=== PATIENT | female | born 1945 | race Caucasian/White ===

== ENCOUNTER → 2016-04-26 | Outpatient (CLI) | payer MEDICARE ==
[~2016-04-26] MED LIST: ABIL5TAB; ADDE10TA; AMPHETAMINE SALTS; CLON1TAB; CYTOMEL; LEVA500T; PROZ20CA; SYNT150T
[2016-04-26 18:12] LABS: ALBUMIN/GLOBULIN RATIO 1.38 (1.00-1.93); ALKALINE PHOSPHATASE 72 U/L (45-117); ALT/SGPT 17 U/L (12-78); ANION GAP 6 MEQ/L (8-16); AST/SGOT 10 U/L (15-37); BILIRUBIN,TOTAL 0.2 MG/DL (0.2-1.0); BLOOD UREA NITROGEN 14 MG/DL (7-18); CALCIUM LEVEL 9.6 MG/DL (8.8-10.2); CARBON DIOXIDE LEVEL 28 MEQ/L (21-32); CHLORIDE LEVEL 107 MEQ/L (98-107); FREE T4 1.46 NG/DL (0.76-1.46); GLOMERULAR FILTRATION RATE > 60.0 (>45); GLUCOSE, FASTING 80 MG/DL (80-110); POTASSIUM SERUM 4.1 MEQ/L (3.5-5.1); SODIUM LEVEL 141 MEQ/L (136-145); TOTAL PROTEIN 6.9 GM/DL (6.4-8.2)
[2016-04-26 19:24] LABS: MEAN CORPUSCULAR HEMOGLOBIN 32.6 pg (27.0-33.0); MEAN CORPUSCULAR HGB CONC 32.9 g/dl (32.0-36.5); WHITE BLOOD COUNT 5.9 K/mm3 (4.0-10.0)
[2016-04-26 20:58] LABS: EOSINOPHILS 2 % (0-5)
== END ==
LOC: M WUC 14:32
PROVIDERS: ATTEND Physician Assistant
DX: R19.7 Diarrhea, unspecified (principal)

== ENCOUNTER → 2016-04-27 | Outpatient (REF) | payer MEDICARE | LOC: M LAB REF 14:58 | PROVIDERS: ATTEND Physician Assistant | DX: R19.7 Diarrhea, unspecified (principal) ==

== ENCOUNTER 2016-05-09 14:57 | Inpatient (IN) | payer MEDICARE ==
[~2016-05-09] VITALS: Ht 175.3 cm; Wt 83.0 kg
[2016-05-09] MEDS ORDERED: D-AMPHETAMINE PO (15:15)
[2016-05-09] MEDS ORDERED: METF500T PO (15:15)
[2016-05-09] MEDS ORDERED: FLUO40CA PO (15:15)
[2016-05-09] MEDS ORDERED: OMEP40CA2 PO (15:15)
[2016-05-09] MEDS ORDERED: AMLO5TAB2 PO (15:15)
[2016-05-09] MEDS ORDERED: BUPR300T34 PO (15:15)
[2016-05-09] MEDS ORDERED: LEVO175T2 PO (15:15)
[2016-05-09] MEDS ORDERED: LATU80TA PO (15:15)
[2016-05-09] MEDS ORDERED: CLON0.2T PO (15:15)
[2016-05-09] MEDS ORDERED: DIAZ10TA2 PO (15:15)
[2016-05-09] MEDS ORDERED: LYRI150C PO (15:15)
[2016-05-09 15:55] LABS: ANION GAP 7 MEQ/L (8-16); BLOOD UREA NITROGEN 11 MG/DL (7-18); CARBON DIOXIDE LEVEL 28 MEQ/L (21-32); CHLORIDE LEVEL 107 MEQ/L (98-107); CREATININE FOR GFR 0.95 MG/DL (0.55-1.02); GLOMERULAR FILTRATION RATE > 60.0 (>45); GLUCOSE, FASTING 78 MG/DL (80-110); SODIUM LEVEL 142 MEQ/L (136-145)
[2016-05-09 18:03] LABS: BASO % 0.4 % (0.0-1.0); EOS # 0.3 K/mm3 (0.0-0.50); EOS % 2.9 % (0.0-3.0); LARGE UNSTAINED CELL # 0.1 K/mm3 (0.0-0.4); LYMPH # 2.2 K/mm3 (1.5-4.5); LYMPH % 24.4 % (24.0-44.0); MEAN CORPUSCULAR HGB CONC 33.5 g/dl (32.0-36.5); MEAN CORPUSCULAR VOLUME 98.5 fl (80.0-96.0); MONO # 0.4 K/mm3 (0.0-0.8); MONO % 4.2 % (0.0-5.0); NEUTROPHILS # 5.9 K/mm3 (1.8-7.7); NEUTROPHILS % 67.1 % (36.0-66.0); PLATELET COUNT, AUTOMATED 222 k/mm3 (150-450); RED CELL DISTRIBUTION WIDTH 12.9 % (11.5-14.5); WHITE BLOOD COUNT 8.8 K/mm3 (4.0-10.0)
--- NOTE | 2016-05-09 18:04 | REP ---
CT of the brain without IV contrast: Comparison is 09/27/2011. The there is focal hypodensity in the right temporal parietal zone as an interval change. This could represent ischemic infarct or mass. MRI follow-up is recommended. There is no hemorrhage. No shift. Ventricles and sulci are mildly dilated as previously compatible with diffuse volume loss. Previously there was evidence for sinusitis. This has resolved. Hyperostosis frontalis is again noted, unchanged. Impression: Focal hypodensity in the right temporoparietal zone, not present previously. Ischemic infarct versus mass. Recommend MRI follow-up. Signed by Sawyer Gonzalez MD 05/09/2016 05:56 P
--- NOTE | 2016-05-09 18:23 | REP ---
Chest, single AP view, patient sitting: Comparison is 02/23/2010. There are no masses. There are no infiltrates. There are no effusions. There is discoid atelectasis in the left costophrenic angle. The lung reyna are otherwise clear. Cardiac size is upper normal. The therese, mediastinum, bony thorax are unremarkable except for healed left rib fractures. Impression: Discoid atelectasis in the left costophrenic angle. Otherwise, essentially negative single AP chest. No masses are identified. Signed by Sawyer Gonzalez MD 05/09/2016 06:14 P
--- NOTE | 2016-05-09 20:20 | REPUSA ---
CLINICAL HISTORY: Possible lesion on CT. TECHNIQUE: MRI of the brain was performed utilizing multiple sequences in axial, coronal and sagittal planes without and with IV contrast material. COMMENTS: There is a 4 x 3 cm wedge-shaped area in the right parietal lobe demonstrating restricted diffusion c ompatible with acute ischemic stroke. The sella and parasellar region are unremarkable in appearance. The corpus callosum and cerebellar to nsils are of normal configuration and position. There are no intra or extra-axial collections. There is no mass effect or midline shift. There is no evidence of hematoma formation. There is no hydroceph alus. The visualized arterial structures demonstrate normal appearing flow voids. The seventh and eighth ne rve bundles are visualized and are unremarkable in appearance. Several foci of T2/FLAIR hyperintensity are noted in the bilateral periventricular and subcortical wh ite matter compatible with mild chronic white matter ischemic changes. Generalized proportionate dilatation of ventricles and sulci is present compatible with age-appropria te parenchymal atrophy. Post contrast T1 axial and coronal images showed no abnormal enhancement in the brain, meninges or si nuses. IMPRESSION: 1. Acute right parietal stroke. 2. Generalized age-appropriate parenchymal atrophy. 3. Mild chronic white matter microvascular ischemic changes. Discussed with Dr. Bran.
[2016-05-09] MEDS ORDERED: ASPIRIN 325 MG TAB PO ONE (20:30)
[2016-05-09] MEDS ORDERED: NORCO, ANEXSIA 5/325MG TABLET (HYDROcodone/ACETAMINOPHEN) PO ONE (20:45)
[2016-05-09] MEDS ORDERED: ADDE30CA PO (20:58)
[2016-05-09] MEDS ORDERED: ADDE5TAB5 PO (20:58)
[2016-05-09] MEDS ORDERED: ONDA1TAB15 PO (21:00)
[2016-05-09] MEDS ORDERED: PREGABALIN 75 MG CAP(LYRICA) PO SCH (21:00)
[2016-05-09] MEDS ORDERED: PROM125TA PO (21:00)
[2016-05-09] MEDS ORDERED: cloNIDine 0.2 MG TAB PO PRN (23:00)
[2016-05-10] MEDS: ONDANSETRON 4MG/2ML VIAL (J2405) IV SCH ×4 (00:13→18:09)
[2016-05-10] MEDS: OMEPRAZOLE 20 MG CAP PO SCH ×3 (00:14→22:00)
[2016-05-10] MEDS: amLODIPine 5 MG TAB PO SCH ×2 (00:14→21:00)
[2016-05-10] MEDS: ATORVASTATIN 20 MG TAB PO SCH ×2 (00:14→22:02)
[2016-05-10] MEDS: LURASIDONE HCL 40 MG TAB (LATUDA) PO SCH ×2 (00:14→21:59)
[2016-05-10] MEDS ORDERED: GLUCAGON FOR INJ 1 MG VIAL (J1610) SC PRN (00:15)
[2016-05-10] MEDS ORDERED: DEXTROSE 50% 50 ML SYRINGE IV PRN (00:15)
[2016-05-10] MEDS ORDERED: GLUCOSE 4 GM CHEW TABLET PO PRN (00:15)
--- NOTE | 2016-05-10 00:27 | HPEPDOC ---
General Date of Admission May 09, 2016 at 21:01 Primary Care Physician: Nayeli Atkins Attending Physician: CATY HERNANDEZ MD Chief Complaint The patient is a 70-year-old female admitted with a reason for visit of Cerebrovascular Accident. Source: Patient, Family, RN notes reviewed, Old records Exam Limitations: No limitations Timing/Duration: Day(s) (symptoms started on 05/03/2016) Associated Symptoms: Nausea, Vomiting, Weakness, Dizziness, Other (4) History of Present Illness Ms. Day is a 70-year-old female who presents to [facility]'s emergency Department with a fall. She is accompanied in the emergency department by her two sons. Past medical history is significant for depression, bipolar disorder (per patient), hypertension, diabetes mellitus, hypothyroidism, insomnia, history of nephrolithiasis (per patient), Brunson's neuroma, history of trigger finger, history of hiatal hernia, gastroesophageal reflux disease, history of fecal and urinary incontinence, colonic polyps on colonoscopy, diverticulosis colonoscopy , nonbleeding internal hemorrhoids on colonoscopy. Patient has quite a complex history. Mentions that she has bipolar and feels as if she is overmedicated. She states that she takes Adderall for depression and has been without Adderall for the past 4-5 days. Patient states that she was recently started on Lyrica 150 mg and started the medicine on 05/03/2016. She is previously been on Lyrica without the symptoms to be described. Per patient, she feels like minutes after taking the Lyrica is when her symptoms started. She describes swaying, getting wobbly, and slurring her words as if she were drunk. She also began falling and notes that she has fallen a total of 6 times. The most recent fall was last night when she states that she hit her head on the wooden floor. She denies loss of consciousness or any post-fall confusion. A week before this she fell in the garage and bumped her right knee on the cement. She does not complain of an unsteadiness on her feet, however she does describe her balance being off for approximately 4 months. She states that she needs to steady herself against the wall and it feels as if the room is spinning. She states that she is "not with it". She mentions a history of low- grade fevers, but states she is afebrile now. She describes a frontal pressure- like headache which has remained constant for which Excedrin has helped previously. She states that she used to take Imitrex secondary to migraines. She admits to attempted episodes of vomiting that have just resulted in bile- like emesis with no blood. She states that she vomits at least once a day. Denies tongue maceration or incontinence of bowel or bladder. Admits to feelings of lightheadedness with change in position from laying to sitting or sitting to standing, but does not recall a history of falls with these episodes. States that she can feel her heart palpitating especially when her blood pressure gets high. She also notices it in her neck when her blood pressure is elevated. Denies irregularly irregular heart rate or rhythm. Admits to a history of vertigo, denies any acute vision changes, including abrupt onset vision loss, blurriness, double vision. Admits to decreased hearing in her left ear. Per patient, states she does not have a history of diabetes or any episodes of high or low blood sugar. However, she does not check her sugar at home. Does describe bilateral hand numbness only at night when she is sleeping. States that she has to shake her hands to alleviate the numbness. Admits to chronic nonbloody diarrhea. Her main reason for presenting to the emergency department was a fall she sustained last evening with subsequent weakness this morning she states she was unable to get out of bed. Besides review of systems mentioned above all other review of systems are negative. Patient denies chest pain, orthopnea, paroxysmal nocturnal dyspnea, abdominal pain, hematuria, melena, hematochezia, urinary frequency, urinary urgency, edema, back pain. Hospitalist service was consult should and patient was subsequently admitted for continued medical management. Home Medications Scheduled Amlodipine Besylate (Amlodipine Besylate) 5 Mg Tab 5 MG PO QHS (Reported) Amphetamine/Dextroamphetamine (Adderall 5 mg) 1 Tab Tab 20 MG PO QPM (Reported ) TAKES AT 1500 Amphetamine/Dextroamphetamine (Adderall Xr 30 mg) 1 Cap Cap 1 CAP PO DAILY ( Reported) Bupropion HCl (Bupropion HCl Xl) 300 Mg Tab 300 MG PO DAILY (Reported) Fluoxetine Hcl (Fluoxetine HCl) 40 Mg Cap 80 MG PO DAILY (Reported) Levothyroxine Sodium (Synthroid) 175 Mcg Tab 175 MCG PO DAILY (Reported) Lurasidone Hydrochloride (Latuda) 80 Mg Tab 80 MG PO QHS (Reported) Metformin Hydrochloride (Metformin HCl) 500 Mg Tab 1,000 MG PO BID (Reported) Omeprazole (Omeprazole) 40 Mg Cap 40 MG PO BID (Reported) Pregabalin (Lyrica) 150 Mg Cap 150 MG PO TID (Reported) FAMILY CONCERNED ABOUT DOSING Scheduled PRN Clonidine Hydrochloride (Clonidine HCl) 0.2 Mg Tab 0.6 MG PO QHS PRN PRN SLEEP ( Reported) Diazepam (Diazepam) 10 Mg Tab 10 MG PO TID PRN PRN ANXIETY (Reported) Ondansetron HCl (Ondansetron HCl) 4 Mg Tab 4 MG PO Q6H PRN PRN NAUSEA (Reported ) Promethazine HCl (Promethazine HCl) 12.5 Mg Tab 12.5 MG PO Q6H PRN PRN NAUSEA ( Reported) Allergies Coded Allergies: No Known Drug Allergy (Verified Allergy, Unknown, 06/03/12) Past Medical History Medical History Obtained mostly from prior medical records: 1. Depression 2. Hypertension 3. Diabetes mellitus 4. Hypothyroidism 5. Insomnia 6. Brunson's neuroma 7. Gastroesophageal reflux disease 8. History of nephrolithiasis 9. Trigger finger 10. History of hiatal hernia 11. History of fecal and urinary incontinence 12. History of colonic polyps 13. Diverticulosis 14. History of nonbleeding internal hemorrhoids Surgical History 1. Colonoscopies 2. InterStim with InterStim removal secondary to failure 3. Trigger finger release, right 4. Brunson's neuroma, left foot 5. Hysterectomy 6. Carpal tunnel 7. Appendectomy 8. 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, 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 Denies environmental exposures Review of Symptoms Constitutional: Reports: Chills, Night Sweats, Weakness, Denies: Fever Eyes: Reports: Other (denies double vision, blurry vision, transient loss of vision), Denies: Vision change ENT: Reports: Head Aches (frontal, pressure-like), Other Symptoms (admits to decreased hearing in the left ear), Denies: Sore Throat Skin: Reports: Lesions (secondary to falls, one healing scabbed over ovoid lesion noted above right eyebrow approximately quarter of an inch in its longest diameter, 1 healing scar noted over right tibial tuberosity approximately an 8-10 inch its longest diameter), Denies: Rash Pulmonary: Denies: Cough, Dyspnea, Pleuritic Chest Pain Cardiovascular: Reports: Lt Headedness, Palpitations (only noted with elevated blood pressure), Denies: Chest Pain, Edema, Orthopnea, Paroxysmal Noc. Dyspnea Gastrointestinal: Reports: Diarrhea (nonbloody), Nausea, Vomiting (minimal amount of bile-like substance), Denies: Abdominal Pain, Constipation, Hematochezia, Melena Genitourinary: Denies: Dysuria, Frequency, Hematuria, Incontinence Hematologic: Denies: Bruising Musculoskeletal: Denies: Back Pain Neurological: Reports: Change in speech (slurring of speech), Numbness, Weakness Psych: Reports: Depression Physical Examination General Exam: Positive: Alert, Cooperative, No Acute Distress Eye Exam: Positive: Conjunctiva & lids normal, EOMI, PERRLA, Negative: Sclera icteric ENT Exam: Positive: Atraumatic, Nares Patent, Pharynx Normal, Tongue Midline ( without a maceration or fissuring) Neck Exam: Positive: Supple, Negative: JVD, thyromegaly Chest Exam: Positive: Clear to auscultation, Normal air movement Heart Exam: Positive: Normal S1, Normal S2, Other (inspiratory splitting noted) , Rate Normal, Regular Rhythm, Negative: Gallops, Murmurs, Rubs Telemetry: Positive: No significant arrhythmia, Other Telemetry: (right bundle- branch block and left axis deviation noted on EKG), Sinus Abdomen Exam: Positive: Normal bowel sounds, Other (flower tattoo noted between the right upper and lower quadrants of the abdomen), Soft, Negative: Hepatospenomegaly, Tenderness Extremity Exam: Positive: Normal pulses, Other (healed scar on left forearm from a history of cutting, per patient), Negative: Clubbing, Cyanosis, Edema, Swelling, Tenderness Skin Exam: Positive: Lesion (ovoid scab noted above right eyebrow approximately a quarter for an intention is longest diameter, healing scab noted on tibial tuberosity on the right lower extremity approximately an 8 of an inch in diameter), Nl turgor and temperature, Negative: Rash Neuro Exam: Positive: Cranial Nerves 3-12 NL, Normal Speech, Normal Tone, Other (NIH stroke scale positive for mild left lower extremity drift as well as decreased sensation in the left lower extremity), Reflexes 2+ (brachial, patellar, Achilles tendon reflexes bilaterally are intact), Strength at 5/5 X4 ext (strength assessed in upper and lower extremities bilaterally), Negative: Sensation Intact (sensation decreased to pinprick in lower extremity on the left with medial and lateral aspects of the lower leg as well as plantar surface of the foot) Psych Exam: Positive: Oriented x 3 Vital Signs T 99.7 HR 60 RR 20 BP 115/66 O2 95% on room air Height (in): 69 Weight (kg): 86.183 BMI (kg): 28.1 Laboratory Data Labs 24H Laboratory Tests 2 05/09/16 15:12: Anion Gap 7L, Blood Urea Nitrogen 11, Creatinine 0.95, Sodium Level 142, Potassium Level 4.0, Chloride Level 107, Carbon Dioxide Level 28, Calcium Level 9.0, Free Thyroxine 0.80, Glomerular Filtration Rate > 60.0, Thyroid Stimulating Hormone (TSH) 7.740H 05/09/16 17:50: White Blood Count 8.8, Red Blood Count 4.08, Hemoglobin 13.5, Hematocrit 40.2, Mean Corpuscular Volume 98.5H, Mean Corpuscular Hemoglobin 33.0, Mean Corpuscular Hemoglobin Concent 33.5, Red Cell Distribution Width 12.9, Platelet Count 222, Neutrophils (%) (Auto) 67.1H, Lymphocytes (%) (Auto) 24.4, Monocytes (%) (Auto) 4.2, Eosinophils (%) (Auto) 2.9, Basophils (%) (Auto) 0.4, Neutrophils # (Auto) 5.9, Lymphocytes # (Auto) 2.2, Monocytes # (Auto) 0.4, Eosinophils # (Auto) 0.3, Basophils # (Auto) 0.0, Large Unclassified Cells # 0.1 , Large Unclassified Cells % 1.0 CBC/BMP Laboratory Tests 05/09/16 15:12 Calcium Level 9.0 05/09/16 17:50 Red Blood Count 4.08, Mean Corpuscular Volume 98.5 H, Mean Corpuscular Hemoglobin 33.0, Mean Corpuscular Hemoglobin Concent 33.5, Red Cell Distribution Width 12.9, Neutrophils (%) (Auto) 67.1 H, Lymphocytes (%) (Auto) 24.4, Monocytes (%) (Auto) 4.2, Eosinophils (%) (Auto) 2.9, Basophils (%) (Auto ) 0.4, Neutrophils # (Auto) 5.9, Lymphocytes # (Auto) 2.2, Monocytes # (Auto) 0.4, Eosinophils # (Auto) 0.3, Basophils # (Auto) 0.0 RAD Interpretation STUDY: CXR Rad Actions: Report Reviewed (discoid atelectasis in the left costophrenic angle. Otherwise, essentially negative single AP chest. No masses are identified.), Other Rad Comments: (CT head without contrast: Focal hyperdensity in the right temporoparietal zone, not present previously. Ischemic infarct versus mass. Recommend MRI follow-up. MRI brain without followed by with: Acute right parietal stroke. Generalized age-appropriate parenchymal atrophy. Mild chronic white matter microvascular ischemic changes.) Assessment/Plan This is a 70-year-old female who initially presented with a fall and was determined on imaging to have an ischemic stroke. Problems (1) Cerebrovascular accident (CVA) Status: Acute Problem Text: Imaging: CT of the head without contrast: Focal hyperdensity in the right temporal parietal zone, not previously present. Ischemic infarct versus mass. Recommend MRI follow-up. MRI of the brain without followed by with: Acute right parietal stroke. Generalized age-appropriate parenchymal atrophy. Mild chronic white matter microvascular ischemic changes. Admit patient to the PCU Obtain vital signs and neurological checks every 4 hours Obtain echocardiogram Obtain ultrasound of the carotids Obtain MRA without contrast Order physical therapy Prescribe atorvastatin 80 mg daily Prescribed aspirin 325 mg daily (2) Nausea and vomiting Status: Acute Problem Text: Switch patient's Zofran by mouth to IV Monitor clinically Monitor I's and O's (3) Hypothyroidism Status: Chronic Problem Text: Patient's TSH was 7.740 Free T4 0.8 Maintain patient on home dose of levothyroxine of 0.175 mg daily (4) Depression Status: Chronic Problem Text: Maintain patient on her medications - Adderall - Lyrica - Fluoxetine (5) Hypertension Status: Chronic Problem Text: Patient's blood pressure is 115/66 The patient on home medications of Catapres and Norvasc (6) Alcohol abuse Status: Chronic Problem Text: Patient takes diazepam as an outpatient We'll continue patient's outpatient benzodiazepine to control possible withdrawal from alcohol Administer folic acid, multivitamin, and thiamine (7) Diabetes mellitus Status: Chronic Problem Text: Patient's blood sugar at time of presentation was 78 Appears that patient takes metformin outpatient Will manage patient with sliding scale insulin and fingersticks before meals and at bedtime Plan / VTE VTE Prophylaxis Ordered?: Yes (Lovenox 40 mg subcutaneous daily) Plan Plan Cerebrovascular accident MRI shows acute right parietal stroke. Will monitor vital signs and neurological checks every 4 hours. We'll admit patient to the progressive care unit. We'll obtain a physical therapy consult. We'll obtain an echocardiogram as well as ultrasound of carotids bilaterally. Also obtain an MRA without contrast. Will place patient on atorvastatin 80 mg daily as well as aspirin 325 mg daily. Obtain daily labs. Nausea and vomiting It appears that this patient has been taking Zofran 4 mg by mouth. Will switch patient Zofran IV while in the hospital. Monitor clinically. Hypothyroidism Patient's TSH at time of presentation was 7.740. Free T4 was 0.8. We'll prescribe patient's home dose of levothyroxine at 0.175 mg daily. Will monitor patient clinically. Alcohol abuse Unable to ascertain the exact amount of alcohol consumption, but appears to sound like patient consumes approximately 2-3 drinks (including beer and wine) daily. Patient is on diazepam outpatient. We'll continue this for prophylaxis against Wernicke encephalopathy. Will monitor patient clinically for signs of withdrawal. We'll prescribe patient folic acid, multivitamin, and thiamine while in the hospital. Depression Patient appears to be on several medicines for her depression, including Adderall, Lyrica, Wellbutrin, and fluoxetine. We'll continue these medicines inpatient. Hypertension Patient's blood pressure time of presentation was 115/66. We'll continue patient on her medications of Catapres and Norvasc. Diabetes mellitus Patient's blood sugar at time of presentation was 78. Appears as the patient takes metformin outpatient. We'll cover the patient with sliding scale insulin and fingersticks before meals and at bedtime. DVT prophylaxis: Lovenox 40 mg subcutaneous daily Diet: Consistent carbohydrate-2 g sodium Disposition Admit to PCU Anticipated hospitalization: 2 nights Attending: Dr. Melendez Diet: Continue Current (consistent carbohydrate-2 g sodium) Activity: Continue Current (bed red with commode privileges) Therapy: PT Medications: Change to IV Diagnostics: Check Labs, Repeat Labs in AM, MRI (MRI of the brain without contrast), TTE Anticipated Discharge: Home CHET VALENCIA May 10, 2016 00:22
[2016-05-10] MEDS: LEVOTHYROXINE 0.075 MG TAB (75 MCG) PO SCH (05:56)
[2016-05-10] MEDS: LEVOTHYROXINE 0.1 MG TAB (100 MCG) PO SCH (05:56)
[2016-05-10] MEDS: HumaLOG INSULIN (NovoLOG) PER UNIT SC SCH ×4 (07:30→21:00)
[2016-05-10 08:00] VITALS: BP 109/61
--- NOTE | 2016-05-10 08:22 | ECGEPIP ---
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
[2016-05-10 08:46] LABS: ANION GAP 9 MEQ/L (8-16); BLOOD UREA NITROGEN 8 MG/DL (7-18); CALCIUM LEVEL 8.4 MG/DL (8.8-10.2); CARBON DIOXIDE LEVEL 28 MEQ/L (21-32); CHLORIDE LEVEL 106 MEQ/L (98-107); CREATININE FOR GFR 0.78 MG/DL (0.55-1.02); GLOMERULAR FILTRATION RATE > 60.0 (>45); GLUCOSE, FASTING 131 MG/DL (80-110); POTASSIUM SERUM 3.5 MEQ/L (3.5-5.1); SODIUM LEVEL 143 MEQ/L (136-145)
[2016-05-10] MEDS ORDERED: ASPIRIN 325 MG TAB PO SCH (09:00)
[2016-05-10] MEDS ORDERED: ADDERALL 5 MG TAB PO SCH ×2 (09:00→21:00)
[2016-05-10] MEDS ORDERED: ENOXAPARIN 40 MG/0.4 ML SYRINGE (J1650) SC SCH (09:00)
[2016-05-10] MEDS ORDERED: NS 1,000 ML IV SCH (09:00)
[2016-05-10] MEDS ORDERED: ACETAMINOPHEN TAB 650MG DOSE (2X325MG) PO PRN (09:15)
--- NOTE | 2016-05-10 09:43 | REP ---
DUPLEX CAROTID SONOGRAPHY: HISTORY: CVA. FINDINGS: Antegrade flow was observed in both vertebral arteries. RIGHT CAROTID: The right common carotid artery shows mild diffuse intimal thickening. There is minimal soft plaquing in the proximal ICA on two-dimensional scanning. Color-flow and spectral Doppler interrogation are unremarkable on the right. VELOCITY CHART, RIGHT CAROTID: Right CCA PSV 89 cm/s Right ICA PSV 84 EDV 32 Right ECA PSV 98 Right ICA/CCA ratio normal 0.94 IMPRESSION: 0-15% category narrowing in the right ICA by Doppler velocity criteria. LEFT CAROTID: The left common carotid artery shows mild diffuse intimal thickening. There is mild mixed plaquing in the bulb and proximal ICA on the left side on two-dimensional scanning. Color-flow and spectral Doppler interrogation are normal on the left. VELOCITY CHART, LEFT CAROTID: Left CCA PSV 85 cm/s Left ICA PSV 109 EDV 29 Left ECA PSV 113 Left ICA/CCA ratio normal 1.3 IMPRESSION: 16-49% category narrowing in the left ICA by Doppler velocity criteria. Signed by Dre Frey MD 05/10/2016 06:17 P
[2016-05-10 09:50] LABS: INR 1.06
[2016-05-10] MEDS: MULTIVITAMINS/MINERALS THERAP 1 TAB PO SCH (10:59)
[2016-05-10] MEDS: FLUoxetine 20 MG CAP PO SCH (10:59)
[2016-05-10] MEDS: FOLIC ACID 1 MG TAB PO SCH (10:59)
[2016-05-10] MEDS: ASPIRIN 325 MG TAB PO SCH (11:00)
[2016-05-10] MEDS: THIAMINE 100 MG TAB PO SCH (11:00)
[2016-05-10] MEDS: buPROPion **XL** TABLET 150MG (WELLBUTRIN XL) PO SCH (11:01)
[2016-05-10] MEDS ORDERED: MECLIZINE 12.5 MG TAB PO PRN (11:45)
[2016-05-10 12:00] VITALS: BP 150/86
[2016-05-10 14:15] VITALS: BP 157/88
--- NOTE | 2016-05-10 15:07 | REP ---
MR ANGIOGRAM BRAIN WITHOUT CONTRAST: 05/10/2016. Comparison MRI brain 05/09/2016, MRA brain 03/30/2008. Clinical history: Right parietal CVA. Technique: 3-D [id number] gradient echo images with MIP reformatting and rotational display of the volume reconstructions about the longitudinal and horizontal axis of the brain. All source images are reviewed. Findings. There is a dominant left vertebral artery contribution to the basilar artery with some mild stenosis of the distal vertebral arteries near the basilar artery. The basilar artery is ectatic without aneurysm. No significant stenosis. The basilar tip was without aneurysm. Both posterior cerebral arteries form off the basilar artery. There is a posterior communicating artery contributing to the left posterior cerebral. This is unchanged in appearance. Supply to the posterior fossa is symmetric. The right internal carotid from the skull base to the carotid siphon shows no significant stenosis or aneurysm. There is some atherosclerotic plaque in the siphon. The supraclinoid, carotid, A1 and M1 segments are intact. The right AT segment and M2 segment is intact, but there is limited peripheral flow in the middle cerebral artery branches posteriorly on the right corresponding to the region of infarct. No aneurysm. The left internal carotid shows some tortuosity at the skull base to the carotid siphon without significant stenosis or aneurysm. There is atherosclerotic plaque within the carotid siphon and below the supraclinoid carotid. A1 and M1 segments were intact and the trifurcation vessels and A2 segments on the left side were intact as well. Impression: 1. A dominant left vertebral artery contribution to the basilar artery without significant stenosis or aneurysm. The left posterior cerebral artery has a dual origin from the basilar tip and a posterior communicating artery component with symmetric supply to the posterior fossa, right and left HAND FINISHER's. 2. The right middle cerebral artery shows loss of branches of the M2 and M3 segments in the right parietal lobe region, asymmetric compared to the left, which shows normal trifurcation vessels. This would correspond to the region of the acute infarct seen in the right parietal lobe on MRI yesterday. The bilateral internal carotids show some atherosclerotic plaque, but were otherwise normal in their appearance and circulation of their major branches. Signed by Poli Escobar MD 05/10/2016 06:43 P
[2016-05-10 16:09] LABS: MEAN CORPUSCULAR HEMOGLOBIN 33.3 pg (27.0-33.0); MEAN CORPUSCULAR VOLUME 97.9 fl (80.0-96.0); RED CELL DISTRIBUTION WIDTH 12.8 % (11.5-14.5); WHITE BLOOD COUNT 7.3 K/mm3 (4.0-10.0)
[2016-05-10 20:00] VITALS: BP 132/78
[2016-05-10] MEDS: diazePAM 10 MG TAB PO PRN (21:59)
--- NOTE | 2016-05-10 22:38 | ECGEPIP ---
Stationary ECG Study 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
--- NOTE | 2016-05-10 22:42 | ECHO ---
DATE OF PROCEDURE: 05/10/2016 AGE: 70 GENDER: Female HEIGHT: 69 inches WEIGHT: 189 pounds BODY SURFACE AREA: 2.0 m2 PATIENT LOCATION: Inpatient, PCU, room 3217 REFERRING PHYSICIAN: Luisa Gill MD INDICATION: CVA. Question of cardiac source of embolic material. 2-D MEASUREMENTS: RV: 4.0 cm LV: 4.4 cm Septum: 1.22 cm Posterior wall: 1.1 cm Aortic root: 3.4 cm LA: 4.3 cm LVEF: 75% DOPPLER MEASUREMENTS: AV: 1.1 m/s LVOT: 0.83 m/s LVOT diameter: 2.1 cm MV-E: 48, A: 69, EA ratio: 0.7 Early mitral deceleration time: 211 ms E prime 6.6, A prime 10, E/E prime ratio: 7.2 RVSP: 38 mmHg IVC: 2.0 cm COMMENTS: Normal sinus rhythm with right bundle branch block. Mildly dilated left atrium, but normal left ventricular size. Right heart chambers were upper limits of normal in size. LV wall thickness was upper limits of normal to borderline hypertrophied. On real-time imaging from the parasternal and apical projections wall motion was symmetrical and hyperkinetic. Mildly thickened mitral annulus, but normal leaflet thickness and excursion with no posterior systolic buckling. Three equal size aortic cusps with marginally thickened cusp edges, but adequate cusp separation. Normal aortic root size. No apparent intracardiac mass or pericardial effusion. Color flow Doppler study taken from the parasternal and apical projection showed trace mitral and very mild tricuspid insufficiency. There was no aortic insufficiency. Guided continuous wave Doppler of her aortic valve showed a normal peak systolic velocity against LV outflow tract obstruction. Pulsed and continuous wave Doppler of her LV inflow tract taken from the apical four-chamber projection showed normal diastolic filling velocities against mitral stenosis. There was more prominent late diastolic/atrial dependent filling pattern. Diastolic dysfunction was confirmed by prolonged early mitral deceleration time and tissue Doppler of her mitral annulus. However, her current estimated mean left atrial pressure using pulsed and tissue Doppler of her mitral annulus was within normal limits. Her pulmonary valve was not well visualized. Guided continuous wave Doppler of her tricuspid valve allowed our estimation of her right ventricular systolic pressure (mildly increased). Her inferior vena cava was upper limits of normal with slightly reduced respiratory collapse suggestive of central venous pressure of 7-10 mmHg. CONCLUSIONS: Unable to detect a clear intracardiac source of embolic material. Subtle degenerative changes of the mitral and aortic valvular apparatus without functionally significant valvular abnormality. No pedunculated mass. Borderline concentric left ventricle hypertrophy with hyperkinetic wall motion. Mildly dilated left atrium with Doppler evidence of impairment of LV diastolic function but currently normal estimated mean left atrial pressure. Right heart chamber sizes upper limits of normal with Doppler evidence of mild pulmonary hypertension. Normal IVC size with slightly reduction in respiratory collapse suggestive of only slightly elevated central venous pressure. If a cardiac source of embolic material is seriously suspect, we would recommend a complete blood count, sedimentation rate and two sets of blood cultures by 12 hours. We will also suggest consideration of a transesophageal echocardiogram. MTDD
[2016-05-11] VITALS (7 sets, daily range): BP systolic 129–162; BP diastolic 67–93
[2016-05-11] MEDS: ONDANSETRON 4MG/2ML VIAL (J2405) IV SCH ×5 (00:08→23:46)
[2016-05-11 05:58] LABS: MEAN CORPUSCULAR HEMOGLOBIN 32.9 pg (27.0-33.0); MEAN CORPUSCULAR HGB CONC 33.7 g/dl (32.0-36.5); MEAN CORPUSCULAR VOLUME 97.4 fl (80.0-96.0); RED CELL DISTRIBUTION WIDTH 12.6 % (11.5-14.5); WHITE BLOOD COUNT 6.6 K/mm3 (4.0-10.0)
[2016-05-11 06:08] LABS: ANION GAP 9 MEQ/L (8-16); BLOOD UREA NITROGEN 8 MG/DL (7-18); CALCIUM LEVEL 8.2 MG/DL (8.8-10.2); CARBON DIOXIDE LEVEL 27 MEQ/L (21-32); CHLORIDE LEVEL 106 MEQ/L (98-107); CREATININE FOR GFR 0.81 MG/DL (0.55-1.02); GLOMERULAR FILTRATION RATE > 60.0 (>45); GLUCOSE, FASTING 97 MG/DL (80-110); POTASSIUM SERUM 3.7 MEQ/L (3.5-5.1); SODIUM LEVEL 142 MEQ/L (136-145)
[2016-05-11] MEDS: LEVOTHYROXINE 0.1 MG TAB (100 MCG) PO SCH (06:23)
[2016-05-11] MEDS: LEVOTHYROXINE 0.075 MG TAB (75 MCG) PO SCH (06:23)
[2016-05-11] MEDS: HumaLOG INSULIN (NovoLOG) PER UNIT SC SCH ×4 (07:28→21:00)
--- NOTE | 2016-05-11 07:36 | IPN ---
DATE: 05/10/2016 Time the patient was this morning at 8:15. The patient has been seen and examined at bedside. The patient's nurse told me that the patient might have fallen off the bed last night. However, it was not witnessed. Otherwise, today is the first time I am seeing this patient. She explained to me that fell two days ago and might have hit the right side of her head. She explained to me that she has been feeling dizzy, has slurred speech, has a left leg weakness, numbness and tingling in the lower extremity, and also pain at the left foot as well. Per the patient, it started after she was started with Lyrica on 04/28/2016. According to her chart, she also had a low-grade fever and she also vomited. Otherwise, she stated that her symptoms have not changed compared to the day prior. Denies any fever or chills, any chest pain, trouble breathing, abdominal pains, nausea, vomiting, diarrhea, or constipation. Denies any blood in the urine or stool. Denies any other current new complaints. PHYSICAL EXAMINATION: VITAL SIGNS: Temperature is 97.4, pulse 62, respirations 20, blood pressure 109/61, oxygen saturation 93% on room air. GENERAL: The patient is an elderly female who is awake, alert, and oriented times three, appears to be anxious, laying comfortably in bed with head elevated at 30 degrees. HEENT: Normocephalic, atraumatic. Extraocular motor intact. Mucous moist. NEUROLOGIC: The patient's eyebrow raise is equal bilaterally. Smile is symmetrical. Gssxjf-[id number] shows poor coordination, worse on the left side. Cranial nerves II-XII intact. No focal neurological deficit. However, the patient does have a significant muscle weakness at the left lower extremity. The patient's vnyl-bm-[id number] test shows poor coordination from the left side as well. NECK: Supple. No neck lymphadenopathy. CARDIOVASCULAR: Regular rate and rhythm, normal S1, S2. A 2/6 systolic heart murmur. LUNGS: Clear to auscultation bilaterally. No wheezes, rales, or rhonchi. ABDOMEN: Positive bowel sounds, soft, nontender, nondistended. No peritoneal signs. No ecchymosis. EXTREMITIES: No clubbing, cyanosis, or edema. The patient, however, has reduced muscle strength at lower extremities as well as reduced sensation at the left lower extremity. However, left lower extremity was not tender to palpation. SKIN: Warm and dry. LABORATORY DATA: WBC 7.3, hemoglobin 14, hematocrit is 41.2 with a platelet count of 223 and MCV of 97.9. Sodium 143, potassium 3.5, chloride 106, bicarbonate 28, BUN 8, creatinine 0.78, GFR greater than 60, fasting glucose 131, calcium 8.4, CK 98, CK-MB 1, troponin less than 0.02, TSH was elevated at 7.7, free T4 is within normal range at 0.8. The patient's coagulation shows PT 13.9, INR 1.06, PTT 28.1. Accu-Chek glucose was 111. The patient had a brain MRI done last night at 2313 which is an MRA of the brain and shows a dominant left vertebral artery contribution to the basilar artery without significant stenosis or aneurysm. A left posterior cerebral artery has a dual origin from the basilar tip and a posterior communicating artery component with symmetric supply to the posterior fossa, right and left PROTOTYPER's. A right middle cerebral artery shows loss of branches of M2 and M3 segments of the right parietal lobe region, asymmetric compared to the left side, which shows normal trifurcation vessels. This should correspond with the region of acute infarct seen at the right parietal lobe on MRI yesterday. The bilateral internal carotids show some atherosclerotic plaque, but otherwise normal in appearance and circulation of major branches. The patient also had a carotid Doppler duplex. The right side has a 0% to 5% category narrowing in the right ICA and the left carotid shows a 16% to 49% category narrowing in the left ICA by Doppler velocity criteria. ASSESSMENT AND PLAN: This is a 70-year-old female with past medical history of depression, hypertension, diabetes, hypothyroidism, insomnia, Brunson's neuroma, gastroesophageal reflux disease (GERD), history of nephrolithiasis, trigger finger, hiatal hernia, frequent urinary incontinence, colonic polyps, diverticulosis, history of non-bleeding internal hemorrhoids, who presented with : 1. Neurological changes with left lower extremity weakness and numbness as well as slurred speech and dizziness, likely secondary to cerebrovascular accident (CVA). The patient's MRI of the head shows acute right parietal stroke which was confirmed with an MRA of the brain. Neurology, Dr. Vee, has been consulted. We will follow his recommendations. At this point, the patient was continued with aspirin. Continue the patient on aspiration and seizure precautions. Continue to monitor the patient. Continue to follow Dr. Vee's recommendations. 2. Nausea and vomiting. Continue IV Zofran. 3. Hypothyroidism. Continue home medication. 4. Depression. Continue Adderall and fluoxetine. Lyrica has been discontinued due to the patient believes it is causing her symptoms. 5. Hypertension. The patient's clonidine has been discontinued. Norvasc has been changed with hold parameter of hold if blood pressure is less than 150 for therapeutic hypertension. 6. Alcohol abuse. Continue folic acid, multivitamin, and thiamine. 7. Diabetes. Continue insulin siding scale. 8. Deep vein thrombosis (DVT) prophylaxis, on sequential compression device (SCD). DISPOSITION: The patient does have an acute right parietal stroke. Dr. Vee from neurology has been consulted. We will follow his recommendations. In addition, Adderall dose has been adjusted according to pharmacy recommendation. The patient has been discussed with attending doctor, Dr. Brigido Melendez. My preceptor for this patient encounter was Dr. Brigido Melendez. The preceptor was physically present in the building during the encounter and was fully available as needed. All aspects of the patient interview, examination, medical decision making process, and medical care plan development were reviewed and approved by the preceptor. The preceptor is aware and concurs with the plan as stated in the body of this note and will attest to such by his/her co-signature. Attending note: patient seen and examined independently. All aspects of medical treatment discussed with resident and agree with above course of action MTDD
--- NOTE | 2016-05-11 08:09 | CR ---
DATE OF CONSULTATION: 05/10/2016 REFERRING PHYSICIAN: Dr. Brigido Melendez REASON FOR CONSULTATION: Left leg weakness and imbalance. HISTORY OF PRESENT ILLNESS: Laura Day is a 70-year-old woman who was admitted at [facility] due to left leg weakness, incoordination, imbalance and falls. The patient states that she has been falling for the last couple of months, which have increased since she started taking Lyrica a week ago. She fell the day after she started Lyrica. She again fell Sunday night, but was unable to get up off the ground. She felt weakness in her left leg. She was not able to bear weight on her left leg. She had to crawl to bed. Her brother came to help her. She stayed in bed all day Sunday. She could not get out of bed due to left leg weakness. They finally brought her to [facility]. She complains of mild neck and shoulder blade pain. She denies any trouble with her speech or left arm weakness. She has weakness and numbness of her left leg. She denies any headaches, seizures or loss of consciousness. The patient has been following with her psychiatrist for long-term history of depression and mood disorder. She states that she had multiple hospitalizations for her depression and had electroconvulsive therapy multiple times. PAST MEDICAL HISTORY: Hypertension. Bipolar disorder. Anxiety/depression. Insomnia. Gastroesophageal reflux disease (GERD). Kidney stones. Hiatal hernia. History of urinary incontinence. Diverticulosis. Hemorrhoids. Hysterectomy. Carpal tunnel surgery. Appendectomy. Cholecystectomy. Left foot Brunson's neuroma. ALLERGIES: None. HOME MEDICATIONS: - amlodipine 5 mg by mouth daily - Adderall XR 30 mg in the morning and Adderall 20 mg at 3:00 p.m. - Wellbutrin 300 mg by mouth daily - Prozac 80 mg by mouth daily - levothyroxine 175 mcg by mouth daily - Latuda 80 mg by mouth daily - metformin 500 mg, two tablets by mouth twice a day - Prilosec 40 mg by mouth twice a day - Lyrica 150 mg by mouth three times a day, which she started recently. - clonidine 0.6 mg by mouth at bedtime as needed for insomnia - diazepam 10 mg by mouth three times a day as needed SOCIAL HISTORY: She drinks 2-3 drinks every night. She smokes marijuana occasionally. She denies illicit drugs. FAMILY HISTORY: Brother and mother had colon cancer. of brain tumor. REVIEW OF SYSTEMS: All systems were reviewed and found to be noncontributory except as mentioned history present illness. PHYSICAL EXAMINATION: Temperature 98.1, pulse 82, respiratory rate 20, blood pressure 157/80, 96% saturation on room air. HEART: Regular rate and rhythm. LUNGS: Clear to auscultation. ABDOMEN: Soft, nontender, nondistended. NEUROLOGIC EXAMINATION: Patient is awake, alert, oriented to place, person and time. Normal speech comprehension and repetition. Extraocular muscles are intact. No facial weakness. 5/5 strength in left upper extremity and right arm and leg. Strength in her left leg is 3+/5. She has significantly decreased cold, pinprick, touch, vibration sensation on left side of body. She has cortical sensory loss on left side of body with left-sided neglect. Her plantar is downgoing bilaterally. She has difficulty walking due to left leg weakness and incoordination. DIAGNOSTIC STUDIES: Her CT scan of head and MRI scan of brain showed right frontal and parietal medium sized acute ischemic stroke which affects her right parietal lobe more than right frontal lobe. MRA of brain showed decreased flow in the posterior division of right middle cerebral artery. Carotid ultrasound showed left carotid artery 16-49% and right carotid artery less than 15% stenosis. ASSESSMENT: 1. Right parietal more than right frontal acute ischemic stroke. 2. Mild bilateral carotid artery stenosis. PLAN: 1. Physical and occupational therapy. We may consider inpatient rehabilitation if needed. 2. Aspirin 325 mg by mouth daily. 3. Check fasting lipid profile. 4. Echocardiogram and continue telemetry monitoring. 5. Followup with our office in 1-2 weeks after hospital discharge. She will closely follow with psychiatry for her mood disorder. While she is in the hospital will hold her evening dose of Adderall as it may be contributing to her insomnia.
[2016-05-11] MEDS: OMEPRAZOLE 20 MG CAP PO SCH ×2 (08:39→21:47)
[2016-05-11] MEDS: MULTIVITAMINS/MINERALS THERAP 1 TAB PO SCH (08:39)
[2016-05-11] MEDS: FOLIC ACID 1 MG TAB PO SCH (08:39)
[2016-05-11] MEDS: THIAMINE 100 MG TAB PO SCH (08:39)
[2016-05-11] MEDS: FLUoxetine 20 MG CAP PO SCH (08:39)
[2016-05-11] MEDS: ASPIRIN 325 MG TAB PO SCH (08:39)
[2016-05-11] MEDS: ADDERALL 5 MG TAB PO SCH ×2 (08:39→14:29)
[2016-05-11] MEDS: buPROPion **XL** TABLET 150MG (WELLBUTRIN XL) PO SCH (08:40)
[2016-05-11] MEDS: diazePAM 10 MG TAB PO PRN (08:42)
[2016-05-11] MEDS ORDERED: PREVNAR 13 VACCINE SYRINGE (CPT CODE:90670) IM SCH (09:00)
[2016-05-11 10:02] LABS: CHOLESTEROL LEVEL 194 MG/DL (<200); TRIGLYCERIDES LEVEL 105 MG/DL (<150)
[2016-05-11] MEDS: HEPARIN SOD (PORCINE) 5000 UNITS/ML VIAL SQ SCH ×2 (14:28→21:00)
--- NOTE | 2016-05-11 18:12 | IPN ---
DATE: 05/11/2016 The patient is seen and examined at bedside. No acute events overnight. The patient stated that she is feeling better today. However, she did develop at a headache at the frontal region. The patient stated that she had a similar headache in the past for her migraine. Otherwise, the patient denies any changes with her vision, smell, hearing or taste. Admits to able to move her leg better and admits to the pain has resolved in her leg. Also, denies any new weakness, any urinary retention, any problem with defecation. Denies any other current complaints. PHYSICAL EXAMINATION: VITAL SIGNS: Temperature was 96.8, pulse 64, respirations 20, blood pressure 136/78 with oxygen saturation 93% on room air. GENERAL: The patient is a pleasant, elderly female, who was alert, awake, oriented times three, does not appear to be in distress, resting comfortably in her recliner with head elevated at 60 degrees. HEENT: Normocephalic, atraumatic. Extraocular motor intact. Mucosa moist. NECK: Supple. No neck lymphadenopathy. The patient's [id number] test shows significant improvement compared to the day prior. CARDIOVASCULAR: Regular rate and rhythm. 2/6 systolic heart murmur. LUNGS: Clear to auscultate bilaterally. No wheeze, rales, or rhonchi. ABDOMEN: Positive bowel sounds, soft, nontender, nondistended. No peritoneal signs. No <<1:57>> EXTREMITIES: No edema, clubbing or cyanosis. Muscle strength was actually 5/5 in bilateral upper and lower extremities with slight weaker strength on the left side. SKIN: Warm and dry. NEURO: Cranial nerves II/XII intact. No focal neurological deficit. LABORATORY: White blood count (WBC) 6.6, hemoglobin 13.3 with a hematocrit of 39.4 with a platelet count of 210. Sodium 142, potassium 3.7, chloride 106, bicarbonate 27, BUN 8, creatine 0.85. Glomerular filtration rate (GFR) greater than 60, fasting glucose 97. Calcium 8.2, Triglyceride 105, cholesterol 194, LDL 116, HDL, cholesterol to HDL ratio 3.4. Accu-Chek glucose last night was 111, 210, 81, 142. No new cultures. No new imaging. However, the patient did have a Magnetic Resonance Angiography (MRA) of the brain of the last without contrast shows a dominant left vertebral artery contribution to the basilar artery without significant stenosis or aneurysm. Left posterior cerebral artery has a dual origin from the basilar tip and a posterior communicating artery component with symmetrical supply to the posterior fossa, right and the left CLINICAL CYTOGENETICIST. A right middle cerebral artery shows loss of branches of the N2 and N3 segments in the right parietal region. Asymmetric compared to the left, which shows normal trifurcation vessels. This would correspond to the region of acute infarct seen in the right parietal lobe on Magnetic Resonance Imaging (MRI) yesterday. The bilateral internal carotid showed some atherosclerotic plaque, but were otherwise normal in their appearance and circulation of their major branches. ASSESSMENT AND PLAN: 70-year-old female with a past medical history of depression, hypertension, diabetes, hypothyroidism, insomnia, Brunson neuroma, gastroesophageal reflux disease (GERD), history of nephrolithiasis, trigger finger, hiatal hernia, frequent urinary incontinence, colonic polyps, diverticulosis, history of non-bleeding internal hemorrhoids presented with: 1. Neurological changes with left lower extremity weakness and numbness, as well as slurred speech and dizziness secondary to acute right parietal stroke. Dr. Vee from neurology was consulted, who recommended to continue the patient on 325 mg aspirin and continue statin and continue to monitor the patient. At this point, the patient's Magnetic Resonance Angiography (MRA) of the brain showed similar findings of Magnetic Resonance Imaging (MRI) as stated above and we will continue aspiration and seizure precaution and continue to follow with Dr. Vee's recommendation. 2. Nausea and vomiting. Continue IV Zofran, resolved. 3. Hypothyroidism. Continue home medication. 4. Depression. Adderall evening dose has been discontinued. Will continue to follow. Lyrica has been discontinued as well. 5. Hypertension. Continue clonidine and Norvasc. 6. Alcohol abuse. Continue valium, folic acid, multivitamin and thiamine. 7. Type 2 diabetes. Continue sliding scale. 8. Deep vein thrombosis (DVT) prophylaxis, SCD. DISPOSITION: The patient does have acute right parietal stroke. Dr. Vee from neurology has been consulted. The patient has improved significantly compared to when I saw her yesterday. Expect the patient to go into rehabilitation; and at this point, the patient should not be taking more Lyrica. The patient has been discussed with attending doctor, Dr. Melendez. My preceptor for this patient encounter was . The preceptor was physically present in the building during the encounter and was fully available. As needed, all aspects of the patient interview, examination, medical decision making process, and medical care plan development were reviewed and approved by the preceptor. The preceptor is aware and concurs with the plan as stated in the body of this note and will attest to such by his/her cosignature. Attending note: patient seen and examined independently. All aspects of medical treatment discussed with resident and agree with above course of action SOCRATES
[2016-05-11] MEDS: ATORVASTATIN 20 MG TAB PO SCH (21:45)
[2016-05-11] MEDS: LURASIDONE HCL 40 MG TAB (LATUDA) PO SCH (21:50)
[2016-05-11] MEDS: amLODIPine 5 MG TAB PO SCH (21:51)
[2016-05-11] MEDS: FIORICET TAB PO PRN (21:52)
[2016-05-11] MEDS ORDERED: NS 500 ML IV ONE (23:30)
[2016-05-11] MEDS ORDERED: SODIUM CHLORIDE 0.9% 1000 ML IV ONE (23:45)
[2016-05-12] VITALS: BP 100/60
[2016-05-12 00:30] VITALS: BP 92/58
[2016-05-12] MEDS ORDERED: SODIUM CHLORIDE 0.9% 1000 ML IV ONE (01:15)
[2016-05-12 01:55] VITALS: BP 103/56
[2016-05-12 04:00] VITALS: BP 112/70
[2016-05-12] MEDS: LEVOTHYROXINE 0.1 MG TAB (100 MCG) PO SCH (05:26)
[2016-05-12] MEDS: ONDANSETRON 4MG/2ML VIAL (J2405) IV SCH ×2 (05:26→12:24)
[2016-05-12] MEDS: LEVOTHYROXINE 0.075 MG TAB (75 MCG) PO SCH (05:26)
[2016-05-12 06:01] LABS: MEAN CORPUSCULAR HEMOGLOBIN 33.6 pg (27.0-33.0); MEAN CORPUSCULAR HGB CONC 33.9 g/dl (32.0-36.5); MEAN CORPUSCULAR VOLUME 99.2 fl (80.0-96.0); RED CELL DISTRIBUTION WIDTH 12.7 % (11.5-14.5); WHITE BLOOD COUNT 5.8 K/mm3 (4.0-10.0)
[2016-05-12 06:17] LABS: ANION GAP 10 MEQ/L (8-16); BLOOD UREA NITROGEN 7 MG/DL (7-18); CALCIUM LEVEL 7.9 MG/DL (8.8-10.2); CARBON DIOXIDE LEVEL 27 MEQ/L (21-32); CHLORIDE LEVEL 108 MEQ/L (98-107); CREATININE FOR GFR 0.79 MG/DL (0.55-1.02); GLOMERULAR FILTRATION RATE > 60.0 (>45); GLUCOSE, FASTING 102 MG/DL (80-110); POTASSIUM SERUM 3.7 MEQ/L (3.5-5.1); SODIUM LEVEL 145 MEQ/L (136-145)
[2016-05-12 07:10] VITALS: BP 132/71
[2016-05-12] MEDS: HumaLOG INSULIN (NovoLOG) PER UNIT SC SCH ×2 (07:30→12:00)
[2016-05-12] MEDS: HEPARIN SOD (PORCINE) 5000 UNITS/ML VIAL SQ SCH (09:00)
[2016-05-12] MEDS: ADDERALL 5 MG TAB PO SCH ×2 (09:42→16:08)
[2016-05-12] MEDS: MULTIVITAMINS/MINERALS THERAP 1 TAB PO SCH (09:42)
[2016-05-12] MEDS: ASPIRIN 325 MG TAB PO SCH (09:42)
[2016-05-12] MEDS: OMEPRAZOLE 20 MG CAP PO SCH (09:43)
[2016-05-12] MEDS: FLUoxetine 20 MG CAP PO SCH (09:43)
[2016-05-12] MEDS: FOLIC ACID 1 MG TAB PO SCH (09:43)
[2016-05-12] MEDS: THIAMINE 100 MG TAB PO SCH (09:43)
[2016-05-12] MEDS: buPROPion **XL** TABLET 150MG (WELLBUTRIN XL) PO SCH (09:44)
[2016-05-12] MEDS: FIORICET TAB PO PRN (09:48)
--- NOTE | 2016-05-12 11:09 | IPN ---
DATE: 05/12/2016 Time patient was seen was this morning at 8:15. The patient has been seen and examined at the bedside. The patient is feeling much better; however, last night she did have an episode of hypotension. Systolic blood pressure dropped from 160s to 90s. However, she responded to fluid. At this point, it is possibly secondary to clonidine. The patient herself also feels slightly tired. However, she denies any increased weakness, any change of sensations, any slurred speech, blurry vision, or trouble swallowing. Denies any chest pain, trouble breathing, abdominal pains, nausea, vomiting, diarrhea or constipation. Denies any other current new complaints. PHYSICAL EXAMINATION: VITAL SIGNS: Temperature was 96.8, pulse 60, respirations 20, blood pressure 132/70 with oxygen saturation 96% on room air. GENERAL: The patient is a pleasant, elderly female, who was alert, awake, oriented times three. Does not appear to be in distress. Laying comfortably in bed with head elevated at 30 degrees. HEENT: Normocephalic, atraumatic. Extraocular motor intact. Mucosa moist. NECK: Supple. No neck lymphadenopathy. Smell was symmetrical. Tongue protruding was midline. Sensations were intact bilaterally on the face. Urtkoa-fn-iocq has improved significantly compared to the day before. CARDIOVASCULAR: Regular rate and rhythm, S1, S2. 2/6 systolic heart murmur. LUNGS: Clear to auscultate bilaterally. No wheeze, rales or rhonchi. ABDOMEN: Positive bowel sounds, soft, nontender, nondistended. No peritoneal signs. No ecchymosis. EXTREMITIES: No edema, clubbing or cyanosis. Muscle strength was slightly weaker on the left lower extremity. Cable Armorer and strength were good bilateral upper extremities. LABORATORY: White blood count (WBC) 5.8, hemoglobin 12, hematocrit 35.4, with a platelet count of 217. MCV of 99.2. Sodium 145, potassium 3.7, chloride 108, bicarbonate 27, BUN 7, creatine 0.79, glomerular filtration rate (GFR) greater than 60, fasting glucose 102, calcium 7.9. No new imaging. ASSESSMENT AND PLAN: 70-year-old female with a past medical history of depression, hypertension, diabetes, hypothyroidism, insomnia, Brunson neuroma, gastroesophageal reflux disease (GERD), history of nephrolithiasis, trigger finger, hiatal hernia, frequent urinary incontinence, colonic polyps, diverticulosis, history of non-bleeding internal hemorrhoids who presented with: 1. Neurological changes with left lower extremity weakness and numbness, as well as slurred speech and dizziness secondary to acute right parietal stroke. Dr. Vee from neurology was consulted. He recommended to continue the patient on 325 mg aspirin and continue statin and continue to monitor the patient. At this point, the patient's Magnetic Resonance Angiography (MRA) of the brain also showed similar findings to the Magnetic Resonance Imaging (MRI) of the brain. Continue aspiration and seizure precautions. Continue to follow Dr. Vee's recommendation. 2. Migraine headache. Patient was started on Fioricet per neurology recommendation and the patient's headache has improved. 3. Nausea and vomiting. Continue IV Zofran. Improved. 4. Hypothyroidism. Continue home medication. 5. Depression. Continue Adderall. Lyrica has been discontinued. 6. Hypertension. Continue Norvasc. Due to episode of hypotension, patient's clonidine was discontinued. 7. Alcohol abuse. Continue valium, folic acid, multivitamin and thiamine. 8. Type 2 diabetes. Continue sliding scale. 9. Deep vein thrombosis (DVT) prophylaxis with sequential compression device (SCD). Patient refused subcutaneous heparin. DISPOSITION: The patient does have acute right parietal stroke. Dr. Vee from neurology was consulted. The patient did improve significantly compared to a few days ago. Expect possibly the patient may need to go to rehabilitation inpatient. Will continue to follow patient. The patient currently should not be on Lyrica and clonidine at discharge. The patient has been discussed with attending doctor, Dr. Melendez. My preceptor for this patient encounter was Dr. Melendez. The preceptor was physically present in the building during the encounter and was fully available. As needed, all aspects of the patient interview, examination, medical decision making process, and medical care plan development were reviewed and approved by the preceptor. The preceptor is aware and concurs with the plan as stated in the body of this note and will attest to such by his/her cosignature. Attending note: patient seen and examined independently. All aspects of medical treatment discussed with resident and agree with above course of action MTDD
[2016-05-12 12:00] VITALS: BP 123/74
[2016-05-12] MEDS ORDERED: BUTA-198 PO (14:44)
[2016-05-12] MEDS ORDERED: MAPA325T2 PO (14:44)
[2016-05-12] MEDS ORDERED: OMEP20CA3 PO (14:44)
[2016-05-12] MEDS ORDERED: LEVO75TA4 PO (14:44)
[2016-05-12] MEDS ORDERED: GLUC1VL SC (14:44)
[2016-05-12] MEDS ORDERED: FLUO20CA9 PO (14:44)
[2016-05-12] MEDS ORDERED: ASPI325T PO (14:44)
[2016-05-12] MEDS ORDERED: INSUHUMDS SC ×2 (14:44)
[2016-05-12] MEDS ORDERED: AMLO5TAB2 PO (14:44)
[2016-05-12] MEDS ORDERED: MECL12.575 PO (14:44)
[2016-05-12] MEDS ORDERED: HEPA50VL SQ (14:44)
[2016-05-12] MEDS ORDERED: DIAZ10TA2 PO (14:44)
[2016-05-12] MEDS ORDERED: FOLI1TAB2 PO (14:44)
[2016-05-12] MEDS ORDERED: THIA100TA PO (14:44)
[2016-05-12] MEDS ORDERED: VITMTA PO (14:44)
[2016-05-12] MEDS ORDERED: LATU40TA PO (14:44)
[2016-05-12] MEDS ORDERED: ATOR1TAB21 PO (14:44)
[2016-05-12] MEDS ORDERED: DEXT50IN6 IV (14:44)
[2016-05-12] MEDS ORDERED: ONDA4VLL IV (14:44)
[2016-05-12] MEDS ORDERED: LEVO100T5 PO (14:44)
[2016-05-12] MEDS ORDERED: BUPR150T3 PO (14:44)
[2016-05-12] MEDS ORDERED: GLUC4CHW PO (14:44)
[2016-05-12] MEDS ORDERED: Amphetamine/Dextroamphetamine PO (14:44)
--- NOTE | 2016-05-12 19:15 | DSES ---
DATE OF ADMISSION: 05/09/2016 DATE OF DISCHARGE: 05/12/2016 Time patient was seen was this morning at 9:00 a.m. ADMISSION DIAGNOSES: Acute right temporoparietal stroke. Nausea, vomiting. Hypothyroidism. Depression. Hypertension. Alcohol abuse. Type 2 diabetes. DISCHARGE DIAGNOSES: Neurological changes, likely secondary to acute right parietal stroke. Migraine headache. Nausea, vomiting. Hypothyroidism. Depression. Hypertension. Alcohol Abuse. Type 2 diabetes. MILK HAULER: Dr. Vee from Neurology. PROCEDURES AND IMAGING: The patient had a CT head without contrast, shows focal hypodensity of the right temporoparietal zone, not present previously, ischemic infarct versus mass. Recommend MRI followup. The patient had an MRI of the brain on 05/09/2016, shows an acute right parietal stroke, generalized age-appropriate parenchymal atrophy, mild chronic white matter, microvascular ischemic changes. The patient had a carotid Doppler duplex on 05/09/2016, which showed antegrade flow in both vertebral arteries, 0 to 15% category narrowing in the right ICA by Doppler velocity criteria. Left carotid showed mild diffuse intimal thickening and mild fixed plaquing in the bulb and the proximal ICA on the left side with two-dimensional scanning. In addition, the patient has 1 to 49% category narrowing in the left ICA by Doppler velocity criteria. The patient had a brain MRA on 05/09/2016, which showed a dominant left vertebral artery contribution to basilar artery without significant stenosis or aneurysm. Left posterior cerebral artery has dual origin from basilar tip and the posterior communicating artery, component with symmetric supply to the posterior fossa, right and the left safety coordinator. Also, right middle cerebral artery shows loss of branch of M2 and M3 segment in the right parietal lobe region, asymmetry compared to the left, shows normal trifurcation vessels. This would correspond to the region of acute infarct seen in the right parietal lobe on MRI yesterday. The bilateral internal carotid shows some atherosclerotic plaque but were otherwise normal in their appearance and circulation of their major branches. The patient also had a portable chest x-ray on the day of admission, shows discoid atelectasis in the left costophrenic angle; otherwise essentially negative single AP chest. No masses are identified. The patient also had an echocardiogram on 05/09/2016, which shows not able to detect a clear intracardiac source of embolic material. Subtle degenerative changes in the mitral and aortic valvular apparatus without functionally significant valvular abnormality. No pedunculated mass. Borderline concentric left ventricle hypertrophy with hyperkinetic wall motion. Mildly dilated left atrium with Doppler evidence of impairment of left ventricle diastolic function but currently normal estimated mean left atrial pressure. Right heart chamber size upper limits of normal with Doppler evidence of mild pulmonary hypertension. Normal IVC size with slight reduction in respiratory collapse, suggestive of only slightly elevated central venous pressure. If cardiac source of embolic material is seriously suspected, we would recommend a CBC, sedimentation rate, two sets of blood cultures by 12 hours. Also suggest considering transesophageal echocardiogram. HISTORY OF THE PRESENT ILLNESS: A 70-year-old female who presents to [facility] Department with a fall, accompanied in the emergency department by two sons. PAST MEDICAL HISTORY: Significant for: Depression. Bipolar. Hypertension. Diabetes. Hypothyroidism. Insomnia. History of nephrolithiasis. Brunson's neuroma. History of trigger finger. History of hiatal hernia. Gastroesophageal reflux disease (GERD). History of fecal and urinary incontinence. Colonic polyps on colonoscopy. Diverticulosis. Nonbleeding internal hemorrhoids on colonoscopy. The patient mentions that she has bipolar, she feels she is over medicated. She stated that she takes Adderall for depression and has been without Adderall for the past 4-5 days. In addition, she states that she was recently started on Lyrica 150 mg and the starting date was on 05/03/2016. She was previously on Lyrica without symptoms, to be described. Per patient, she feels like minutes after taking Lyrica, her symptoms started. She described as swaying, getting wobbly and slurred words as if she was drunk. She also began falling and notes that she has fallen a total of six times. Her most recent fall was last night, and she stated that she hit her head on the wooden floor. She denies loss of consciousness or any post fall confusion. A week before, she fell in the garage and bumped the right knee on the cement. She does not complain of unsteadiness on her feet. However, she does describe her balance being off for approximately 4 months. She states that she needs to steady herself again the wall and feels as if the room was spinning. She states that she is not with it currently. She mentions a history of low-grade fever, but stated that she is afebrile now. She described a frontal pressure-like headache, and has remained constant for which Excedrin has helped previously. She states also she used to take Imitrex secondary to migraines. She also admits to vomiting that resulted in bile-like emesis, however, without blood. She states that she vomited at least once a day. Denies any tongue maceration or incontinence of bowel or bladder. Admits to a feeling of lightheadedness with changes in position from laying to sitting or sitting to standing, but does not recall a history of fall with these episodes. She also stated that she can feel her heart palpitations, especially when her blood pressure gets high. She also noticed it in the neck when her blood pressure is elevated. Denies irregular heart rate or rhythm. Admits to a history of vertigo. Denies any acute vision changes, including abrupt onset of vision loss, blurriness, double vision. Admits to decreased hearing in left ear. She does describe bilateral hand numbness only at night when she is sleeping. She states that she has to shake her hands to alleviate the numbness. Admits to chronic nonbloody diarrhea. Her main reason for presenting to the emergency department was fall she sustained last evening with subsequent weakness this morning. She states that she was unable to get out of bed. Besides review of systems mentioned above, other review of systems were negative. The patient denies any chest pain, orthopnea, paroxysmal nocturnal dyspnea, abdominal pain, hematuria, melena, hematochezia, urinary frequency, urinary urgency, edema, back pain. HOSPITAL COURSE: On the day of admission, Dr. Vee from neurology was consulted. The patient was admitted to the progressive care unit (PCU). MRI without contrast and an MRA without contrast were ordered and showed that the patient had acute right parietal stroke. The patient's nausea and vomiting were controlled with Zofran. Her depression medication was continued. She was placed on diazepam as an outpatient which was continued. The next day, the patient's Lyrica was discontinued, Adderall was adjusted and the patient's physical symptoms improved. Over the next few days, the patient continued to improve. Muscle strength was stronger and on 05/12/2016, the patient is being admitted to physical medicine and rehabilitation (PM and R) for further rehabilitation. Discharge to physical medicine and rehabilitation. CONDITION: Improved. ACTIVITY: As tolerated. DIET: Carbohydrate-consistent diet. DISCHARGE MEDICATIONS: Patient's medications on discharge include: - acetaminophen 325 mg one tablet by mouth every 8 hours as needed - amlodipine 5 mg one tablet by mouth nightly - aspirin 325 mg one tablet by mouth daily - atorvastatin 80 mg one tablet by mouth nightly - bupropion 300 mg one tablet by mouth daily - butalbital acetaminophen 50-325 40 mg one tablet by mouth every 4 hours as needed - D50 injection - diazepam - fluoxetine 80 mg one tablet by mouth daily - folic acid 1 mg by mouth daily - glucagon 1 gram subcutaneously - glucose 4 grams - heparin subcutaneously - insulin sliding scale - Synthroid 0.1 mg - levothyroxine - Latuda - meclizine - multivitamin - omeprazole - Zofran 4 mg IV every 6 hours - thiamine 100 mg one tablet by mouth daily - Adderall 15 mg by mouth twice a day STOPPED MEDICATIONS: Including Lyrica, clonidine. FOLLOWUP: The patient should receive rehabilitation with physical medicine and rehabilitation and afterwards followup with primary care provider (PCP) within 1 week. The patient should also followup with Dr. Vee in his office within 2 weeks after discharge. The patient has been discussed with attending doctor, Dr. Melendez. My preceptor for this patient encounter was Dr. Brigido Melendez. The preceptor was physically present in the building during the encounter and was fully available. As needed, all aspects of the patient interview, examination, medical decision making process, and medical care plan development were reviewed and approved by the preceptor. The preceptor is aware and concurs with the plan as stated in the body of this note and will attest to such by his/her cosignature. Attending note: patient seen and evaluated independently. Discussed all aspects of findings and treatment plan with resident. Agree with plan as outlined above. SOCR[facility]
== END 2016-05-12 16:35 | DRG 65 ==
LOC: EDBD 14:57 → M ED 16:09 → M ED INP 21:01 → M PCU 05-10 14:16
PROVIDERS: ADMIT Internal Medicine; ATTEND Hospitalist
DX: I63.9 Cerebral infarction, unspecified (principal); I69.354 Hemiplegia and hemiparesis following cerebral infarction affecting left non-dominant side; E03.9 Hypothyroidism, unspecified; F31.9 Bipolar disorder, unspecified; I69.328 Other speech and language deficits following cerebral infarction; I65.23 Occlusion and stenosis of bilateral carotid arteries; I69.398 Other sequelae of cerebral infarction; I10 Essential (primary) hypertension; E11.9 Type 2 diabetes mellitus without complications; G43.909 Migraine, unspecified, not intractable, without status migrainosus; F10.10 Alcohol abuse, uncomplicated; K21.9 Gastro-esophageal reflux disease without esophagitis; R29.6 Repeated falls; Z79.4 Long term (current) use of insulin; Z79.899 Other long term (current) drug therapy; Z90.710 Acquired absence of both cervix and uterus; Z90.49 Acquired absence of other specified parts of digestive tract; Z80.0 Family history of malignant neoplasm of digestive organs; Z87.891 Personal history of nicotine dependence; Z79.01 Long term (current) use of anticoagulants

== ENCOUNTER 2016-05-12 15:38 | Inpatient (IN) | payer MEDICARE ==
[~2016-05-12] VITALS: Ht 175.3 cm; Wt 82.8 kg
[~2016-05-12 15:38] MED LIST changes: +ADDE30CA PO; +ADDE5TAB5 PO; +AMLO5TAB2 PO; +ASPI325T PO; +ATOR1TAB21 PO; +Amphetamine/Dextroamphetamine PO; +BUPR150T3 PO; +BUPR300T34 PO; +BUTA-198 PO; +CLON0.2T PO; +D-AMPHETAMINE PO; +DEXT50IN6 IV; +DIAZ10TA2 PO; +FLUO20CA9 PO; +FLUO40CA PO; +FOLI1TAB2 PO; +GLUC1VL SC; +GLUC4CHW PO; +HEPA50VL SQ; +INSUHUMDS SC; +LATU40TA PO; +LATU80TA PO; +LEVO100T5 PO; +LEVO175T2 PO; +LEVO75TA4 PO; +LYRI150C PO; +MAPA325T2 PO; +MECL12.575 PO; +METF500T PO; +OMEP20CA3 PO; +OMEP40CA2 PO; +ONDA1TAB15 PO; +ONDA4VLL IV; +PROM125TA PO; +THIA100TA PO; +VITMTA PO
[2016-05-12] MEDS ORDERED: GLUCAGON FOR INJ 1 MG VIAL (J1610) SC PRN (16:15)
[2016-05-12] MEDS ORDERED: DEXTROSE 50% 50 ML SYRINGE IV PRN (16:15)
[2016-05-12] MEDS ORDERED: GLUCOSE 4 GM CHEW TABLET PO PRN (16:15)
[2016-05-12 16:40] VITALS: BP 160/86
--- NOTE | 2016-05-12 16:43 | HPEPDOC ---
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 HISTORY OF PRESENT ILLNESS: Patient is right hand dominant 70-year-old woman with multiple medical comorbidities including hypertension, hypercholesteremia, diabetes and bipolar disorder who was admitted to [facility] on with recurrent falls, slurred speech, left sidede weakness. She reports 10 falls in the last 3 months. No LOC. States she loses balance. Symptoms somewhat temporally related to Lyrica. Workup revealed right frontal and parietal lobe infarcts. Patient was started on aspirin and Lipitor. Hospital course has been notable for hypotension for which clonidine was held and she was provided with IV fluids. She also was started on Fioricet for migraine headaches per neurology. Patient denies h/o migraine; rather she states she just has chronic headaches. Lyrica has been discontinued. She also reports chronic dizziness, but none presently. PAST MEDICAL HISTORY: Hypertension Bipolar disorder Anxiety Depression s/p ECT Insomnia Gastroesophageal reflux disease (GERD) Nephrolithiasis Hiatal hernia Urinary incontinence Diverticulosis Hemorrhoids Chronic back pain s/p GAYLA which she states caused manic episode Left foot Brunson's neuroma PAST SURGICAL HISTORY: Hysterectomy Appendectomy Cholecystectomy Carpal tunnel surgery Left foot surgery ALLERGIES: NKDA MEDICATIONS: Fioricet one tab every 4 hours when necessary for headache Adderall 15 mg by mouth twice a day at 9 AM at 1400 Heparin 5000 units subcutaneous every 12 hours Insulin sliding scale before meals and at bedtime Meclizine 12.5 mg every 8 hours he RN for dizziness Acetaminophen 650 mg every 8 hours when necessary for pain Wellbutrin 300 mg by mouth daily Prozac 80 mg by mouth daily Multivitamin 1 tab by mouth daily Thiamine 100 mg by mouth every morning Folic acid 1 mg by mouth daily Aspirin 325 mg by mouth daily Synthroid 0.175 mg by mouth daily Zofran 4 mg IV every 6 hours when necessary for nausea Valium 10 mg by mouth 3 times a day when necessary Norvasc 5 mg by mouth daily at bedtime Lipitor 80 mg by mouth daily at bedtime Prilosec 40 mg by mouth twice a day Lipitor 80 mg by mouth daily at bedtime FAMILY HISTORY: of glioblastoma. Colon cancer brother and mother. SOCIAL HISTORY: Drinks alcohol daily, 1 bottle wine per week. Used to smoke ppd x 30 yrs, quit 1 yr ago. Tried smoking marijuana for her depression, but didnt help so stopped. Denies other illicit drug use. She lives in a one-story home, there are 4 steps to enter. No steps to enter manage once within the house. Prior to admission she was independent with ADLs and ambulation. She reports working out occasionally. On she has a rolling walker from when she had a left foot fracture, but on did not require it prior to admission. Review of Systems: General: no chills, +fatigue, no weight changes. Eyes: no change of vision. Ears, Nose & Throat: no sore throat, decreased hearing or nasal discharge. Cardiovascular: no chest pain, edema. Pul: no cough, SOB, orthopnea. GI: +constipation-no BM since prior to admission, chronic nausea for which she takes sublingual Zofran at home. No abdominal pain, no BRBPR/tarry stools. Genitourinary: no dysuria. Gynecological: no vaginal bleeding. Musculoskeletal: chronic back pain. no neck or joint pain. Neurological: denies numbness, paresthesias, no tremors, seizures. Hematological: No bleeding disorders. Skin: no rashes. Psychiatric: +depression/ anxiety/ bipolar for which she sees a psychiatrist. VITAL SIGNS: 96.8, 60; 18; 132/71; 96%ra PHYSICAL EXAMINATION: GENERAL: Well nourished, well developed, sitting up in chair, no acute distress. HEENT: Normocephalic, atraumatic. No facial droop. PERRL, EOMI CARDIOVASCULAR: S1, S2, regular rate. No LL edema or calf tenderness. LUNGS: CTA b/l, no rhonchi, wheezing ABDOMEN: Soft, nontender, nondistended. Positive normoactive bowel sounds throughout. NEUROLOGICAL: Alert and oriented x 3. Answers questions appropriately. Mildly dysarthric . Able to follow commands without difficulty. MMT: 5/5 strength left upper and lower limb all major muscle groups. 4/5 left hip flexors, left dorsi flexion/EHL, remainder of the left lower limb and left upper limb 5/5. Sensation: Intact to soft touch b/l upper and lower limbs. Mild left-sided neglect. F-to-N : + dysmetria left. SKIN: + Abrasions bilateral knees and lower limb. LABORATORY DATA: White blood count (WBC) 5.8, hemoglobin 12, hematocrit 35.4, with a platelet count of 217. MCV of 99.2. Sodium 145, potassium 3.7, chloride 108, bicarbonate 27, BUN 7, creatine 0.79, glomerular filtration rate (GFR) greater than 60, fasting glucose 102, calcium 7.9. IMAGING: CT scan of head and MRI scan of brain showed right frontal and parietal medium sized acute ischemic stroke which affects her right parietal lobe more than right frontal lobe. MRA of brain showed decreased flow in the posterior division of right middle cerebral artery. Carotid ultrasound showed left carotid artery 16-49% and right carotid artery less than 15% stenosis. ASSESSMENT AND PLAN: 1. Acute right parietal stroke with gait abnormality and dysfunctional ADLs, questionable dysarthria: Continue patient on aspirin and statin. Maintain systolic blood pressure less than 140. Patient will undergo thorough physical, occupational and speech therapy evaluations followed by daily therapy. Rehabilitation nursing for bladder, bowel and medication management. 2. Hypertension: Blood pressure currently within normal limits or Norvasc. Monitor with adjustments as indicated. 3. DM, Type II: Will maintain patient on insulin sliding scale before meals and at bedtime. 4. Psychiatric (Bipolar, depression, anxiety): Will continue patient on all current psychotropic medications including Wellbutrin, Adderall, Latuda and Prozac. Patient will need follow-up with her psychiatrist upon discharge. 5. Headaches, chronic: Continue Fioricet as ordered by neurology. 6. Nausea: Continue Zofran, but changed to oral. 7. Alcohol use, ?dependence: Patient currently not complaining of any cravings. Will continue Valium on an as-needed basis 8. DVT ppx: Heparin subcutaneous every 12 hours, SCDs and TEDs 9. Constipation: Will provide patient with a bowel regimen to include Colace and senna scheduled along well with milk of magnesia and MiraLAX on an as- needed basis. Adjustments as indicated. 10. Diet/nutrition: Prealbumin in am. Carbohydrate consistent, low cholesterol diet. POST ADMISSION PHYSICIAN EVALUATION: On evaluation of the patient today there' ve been no significant medical issues as compared to those noted in the preadmission screening document. Regarding her functional status, it appears that significant portion of her left hemiparesis and sensory deficit has resolved; however, patient continues with balance issues which interfere with her ability to ambulate and safely do ADLs. This patient's inpatient rehabilitation remains necessary in light of the above conditions. The patient' s medical condition requires specialized care with physicians specially trained in physical medicine rehabilitation. The patient is capable motivated to participate in a minimum of 3 hours of therapy daily, 5 days minimum per week, and requires intensive inpatient rehabilitation to improve their functional status so that they can be safely to discharge back to their home. PROGNOSIS: good ESTIMATED LENGTH OF STAY: 7-10 days. / Vital Signs see above Home Medications Scheduled ([Amphetamine/Dextroamphetamine]) 5 MG TAB 15 MG PO BID@,14 Amlodipine Besylate (Amlodipine Besylate) 5 Mg Tab 5 MG PO QHS Aspirin (Aspirin) 325 Mg Tab 325 MG PO DAILY Atorvastatin Calcium (Atorvastatin Calcium) 20 Mg Tab 80 MG PO QHS Bupropion Hcl (Bupropion HCl Xl) 150 Mg Tab 300 MG PO DAILY Fluoxetine Hcl (Fluoxetine HCl) 20 Mg Cap 80 MG PO DAILY Folic Acid (Folic Acid) 1 Mg Tab 1 MG PO DAILY Heparin Sod (Porcine) (Heparin Sodium) 5,000 Unit/Ml Inj 5,000 UNITS SQ Q12H Insulin Human Lispro (Humalog) 1 Units/0.01 Ml Inj 0 UNITS SC AC Insulin Human Lispro (Humalog) 1 Units/0.01 Ml Inj 0 UNITS SC QHS Levothyroxine Sodium (Synthroid) 100 Mcg Tab 0.1 MG PO DAILY@06 Levothyroxine Sodium (Synthroid) 75 Mcg Tab 0.075 MG PO DAILY@06 Lurasidone Hydrochloride (Latuda) 40 Mg Tab 80 MG PO QHS Multivitamins *[facility] STOCKED* (Thera M Plus *[facility] STOCK[facility]*) 1 Tab Tab 1 TAB PO DAILY Omeprazole (Omeprazole) 20 Mg Cap 40 MG PO BID Ondansetron (Ondansetron HCl) 4 Mg/2 Ml Inj 4 MG IV Q6H Thiamine Hcl (Thiamine Hcl) 100 Mg Tab 100 MG PO QAM Scheduled PRN (Butalbital/Acetaminophen/ 50-325-40 mg) 1 Tab Tab 1 EA PO Q4HP PRN PRN HEADACHE Acetaminophen (Mapap) 325 Mg Tab 650 MG PO Q8HP PRN PRN PAIN / FEVER Dextrose (Dextrose 50%) 50 % Inj 25 ML IV ASDIRECTED PRN PRN SEE LABEL COMMENTS Diazepam (Diazepam) 10 Mg Tab 10 MG PO TID PRN PRN ANXIETY Glucagon (Glucagen Diagnostic) 1 Mg Inj 1 MG SC ASDIRECTED PRN PRN SEE LABEL COMMENTS Glucose (Glucose) 4 Gm Chw 0 GM PO ASDIRECTED PRN PRN SEE LABEL COMMENTS Meclizine HCl (Meclizine HCl) 12.5 Mg Tab 12.5 MG PO Q8HP PRN PRN DIZZINESS Allergies Coded Allergies: No Known Drug Allergy (Verified Allergy, Unknown, 06/03/12) KIMBERLY JOVEL MD May 12, 2016 16:43
[2016-05-12] MEDS: HumaLOG INSULIN (NovoLOG) PER UNIT SC SCH (17:30)
[2016-05-12 20:00] VITALS: BP 175/94
[2016-05-12] MEDS: HEPARIN SOD (PORCINE) 5000 UNITS/ML VIAL SC SCH (21:00)
[2016-05-12] MEDS ORDERED: HumaLOG INSULIN (NovoLOG) PER UNIT SC SCH (21:00)
[2016-05-12] MEDS: LURASIDONE HCL 40 MG TAB (LATUDA) PO SCH (22:20)
[2016-05-12] MEDS: amLODIPine 5 MG TAB PO SCH (22:20)
[2016-05-12] MEDS: OMEPRAZOLE 20 MG CAP PO SCH (22:20)
[2016-05-12] MEDS: ATORVASTATIN 20 MG TAB PO SCH (22:21)
[2016-05-12] MEDS: DOCUSATE SODIUM 100 MG CAP PO SCH (22:21)
[2016-05-12] MEDS: SENNA 8.6 MG TAB (SENOKOT) PO SCH (22:21)
[2016-05-13] VITALS: BP 182/88
[2016-05-13] MEDS: LEVOTHYROXINE 0.1 MG TAB (100 MCG) PO SCH (05:47)
[2016-05-13] MEDS: LEVOTHYROXINE 0.075 MG TAB (75 MCG) PO SCH (05:47)
[2016-05-13] MEDS: ACETAMINOPHEN TAB 650MG DOSE (2X325MG) PO PRN (05:48)
[2016-05-13 06:00] VITALS: BP 165/85
[2016-05-13 07:03] LABS: MEAN CORPUSCULAR HEMOGLOBIN 33.5 pg (27.0-33.0); MEAN CORPUSCULAR HGB CONC 33.9 g/dl (32.0-36.5); MEAN CORPUSCULAR VOLUME 98.8 fl (80.0-96.0); RED CELL DISTRIBUTION WIDTH 12.6 % (11.5-14.5); WHITE BLOOD COUNT 7.3 K/mm3 (4.0-10.0)
[2016-05-13 07:22] LABS: ANION GAP 10 MEQ/L (8-16); BLOOD UREA NITROGEN 7 MG/DL (7-18); CALCIUM LEVEL 8.6 MG/DL (8.8-10.2); CARBON DIOXIDE LEVEL 26 MEQ/L (21-32); CHLORIDE LEVEL 109 MEQ/L (98-107); CREATININE FOR GFR 0.79 MG/DL (0.55-1.02); GLOMERULAR FILTRATION RATE > 60.0 (>45); GLUCOSE, FASTING 95 MG/DL (80-110); SODIUM LEVEL 145 MEQ/L (136-145)
[2016-05-13] MEDS: HumaLOG INSULIN (NovoLOG) PER UNIT SC SCH (07:30)
[2016-05-13 08:43] VITALS: BP 140/76
[2016-05-13] MEDS: FOLIC ACID 1 MG TAB PO SCH (08:44)
[2016-05-13] MEDS: HEPARIN SOD (PORCINE) 5000 UNITS/ML VIAL SC SCH ×2 (08:44→21:44)
[2016-05-13] MEDS: ASPIRIN 325 MG TAB PO SCH (08:44)
[2016-05-13] MEDS: ADDERALL 5 MG TAB PO SCH ×2 (08:44→14:01)
[2016-05-13] MEDS: MULTIVITAMINS/MINERALS THERAP 1 TAB PO SCH (08:44)
[2016-05-13] MEDS: THIAMINE 100 MG TAB PO SCH (08:44)
[2016-05-13] MEDS: DOCUSATE SODIUM 100 MG CAP PO SCH ×2 (08:44→21:44)
[2016-05-13] MEDS: OMEPRAZOLE 20 MG CAP PO SCH ×2 (08:44→21:44)
[2016-05-13] MEDS: buPROPion **XL** TABLET 150MG (WELLBUTRIN XL) PO SCH (08:44)
[2016-05-13] MEDS: FLUoxetine 20 MG CAP PO SCH (08:44)
[2016-05-13 14:00] VITALS: BP 142/77
[2016-05-13 21:00] VITALS: BP 133/73
[2016-05-13] MEDS: SENNA 8.6 MG TAB (SENOKOT) PO SCH (21:43)
[2016-05-13] MEDS: ATORVASTATIN 20 MG TAB PO SCH (21:43)
[2016-05-13] MEDS: LURASIDONE HCL 40 MG TAB (LATUDA) PO SCH (21:44)
[2016-05-13] MEDS: amLODIPine 5 MG TAB PO SCH (21:44)
[2016-05-13] MEDS: MOM 30ML SUSPENSION UDC PO PRN (21:50)
[2016-05-14 06:00] VITALS: BP 140/69
[2016-05-14] MEDS: LEVOTHYROXINE 0.075 MG TAB (75 MCG) PO SCH (06:07)
[2016-05-14] MEDS: LEVOTHYROXINE 0.1 MG TAB (100 MCG) PO SCH (06:07)
[2016-05-14] MEDS: HEPARIN SOD (PORCINE) 5000 UNITS/ML VIAL SC SCH ×2 (09:04→20:45)
[2016-05-14] MEDS: ADDERALL 5 MG TAB PO SCH ×2 (09:04→13:26)
[2016-05-14] MEDS: FLUoxetine 20 MG CAP PO SCH (09:07)
[2016-05-14] MEDS: buPROPion **XL** TABLET 150MG (WELLBUTRIN XL) PO SCH (09:07)
[2016-05-14] MEDS: FOLIC ACID 1 MG TAB PO SCH (09:07)
[2016-05-14] MEDS: MULTIVITAMINS/MINERALS THERAP 1 TAB PO SCH (09:07)
[2016-05-14] MEDS: ASPIRIN 325 MG TAB PO SCH (09:07)
[2016-05-14] MEDS: OMEPRAZOLE 20 MG CAP PO SCH ×2 (09:07→20:44)
[2016-05-14] MEDS: DOCUSATE SODIUM 100 MG CAP PO SCH ×2 (09:07→20:43)
[2016-05-14] MEDS: THIAMINE 100 MG TAB PO SCH (09:07)
[2016-05-14 14:00] VITALS: BP 148/90
[2016-05-14 20:00] VITALS: BP 150/90
[2016-05-14] MEDS: LURASIDONE HCL 40 MG TAB (LATUDA) PO SCH (20:44)
[2016-05-14] MEDS: ATORVASTATIN 20 MG TAB PO SCH (20:44)
[2016-05-14] MEDS: amLODIPine 5 MG TAB PO SCH (20:44)
[2016-05-14] MEDS: SENNA 8.6 MG TAB (SENOKOT) PO SCH (20:45)
[2016-05-15] MEDS: ONDANSETRON 4 MG TAB (S0181) PO PRN ×2 (01:20→07:54)
[2016-05-15] MEDS: diazePAM 5 MG TAB PO PRN ×3 (01:24→22:15)
[2016-05-15] MEDS: FIORICET TAB PO PRN (01:34)
[2016-05-15 06:00] VITALS: BP 129/86
[2016-05-15] MEDS: LEVOTHYROXINE 0.075 MG TAB (75 MCG) PO SCH (06:23)
[2016-05-15] MEDS: LEVOTHYROXINE 0.1 MG TAB (100 MCG) PO SCH (06:23)
[2016-05-15] MEDS: HEPARIN SOD (PORCINE) 5000 UNITS/ML VIAL SC SCH ×2 (08:52→22:11)
[2016-05-15] MEDS: ASPIRIN 325 MG TAB PO SCH (08:52)
[2016-05-15] MEDS: ADDERALL 5 MG TAB PO SCH ×2 (08:53→14:05)
[2016-05-15] MEDS: MULTIVITAMINS/MINERALS THERAP 1 TAB PO SCH (08:53)
[2016-05-15] MEDS: THIAMINE 100 MG TAB PO SCH (08:53)
[2016-05-15] MEDS: OMEPRAZOLE 20 MG CAP PO SCH ×2 (08:54→22:10)
[2016-05-15] MEDS: buPROPion **XL** TABLET 150MG (WELLBUTRIN XL) PO SCH (08:54)
[2016-05-15] MEDS: FLUoxetine 20 MG CAP PO SCH (08:54)
[2016-05-15] MEDS: DOCUSATE SODIUM 100 MG CAP PO SCH ×2 (08:55→22:08)
[2016-05-15] MEDS: FOLIC ACID 1 MG TAB PO SCH (08:55)
[2016-05-15] MEDS: ACETAMINOPHEN TAB 650MG DOSE (2X325MG) PO PRN (10:01)
--- NOTE | 2016-05-15 11:27 | IPNPDOC ---
[employer] Progress Note PROGRESS NOTE DATE OF ADMISSION: 05/12/16 DATE OF SERVICE: 05/15/16 IDENTIFICATION STATEMENT: 70-year-old woman with acute parietal CVA, left hemiparesis admitted for comprehensive integrated inpatient rehabilitation. PAST MEDICAL HISTORY: Hypertension Bipolar disorder Anxiety Depression s/p ECT Insomnia Gastroesophageal reflux disease (GERD) Nephrolithiasis Hiatal hernia Urinary incontinence Diverticulosis Hemorrhoids Chronic back pain s/p GAYLA which she states caused manic episode Left foot Brunson's neuroma PAST SURGICAL HISTORY: Hysterectomy Appendectomy Cholecystectomy Carpal tunnel surgery Left foot surgery ALLERGIES: NKDA MEDICATIONS: Norvasc 5 mg by mouth daily at bedtime Lipitor 80 mg by mouth daily at bedtime Aspirin 325 mg by mouth daily Prilosec 40 mg by mouth twice a day Synthroid 0.175 mg by mouth daily Fioricet one tab every 4 hours when necessary for headache Adderall 15 mg by mouth twice a day at 9 AM at 1400 Heparin 5000 units subcutaneous every 12 hours Meclizine 12.5 mg every 8 hours he RN for dizziness Acetaminophen 650 mg every 8 hours when necessary for pain Wellbutrin 300 mg by mouth daily Prozac 80 mg by mouth daily Multivitamin 1 tab by mouth daily Thiamine 100 mg by mouth every morning Folic acid 1 mg by mouth daily Zofran 4 mg PO every 6 hours when necessary for nausea Valium 10 mg by mouth 3 times a day when necessary SUBJECTIVE: Patient w/o complaints, no issues over weekend. Had a near fall today 2nd left ankle twisting. Denies any new weakness. Denies any CP, SOB, diaphoresis, lightheadedness. VITAL SIGNS: 97.7, 84; 18; 129/86; 94%ra PHYSICAL EXAMINATION: GENERAL: Well nourished, well developed, sitting up in chair, no acute distress , brushing her teeth. HEENT: Normocephalic, atraumatic. No facial droop. PERRL, EOMI CARDIOVASCULAR: S1, S2, regular rate. No LL edema or calf tenderness. LUNGS: CTA b/l, no rhonchi, wheezing ABDOMEN: Soft, nontender, nondistended. Positive normoactive bowel sounds throughout. NEUROLOGICAL: Alert and oriented x 3. Answers questions appropriately. Mildly dysarthric . Able to follow commands without difficulty. MMT: 5/5 strength left upper and lower limb all major muscle groups. 4/5 left hip flexors, left dorsi flexion/EHL, remainder of the left lower limb and left upper limb 5/5. SKIN: + Abrasions bilateral knees and lower limb. LABORATORY DATA: 05/13/16: WBC count 7.3; Hgb 13.0; Na 145, K 4.0; GFR > 60.6 05/12/16: White blood count (WBC) 5.8, hemoglobin 12, hematocrit 35.4, with a platelet count of 217. MCV of 99.2. Sodium 145, potassium 3.7, chloride 108, bicarbonate 27, BUN 7, creatine 0.79, glomerular filtration rate (GFR) greater than 60, fasting glucose 102, calcium 7.9. IMAGING: CT scan of head and MRI scan of brain showed right frontal and parietal medium sized acute ischemic stroke which affects her right parietal lobe more than right frontal lobe. MRA of brain showed decreased flow in the posterior division of right middle cerebral artery. Carotid ultrasound showed left carotid artery 16-49% and right carotid artery less than 15% stenosis. ASSESSMENT AND PLAN: 1. Acute right parietal stroke with gait abnormality and dysfunctional ADLs, mild dysarthria: Continue patient on aspirin and statin. Maintain systolic blood pressure less than 140. Continue daily therapies. Rehabilitation nursing for bladder, bowel and medication management. 2. Hypertension: Blood pressure within normal limits on Norvasc. Adjustments as indicated. 3. DM, Type II: BG wnl so ISS d/cd over weekend 4. Psychiatric (Bipolar, depression, anxiety): Continue patient on all current psychotropic medications including Wellbutrin, Adderall, Latuda and Prozac. Patient will need follow-up with her psychiatrist upon discharge. 5. Headaches, chronic: Adequately controlled. Continue Fioricet as ordered by neurology. 6. Nausea, chronic: Continue Zofran prn. 7. Alcohol use, ?dependence: Has received 2 doses Valium today. Question if this was related to fall. Will decrease valium dose. 8. DVT ppx: Heparin subcutaneous every 12 hours, SCDs and TEDs 9. Constipation: Bowel regimen to include Colace and senna scheduled along well with milk of magnesia and MiraLAX on an as-needed basis. Adjustments as indicated. 10. Diet/nutrition: Prealbumin wnl. Carbohydrate consistent, low cholesterol diet. / Vital Signs Vital Sign - Last 24 Hours 3/19/05/14/16 05/14/16 05/15/16 14:00 20:00 20:44 01:34 Temp 96.9 98.3 Pulse 77 73 73 Resp 17 18 20 B/P 148/90 150/90 150/90 Pulse Ox 96 95 99 O2 Delivery Room Air Room Air 05/15/16 05/15/16 02:05 06:00 Temp 97.7 Pulse 84 Resp 18 18 B/P 129/86 Pulse Ox 99 94 O2 Delivery Room Air Allergies Allergies: Coded Allergies: No Known Drug Allergy (Verified Allergy, Unknown, 06/03/12) Current Medications Current Medications Current Medications Acetaminophen (Tylenol Tab) 650 mg Q4HP PRN PO MILD PAIN (PS 1-4) Last administered on 05/15/16 10:01; Start 05/12/16 at 16:15; Stop 06/11/16 at 16:14 Acetaminophen/ Butalbital/ Caffeine (Fioricet) 1 ea Q4HP PRN PO HEADACHE Last administered on 05/15/16 01:34; Start 05/12/16 at 16:15; Stop 06/11/16 at 16:14 Amlodipine Besylate (Norvasc) 5 mg QHS PO Last administered on 05/14/16 20:44 ; Start 05/12/16 at 21:00; Stop 06/11/16 at 20:59 Amphetamine/ Dextroamphetamine (Adderall) 15 mg BID@09,14 PO Last administered on 05/15/16 08:53; Start 05/13/16 at 09:00; Stop 05/20/16 at 08:59 Aspirin (Aspirin) 325 mg DAILY PO Last administered on 05/15/16 08:52; Start 05/13/16 at 09:00; Stop 06/12/16 at 08:59 Atorvastatin Calcium (Lipitor) 80 mg QHS PO Last administered on 05/14/16 20: 44; Start 05/12/16 at 21:00; Stop 06/11/16 at 20:59 Bupropion HCl (Wellbutrin Xl) 300 mg DAILY PO Last administered on 05/15/16 08 :54; Start 05/13/16 at 09:00; Stop 06/12/16 at 08:59 Dextrose (Dextrose 50%) 25 ml ASDIRECTED PRN IV SEE LABEL COMMENTS; Start 05/12 at 16:15; Stop 05/13/16 at 10:33; Status DC Diazepam (Valium) 10 mg TID PRN PO ANXIETY Last administered on 05/15/16 10:01 ; Start 05/12/16 at 16:15; Stop 05/19/16 at 16:14 Docusate Sodium (Colace) 100 mg BID PO Last administered on 05/14/16 20:43; Start 05/12/16 at 21:00; Stop 06/11/16 at 20:59 Fluoxetine HCl (PROzac) 80 mg DAILY PO Last administered on 05/15/16 08:54; Start 05/13/16 at 09:00; Stop 06/12/16 at 08:59 Folic Acid (Folic Acid) 1 mg DAILY PO Last administered on 05/15/16 08:55; Start 05/13/16 at 09:00; Stop 06/12/16 at 08:59 Glucagon (Glucagon) 1 mg ASDIRECTED PRN SC SEE LABEL COMMENTS; Start 05/12/16 at 16:15; Stop 05/13/16 at 10:33; Status DC Glucose (Glucose) 16 GM ASDIRECTED PRN PO SEE LABEL COMMENTS; Start 05/12/16 at 16:15; Stop 05/13/16 at 10:33; Status DC Heparin Sodium (Porcine) (Heparin) 5,000 units Q12H SC Last administered on 08:52; Start 05/12/16 at 21:00; Stop 05/17/16 at 20:59 Insulin Human Lispro (HumaLOG INSULIN) See Protocol Table AC SC ; Start at 17:30; Stop 05/13/16 at 10:33; Status DC Insulin Human Lispro (HumaLOG INSULIN) See Protocol Table QHS SC ; Start at 21:00; Stop 05/13/16 at 10:33; Status DC Levothyroxine Sodium (Synthroid) 0.075 mg DAILY@06 PO Last administered on 05/15 06:23; Start 05/13/16 at 06:00; Stop 06/12/16 at 05:59 Levothyroxine Sodium (Synthroid) 0.1 mg DAILY@06 PO Last administered on 06:23; Start 05/13/16 at 06:00; Stop 06/12/16 at 05:59 Lurasidone HCl (Latuda) 80 mg QHS PO Last administered on 05/14/16 20:44; Start 05/12/16 at 21:00; Stop 06/11/16 at 20:59 Magnesium Hydroxide (Milk Of Magnesia) 30 ml DAILYPRN PRN PO CONSTIPATION Last administered on 05/13/16 21:50; Start 05/12/16 at 16:15; Stop 06/11/16 at 16:14 Meclizine HCl (Antivert) 12.5 mg Q8HP PRN PO DIZZINESS; Start 05/12/16 at 16:15 ; Stop 06/11/16 at 16:14 Multivitamins (Theragram-M) 1 tab DAILY PO Last administered on 05/15/16 08:53 ; Start 05/13/16 at 09:00; Stop 06/12/16 at 08:59 Omeprazole (PriLOSEC) 40 mg BID PO Last administered on 05/15/16 08:54; Start 05/12/16 at 21:00; Stop 06/11/16 at 20:59 Ondansetron HCl (Zofran) 4 mg Q6HP PRN PO NAUSEA Last administered on 07:54; Start 05/12/16 at 16:15; Stop 06/11/16 at 16:14 Polyethylene Glycol (Miralax) 1 pkt DAILY PRN PO CONSTIPATION; Start 05/12/16 at 16:15; Stop 06/11/16 at 16:14 Senna (Senokot) 1 tab QHS PO Last administered on 05/13/16 21:43; Start at 21:00; Stop 06/11/16 at 20:59 Thiamine HCl (Thiamine HCl) 100 mg QAM PO Last administered on 05/15/16 08:53 ; Start 05/13/16 at 09:00; Stop 06/12/16 at 08:59 KIMBERLY JOVEL MD May 15, 2016 11:27
[2016-05-15 14:00] VITALS: BP 150/79
[2016-05-15 20:00] VITALS: BP 158/86
[2016-05-15] MEDS: ATORVASTATIN 20 MG TAB PO SCH (22:09)
[2016-05-15] MEDS: SENNA 8.6 MG TAB (SENOKOT) PO SCH (22:11)
[2016-05-15] MEDS: amLODIPine 5 MG TAB PO SCH (22:11)
[2016-05-15] MEDS: LURASIDONE HCL 40 MG TAB (LATUDA) PO SCH (22:15)
[2016-05-16 06:00] VITALS: BP 146/80
[2016-05-16] MEDS: LEVOTHYROXINE 0.1 MG TAB (100 MCG) PO SCH (06:22)
[2016-05-16] MEDS: LEVOTHYROXINE 0.075 MG TAB (75 MCG) PO SCH (06:22)
[2016-05-16] MEDS: FIORICET TAB PO PRN (06:22)
[2016-05-16] MEDS: buPROPion **XL** TABLET 150MG (WELLBUTRIN XL) PO SCH (09:42)
[2016-05-16] MEDS: ADDERALL 5 MG TAB PO SCH ×2 (09:42→14:42)
[2016-05-16] MEDS: ASPIRIN 325 MG TAB PO SCH (09:42)
[2016-05-16] MEDS: FLUoxetine 20 MG CAP PO SCH (09:43)
[2016-05-16] MEDS: MULTIVITAMINS/MINERALS THERAP 1 TAB PO SCH (09:45)
[2016-05-16] MEDS: THIAMINE 100 MG TAB PO SCH (09:45)
[2016-05-16] MEDS: DOCUSATE SODIUM 100 MG CAP PO SCH ×2 (09:46→20:38)
[2016-05-16] MEDS: FOLIC ACID 1 MG TAB PO SCH (09:46)
[2016-05-16] MEDS: OMEPRAZOLE 20 MG CAP PO SCH ×2 (09:46→20:38)
[2016-05-16] MEDS: HEPARIN SOD (PORCINE) 5000 UNITS/ML VIAL SC SCH ×2 (09:48→20:38)
--- NOTE | 2016-05-16 12:17 | IPNPDOC ---
[employer] Progress Note PROGRESS NOTE DATE OF ADMISSION: 05/12/16 DATE OF SERVICE: 05/16/16 IDENTIFICATION STATEMENT: 70-year-old woman with acute parietal CVA, left hemiparesis admitted for comprehensive integrated inpatient rehabilitation. PAST MEDICAL HISTORY: Hypertension Bipolar disorder Anxiety Depression s/p ECT Insomnia Gastroesophageal reflux disease (GERD) Nephrolithiasis Hiatal hernia Urinary incontinence Diverticulosis Hemorrhoids Chronic back pain s/p GAYLA which she states caused manic episode Left foot Brunson's neuroma PAST SURGICAL HISTORY: Hysterectomy Appendectomy Cholecystectomy Carpal tunnel surgery Left foot surgery ALLERGIES: NKDA MEDICATIONS: Norvasc 5 mg by mouth daily at bedtime Lipitor 80 mg by mouth daily at bedtime Aspirin 325 mg by mouth daily Prilosec 40 mg by mouth twice a day Synthroid 0.175 mg by mouth daily Fioricet one tab every 4 hours when necessary for headache Adderall 15 mg by mouth twice a day at 9 AM at 1400 Heparin 5000 units subcutaneous every 12 hours Meclizine 12.5 mg every 8 hours he RN for dizziness Acetaminophen 650 mg every 8 hours when necessary for pain Wellbutrin 300 mg by mouth daily Prozac 80 mg by mouth daily Multivitamin 1 tab by mouth daily Thiamine 100 mg by mouth every morning Folic acid 1 mg by mouth daily Zofran 4 mg PO every 6 hours when necessary for nausea Valium 5 mg by mouth 3 times a day when necessary SUBJECTIVE: Patient complaints of feeling tired, also got dizzy this morning. DOesnt think she is eating enough, states she has no appetite. Didnt sleep well either, no particular reason. Otherwise no other complaints. No falls since yesterday. Denies any new weakness. Denies any CP, SOB, diaphoresis. VITAL SIGNS: 98.1, 70; 18; 146/80; 95% ra PHYSICAL EXAMINATION: GENERAL: Well nourished, well developed, sitting up in chair, no acute distress. HEENT: Normocephalic, atraumatic. No facial droop. PERRL, EOMI CARDIOVASCULAR: S1, S2, regular rate. No LL edema or calf tenderness. LUNGS: CTA b/l, no rhonchi, wheezing ABDOMEN: Soft, nontender, nondistended. Positive normoactive bowel sounds throughout. NEUROLOGICAL: Alert and oriented x 3. Answers questions appropriately. Mildly dysarthric (stable). Able to follow commands without difficulty. MMT: 5/5 strength left upper and lower limb all major muscle groups. 4+/5 left hip flexors, left dorsi flexion/EHL, remainder of the left lower limb and left upper limb 5/5. SKIN: + Abrasions bilateral knees and lower limb (healing). LABORATORY DATA: 05/13/16: WBC count 7.3; Hgb 13.0; Na 145, K 4.0; GFR > 60.6 05/12/16: White blood count (WBC) 5.8, hemoglobin 12, hematocrit 35.4, with a platelet count of 217. MCV of 99.2. Sodium 145, potassium 3.7, chloride 108, bicarbonate 27, BUN 7, creatine 0.79, glomerular filtration rate (GFR) greater than 60, fasting glucose 102, calcium 7.9. IMAGING: CT scan of head and MRI scan of brain showed right frontal and parietal medium sized acute ischemic stroke which affects her right parietal lobe more than right frontal lobe. MRA of brain showed decreased flow in the posterior division of right middle cerebral artery. Carotid ultrasound showed left carotid artery 16-49% and right carotid artery less than 15% stenosis. ASSESSMENT AND PLAN: 1. Acute right parietal stroke with gait abnormality and dysfunctional ADLs, mild dysarthria: Continue aspirin and statin. Maintain systolic blood pressure less than 140. Continue daily therapies. Rehabilitation nursing for bladder, bowel and medication management. 2. Hypertension: Blood pressure mostly within acceptable limits. Continue Norvasc. Adjustments as indicated. 3. DM, Type II: BG wnl so ISS d/cd 05/13/16 4. Psychiatric (Bipolar, depression, anxiety): Continue patient on all current psychotropic medications including Wellbutrin, Adderall, Latuda and Prozac. Patient will need follow-up with her psychiatrist upon discharge. 5. Headaches, chronic: Adequately controlled. Continue Fioricet as ordered by neurology. 6. Nausea, chronic: Continue Zofran prn. 7. Alcohol use, ?dependence: Has received 25mg Valium 05/16/16. Her available dose was decreased yesterday afternoon as concern related to fall. Question if it is related to her lightheadedness. Monitor closely and decrease again if needed. 8. DVT ppx: Heparin subcutaneous every 12 hours, SCDs and TEDs 9. Constipation: Bowel regimen to include Colace and senna scheduled along well with milk of magnesia and MiraLAX on an as-needed basis. Adjustments as indicated. 10. Diet/nutrition: Prealbumin wnl. Carbohydrate consistent, low cholesterol diet. / Vital Signs Vital Sign - Last 24 Hours 05/15/16 05/15/16 05/15/16 05/16/16 14:00 20:00 22:11 06:00 Temp 96.2 98.3 98.1 Pulse 78 69 69 70 Resp 18 B/P 150/79 158/86 158/86 146/80 Pulse Ox 94 94 95 O2 Delivery Room Air Room Air 05/16/16 05/16/16 06:22 07:00 Resp Allergies Allergies: Coded Allergies: No Known Drug Allergy (Verified Allergy, Unknown, 06/03/12) Current Medications Current Medications Current Medications Acetaminophen (Tylenol Tab) 650 mg Q4HP PRN PO MILD PAIN (PS 1-4) Last administered on 05/15/16 10:01; Start 05/12/16 at 16:15; Stop 06/11/16 at 16:14 Acetaminophen/ Butalbital/ Caffeine (Fioricet) 1 ea Q4HP PRN PO HEADACHE Last administered on 05/16/16 06:22; Start 05/12/16 at 16:15; Stop 06/11/16 at 16:14 Amlodipine Besylate (Norvasc) 5 mg QHS PO Last administered on 05/15/16 22:11 ; Start 05/12/16 at 21:00; Stop 06/11/16 at 20:59 Amphetamine/ Dextroamphetamine (Adderall) 15 mg BID@09,14 PO Last administered on 05/16/16 09:42; Start 05/13/16 at 09:00; Stop 05/20/16 at 08:59 Aspirin (Aspirin) 325 mg DAILY PO Last administered on 05/16/16 09:42; Start 05/13/16 at 09:00; Stop 06/12/16 at 08:59 Atorvastatin Calcium (Lipitor) 80 mg QHS PO Last administered on 05/15/16 22: 09; Start 05/12/16 at 21:00; Stop 06/11/16 at 20:59 Bupropion HCl (Wellbutrin Xl) 300 mg DAILY PO Last administered on 05/16/16 09 :42; Start 05/13/16 at 09:00; Stop 06/12/16 at 08:59 Dextrose (Dextrose 50%) 25 ml ASDIRECTED PRN IV SEE LABEL COMMENTS; Start 05/12 at 16:15; Stop 05/13/16 at 10:33; Status DC Diazepam (Valium) 5 mg Q8HP PRN PO ANXIETY Last administered on 05/15/16 22:15 ; Start 05/15/16 at 11:30; Stop 05/22/16 at 11:29 Diazepam (Valium) 10 mg TID PRN PO ANXIETY Last administered on 05/15/16 10:01 ; Start 05/12/16 at 16:15; Stop 05/15/16 at 11:27; Status DC Docusate Sodium (Colace) 100 mg BID PO Last administered on 05/16/16 09:46; Start 05/12/16 at 21:00; Stop 06/11/16 at 20:59 Fluoxetine HCl (PROzac) 80 mg DAILY PO Last administered on 05/16/16 09:43; Start 05/13/16 at 09:00; Stop 06/12/16 at 08:59 Folic Acid (Folic Acid) 1 mg DAILY PO Last administered on 05/16/16 09:46; Start 05/13/16 at 09:00; Stop 06/12/16 at 08:59 Glucagon (Glucagon) 1 mg ASDIRECTED PRN SC SEE LABEL COMMENTS; Start 05/12/16 at 16:15; Stop 05/13/16 at 10:33; Status DC Glucose (Glucose) 16 GM ASDIRECTED PRN PO SEE LABEL COMMENTS; Start 05/12/16 at 16:15; Stop 05/13/16 at 10:33; Status DC Heparin Sodium (Porcine) (Heparin) 5,000 units Q12H SC Last administered on 09:48; Start 05/12/16 at 21:00; Stop 05/17/16 at 20:59 Insulin Human Lispro (HumaLOG INSULIN) See Protocol Table AC SC ; Start at 17:30; Stop 05/13/16 at 10:33; Status DC Insulin Human Lispro (HumaLOG INSULIN) See Protocol Table QHS SC ; Start at 21:00; Stop 05/13/16 at 10:33; Status DC Levothyroxine Sodium (Synthroid) 0.075 mg DAILY@06 PO Last administered on 05/16 06:22; Start 05/13/16 at 06:00; Stop 06/12/16 at 05:59 Levothyroxine Sodium (Synthroid) 0.1 mg DAILY@06 PO Last administered on 06:22; Start 05/13/16 at 06:00; Stop 06/12/16 at 05:59 Lurasidone HCl (Latuda) 80 mg QHS PO Last administered on 05/15/16 22:15; Start 05/12/16 at 21:00; Stop 06/11/16 at 20:59 Magnesium Hydroxide (Milk Of Magnesia) 30 ml DAILYPRN PRN PO CONSTIPATION Last administered on 05/13/16 21:50; Start 05/12/16 at 16:15; Stop 06/11/16 at 16:14 Meclizine HCl (Antivert) 12.5 mg Q8HP PRN PO DIZZINESS; Start 05/12/16 at 16:15 ; Stop 06/11/16 at 16:14 Multivitamins (Theragram-M) 1 tab DAILY PO Last administered on 05/16/16 09:45 ; Start 05/13/16 at 09:00; Stop 06/12/16 at 08:59 Omeprazole (PriLOSEC) 40 mg BID PO Last administered on 05/16/16 09:46; Start 05/12/16 at 21:00; Stop 06/11/16 at 20:59 Ondansetron HCl (Zofran) 4 mg Q6HP PRN PO NAUSEA Last administered on 07:54; Start 05/12/16 at 16:15; Stop 06/11/16 at 16:14 Polyethylene Glycol (Miralax) 1 pkt DAILY PRN PO CONSTIPATION; Start 05/12/16 at 16:15; Stop 06/11/16 at 16:14 Senna (Senokot) 1 tab QHS PO Last administered on 05/13/16 21:43; Start at 21:00; Stop 06/11/16 at 20:59 Thiamine HCl (Thiamine HCl) 100 mg QAM PO Last administered on 05/16/16 09:45 ; Start 05/13/16 at 09:00; Stop 06/12/16 at 08:59 KIMBERLY JOVEL MD May 16, 2016 12:17
[2016-05-16 14:00] VITALS: BP 130/72
[2016-05-16] MEDS: diazePAM 5 MG TAB PO PRN (14:50)
[2016-05-16 20:00] VITALS: BP 136/87
[2016-05-16] MEDS: SENNA 8.6 MG TAB (SENOKOT) PO SCH (20:38)
[2016-05-16] MEDS: ATORVASTATIN 20 MG TAB PO SCH (20:38)
[2016-05-16] MEDS: LURASIDONE HCL 40 MG TAB (LATUDA) PO SCH (20:38)
[2016-05-16] MEDS: amLODIPine 5 MG TAB PO SCH (20:39)
[2016-05-17] MEDS: LEVOTHYROXINE 0.075 MG TAB (75 MCG) PO SCH (05:37)
[2016-05-17] MEDS: LEVOTHYROXINE 0.1 MG TAB (100 MCG) PO SCH (05:37)
[2016-05-17 06:00] VITALS: BP 133/75
[2016-05-17 08:37] LABS: MEAN CORPUSCULAR HEMOGLOBIN 32.7 pg (27.0-33.0); MEAN CORPUSCULAR HGB CONC 33.4 g/dl (32.0-36.5); MEAN CORPUSCULAR VOLUME 97.7 fl (80.0-96.0); RED CELL DISTRIBUTION WIDTH 12.8 % (11.5-14.5); WHITE BLOOD COUNT 6.4 K/mm3 (4.0-10.0)
[2016-05-17 08:52] LABS: ANION GAP 9 MEQ/L (8-16); BLOOD UREA NITROGEN 10 MG/DL (7-18); CALCIUM LEVEL 8.9 MG/DL (8.8-10.2); CARBON DIOXIDE LEVEL 26 MEQ/L (21-32); CHLORIDE LEVEL 108 MEQ/L (98-107); CREATININE FOR GFR 0.83 MG/DL (0.55-1.02); GLOMERULAR FILTRATION RATE > 60.0 (>45); GLUCOSE, FASTING 106 MG/DL (80-110); POTASSIUM SERUM 3.9 MEQ/L (3.5-5.1); SODIUM LEVEL 143 MEQ/L (136-145)
[2016-05-17] MEDS: ADDERALL 5 MG TAB PO SCH ×2 (08:59→14:50)
[2016-05-17] MEDS: OMEPRAZOLE 20 MG CAP PO SCH ×2 (09:00→20:28)
[2016-05-17] MEDS: FLUoxetine 20 MG CAP PO SCH (09:00)
[2016-05-17] MEDS: HEPARIN SOD (PORCINE) 5000 UNITS/ML VIAL SC SCH ×2 (09:01→20:29)
[2016-05-17] MEDS: MIRALAX *UNIT DOSE* 17GM PACKET PO PRN (09:01)
[2016-05-17] MEDS: ASPIRIN 325 MG TAB PO SCH (09:01)
[2016-05-17] MEDS: FOLIC ACID 1 MG TAB PO SCH (09:02)
[2016-05-17] MEDS: THIAMINE 100 MG TAB PO SCH (09:02)
[2016-05-17] MEDS: diazePAM 5 MG TAB PO PRN ×2 (09:02→20:28)
[2016-05-17] MEDS: MULTIVITAMINS/MINERALS THERAP 1 TAB PO SCH (09:02)
[2016-05-17] MEDS: DOCUSATE SODIUM 100 MG CAP PO SCH ×2 (09:02→20:29)
[2016-05-17] MEDS: buPROPion **XL** TABLET 150MG (WELLBUTRIN XL) PO SCH (09:03)
--- NOTE | 2016-05-17 13:55 | IPNPDOC ---
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 PAST MEDICAL HISTORY: Hypertension Bipolar disorder Anxiety Depression s/p ECT Insomnia Gastroesophageal reflux disease (GERD) Nephrolithiasis Hiatal hernia Urinary incontinence Diverticulosis Hemorrhoids Chronic back pain s/p GAYLA which she states caused manic episode Left foot Brunson's neuroma PAST SURGICAL HISTORY: Hysterectomy Appendectomy Cholecystectomy Carpal tunnel surgery Left foot surgery ALLERGIES: NKDA MEDICATIONS: Norvasc 5 mg by mouth daily at bedtime Lipitor 80 mg by mouth daily at bedtime Aspirin 325 mg by mouth daily Prilosec 40 mg by mouth twice a day Synthroid 0.175 mg by mouth daily Fioricet one tab every 4 hours when necessary for headache Adderall 15 mg by mouth twice a day at 9am at 1400 Heparin 5000 units subcutaneous every 12 hours Meclizine 12.5 mg every 8 hours he RN for dizziness Acetaminophen 650 mg every 8 hours when necessary for pain Wellbutrin 300 mg by mouth daily Prozac 80 mg by mouth daily Multivitamin 1 tab by mouth daily Thiamine 100 mg by mouth every morning Folic acid 1 mg by mouth daily Zofran 4 mg PO every 6 hours when necessary for nausea Valium 5 mg by mouth 3 times a day when necessary SUBJECTIVE: Patient states had episode of left LL pain 2nd to being unable to get in good position in bed this morning. Eventually work it out. No pain now in leg. States her decreased sensation left LL about the same. No recent falls. Had small BM. Denies any new weakness. Denies any CP, SOB, diaphoresis. VITAL SIGNS: 97.5, 80; 18; 133/75; 95% ra PHYSICAL EXAMINATION: GENERAL: Well nourished, well developed, sitting up in chair, no acute distress. HEENT: Normocephalic, atraumatic. No facial droop. PERRL, EOMI CARDIOVASCULAR: S1, S2, regular rate. No LL edema or calf tenderness. LUNGS: CTA b/l, no rhonchi, wheezing ABDOMEN: Soft, nontender, nondistended. Positive normoactive bowel sounds throughout. NEUROLOGICAL: Alert and oriented x 3. Answers questions appropriately. Mildly dysarthric (decreased). Able to follow commands without difficulty. MMT: 5/5 strength left upper and lower limb all major muscle groups. 4+/5 left hip flexors, left dorsi flexion/EHL, remainder of the left lower limb and left upper limb 5/5. SKIN: + Abrasions bilateral knees and lower limb (healing). LABORATORY DATA: 05/17/16: reviewed, see below 05/12/16: White blood count (WBC) 5.8, hemoglobin 12, hematocrit 35.4, with a platelet count of 217. MCV of 99.2. Sodium 145, potassium 3.7, chloride 108, bicarbonate 27, BUN 7, creatine 0.79, glomerular filtration rate (GFR) greater than 60, fasting glucose 102, calcium 7.9. IMAGING: CT scan of head and MRI scan of brain showed right frontal and parietal medium sized acute ischemic stroke which affects her right parietal lobe more than right frontal lobe. MRA of brain showed decreased flow in the posterior division of right middle cerebral artery. Carotid ultrasound showed left carotid artery 16-49% and right carotid artery less than 15% stenosis. ASSESSMENT AND PLAN: 1. Acute right parietal stroke with gait abnormality and dysfunctional ADLs: Continue aspirin and statin. Maintain systolic blood pressure less than 140. Continue daily therapies. Rehabilitation nursing for bladder, bowel and medication management. 2. Hypertension: Blood pressure within acceptable limits. Continue Norvasc. Adjustments if needed. 3. DM, Type II: BG wnl so ISS d/cd 05/13/16 4. Psychiatric (Bipolar, depression, anxiety): Continue patient on current psychotropic medications including Wellbutrin, Adderall, Latuda and Prozac. Patient will need follow-up with her psychiatrist upon discharge. 5. Headaches, chronic: Adequately controlled. Continue Fioricet as ordered by neurology. 6. Nausea, chronic: Continue Zofran prn. 7. Alcohol use, ?dependence: Has received 25mg Valium 05/16/16. Her available dose was decreased 05/15/16 due to concerns related to fall/lightheadedness. Monitor closely and decrease again if needed. 8. DVT ppx: Heparin subcutaneous every 12 hours, SCDs and TEDs 9. Constipation: Bowel regimen to include Colace and senna scheduled along well with milk of magnesia and MiraLAX on an as-needed basis. Adjustments as indicated. 10. Diet/nutrition: Prealbumin wnl. Carbohydrate consistent, low cholesterol diet. / Vital Signs Vital Sign - Last 24 Hours 05/16/16 05/16/16 05/16/16 05/17/16 14:00 20:00 20:39 06:00 Temp 99.3 97.5 97.5 Pulse 73 81 81 80 Resp 18 19 18 B/P 130/72 136/87 136/87 133/75 Pulse Ox 93 94 95 O2 Delivery Room Air Room Air Room Air Laboratory Data CBC/BMP Laboratory Tests 05/17/16 08:16 Calcium Level 8.9, Red Blood Count 4.13, Mean Corpuscular Volume 97.7 H, Mean Corpuscular Hemoglobin 32.7, Mean Corpuscular Hemoglobin Concent 33.4, Red Cell Distribution Width 12.8 Labs 24H Laboratory Tests 2 05/17/16 08:16: Anion Gap 9, Blood Urea Nitrogen 10, Creatinine 0.83, Sodium Level 143, Potassium Level 3.9, Chloride Level 108H, Carbon Dioxide Level 26, Calcium Level 8.9, Glomerular Filtration Rate > 60.0 Allergies Allergies: Coded Allergies: No Known Drug Allergy (Verified Allergy, Unknown, 06/03/12) Current Medications Current Medications Current Medications Acetaminophen (Tylenol Tab) 650 mg Q4HP PRN PO MILD PAIN (PS 1-4) Last administered on 05/15/16 10:01; Start 05/12/16 at 16:15; Stop 06/11/16 at 16:14 Acetaminophen/ Butalbital/ Caffeine (Fioricet) 1 ea Q4HP PRN PO HEADACHE Last administered on 05/16/16 06:22; Start 05/12/16 at 16:15; Stop 06/11/16 at 16:14 Amlodipine Besylate (Norvasc) 5 mg QHS PO Last administered on 05/16/16 20:39 ; Start 05/12/16 at 21:00; Stop 06/11/16 at 20:59 Amphetamine/ Dextroamphetamine (Adderall) 15 mg BID@09,14 PO Last administered on 05/17/16 08:59; Start 05/13/16 at 09:00; Stop 05/20/16 at 08:59 Aspirin (Aspirin) 325 mg DAILY PO Last administered on 05/17/16 09:01; Start 05/13/16 at 09:00; Stop 06/12/16 at 08:59 Atorvastatin Calcium (Lipitor) 80 mg QHS PO Last administered on 05/16/16 20: 38; Start 05/12/16 at 21:00; Stop 06/11/16 at 20:59 Bupropion HCl (Wellbutrin Xl) 300 mg DAILY PO Last administered on 05/17/16 09 :03; Start 05/13/16 at 09:00; Stop 06/12/16 at 08:59 Dextrose (Dextrose 50%) 25 ml ASDIRECTED PRN IV SEE LABEL COMMENTS; Start 05/12 at 16:15; Stop 05/13/16 at 10:33; Status DC Diazepam (Valium) 5 mg Q8HP PRN PO ANXIETY Last administered on 05/17/16 09:02 ; Start 05/15/16 at 11:30; Stop 05/22/16 at 11:29 Diazepam (Valium) 10 mg TID PRN PO ANXIETY Last administered on 05/15/16 10:01 ; Start 05/12/16 at 16:15; Stop 05/15/16 at 11:27; Status DC Docusate Sodium (Colace) 100 mg BID PO Last administered on 05/17/16 09:02; Start 05/12/16 at 21:00; Stop 06/11/16 at 20:59 Fluoxetine HCl (PROzac) 80 mg DAILY PO Last administered on 05/17/16 09:00; Start 05/13/16 at 09:00; Stop 06/12/16 at 08:59 Folic Acid (Folic Acid) 1 mg DAILY PO Last administered on 05/17/16 09:02; Start 05/13/16 at 09:00; Stop 06/12/16 at 08:59 Glucagon (Glucagon) 1 mg ASDIRECTED PRN SC SEE LABEL COMMENTS; Start 05/12/16 at 16:15; Stop 05/13/16 at 10:33; Status DC Glucose (Glucose) 16 GM ASDIRECTED PRN PO SEE LABEL COMMENTS; Start 05/12/16 at 16:15; Stop 05/13/16 at 10:33; Status DC Heparin Sodium (Porcine) (Heparin) 5,000 units Q12H SC Last administered on 09:01; Start 05/12/16 at 21:00; Stop 05/21/16 at 20:59 Insulin Human Lispro (HumaLOG INSULIN) See Protocol Table AC SC ; Start at 17:30; Stop 05/13/16 at 10:33; Status DC Insulin Human Lispro (HumaLOG INSULIN) See Protocol Table QHS SC ; Start at 21:00; Stop 05/13/16 at 10:33; Status DC Levothyroxine Sodium (Synthroid) 0.075 mg DAILY@06 PO Last administered on 05/17 05:37; Start 05/13/16 at 06:00; Stop 06/12/16 at 05:59 Levothyroxine Sodium (Synthroid) 0.1 mg DAILY@06 PO Last administered on 05:37; Start 05/13/16 at 06:00; Stop 06/12/16 at 05:59 Lurasidone HCl (Latuda) 80 mg QHS PO Last administered on 05/16/16 20:38; Start 05/12/16 at 21:00; Stop 06/11/16 at 20:59 Magnesium Hydroxide (Milk Of Magnesia) 30 ml DAILYPRN PRN PO CONSTIPATION Last administered on 05/13/16 21:50; Start 05/12/16 at 16:15; Stop 06/11/16 at 16:14 Meclizine HCl (Antivert) 12.5 mg Q8HP PRN PO DIZZINESS; Start 05/12/16 at 16:15 ; Stop 06/11/16 at 16:14 Multivitamins (Theragram-M) 1 tab DAILY PO Last administered on 05/17/16 09:02 ; Start 05/13/16 at 09:00; Stop 06/12/16 at 08:59 Omeprazole (PriLOSEC) 40 mg BID PO Last administered on 05/17/16 09:00; Start 05/12/16 at 21:00; Stop 06/11/16 at 20:59 Ondansetron HCl (Zofran) 4 mg Q6HP PRN PO NAUSEA Last administered on 07:54; Start 05/12/16 at 16:15; Stop 06/11/16 at 16:14 Polyethylene Glycol (Miralax) 1 pkt DAILY PRN PO CONSTIPATION Last administered on 05/17/16 09:01; Start 05/12/16 at 16:15; Stop 06/11/16 at 16:14 Senna (Senokot) 1 tab QHS PO Last administered on 05/16/16 20:38; Start at 21:00; Stop 06/11/16 at 20:59 Thiamine HCl (Thiamine HCl) 100 mg QAM PO Last administered on 05/17/16 09:02 ; Start 05/13/16 at 09:00; Stop 06/12/16 at 08:59 KIMBERLY JOVEL MD May 17, 2016 13:55
[2016-05-17 14:00] VITALS: BP 138/83
[2016-05-17 20:00] VITALS: BP 141/80
[2016-05-17] MEDS: ATORVASTATIN 20 MG TAB PO SCH (20:28)
[2016-05-17] MEDS: LURASIDONE HCL 40 MG TAB (LATUDA) PO SCH (20:28)
[2016-05-17] MEDS: amLODIPine 5 MG TAB PO SCH (20:29)
[2016-05-17] MEDS: SENNA 8.6 MG TAB (SENOKOT) PO SCH (20:29)
[2016-05-17] MEDS: MOM 30ML SUSPENSION UDC PO PRN (20:37)
[2016-05-18] MEDS: LEVOTHYROXINE 0.075 MG TAB (75 MCG) PO SCH (05:40)
[2016-05-18] MEDS: LEVOTHYROXINE 0.1 MG TAB (100 MCG) PO SCH (05:40)
[2016-05-18] MEDS: MECLIZINE 12.5 MG TAB PO PRN ×2 (05:58→17:37)
[2016-05-18 06:00] VITALS: BP 171/90
[2016-05-18 07:00] VITALS: BP 148/92
[2016-05-18] MEDS: MIRALAX *UNIT DOSE* 17GM PACKET PO PRN (08:44)
[2016-05-18] MEDS: THIAMINE 100 MG TAB PO SCH (08:45)
[2016-05-18] MEDS: DOCUSATE SODIUM 100 MG CAP PO SCH ×2 (08:45→20:49)
[2016-05-18] MEDS: OMEPRAZOLE 20 MG CAP PO SCH ×2 (08:45→20:38)
[2016-05-18] MEDS: ADDERALL 5 MG TAB PO SCH (08:45)
[2016-05-18] MEDS: FLUoxetine 20 MG CAP PO SCH (08:45)
[2016-05-18] MEDS: HEPARIN SOD (PORCINE) 5000 UNITS/ML VIAL SC SCH ×2 (08:45→20:38)
[2016-05-18] MEDS: FOLIC ACID 1 MG TAB PO SCH (08:45)
[2016-05-18] MEDS: ASPIRIN 325 MG TAB PO SCH (08:46)
[2016-05-18] MEDS: MULTIVITAMINS/MINERALS THERAP 1 TAB PO SCH (08:46)
[2016-05-18] MEDS: buPROPion **XL** TABLET 150MG (WELLBUTRIN XL) PO SCH (08:46)
[2016-05-18] MEDS: diazePAM 5 MG TAB PO PRN (09:39)
[2016-05-18] MEDS ORDERED: MAGNESIUM CITRATE 300 ML BTL PO ONE ×2 (10:30→18:00)
--- NOTE | 2016-05-18 12:31 | IPNPDOC ---
Stock Counter Progress Note PROGRESS NOTE DATE OF ADMISSION: 05/12/16 DATE OF SERVICE: 05/18/16 IDENTIFICATION STATEMENT: 70-year-old woman with acute parietal CVA, left hemiparesis admitted for comprehensive integrated inpatient rehabilitation. PAST MEDICAL HISTORY: Hypertension Bipolar disorder Anxiety Depression s/p ECT Insomnia Gastroesophageal reflux disease (GERD) Nephrolithiasis Hiatal hernia Urinary incontinence Diverticulosis Hemorrhoids Chronic back pain s/p GAYLA which she states caused manic episode Left foot Brunson's neuroma PAST SURGICAL HISTORY: Hysterectomy Appendectomy Cholecystectomy Carpal tunnel surgery Left foot surgery ALLERGIES: NKDA MEDICATIONS: Norvasc 5 mg by mouth daily at bedtime Lipitor 80 mg by mouth daily at bedtime Aspirin 325 mg by mouth daily Prilosec 40 mg by mouth twice a day Synthroid 0.175 mg by mouth daily Fioricet one tab every 4 hours when necessary for headache Adderall 15 mg by mouth twice a day at 9am at 1400 Heparin 5000 units subcutaneous every 12 hours Meclizine 12.5 mg every 8 hours he RN for dizziness Acetaminophen 650 mg every 8 hours when necessary for pain Wellbutrin 300 mg by mouth daily Prozac 80 mg by mouth daily Multivitamin 1 tab by mouth daily Thiamine 100 mg by mouth every morning Folic acid 1 mg by mouth daily Zofran 4 mg PO every 6 hours when necessary for nausea Valium 5 mg by mouth 3 times a day when necessary SUBJECTIVE: Patient w/o complaints, feels good except constipated. No recent falls. No nausea. Had dizziness but resolved with meclizine. Denies any new weakness. Denies any CP, SOB, diaphoresis. VITAL SIGNS: 98.1, 70; 19; 148/92; 93% ra PHYSICAL EXAMINATION: GENERAL: Well nourished, well developed, sitting up in chair, no acute distress. HEENT: Normocephalic, atraumatic. No facial droop. PERRL, EOMI CARDIOVASCULAR: S1, S2, regular rate. No LL edema or calf tenderness. LUNGS: CTA b/l, no rhonchi, wheezing ABDOMEN: Soft, nontender, nondistended. Positive normoactive bowel sounds throughout. NEUROLOGICAL: Alert and oriented x 3. Answers questions appropriately. Slightly dysarthric (improved over admission). Able to follow commands without difficulty. MMT: 5/5 strength left upper and lower limb all major muscle groups. 4+/5 left hip flexors, left dorsi flexion/EHL, remainder of the left lower limb and left upper limb 5/5. SKIN: + Abrasions bilateral knees and lower limb (healing). LABORATORY DATA: 05/17/16: reviewed, see below 05/12/16: White blood count (WBC) 5.8, hemoglobin 12, hematocrit 35.4, with a platelet count of 217. MCV of 99.2. Sodium 145, potassium 3.7, chloride 108, bicarbonate 27, BUN 7, creatine 0.79, glomerular filtration rate (GFR) greater than 60, fasting glucose 102, calcium 7.9. IMAGING: CT scan of head and MRI scan of brain showed right frontal and parietal medium sized acute ischemic stroke which affects her right parietal lobe more than right frontal lobe. MRA of brain showed decreased flow in the posterior division of right middle cerebral artery. Carotid ultrasound showed left carotid artery 16-49% and right carotid artery less than 15% stenosis. ASSESSMENT AND PLAN: 1. Acute right parietal stroke with gait abnormality and dysfunctional ADLs: Continue aspirin and statin. Maintain systolic blood pressure less than 140. Continue daily therapies. Rehabilitation nursing for bladder, bowel and medication management. 2. Hypertension: Blood pressure within acceptable limits. Continue Norvasc. Adjustments if needed. 3. DM, Type II: BG wnl so ISS d/cd 05/13/16 4. Psychiatric (Bipolar, depression, anxiety): Continue patient on current psychotropic medications including Wellbutrin, Adderall, Latuda and Prozac. Decreased Adderall dose 2nd poor sleep. Patient will need follow-up with her psychiatrist upon discharge. 5. Headaches, chronic: Adequately controlled. Continue Fioricet as ordered by neurology. 6. Nausea, chronic: Continue Zofran prn. 7. Dizziness: Continue meclizne 8. Alcohol use, ?dependence: Has not had any s/s/ withdrawal. Received 25mg Valium 05/16/16. Available dose was decreased 05/15/16 due to concerns related to fall/lightheadedness. Using 5-10mg/24h period since decrease. Monitor closely and decrease again if needed. 8. DVT ppx: Heparin subcutaneous every 12 hours, SCDs and TEDs 9. Constipation: Ordered mag citrate today. Continue Colace and senna scheduled along well with milk of magnesia and MiraLAX on an as-needed basis. Adjustments as indicated. 10. Diet/nutrition: Prealbumin wnl. Carbohydrate consistent, low cholesterol diet. / Vital Signs Vital Sign - Last 24 Hours 05/17/16 05/17/16 05/17/16 05/18/16 14:00 20:00 20:29 06:00 Temp 97.4 98.3 98.1 Pulse 78 82 82 70 Resp 20 18 19 B/P 138/83 141/80 141/80 171/90 Pulse Ox 96 93 93 O2 Delivery Room Air Room Air 05/18/16 05/18/16 05/18/16 07:00 10:19 11:20 B/P 148/92 O2 Delivery Room Air Room Air Allergies Allergies: Coded Allergies: No Known Drug Allergy (Verified Allergy, Unknown, 06/03/12) Current Medications Current Medications Current Medications Acetaminophen (Tylenol Tab) 650 mg Q4HP PRN PO MILD PAIN (PS 1-4) Last administered on 05/15/16 10:01; Start 05/12/16 at 16:15; Stop 06/11/16 at 16:14 Acetaminophen/ Butalbital/ Caffeine (Fioricet) 1 ea Q4HP PRN PO HEADACHE Last administered on 05/16/16 06:22; Start 05/12/16 at 16:15; Stop 06/11/16 at 16:14 Amlodipine Besylate (Norvasc) 5 mg QHS PO Last administered on 05/17/16 20:29 ; Start 05/12/16 at 21:00; Stop 06/11/16 at 20:59 Amphetamine/ Dextroamphetamine (Adderall) 15 mg BID@,14 PO Last administered on 05/18/16 08:45; Start 05/13/16 at 09:00; Stop 05/18/16 at 10:02; Status DC Amphetamine/ Dextroamphetamine (Adderall) 15 mg DAILY PO ; Start 05/19/16 at 09: 00; Stop 05/26/16 at 08:59 Aspirin (Aspirin) 325 mg DAILY PO Last administered on 05/18/16 08:46; Start 05/13/16 at 09:00; Stop 06/12/16 at 08:59 Atorvastatin Calcium (Lipitor) 80 mg QHS PO Last administered on 05/17/16 20: 28; Start 05/12/16 at 21:00; Stop 06/11/16 at 20:59 Bupropion HCl (Wellbutrin Xl) 300 mg DAILY PO Last administered on 05/18/16 08 :46; Start 05/13/16 at 09:00; Stop 06/12/16 at 08:59 Dextrose (Dextrose 50%) 25 ml ASDIRECTED PRN IV SEE LABEL COMMENTS; Start 05/12 at 16:15; Stop 05/13/16 at 10:33; Status DC Diazepam (Valium) 5 mg Q8HP PRN PO ANXIETY Last administered on 05/18/16 09:39 ; Start 05/15/16 at 11:30; Stop 05/22/16 at 11:29 Diazepam (Valium) 10 mg TID PRN PO ANXIETY Last administered on 05/15/16 10:01 ; Start 05/12/16 at 16:15; Stop 05/15/16 at 11:27; Status DC Docusate Sodium (Colace) 100 mg BID PO Last administered on 05/18/16 08:45; Start 05/12/16 at 21:00; Stop 06/11/16 at 20:59 Fluoxetine HCl (PROzac) 80 mg DAILY PO Last administered on 05/18/16 08:45; Start 05/13/16 at 09:00; Stop 06/12/16 at 08:59 Folic Acid (Folic Acid) 1 mg DAILY PO Last administered on 05/18/16 08:45; Start 05/13/16 at 09:00; Stop 06/12/16 at 08:59 Glucagon (Glucagon) 1 mg ASDIRECTED PRN SC SEE LABEL COMMENTS; Start 05/12/16 at 16:15; Stop 05/13/16 at 10:33; Status DC Glucose (Glucose) 16 GM ASDIRECTED PRN PO SEE LABEL COMMENTS; Start 05/12/16 at 16:15; Stop 05/13/16 at 10:33; Status DC Heparin Sodium (Porcine) (Heparin) 5,000 units Q12H SC Last administered on 08:45; Start 05/12/16 at 21:00; Stop 05/21/16 at 20:59 Insulin Human Lispro (HumaLOG INSULIN) See Protocol Table AC SC ; Start at 17:30; Stop 05/13/16 at 10:33; Status DC Insulin Human Lispro (HumaLOG INSULIN) See Protocol Table QHS SC ; Start at 21:00; Stop 05/13/16 at 10:33; Status DC Levothyroxine Sodium (Synthroid) 0.075 mg DAILY@06 PO Last administered on 05/18 05:40; Start 05/13/16 at 06:00; Stop 06/12/16 at 05:59 Levothyroxine Sodium (Synthroid) 0.1 mg DAILY@06 PO Last administered on 05:40; Start 05/13/16 at 06:00; Stop 06/12/16 at 05:59 Lurasidone HCl (Latuda) 80 mg QHS PO Last administered on 05/17/16 20:28; Start 05/12/16 at 21:00; Stop 06/11/16 at 20:59 Magnesium Hydroxide (Milk Of Magnesia) 30 ml DAILYPRN PRN PO CONSTIPATION Last administered on 05/17/16 20:37; Start 05/12/16 at 16:15; Stop 06/11/16 at 16:14 Meclizine HCl (Antivert) 12.5 mg Q8HP PRN PO DIZZINESS Last administered on 05:58; Start 05/12/16 at 16:15; Stop 06/11/16 at 16:14 Multivitamins (Theragram-M) 1 tab DAILY PO Last administered on 05/18/16 08:46 ; Start 05/13/16 at 09:00; Stop 06/12/16 at 08:59 Omeprazole (PriLOSEC) 40 mg BID PO Last administered on 05/18/16 08:45; Start 05/12/16 at 21:00; Stop 06/11/16 at 20:59 Ondansetron HCl (Zofran) 4 mg Q6HP PRN PO NAUSEA Last administered on 07:54; Start 05/12/16 at 16:15; Stop 06/11/16 at 16:14 Polyethylene Glycol (Miralax) 1 pkt DAILY PRN PO CONSTIPATION Last administered on 05/18/16 08:44; Start 05/12/16 at 16:15; Stop 06/11/16 at 16:14 Senna (Senokot) 1 tab QHS PO Last administered on 05/17/16 20:29; Start at 21:00; Stop 06/11/16 at 20:59 Thiamine HCl (Thiamine HCl) 100 mg QAM PO Last administered on 05/18/16 08:45 ; Start 05/13/16 at 09:00; Stop 06/12/16 at 08:59 KIMBERLY JOVEL MD May 18, 2016 12:31
[2016-05-18 14:28] VITALS: BP 151/81
[2016-05-18 20:00] VITALS: BP 132/88
[2016-05-18] MEDS: ATORVASTATIN 20 MG TAB PO SCH (20:38)
[2016-05-18] MEDS: FIORICET TAB PO PRN (20:38)
[2016-05-18] MEDS: amLODIPine 5 MG TAB PO SCH (20:39)
[2016-05-18] MEDS: LURASIDONE HCL 40 MG TAB (LATUDA) PO SCH (20:39)
[2016-05-18] MEDS: SENNA 8.6 MG TAB (SENOKOT) PO SCH (20:49)
[2016-05-19] MEDS: LEVOTHYROXINE 0.1 MG TAB (100 MCG) PO SCH (05:54)
[2016-05-19] MEDS: LEVOTHYROXINE 0.075 MG TAB (75 MCG) PO SCH (05:54)
[2016-05-19 06:00] VITALS: BP 130/71
[2016-05-19] MEDS: MECLIZINE 12.5 MG TAB PO PRN (06:51)
[2016-05-19] MEDS: THIAMINE 100 MG TAB PO SCH (09:05)
[2016-05-19] MEDS: ASPIRIN 325 MG TAB PO SCH (09:05)
[2016-05-19] MEDS: FLUoxetine 20 MG CAP PO SCH (09:05)
[2016-05-19] MEDS: DOCUSATE SODIUM 100 MG CAP PO SCH ×2 (09:05→21:34)
[2016-05-19] MEDS: MULTIVITAMINS/MINERALS THERAP 1 TAB PO SCH (09:05)
[2016-05-19] MEDS: OMEPRAZOLE 20 MG CAP PO SCH ×2 (09:06→21:34)
[2016-05-19] MEDS: buPROPion **XL** TABLET 150MG (WELLBUTRIN XL) PO SCH (09:06)
[2016-05-19] MEDS: ADDERALL 5 MG TAB PO SCH (09:06)
[2016-05-19] MEDS: HEPARIN SOD (PORCINE) 5000 UNITS/ML VIAL SC SCH ×2 (09:06→21:35)
[2016-05-19] MEDS: FOLIC ACID 1 MG TAB PO SCH (09:06)
--- NOTE | 2016-05-19 10:29 | IPNPDOC ---
Email Deployment Specialist Progress Note PROGRESS NOTE DATE OF ADMISSION: 05/12/16 DATE OF SERVICE: 05/19/16 IDENTIFICATION STATEMENT: 70-year-old woman with acute parietal CVA, left hemiparesis admitted for comprehensive integrated inpatient rehabilitation. PAST MEDICAL HISTORY: Hypertension Bipolar disorder Anxiety Depression s/p ECT Insomnia Gastroesophageal reflux disease (GERD) Nephrolithiasis Hiatal hernia Urinary incontinence Diverticulosis Hemorrhoids Chronic back pain s/p GAYLA which she states caused manic episode Left foot Brunson's neuroma PAST SURGICAL HISTORY: Hysterectomy Appendectomy Cholecystectomy Carpal tunnel surgery Left foot surgery ALLERGIES: NKDA MEDICATIONS: Norvasc 5 mg by mouth daily at bedtime Lipitor 80 mg by mouth daily at bedtime Aspirin 325 mg by mouth daily Prilosec 40 mg by mouth twice a day Synthroid 0.175 mg by mouth daily Fioricet one tab every 4 hours when necessary for headache Adderall 15 mg by mouth daily Heparin 5000 units subcutaneous every 12 hours Meclizine 12.5 mg every 8 hours he RN for dizziness Acetaminophen 650 mg every 8 hours when necessary for pain Wellbutrin 300 mg by mouth daily Prozac 80 mg by mouth daily Multivitamin 1 tab by mouth daily Thiamine 100 mg by mouth every morning Folic acid 1 mg by mouth daily Zofran 4 mg PO every 6 hours when necessary for nausea Valium 5 mg by mouth 3 times a day when necessary SUBJECTIVE: Patient w/o complaints. Had BM yesterday and feels better. No recent falls. No nausea. Dizziness controlled with meclizine. Denies any new weakness. Denies any CP, SOB, diaphoresis. VITAL SIGNS: 98.2, 74; 18; 130/71; 93% ra PHYSICAL EXAMINATION: GENERAL: Well nourished, well developed, sitting up in chair, no acute distress. HEENT: Normocephalic, atraumatic. No facial droop. PERRL, EOMI CARDIOVASCULAR: S1, S2, regular rate. No LL edema or calf tenderness. LUNGS: CTA b/l, no rhonchi, wheezing ABDOMEN: Soft, nontender, nondistended. Normoactive bowel sounds throughout. NEUROLOGICAL: Alert and oriented x 3. Answers questions appropriately. Slightly dysarthric (improved over admission). Able to follow commands without difficulty. F-to-N wnl. MMT: 5/5 strength left upper and lower limb all major muscle groups. 5/5 left hip flexors, left dorsi flexion/EHL and remainder of the left lower limb and left upper limbs. SKIN: + Abrasions bilateral knees and lower limb (healing). LABORATORY DATA: 05/17/16: reviewed, essentially wnl ASSESSMENT AND PLAN: 1. Acute right parietal stroke with gait abnormality and dysfunctional ADLs: Continue aspirin and statin. Maintain systolic blood pressure less than 140. Patient making gains. Continue daily therapies. Paln for apartment on Sunday. Rehabilitation nursing for bladder, bowel and medication management. 2. Hypertension: Blood pressure within acceptable limits. Continue Norvasc. Adjustments if needed. 3. DM, Type II: BG wnl so ISS d/cd 05/13/16 4. Psychiatric (Bipolar, depression, anxiety): Well controlled during rehabilitation stay. Continue patient on current psychotropic medications including Wellbutrin, Adderall, Latuda and Prozac. Decreased Adderall dose 2nd poor sleep. Patient will need follow-up with her psychiatrist upon discharge. 5. Headaches, chronic: Adequately controlled. Continue Fioricet as ordered by neurology. 6. Nausea, chronic: Hasnt required Zofran recently. 7. Dizziness: Continue meclizne 8. Alcohol use, ?dependence: Has not had any s/s withdrawal. Received 25mg Valium 05/16/16. Available dose was then decreased 05/15/16 due to concerns related to fall/lightheadedness. Monitor closely and decrease again if needed. 8. DVT ppx: Heparin subcutaneous every 12 hours, SCDs and TEDs 9. Constipation: Resolved s/p mag citrate. Continue Colace and senna scheduled along well with milk of magnesia and MiraLAX on an as-needed basis. 10. Diet/nutrition: Prealbumin wnl. Carbohydrate consistent, low cholesterol diet. / Vital Signs Vital Sign - Last 24 Hours 05/18/16 05/18/16 05/18/16 05/18/16 11:20 14:28 20:00 20:38 Temp 97.5 99.4 Pulse 69 65 Resp 18 18 18 B/P 151/81 132/88 Pulse Ox 98 95 O2 Delivery Room Air Room Air Room Air 05/18/16 05/18/16 05/19/16 20:39 21:08 06:00 Temp 98.2 Pulse 65 74 Resp 18 18 B/P 132/88 130/71 Pulse Ox 93 O2 Delivery Room Air Allergies Allergies: Coded Allergies: No Known Drug Allergy (Verified Allergy, Unknown, 06/03/12) Current Medications Current Medications Current Medications Acetaminophen (Tylenol Tab) 650 mg Q4HP PRN PO MILD PAIN (PS 1-4) Last administered on 05/15/16 10:01; Start 05/12/16 at 16:15; Stop 06/11/16 at 16:14 Acetaminophen/ Butalbital/ Caffeine (Fioricet) 1 ea Q4HP PRN PO HEADACHE Last administered on 05/18/16 20:38; Start 05/12/16 at 16:15; Stop 06/11/16 at 16:14 Amlodipine Besylate (Norvasc) 5 mg QHS PO Last administered on 05/18/16 20:39 ; Start 05/12/16 at 21:00; Stop 06/11/16 at 20:59 Amphetamine/ Dextroamphetamine (Adderall) 15 mg BID@,14 PO Last administered on 05/18/16 08:45; Start 05/13/16 at 09:00; Stop 05/18/16 at 10:02; Status DC Amphetamine/ Dextroamphetamine (Adderall) 15 mg DAILY PO Last administered on 09:06; Start 05/19/16 at 09:00; Stop 05/26/16 at 08:59 Aspirin (Aspirin) 325 mg DAILY PO Last administered on 05/19/16 09:05; Start 05/13/16 at 09:00; Stop 06/12/16 at 08:59 Atorvastatin Calcium (Lipitor) 80 mg QHS PO Last administered on 05/18/16 20: 38; Start 05/12/16 at 21:00; Stop 06/11/16 at 20:59 Bupropion HCl (Wellbutrin Xl) 300 mg DAILY PO Last administered on 05/19/16 09 :06; Start 05/13/16 at 09:00; Stop 06/12/16 at 08:59 Dextrose (Dextrose 50%) 25 ml ASDIRECTED PRN IV SEE LABEL COMMENTS; Start 05/12 at 16:15; Stop 05/13/16 at 10:33; Status DC Diazepam (Valium) 5 mg Q8HP PRN PO ANXIETY Last administered on 05/18/16 09:39 ; Start 05/15/16 at 11:30; Stop 05/22/16 at 11:29 Diazepam (Valium) 10 mg TID PRN PO ANXIETY Last administered on 05/15/16 10:01 ; Start 05/12/16 at 16:15; Stop 05/15/16 at 11:27; Status DC Docusate Sodium (Colace) 100 mg BID PO Last administered on 05/19/16 09:05; Start 05/12/16 at 21:00; Stop 06/11/16 at 20:59 Fluoxetine HCl (PROzac) 80 mg DAILY PO Last administered on 05/19/16 09:05; Start 05/13/16 at 09:00; Stop 06/12/16 at 08:59 Folic Acid (Folic Acid) 1 mg DAILY PO Last administered on 05/19/16 09:06; Start 05/13/16 at 09:00; Stop 06/12/16 at 08:59 Glucagon (Glucagon) 1 mg ASDIRECTED PRN SC SEE LABEL COMMENTS; Start 05/12/16 at 16:15; Stop 05/13/16 at 10:33; Status DC Glucose (Glucose) 16 GM ASDIRECTED PRN PO SEE LABEL COMMENTS; Start 05/12/16 at 16:15; Stop 05/13/16 at 10:33; Status DC Heparin Sodium (Porcine) (Heparin) 5,000 units Q12H SC Last administered on 09:06; Start 05/12/16 at 21:00; Stop 05/21/16 at 20:59 Insulin Human Lispro (HumaLOG INSULIN) See Protocol Table AC SC ; Start at 17:30; Stop 05/13/16 at 10:33; Status DC Insulin Human Lispro (HumaLOG INSULIN) See Protocol Table QHS SC ; Start at 21:00; Stop 05/13/16 at 10:33; Status DC Levothyroxine Sodium (Synthroid) 0.075 mg DAILY@06 PO Last administered on 05/19 05:54; Start 05/13/16 at 06:00; Stop 06/12/16 at 05:59 Levothyroxine Sodium (Synthroid) 0.1 mg DAILY@06 PO Last administered on 05:54; Start 05/13/16 at 06:00; Stop 06/12/16 at 05:59 Lurasidone HCl (Latuda) 80 mg QHS PO Last administered on 05/18/16 20:39; Start 05/12/16 at 21:00; Stop 06/11/16 at 20:59 Magnesium Hydroxide (Milk Of Magnesia) 30 ml DAILYPRN PRN PO CONSTIPATION Last administered on 05/17/16 20:37; Start 05/12/16 at 16:15; Stop 06/11/16 at 16:14 Meclizine HCl (Antivert) 12.5 mg Q8HP PRN PO DIZZINESS Last administered on 06:51; Start 05/12/16 at 16:15; Stop 06/11/16 at 16:14 Multivitamins (Theragram-M) 1 tab DAILY PO Last administered on 05/19/16 09:05 ; Start 05/13/16 at 09:00; Stop 06/12/16 at 08:59 Omeprazole (PriLOSEC) 40 mg BID PO Last administered on 05/19/16 09:06; Start 05/12/16 at 21:00; Stop 06/11/16 at 20:59 Ondansetron HCl (Zofran) 4 mg Q6HP PRN PO NAUSEA Last administered on 07:54; Start 05/12/16 at 16:15; Stop 06/11/16 at 16:14 Polyethylene Glycol (Miralax) 1 pkt DAILY PRN PO CONSTIPATION Last administered on 05/18/16 08:44; Start 05/12/16 at 16:15; Stop 06/11/16 at 16:14 Senna (Senokot) 1 tab QHS PO Last administered on 05/17/16 20:29; Start at 21:00; Stop 06/11/16 at 20:59 Thiamine HCl (Thiamine HCl) 100 mg QAM PO Last administered on 05/19/16 09:05 ; Start 05/13/16 at 09:00; Stop 06/12/16 at 08:59 KIMBERLY JOVEL MD May 19, 2016 10:29
[2016-05-19 14:00] VITALS: BP 140/97
[2016-05-19 20:00] VITALS: BP 170/82
[2016-05-19] MEDS: LURASIDONE HCL 40 MG TAB (LATUDA) PO SCH (21:33)
[2016-05-19] MEDS: amLODIPine 5 MG TAB PO SCH (21:34)
[2016-05-19] MEDS: SENNA 8.6 MG TAB (SENOKOT) PO SCH (21:34)
[2016-05-19] MEDS: ATORVASTATIN 20 MG TAB PO SCH (21:34)
[2016-05-20 06:00] VITALS: BP 170/84
[2016-05-20] MEDS: LEVOTHYROXINE 0.1 MG TAB (100 MCG) PO SCH (06:31)
[2016-05-20] MEDS: LEVOTHYROXINE 0.075 MG TAB (75 MCG) PO SCH (06:31)
[2016-05-20] MEDS: MECLIZINE 12.5 MG TAB PO PRN (06:31)
[2016-05-20] MEDS: ONDANSETRON 4 MG TAB (S0181) PO PRN (08:13)
[2016-05-20] MEDS: ASPIRIN 325 MG TAB PO SCH (09:03)
[2016-05-20] MEDS: OMEPRAZOLE 20 MG CAP PO SCH ×2 (09:04→21:05)
[2016-05-20] MEDS: FLUoxetine 20 MG CAP PO SCH (09:04)
[2016-05-20] MEDS: FOLIC ACID 1 MG TAB PO SCH (09:04)
[2016-05-20] MEDS: buPROPion **XL** TABLET 150MG (WELLBUTRIN XL) PO SCH (09:04)
[2016-05-20] MEDS: ADDERALL 5 MG TAB PO SCH (09:04)
[2016-05-20] MEDS: DOCUSATE SODIUM 100 MG CAP PO SCH ×2 (09:04→21:05)
[2016-05-20] MEDS: THIAMINE 100 MG TAB PO SCH (09:04)
[2016-05-20] MEDS: MULTIVITAMINS/MINERALS THERAP 1 TAB PO SCH (09:04)
[2016-05-20] MEDS: HEPARIN SOD (PORCINE) 5000 UNITS/ML VIAL SC SCH ×2 (09:05→21:06)
[2016-05-20 14:00] VITALS: BP 139/86
[2016-05-20] MEDS: diazePAM 5 MG TAB PO PRN (18:10)
[2016-05-20 20:00] VITALS: BP 140/79
[2016-05-20] MEDS: SENNA 8.6 MG TAB (SENOKOT) PO SCH (21:00)
[2016-05-20] MEDS: ATORVASTATIN 20 MG TAB PO SCH (21:04)
[2016-05-20] MEDS: amLODIPine 5 MG TAB PO SCH (21:05)
[2016-05-20] MEDS: LURASIDONE HCL 40 MG TAB (LATUDA) PO SCH (21:05)
[2016-05-21] MEDS: FIORICET TAB PO PRN (05:09)
[2016-05-21] MEDS: LEVOTHYROXINE 0.075 MG TAB (75 MCG) PO SCH (05:09)
[2016-05-21] MEDS: LEVOTHYROXINE 0.1 MG TAB (100 MCG) PO SCH (05:09)
[2016-05-21 06:00] VITALS: BP 180/90
[2016-05-21 06:23] LABS: MEAN CORPUSCULAR HEMOGLOBIN 32.7 pg (27.0-33.0); MEAN CORPUSCULAR HGB CONC 33.9 g/dl (32.0-36.5); MEAN CORPUSCULAR VOLUME 96.5 fl (80.0-96.0); RED CELL DISTRIBUTION WIDTH 12.5 % (11.5-14.5); WHITE BLOOD COUNT 5.7 K/mm3 (4.0-10.0)
[2016-05-21 06:51] LABS: ANION GAP 9 MEQ/L (8-16); BLOOD UREA NITROGEN 11 MG/DL (7-18); CALCIUM LEVEL 9.3 MG/DL (8.8-10.2); CARBON DIOXIDE LEVEL 29 MEQ/L (21-32); CHLORIDE LEVEL 106 MEQ/L (98-107); CREATININE FOR GFR 0.85 MG/DL (0.55-1.02); GLOMERULAR FILTRATION RATE > 60.0 (>45); GLUCOSE, FASTING 103 MG/DL (80-110); POTASSIUM SERUM 4.3 MEQ/L (3.5-5.1); SODIUM LEVEL 144 MEQ/L (136-145)
[2016-05-21] MEDS: ADDERALL 5 MG TAB PO SCH (09:30)
[2016-05-21] MEDS: HEPARIN SOD (PORCINE) 5000 UNITS/ML VIAL SC SCH ×2 (09:31→21:17)
[2016-05-21] MEDS: buPROPion **XL** TABLET 150MG (WELLBUTRIN XL) PO SCH (09:31)
[2016-05-21] MEDS: MOM 30ML SUSPENSION UDC PO PRN (09:31)
[2016-05-21] MEDS: OMEPRAZOLE 20 MG CAP PO SCH ×2 (09:32→21:15)
[2016-05-21] MEDS: ASPIRIN 325 MG TAB PO SCH (09:32)
[2016-05-21] MEDS: FLUoxetine 20 MG CAP PO SCH (09:33)
[2016-05-21] MEDS: FOLIC ACID 1 MG TAB PO SCH (09:33)
[2016-05-21] MEDS: THIAMINE 100 MG TAB PO SCH (09:33)
[2016-05-21] MEDS: DOCUSATE SODIUM 100 MG CAP PO SCH ×2 (09:33→19:39)
[2016-05-21] MEDS: MULTIVITAMINS/MINERALS THERAP 1 TAB PO SCH (09:34)
[2016-05-21] MEDS: diazePAM 5 MG TAB PO PRN (09:36)
[2016-05-21] MEDS: ONDANSETRON 4 MG TAB (S0181) PO PRN (10:52)
[2016-05-21] MEDS ORDERED: MAGNESIUM CITRATE 300 ML BTL PO ONE (11:00)
[2016-05-21 14:00] VITALS: BP 161/78
[2016-05-21] MEDS: SENNA 8.6 MG TAB (SENOKOT) PO SCH (19:39)
[2016-05-21 20:00] VITALS: BP 125/75
[2016-05-21] MEDS: LURASIDONE HCL 40 MG TAB (LATUDA) PO SCH (21:16)
[2016-05-21] MEDS: ATORVASTATIN 20 MG TAB PO SCH (21:16)
[2016-05-21] MEDS: amLODIPine 5 MG TAB PO SCH (21:16)
[2016-05-22] MEDS: FIORICET TAB PO PRN ×2 (03:43→20:35)
[2016-05-22 06:00] VITALS: BP 134/79
[2016-05-22] MEDS: LEVOTHYROXINE 0.075 MG TAB (75 MCG) PO SCH (06:02)
[2016-05-22] MEDS: diazePAM 5 MG TAB PO PRN (06:02)
[2016-05-22] MEDS: LEVOTHYROXINE 0.1 MG TAB (100 MCG) PO SCH (06:02)
[2016-05-22] MEDS: ASPIRIN 325 MG TAB PO SCH (09:18)
[2016-05-22] MEDS: buPROPion **XL** TABLET 150MG (WELLBUTRIN XL) PO SCH (09:18)
[2016-05-22] MEDS: ADDERALL 5 MG TAB PO SCH (09:18)
[2016-05-22] MEDS: THIAMINE 100 MG TAB PO SCH (09:18)
[2016-05-22] MEDS: OMEPRAZOLE 20 MG CAP PO SCH ×2 (09:18→20:52)
[2016-05-22] MEDS: MULTIVITAMINS/MINERALS THERAP 1 TAB PO SCH (09:19)
[2016-05-22] MEDS: FOLIC ACID 1 MG TAB PO SCH (09:19)
[2016-05-22] MEDS: FLUoxetine 20 MG CAP PO SCH (09:19)
[2016-05-22] MEDS: amLODIPine 5 MG TAB PO SCH ×2 (09:19→20:53)
[2016-05-22] MEDS: DOCUSATE SODIUM 100 MG CAP PO SCH ×2 (09:20→20:53)
[2016-05-22] MEDS: HEPARIN SOD (PORCINE) 5000 UNITS/ML VIAL SC SCH ×2 (09:20→20:52)
[2016-05-22 14:00] VITALS: BP 137/74
[2016-05-22 20:30] VITALS: BP 141/79
[2016-05-22] MEDS: SENNA 8.6 MG TAB (SENOKOT) PO SCH (20:52)
[2016-05-22] MEDS: ATORVASTATIN 20 MG TAB PO SCH (20:53)
[2016-05-22] MEDS: LURASIDONE HCL 40 MG TAB (LATUDA) PO SCH (20:53)
[2016-05-23] MEDS: LEVOTHYROXINE 0.1 MG TAB (100 MCG) PO SCH (05:58)
[2016-05-23] MEDS: LEVOTHYROXINE 0.075 MG TAB (75 MCG) PO SCH (05:58)
[2016-05-23 06:00] VITALS: BP 132/82
[2016-05-23] MEDS: MOM 30ML SUSPENSION UDC PO PRN (08:28)
[2016-05-23] MEDS: DOCUSATE SODIUM 100 MG CAP PO SCH ×2 (08:29→20:26)
[2016-05-23] MEDS: ASPIRIN 325 MG TAB PO SCH (08:29)
[2016-05-23] MEDS: MULTIVITAMINS/MINERALS THERAP 1 TAB PO SCH (08:29)
[2016-05-23] MEDS: FOLIC ACID 1 MG TAB PO SCH (08:29)
[2016-05-23] MEDS: buPROPion **XL** TABLET 150MG (WELLBUTRIN XL) PO SCH (08:29)
[2016-05-23] MEDS: OMEPRAZOLE 20 MG CAP PO SCH ×2 (08:29→20:25)
[2016-05-23] MEDS: THIAMINE 100 MG TAB PO SCH (08:29)
[2016-05-23] MEDS: amLODIPine 5 MG TAB PO SCH ×2 (08:29→20:26)
[2016-05-23] MEDS: ADDERALL 5 MG TAB PO SCH ×2 (08:29→12:19)
[2016-05-23] MEDS: FLUoxetine 20 MG CAP PO SCH (08:30)
[2016-05-23] MEDS: HEPARIN SOD (PORCINE) 5000 UNITS/ML VIAL SC SCH (08:30)
--- NOTE | 2016-05-23 11:53 | IPNPDOC ---
Gun [employer] Maker Progress Note DATE OF SERVICE: DATE OF ADMISSION: May 12, 2016 at 17:05 INPATIENT REHABILITATION ADMISSION DAY: #[11] PAST MEDICAL HISTORY: Hypertension, hypercholesterolemia, type 2 diabetes, bipolar affective disorder with anxiety and depression, status post ECT, GERD, status post kidney stone, chronic back pain, left foot Brunson neuroma, history of ethanol abuse, and hypothyroidism. PAST SURGICAL HISTORY: Status post hysterectomy, status post appendectomy, status post cholecystectomy , status post carpal tunnel release, and left foot surgery. ALLERGIES: See Below MEDICATIONS ON ADMISSION: Reviewed, see below. 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 Patient overall feels she is making progress and doing well and is increasing her ambulation stance and overall endurance. However, patient seems to be unaware at times regarding her left body which is left neglect syndrome which compounds her left ankle stability problems. Patient does live with her brother who may not be available to her all the time and does have 4 steps to enter the home. Patient without specific complaints today other than some anxiety and reports to nursing staff of having been on more Adderal at home proximal E 60 mg per day. PHYSICAL EXAMINATION: GENERAL: Well-nourished well-developed late middle-age white female who is alert and well oriented but shows some left neglect especially with any distraction to the right. HEENT: Normocephalic atraumatic. CARDIOVASCULAR: Regular rate and rhythm with normal S1-S2 without S3-S4 murmurs or rubs. 2+ for bilateral radial pulses. LUNGS: Clear in all reyna on auscultation. ABDOMEN: Benign. NEUROLOGICAL: Sitting and standing balance good until distracted. Some neglect of left upper and lower extremity especially with any distraction in the environment. Motor strength on right is 5 out of 5 and on the left 4+ to 5 out of 5. Aircast stirrup splint is in place providing good left ankle alignment and support. Patient tending to keep it on to void her difficulties with donning and doffing the device. ASSESSMENT AND PLAN: 1. Right middle cerebral artery CVA: Patient general making good overall physical progress however the main concern remains her self protection due to CVA caused left spatial neglect. This is exacerbating her anxiety and poor judgment problems from her psychological disease. There is also concerned that patient may return to using ethanol upon return home this will only worsen the problems she has from the CVA cause alteration in the left sensorium with diabetic neuropathy effects on the distal lower extremities. At this time and review with the team patient is not felt to be ready for room privileges or trial and the apartment due to safety concerns. Therefore feel patient needs some additional time and training in the acute intensive environment at least through the rest of the week. Failing that additional time in a residential facility to continue work on safety and consistent application of her skills towards modified independence and independence in ADLs and mobility. For better left upper extremity support and protection especially at night we will obtain a sling for patient to use with the left upper extremity which she has not protecting at times when she is tired or moving to the right. 2. Bipolar affective disorder/anxiety/depression: For now we will try to alter her Adderall to 10 mg every morning and midday to try and keep level of attention and focus prior during therapy times. Timing this way should avoid appetite suppression as well as a interference with sleep. Overall patient dosage is increasing from 15 to 20 mg per day. I am concerned that higher dosing may interfere with cerebral circulation and blood pressure which will not be helpful to her CVA recovery. 3. Left ankle sprain residual: Patient is doing well with the PT loaned Aircast Stirrup brace. I will submit a request to prosthetics to get one for patient's continued usage. FUNCTIONAL STATUS: Premorbid: Patient was independent in ADLs and mobility On Admission: Patient with left hemiparesis and left neglect requiring wheelchair mobility and minimal to supervision in self-care, transfers. Currently patient has progressed to supervision to independent in self-care, modified independent in sphincter control, supervision in transfers and ambulating up to 200 feet and modified independence in social cognitive and communication. INTERDISCIPLINARY CARE AND DISCHARGE PLANNIN. His review. Some pulmonary team rounds from yesterday. Currently I feel patient needs until the end of the week for additional therapy and training to overcome problems from her neglect for safe return to home versus subacute placement to provide more time to achieve the same ends. Vital Signs Vital Sign - Last 24 Hours 05/22/16 05/22/16 05/22/16 05/22/16 14:00 20:00 20:30 20:35 Temp 98.5 99.1 Pulse 80 66 Resp 18 18 18 B/P 137/74 141/79 Pulse Ox 97 96 O2 Delivery Room Air Room Air Room Air 05/22/16 05/22/16 05/23/16 05/23/16 20:53 21:05 06:00 08:29 Temp 99.4 Pulse 66 81 81 Resp 18 18 B/P 141/79 132/82 132/82 Pulse Ox 97 O2 Delivery Room Air Microbiology Vital Signs Date Time Temp Pulse Resp B/P Pulse Ox O2 Delivery O2 Flow Rate FiO2 05/23/16 08:29 81 132/82 05/23/16 06:00 99.4 81 18 132/82 97 Room Air 05/22/16 21:05 18 05/22/16 20:53 66 141/79 05/22/16 20:35 18 05/22/16 20:30 99.1 66 18 141/79 96 Room Air 05/22/16 20:00 Room Air 05/22/16 14:00 98.5 80 18 137/74 97 Room Air Intake & Output 05/23/16 06:00 Intake Total 1440 ml Balance 1440 ml Current Medications Medications (Trade) Dose Ordered Sig/Sterling Route PRN Reason Start Time Stop Time Status Last Admin Dose Admin Acetaminophen (Tylenol Tab) 650 mg Q4HP PRN PO MILD PAIN (PS 1-4) 05/12/16 16:15 06/11/16 16:14 05/15/16 10:01 Acetaminophen/ Butalbital/ Caffeine (Fioricet) 1 ea Q4HP PRN PO HEADACHE 05/12/16 16:15 06/11/16 16:14 05/22/16 20:35 Amlodipine Besylate (Norvasc) 5 mg BID PO 05/21/16 21:00 06/20/16 20:59 05/23/16 08:29 Amphetamine/ Dextroamphetamine (Adderall) 15 mg DAILY PO 05/19/16 09:00 05/26/16 08:59 05/23/16 08:29 Aspirin (Aspirin) 325 mg DAILY PO 05/13/16 09:00 06/12/16 08:59 05/23/16 08:29 Atorvastatin Calcium (Lipitor) 80 mg QHS PO 05/12/16 21:00 06/11/16 20:59 05/22/16 20:53 Bupropion HCl (Wellbutrin Xl) 300 mg DAILY PO 05/13/16 09:00 06/12/16 08:59 05/23/16 08:29 Diazepam (Valium) 5 mg Q8HP PRN PO ANXIETY 05/15/16 11:30 05/29/16 11:29 05/22/16 06:02 Docusate Sodium (Colace) 100 mg BID PO 05/12/16 21:00 06/11/16 20:59 05/23/16 08:29 Fluoxetine HCl (PROzac) 80 mg DAILY PO 05/13/16 09:00 06/12/16 08:59 05/23/16 08:30 Folic Acid (Folic Acid) 1 mg DAILY PO 05/13/16 09:00 06/12/16 08:59 05/23/16 08:29 Levothyroxine Sodium (Synthroid) 0.1 mg DAILY@06 PO 05/13/16 06:00 06/12/16 05:59 05/23/16 05:58 Lurasidone HCl (Latuda) 80 mg QHS PO 05/12/16 21:00 06/11/16 20:59 05/22/16 20:53 Magnesium Hydroxide (Milk Of Magnesia) 30 ml DAILYPRN PRN PO CONSTIPATION 05/12/16 16:15 06/11/16 16:14 05/23/16 08:28 Meclizine HCl (Antivert) 12.5 mg Q8HP PRN PO DIZZINESS 05/12/16 16:15 06/11/16 16:14 05/20/16 06:31 Multivitamins (Theragram-M) 1 tab DAILY PO 05/13/16 09:00 06/12/16 08:59 05/23/16 08:29 Omeprazole (PriLOSEC) 40 mg BID PO 05/12/16 21:00 06/11/16 20:59 05/23/16 08:29 Ondansetron HCl (Zofran) 4 mg Q6HP PRN PO NAUSEA 05/12/16 16:15 06/11/16 16:14 05/21/16 10:52 Polyethylene Glycol (Miralax) 1 pkt DAILY PRN PO CONSTIPATION 05/12/16 16:15 06/11/16 16:14 05/18/16 08:44 Senna (Senokot) 1 tab QHS PO 05/12/16 21:00 06/11/16 20:59 05/22/16 20:52 Thiamine HCl (Thiamine HCl) 100 mg QAM PO 05/13/16 09:00 06/12/16 08:59 05/23/16 08:29 Allergies Allergies: Coded Allergies: No Known Drug Allergy (Verified Allergy, Unknown, 06/03/12) Current Medications Current Medications Current Medications Acetaminophen (Tylenol Tab) 650 mg Q4HP PRN PO MILD PAIN (PS 1-4) Last administered on 05/15/16 10:01; Start 05/12/16 at 16:15; Stop 06/11/16 at 16:14 Acetaminophen/ Butalbital/ Caffeine (Fioricet) 1 ea Q4HP PRN PO HEADACHE Last administered on 05/22/16 20:35; Start 05/12/16 at 16:15; Stop 06/11/16 at 16:14 Amlodipine Besylate (Norvasc) 5 mg BID PO Last administered on 05/23/16 08:29 ; Start 05/21/16 at 21:00; Stop 06/20/16 at 20:59 Amlodipine Besylate (Norvasc) 5 mg QHS PO Last administered on 05/20/16 21:05 ; Start 05/12/16 at 21:00; Stop 05/21/16 at 17:39; Status DC Amphetamine/ Dextroamphetamine (Adderall) 15 mg BID@,14 PO Last administered on 05/18/16 08:45; Start 05/13/16 at 09:00; Stop 05/18/16 at 10:02; Status DC Amphetamine/ Dextroamphetamine (Adderall) 15 mg DAILY PO Last administered on 08:29; Start 05/19/16 at 09:00; Stop 05/26/16 at 08:59 Aspirin (Aspirin) 325 mg DAILY PO Last administered on 05/23/16 08:29; Start 05/13/16 at 09:00; Stop 06/12/16 at 08:59 Atorvastatin Calcium (Lipitor) 80 mg QHS PO Last administered on 05/22/16 20: 53; Start 05/12/16 at 21:00; Stop 06/11/16 at 20:59 Bupropion HCl (Wellbutrin Xl) 300 mg DAILY PO Last administered on 05/23/16 08 :29; Start 05/13/16 at 09:00; Stop 06/12/16 at 08:59 Dextrose (Dextrose 50%) 25 ml ASDIRECTED PRN IV SEE LABEL COMMENTS; Start 05/12 at 16:15; Stop 05/13/16 at 10:33; Status DC Diazepam (Valium) 5 mg Q8HP PRN PO ANXIETY Last administered on 05/22/16 06:02 ; Start 05/15/16 at 11:30; Stop 05/29/16 at 11:29 Diazepam (Valium) 10 mg TID PRN PO ANXIETY Last administered on 05/15/16 10:01 ; Start 05/12/16 at 16:15; Stop 05/15/16 at 11:27; Status DC Docusate Sodium (Colace) 100 mg BID PO Last administered on 05/23/16 08:29; Start 05/12/16 at 21:00; Stop 06/11/16 at 20:59 Fluoxetine HCl (PROzac) 80 mg DAILY PO Last administered on 05/23/16 08:30; Start 05/13/16 at 09:00; Stop 06/12/16 at 08:59 Folic Acid (Folic Acid) 1 mg DAILY PO Last administered on 05/23/16 08:29; Start 05/13/16 at 09:00; Stop 06/12/16 at 08:59 Glucagon (Glucagon) 1 mg ASDIRECTED PRN SC SEE LABEL COMMENTS; Start 05/12/16 at 16:15; Stop 05/13/16 at 10:33; Status DC Glucose (Glucose) 16 GM ASDIRECTED PRN PO SEE LABEL COMMENTS; Start 05/12/16 at 16:15; Stop 05/13/16 at 10:33; Status DC Heparin Sodium (Porcine) (Heparin) 5,000 units Q12H SC Last administered on 08:30; Start 05/12/16 at 21:00; Stop 05/23/16 at 09:40; Status DC Insulin Human Lispro (HumaLOG INSULIN) See Protocol Table AC SC ; Start at 17:30; Stop 05/13/16 at 10:33; Status DC Insulin Human Lispro (HumaLOG INSULIN) See Protocol Table QHS SC ; Start at 21:00; Stop 05/13/16 at 10:33; Status DC Levothyroxine Sodium (Synthroid) 0.075 mg DAILY@06 PO Last administered on 05/23 05:58; Start 05/13/16 at 06:00; Stop 06/12/16 at 05:59 Levothyroxine Sodium (Synthroid) 0.1 mg DAILY@06 PO Last administered on 05:58; Start 05/13/16 at 06:00; Stop 06/12/16 at 05:59 Lurasidone HCl (Latuda) 80 mg QHS PO Last administered on 05/22/16 20:53; Start 05/12/16 at 21:00; Stop 06/11/16 at 20:59 Magnesium Hydroxide (Milk Of Magnesia) 30 ml DAILYPRN PRN PO CONSTIPATION Last administered on 05/23/16 08:28; Start 05/12/16 at 16:15; Stop 06/11/16 at 16:14 Meclizine HCl (Antivert) 12.5 mg Q8HP PRN PO DIZZINESS Last administered on 06:31; Start 05/12/16 at 16:15; Stop 06/11/16 at 16:14 Multivitamins (Theragram-M) 1 tab DAILY PO Last administered on 05/23/16 08:29 ; Start 05/13/16 at 09:00; Stop 06/12/16 at 08:59 Omeprazole (PriLOSEC) 40 mg BID PO Last administered on 05/23/16 08:29; Start 05/12/16 at 21:00; Stop 06/11/16 at 20:59 Ondansetron HCl (Zofran) 4 mg Q6HP PRN PO NAUSEA Last administered on 10:52; Start 05/12/16 at 16:15; Stop 06/11/16 at 16:14 Polyethylene Glycol (Miralax) 1 pkt DAILY PRN PO CONSTIPATION Last administered on 05/18/16 08:44; Start 05/12/16 at 16:15; Stop 06/11/16 at 16:14 Senna (Senokot) 1 tab QHS PO Last administered on 05/22/16 20:52; Start at 21:00; Stop 06/11/16 at 20:59 Thiamine HCl (Thiamine HCl) 100 mg QAM PO Last administered on 05/23/16 08:29 ; Start 05/13/16 at 09:00; Stop 06/12/16 at 08:59 HUNG BULLOCK MD May 23, 2016 11:52
[2016-05-23] MEDS: diazePAM 5 MG TAB PO PRN ×2 (12:18→20:25)
[2016-05-23 14:00] VITALS: BP 151/76
[2016-05-23 20:00] VITALS: BP 147/76
[2016-05-23] MEDS: LURASIDONE HCL 40 MG TAB (LATUDA) PO SCH (20:25)
[2016-05-23] MEDS: SENNA 8.6 MG TAB (SENOKOT) PO SCH (20:25)
[2016-05-23] MEDS: ATORVASTATIN 20 MG TAB PO SCH (20:25)
[2016-05-24] MEDS: LEVOTHYROXINE 0.1 MG TAB (100 MCG) PO SCH (05:48)
[2016-05-24] MEDS: LEVOTHYROXINE 0.075 MG TAB (75 MCG) PO SCH (05:48)
[2016-05-24 06:00] VITALS: BP 141/77
[2016-05-24] MEDS: OMEPRAZOLE 20 MG CAP PO SCH ×2 (08:23→21:36)
[2016-05-24] MEDS: FIORICET TAB PO PRN (08:23)
[2016-05-24] MEDS: diazePAM 5 MG TAB PO PRN (08:23)
[2016-05-24] MEDS: ADDERALL 5 MG TAB PO SCH ×2 (08:23→12:36)
[2016-05-24] MEDS: FLUoxetine 20 MG CAP PO SCH (08:24)
[2016-05-24] MEDS: FOLIC ACID 1 MG TAB PO SCH (08:24)
[2016-05-24] MEDS: THIAMINE 100 MG TAB PO SCH (08:24)
[2016-05-24] MEDS: MULTIVITAMINS/MINERALS THERAP 1 TAB PO SCH (08:24)
[2016-05-24] MEDS: ASPIRIN 325 MG TAB PO SCH (08:24)
[2016-05-24] MEDS: buPROPion **XL** TABLET 150MG (WELLBUTRIN XL) PO SCH (08:24)
[2016-05-24] MEDS: amLODIPine 5 MG TAB PO SCH ×2 (08:24→21:35)
[2016-05-24] MEDS: DOCUSATE SODIUM 100 MG CAP PO SCH ×2 (08:24→21:38)
--- NOTE | 2016-05-24 11:11 | IPNPDOC ---
[facility] Progress Note DATE OF SERVICE: DATE OF ADMISSION: May 12, 2016 at 17:05 INPATIENT REHABILITATION ADMISSION DAY: #12 MEDICATIONS: Reviewed, see below. SUBJECTIVE: Late middle-age white female with right CVA and mild left hemiparesis, bipolar affective disorder/anxiety/depression, type 2 diabetes mellitus, and history of ethanol abuse. Patient reports feeling rather anxious but admits that this goes back to when she was in her 20s over 40 years ago. Otherwise she denies pain or other problems at this time. VITAL SIGNS: See below. PHYSICAL EXAMINATION: GENERAL: Tall well-nourished well-developed late middle-age white female in no acute distress with mild left hemiparesis and very mild left neglect with Aircast orthotic on the left lower extremity. HEENT: Normocephalic atraumatic no facial asymmetry or droop noted vision is conjugate. CARDIOVASCULAR: Regular rate and rhythm with normal S1 and S2. LUNGS: Clear in all reyna auscultation. ABDOMEN: Bowel sounds present in all quadrants abdomen is nontender. NEUROLOGICAL: Patient is alert and oriented to person place time and situation. Speech is clear, coherent and appropriate. She is mildly anxious with minimal flattening of affect in general is pleasant and cooperative. No appreciable change in motor from yesterday. ASSESSMENT AND PLAN: 1. Rehabilitation of right CVA with left hemiparesis and mild left neglect: Patient doing well with therapy however psychological overlay leaves her with some impulsivity which may represent a danger to return to living independently. Also of concern is history of ethanol abuse and how this would worsen her mobility and transfer skills. Therefore consideration for custodial facility is being evaluated at this time. 2. Bipolar affective disorder: Patient starting twice a day after Adderal 10mg to assist attention and concentration but also should be helpful with regards to her anxiousness. I will look to try BuSpar a regular basis to diminish need for Valium which is somewhat neurotoxic to healing from the CVA plus reinforces addiction with ongoing usage. Will decrease Valium to 5 mg qHS prn and start Buspar 7.5mg po bid. 3. Type 2 diabetes with neuropathy: This is stable however the decrease sensation in the feet and ankles worsen patient's safety and protection especially of the left ankle which is partially necessitating the use of the Aircast orthotic. Vital Signs Vital Sign - Last 24 Hours 05/23/16 05/23/16 05/23/16 05/23/16 14:00 20:00 20:00 20:26 Temp 98.3 98.4 Pulse 77 67 67 Resp 18 18 B/P 151/76 147/76 147/76 Pulse Ox 96 94 O2 Delivery Room Air Room Air Room Air 05/24/16 05/24/16 05/24/16 05/24/16 06:00 08:23 08:24 08:53 Temp 98.1 Pulse 90 90 Resp 22 16 16 B/P 141/77 141/77 Pulse Ox 91 O2 Delivery Room Air Allergies Allergies: Coded Allergies: No Known Drug Allergy (Verified Allergy, Unknown, 06/03/12) Current Medications Current Medications Current Medications Acetaminophen (Tylenol Tab) 650 mg Q4HP PRN PO MILD PAIN (PS 1-4) Last administered on 05/15/16 10:01; Start 05/12/16 at 16:15; Stop 06/11/16 at 16:14 Acetaminophen/ Butalbital/ Caffeine (Fioricet) 1 ea Q4HP PRN PO HEADACHE Last administered on 05/24/16 08:23; Start 05/12/16 at 16:15; Stop 06/11/16 at 16:14 Amlodipine Besylate (Norvasc) 5 mg BID PO Last administered on 05/24/16 08:24 ; Start 05/21/16 at 21:00; Stop 06/20/16 at 20:59 Amlodipine Besylate (Norvasc) 5 mg QHS PO Last administered on 05/20/16 21:05 ; Start 05/12/16 at 21:00; Stop 05/21/16 at 17:39; Status DC Amphetamine/ Dextroamphetamine (Adderall) 10 mg DAILY@12 PO Last administered on 05/23/16 12:19; Start 05/23/16 at 12:00; Stop 05/29/16 at 15:00 Amphetamine/ Dextroamphetamine (Adderall) 10 mg QAM PO Last administered on 08:23; Start 05/24/16 at 09:00; Stop 05/30/16 at 09:00 Amphetamine/ Dextroamphetamine (Adderall) 15 mg BID@09,14 PO Last administered on 05/18/16 08:45; Start 05/13/16 at 09:00; Stop 05/18/16 at 10:02; Status DC Amphetamine/ Dextroamphetamine (Adderall) 15 mg DAILY PO Last administered on 08:29; Start 05/19/16 at 09:00; Stop 05/23/16 at 11:12; Status DC Aspirin (Aspirin) 325 mg DAILY PO Last administered on 05/24/16 08:24; Start 05/13/16 at 09:00; Stop 06/12/16 at 08:59 Atorvastatin Calcium (Lipitor) 80 mg QHS PO Last administered on 05/23/16 20: 25; Start 05/12/16 at 21:00; Stop 06/11/16 at 20:59 Bupropion HCl (Wellbutrin Xl) 300 mg DAILY PO Last administered on 05/24/16 08 :24; Start 05/13/16 at 09:00; Stop 06/12/16 at 08:59 Dextrose (Dextrose 50%) 25 ml ASDIRECTED PRN IV SEE LABEL COMMENTS; Start 05/12 at 16:15; Stop 05/13/16 at 10:33; Status DC Diazepam (Valium) 5 mg Q8HP PRN PO ANXIETY Last administered on 05/24/16 08:23 ; Start 05/15/16 at 11:30; Stop 05/29/16 at 11:29 Diazepam (Valium) 10 mg TID PRN PO ANXIETY Last administered on 05/15/16 10:01 ; Start 05/12/16 at 16:15; Stop 05/15/16 at 11:27; Status DC Docusate Sodium (Colace) 100 mg BID PO Last administered on 05/24/16 08:24; Start 05/12/16 at 21:00; Stop 06/11/16 at 20:59 Fluoxetine HCl (PROzac) 80 mg DAILY PO Last administered on 05/24/16 08:24; Start 05/13/16 at 09:00; Stop 06/12/16 at 08:59 Folic Acid (Folic Acid) 1 mg DAILY PO Last administered on 05/24/16 08:24; Start 05/13/16 at 09:00; Stop 06/12/16 at 08:59 Glucagon (Glucagon) 1 mg ASDIRECTED PRN SC SEE LABEL COMMENTS; Start 05/12/16 at 16:15; Stop 05/13/16 at 10:33; Status DC Glucose (Glucose) 16 GM ASDIRECTED PRN PO SEE LABEL COMMENTS; Start 05/12/16 at 16:15; Stop 05/13/16 at 10:33; Status DC Heparin Sodium (Porcine) (Heparin) 5,000 units Q12H SC Last administered on 08:30; Start 05/12/16 at 21:00; Stop 05/23/16 at 09:40; Status DC Insulin Human Lispro (HumaLOG INSULIN) See Protocol Table AC SC ; Start at 17:30; Stop 05/13/16 at 10:33; Status DC Insulin Human Lispro (HumaLOG INSULIN) See Protocol Table QHS SC ; Start at 21:00; Stop 05/13/16 at 10:33; Status DC Levothyroxine Sodium (Synthroid) 0.075 mg DAILY@06 PO Last administered on 05/24 05:48; Start 05/13/16 at 06:00; Stop 06/12/16 at 05:59 Levothyroxine Sodium (Synthroid) 0.1 mg DAILY@06 PO Last administered on 05:48; Start 05/13/16 at 06:00; Stop 06/12/16 at 05:59 Lurasidone HCl (Latuda) 80 mg QHS PO Last administered on 05/23/16 20:25; Start 05/12/16 at 21:00; Stop 06/11/16 at 20:59 Magnesium Hydroxide (Milk Of Magnesia) 30 ml DAILYPRN PRN PO CONSTIPATION Last administered on 05/23/16 08:28; Start 05/12/16 at 16:15; Stop 06/11/16 at 16:14 Meclizine HCl (Antivert) 12.5 mg Q8HP PRN PO DIZZINESS Last administered on 06:31; Start 05/12/16 at 16:15; Stop 06/11/16 at 16:14 Multivitamins (Theragram-M) 1 tab DAILY PO Last administered on 05/24/16 08:24 ; Start 05/13/16 at 09:00; Stop 06/12/16 at 08:59 Omeprazole (PriLOSEC) 40 mg BID PO Last administered on 05/24/16 08:23; Start 05/12/16 at 21:00; Stop 06/11/16 at 20:59 Ondansetron HCl (Zofran) 4 mg Q6HP PRN PO NAUSEA Last administered on 10:52; Start 05/12/16 at 16:15; Stop 06/11/16 at 16:14 Polyethylene Glycol (Miralax) 1 pkt DAILY PRN PO CONSTIPATION Last administered on 05/18/16 08:44; Start 05/12/16 at 16:15; Stop 06/11/16 at 16:14 Senna (Senokot) 1 tab QHS PO Last administered on 05/23/16 20:25; Start at 21:00; Stop 06/11/16 at 20:59 Thiamine HCl (Thiamine HCl) 100 mg QAM PO Last administered on 05/24/16 08:24 ; Start 05/13/16 at 09:00; Stop 06/12/16 at 08:59 HUNG BULLOCK MD May 24, 2016 11:04
[2016-05-24] MEDS ORDERED: diazePAM 5 MG TAB PO PRN (11:30)
[2016-05-24] MEDS: busPIRone 5 MG TAB PO SCH ×2 (12:36→21:36)
[2016-05-24 14:00] VITALS: BP 145/81
[2016-05-24 20:30] VITALS: BP 173/84
[2016-05-24] MEDS: LURASIDONE HCL 40 MG TAB (LATUDA) PO SCH (21:37)
[2016-05-24] MEDS: SENNA 8.6 MG TAB (SENOKOT) PO SCH (21:37)
[2016-05-24] MEDS: ATORVASTATIN 20 MG TAB PO SCH (21:40)
[2016-05-25] MEDS: FIORICET TAB PO PRN ×2 (04:29→20:01)
[2016-05-25 05:13] VITALS: BP 165/96
[2016-05-25] MEDS: LEVOTHYROXINE 0.1 MG TAB (100 MCG) PO SCH (05:24)
[2016-05-25] MEDS: LEVOTHYROXINE 0.075 MG TAB (75 MCG) PO SCH (05:24)
[2016-05-25] MEDS: OMEPRAZOLE 20 MG CAP PO SCH ×2 (08:59→20:02)
[2016-05-25] MEDS: busPIRone 5 MG TAB PO SCH ×2 (09:00→20:00)
[2016-05-25] MEDS: THIAMINE 100 MG TAB PO SCH (09:01)
[2016-05-25] MEDS: ASPIRIN 325 MG TAB PO SCH (09:01)
[2016-05-25] MEDS: ADDERALL 5 MG TAB PO SCH ×2 (09:01→12:10)
[2016-05-25] MEDS: amLODIPine 5 MG TAB PO SCH ×2 (09:01→20:01)
[2016-05-25] MEDS: FOLIC ACID 1 MG TAB PO SCH (09:01)
[2016-05-25] MEDS: MULTIVITAMINS/MINERALS THERAP 1 TAB PO SCH (09:01)
[2016-05-25] MEDS: FLUoxetine 20 MG CAP PO SCH (09:01)
[2016-05-25] MEDS: buPROPion **XL** TABLET 150MG (WELLBUTRIN XL) PO SCH (09:02)
[2016-05-25] MEDS: DOCUSATE SODIUM 100 MG CAP PO SCH ×2 (09:03→20:00)
[2016-05-25 14:00] VITALS: BP 169/93
--- NOTE | 2016-05-25 18:01 | IPNPDOC ---
[facility] Progress Note DATE OF SERVICE: 05/25/2016 DATE OF ADMISSION: May 12, 2016 at 17:05 INPATIENT REHABILITATION ADMISSION DAY: #13 SUBJECTIVE: Patient is a 70-year-old white female with right CVA and left hemiparesis. Patient without complaints today including no complaints of pain. ALLERGIES: See Below MEDICATIONS ON ADMISSION: Reviewed, see below. OBJECTIVE: VITAL SIGNS: Please see below. PHYSICAL EXAMINATION: GENERAL: Tall well-nourished well-developed middle-aged white female in no acute distress with some left neglect as she ambulates down the hallway and problems with distractibility that somewhat limited her safety. However she gained much better about checking her environment and overall doing well with walker ambulation. HEENT: Normocephalic atraumatic no facial droop or dysarthria. Patient's vision is conjugate. CARDIOVASCULAR: Regular rate and rhythm with normal S1-S2 in 2/4 radial pulses LUNGS: All reyna clear to auscultation. ABDOMEN: Benign with bowel sounds throughout. NEUROLOGICAL: Patient continues to have some anxiousness and mild left hemiparesis that is improving but more concerning is some mild left neglect and distractibility SKIN: Intact LABORATORY DATA: Reviewed. Please see below. MICROBIOLOGY: Please see below. IMAGING: No new Echocardiogram: No new. DVT prophylaxis ordered?: Yet ASSESSMENT AND PLAN: 1. Right CVA with left hemiparesis and left neglect: Will go ahead and advance patient to room privileges and look to discharge home with family tomorrow or to skilled facility if she does not have adequate supervision to return home safely. 2. Anxiety/depression: Mood doing fairly well today and less anxiousness, but we are somewhat uncertain as to some of patient's reported with regards to home support system and will have to confirm that before discharging to home otherwise we'll look to transfer skilled facility. TIME SPENT: Time spent on chart review examination meeting with patient and team rounds greater than 30 minutes. Allergies Coded Allergies: No Known Drug Allergy (Verified Allergy, Unknown, 06/03/12) Vital Signs Vital Signs Date Time Temp Pulse Resp B/P Pulse Ox O2 Delivery O2 Flow Rate FiO2 05/25/16 14:00 99.6 84 18 169/93 95 Room Air Current Medications Current Medications Current Medications Acetaminophen (Tylenol Tab) 650 mg Q4HP PRN PO MILD PAIN (PS 1-4) Last administered on 05/15/16 10:01; Start 05/12/16 at 16:15; Stop 06/11/16 at 16:14 Acetaminophen/ Butalbital/ Caffeine (Fioricet) 1 ea Q4HP PRN PO HEADACHE Last administered on 05/25/16 04:29; Start 05/12/16 at 16:15; Stop 06/11/16 at 16:14 Amlodipine Besylate (Norvasc) 5 mg BID PO Last administered on 05/25/16 09:01 ; Start 05/21/16 at 21:00; Stop 06/20/16 at 20:59 Amlodipine Besylate (Norvasc) 5 mg QHS PO Last administered on 05/20/16 21:05 ; Start 05/12/16 at 21:00; Stop 05/21/16 at 17:39; Status DC Amphetamine/ Dextroamphetamine (Adderall) 10 mg DAILY@12 PO Last administered on 05/25/16 12:10; Start 05/23/16 at 12:00; Stop 05/29/16 at 15:00 Amphetamine/ Dextroamphetamine (Adderall) 10 mg QAM PO Last administered on 09:01; Start 05/24/16 at 09:00; Stop 05/30/16 at 09:00 Amphetamine/ Dextroamphetamine (Adderall) 15 mg BID@09,14 PO Last administered on 05/18/16 08:45; Start 05/13/16 at 09:00; Stop 05/18/16 at 10:02; Status DC Amphetamine/ Dextroamphetamine (Adderall) 15 mg DAILY PO Last administered on 08:29; Start 05/19/16 at 09:00; Stop 05/23/16 at 11:12; Status DC Aspirin (Aspirin) 325 mg DAILY PO Last administered on 05/25/16 09:01; Start 05/13/16 at 09:00; Stop 06/12/16 at 08:59 Atorvastatin Calcium (Lipitor) 80 mg QHS PO Last administered on 05/24/16 21: 40; Start 05/12/16 at 21:00; Stop 06/11/16 at 20:59 Bupropion HCl (Wellbutrin Xl) 300 mg DAILY PO Last administered on 05/25/16 09 :02; Start 05/13/16 at 09:00; Stop 06/12/16 at 08:59 Buspirone HCl (Buspar) 7.5 mg BID PO Last administered on 05/25/16 09:00; Start 05/24/16 at 09:00; Stop 06/23/16 at 08:59 Dextrose (Dextrose 50%) 25 ml ASDIRECTED PRN IV SEE LABEL COMMENTS; Start 05/12 at 16:15; Stop 05/13/16 at 10:33; Status DC Diazepam (Valium) 5 mg Q8HP PRN PO ANXIETY Last administered on 05/24/16 08:23 ; Start 05/15/16 at 11:30; Stop 05/24/16 at 11:09; Status DC Diazepam (Valium) 5 mg QHSP PRN PO ANXIETY; Start 05/24/16 at 11:30; Stop 06/05 at 11:29 Diazepam (Valium) 10 mg TID PRN PO ANXIETY Last administered on 05/15/16 10:01 ; Start 05/12/16 at 16:15; Stop 05/15/16 at 11:27; Status DC Docusate Sodium (Colace) 100 mg BID PO Last administered on 05/25/16 09:03; Start 05/12/16 at 21:00; Stop 06/11/16 at 20:59 Fluoxetine HCl (PROzac) 80 mg DAILY PO Last administered on 05/25/16 09:01; Start 05/13/16 at 09:00; Stop 06/12/16 at 08:59 Folic Acid (Folic Acid) 1 mg DAILY PO Last administered on 05/25/16 09:01; Start 05/13/16 at 09:00; Stop 06/12/16 at 08:59 Glucagon (Glucagon) 1 mg ASDIRECTED PRN SC SEE LABEL COMMENTS; Start 05/12/16 at 16:15; Stop 05/13/16 at 10:33; Status DC Glucose (Glucose) 16 GM ASDIRECTED PRN PO SEE LABEL COMMENTS; Start 05/12/16 at 16:15; Stop 05/13/16 at 10:33; Status DC Heparin Sodium (Porcine) (Heparin) 5,000 units Q12H SC Last administered on 08:30; Start 05/12/16 at 21:00; Stop 05/23/16 at 09:40; Status DC Insulin Human Lispro (HumaLOG INSULIN) See Protocol Table AC SC ; Start at 17:30; Stop 05/13/16 at 10:33; Status DC Insulin Human Lispro (HumaLOG INSULIN) See Protocol Table QHS SC ; Start at 21:00; Stop 05/13/16 at 10:33; Status DC Levothyroxine Sodium (Synthroid) 0.075 mg DAILY@06 PO Last administered on 05/25 05:24; Start 05/13/16 at 06:00; Stop 06/12/16 at 05:59 Levothyroxine Sodium (Synthroid) 0.1 mg DAILY@06 PO Last administered on 05:24; Start 05/13/16 at 06:00; Stop 06/12/16 at 05:59 Lurasidone HCl (Latuda) 80 mg QHS PO Last administered on 05/24/16 21:37; Start 05/12/16 at 21:00; Stop 06/11/16 at 20:59 Magnesium Hydroxide (Milk Of Magnesia) 30 ml DAILYPRN PRN PO CONSTIPATION Last administered on 05/23/16 08:28; Start 05/12/16 at 16:15; Stop 06/11/16 at 16:14 Meclizine HCl (Antivert) 12.5 mg Q8HP PRN PO DIZZINESS Last administered on 06:31; Start 05/12/16 at 16:15; Stop 06/11/16 at 16:14 Multivitamins (Theragram-M) 1 tab DAILY PO Last administered on 05/25/16 09:01 ; Start 05/13/16 at 09:00; Stop 06/12/16 at 08:59 Omeprazole (PriLOSEC) 40 mg BID PO Last administered on 05/25/16 08:59; Start 05/12/16 at 21:00; Stop 06/11/16 at 20:59 Ondansetron HCl (Zofran) 4 mg Q6HP PRN PO NAUSEA Last administered on 10:52; Start 05/12/16 at 16:15; Stop 06/11/16 at 16:14 Polyethylene Glycol (Miralax) 1 pkt DAILY PRN PO CONSTIPATION Last administered on 05/18/16 08:44; Start 05/12/16 at 16:15; Stop 06/11/16 at 16:14 Senna (Senokot) 1 tab QHS PO Last administered on 05/24/16 21:37; Start at 21:00; Stop 06/11/16 at 20:59 Thiamine HCl (Thiamine HCl) 100 mg QAM PO Last administered on 05/25/16 09:01 ; Start 05/13/16 at 09:00; Stop 06/12/16 at 08:59 HUNG BULLOCK MD May 25, 2016 18:01
[2016-05-25 20:00] VITALS: BP 130/70
[2016-05-25] MEDS: SENNA 8.6 MG TAB (SENOKOT) PO SCH (20:00)
[2016-05-25] MEDS: ATORVASTATIN 20 MG TAB PO SCH (20:02)
[2016-05-25] MEDS: LURASIDONE HCL 40 MG TAB (LATUDA) PO SCH (20:02)
[2016-05-26 06:00] VITALS: BP 138/76
[2016-05-26] MEDS: LEVOTHYROXINE 0.1 MG TAB (100 MCG) PO SCH (06:44)
[2016-05-26] MEDS: LEVOTHYROXINE 0.075 MG TAB (75 MCG) PO SCH (06:44)
[2016-05-26] MEDS: FIORICET TAB PO PRN (06:49)
[2016-05-26] MEDS: MULTIVITAMINS/MINERALS THERAP 1 TAB PO SCH (09:03)
[2016-05-26] MEDS: THIAMINE 100 MG TAB PO SCH (09:03)
[2016-05-26] MEDS: buPROPion **XL** TABLET 150MG (WELLBUTRIN XL) PO SCH (09:03)
[2016-05-26] MEDS: OMEPRAZOLE 20 MG CAP PO SCH (09:03)
[2016-05-26] MEDS: ADDERALL 5 MG TAB PO SCH ×2 (09:03→11:53)
[2016-05-26] MEDS: ASPIRIN 325 MG TAB PO SCH (09:03)
[2016-05-26 09:04] VITALS: BP 138/76
[2016-05-26] MEDS: busPIRone 5 MG TAB PO SCH (09:04)
[2016-05-26] MEDS: FOLIC ACID 1 MG TAB PO SCH (09:04)
[2016-05-26] MEDS: amLODIPine 5 MG TAB PO SCH (09:04)
[2016-05-26] MEDS: FLUoxetine 20 MG CAP PO SCH (09:04)
[2016-05-26] MEDS: DOCUSATE SODIUM 100 MG CAP PO SCH (09:04)
[2016-05-26] MEDS ORDERED: DIAZ5TAB PO (12:03)
[2016-05-26] MEDS ORDERED: BUSP5TA PO (12:03)
[2016-05-26] MEDS ORDERED: AMLO5TAB2 PO (12:06)
[2016-05-26 14:00] VITALS: BP 139/83
--- NOTE | 2016-05-26 16:59 | PMRDS ---
DATE OF ADMISSION: 05/12/2016 DATE OF DISCHARGE: 05/26/2016 DISCHARGE DIAGNOSES: 1. Rehabilitation of right middle cerebral artery frontoparietal CVA with left hemiparesis and some left neglect. 2. Atherosclerotic cardiovascular disease including hypertension. 3. Bipolar affective disorder with anxiety and depression and insomnia. 4. Gastroesophageal reflux. 5. History of nephrolithiasis. 6. Hiatal hernia. 7. Diverticulosis. 8. Hemorrhoids. 9. 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 10. Chronic back pain. HISTORY: The patient is a 70-year-old white female who has chronic multiple medical comorbidities including hypertension, elevated cholesterol, diabetes, and bipolar affective disorder. On 05/09/2016, the patient started having recurrent falls, slurred speech, and left-sided weakness and was admitted to [facility] and found to have a right frontoparietal CVA. She was started on treatment and assessed by therapy and was felt to be a good candidate for a trial of neurorehabilitation and on 05/12/2016, patient was admitted to the acute rehabilitation unit at [facility] for that trial. HOSPITAL COURSE: Patient started in a program of physical, occupational, and speech therapy and showed some problems with judgment and impulsiveness partially related to bipolar affective disorder and anxiety and some felt to be related to right CVA syndrome. The patient, however showed progression in her motor recovery and ambulating long distances with walker and able to do basic activities of daily living (ADLs) and modified independence at this point. Therefore it was felt patient, who had progressed, was ready for discharge to home with family, our major concern being her judgment and insight which is partially a premorbid problem, however she has a number of family members who will be pooling together to provide supervision and check on her frequently. No procedures were performed on patient. No significant laboratory data, diagnostic data, or investigations were performed during this portion of the admission. Please see discharge summary from acute admission where MRI was performed. DISCHARGE MEDICATIONS: - amlodipine 5 mg twice a day - BuSpar 5 mg tablets 1-1/2 tablets twice a day for anxiety - diazepam has been reduced from prior to now 5 mg nightly, #30 tablets issued, no refills - acetaminophen 650 mg every 8 hours as needed for pain or fever - aspirin 325 mg by mouth daily for anticoagulation - atorvastatin 80 mg nightly for cholesterol - bupropion HCl XL 300 mg daily - Fioricet 50/325/40 mg one by mouth every 4 hours as needed for headache - fluoxetine 80 mg by mouth daily - folic acid 1 mg by mouth daily - levothyroxine sodium 100 mcg tablet and 75 mg tablet to be taken together by mouth daily - Latuda 40 mg tablets two tablets or 80 mg nightly - meclizine 12.5 mg every 8 hours as needed for dizziness - multivitamin - Theragran-M Plus one tablet by mouth daily - omeprazole 20 mg two tablets by mouth twice a day - thiamine 100 mg by mouth daily - Adderall 15 mg instant release by mouth twice a day at 9 a.m. and 2 p.m. for attention and concentration, these should be weaned with time COMPLICATIONS: None. DISCHARGE PLAN: Patient to followup with primary care within 2 weeks. Home care therapy, as patient is not able to drive and does not have mobility outside the home, to include fpc, physical and occupational therapy. Patient has been issued a walker and commode chair as far as durable medical equipment (DME) goes.
== END 2016-05-26 14:30 | disposition home health service (06) | DRG 57 ==
LOC: M PM&R 17:05
PROVIDERS: ADMIT Physical Medicine & Rehabilitation; ATTEND Physical Medicine & Rehabilitation
DX: I69.322 Dysarthria following cerebral infarction (principal); R26.9 Unspecified abnormalities of gait and mobility; I69.398 Other sequelae of cerebral infarction; I10 Essential (primary) hypertension; F31.9 Bipolar disorder, unspecified; F41.9 Anxiety disorder, unspecified; G47.00 Insomnia, unspecified; K21.9 Gastro-esophageal reflux disease without esophagitis; K44.9 Diaphragmatic hernia without obstruction or gangrene; R32 Unspecified urinary incontinence; K57.90 Diverticulosis of intestine, part unspecified, without perforation or abscess without bleeding; K64.8 Other hemorrhoids; M54.9 Dorsalgia, unspecified; G57.62 Lesion of plantar nerve, left lower limb; R51 Headache; R11.0 Nausea; K59.00 Constipation, unspecified; F10.20 Alcohol dependence, uncomplicated; Z79.01 Long term (current) use of anticoagulants; Z79.4 Long term (current) use of insulin; Z79.82 Long term (current) use of aspirin; Z79.891 Long term (current) use of opiate analgesic; Z79.899 Other long term (current) drug therapy; Z87.891 Personal history of nicotine dependence

== ENCOUNTER → 2016-08-21 | Outpatient (REF) | payer MEDICARE ==
[~2016-08-21] MED LIST changes: +BUSP5TA PO; +DIAZ5TAB PO
== END ==
LOC: M LAB REF 12:32
PROVIDERS: ATTEND Internal Medicine
DX: R42 Dizziness and giddiness (principal)

== ENCOUNTER → 2016-11-02 | Outpatient (REF) | payer MEDICARE ==
[~2016-11-02] MED LIST changes: +ADDE1TAB14 PO; -ADDE30CA PO; +ADDE30CA3 PO; -ADDE5TAB5 PO; +FLUO20CA19 PO; -FLUO20CA9 PO; -FOLI1TAB2 PO; +FOLI1TAB4 PO; -METF500T PO; +METF500T13 PO; -ONDA1TAB15 PO; +ONDA4TAB5 PO; +PROM12.55 PO; -PROM125TA PO
[2016-11-02 16:22] LABS: BASO # 0.1 K/mm3 (0.0-0.2); BASO % 1.2 % (0.0-1.0); EOS # 0.1 K/mm3 (0.0-0.50); EOS % 2.6 % (0.0-3.0); LARGE UNSTAINED CELL # 0.1 K/mm3 (0.0-0.4); LYMPH # 1.6 K/mm3 (1.5-4.5); LYMPH % 29.6 % (24.0-44.0); MEAN CORPUSCULAR HEMOGLOBIN 30.7 pg (27.0-33.0); MEAN CORPUSCULAR HGB CONC 31.8 g/dl (32.0-36.5); MEAN CORPUSCULAR VOLUME 96.4 fl (80.0-96.0); MONO # 0.3 K/mm3 (0.0-0.8); MONO % 5.6 % (0.0-5.0); NEUTROPHILS # 3.1 K/mm3 (1.8-7.7); NEUTROPHILS % 59.9 % (36.0-66.0); PLATELET COUNT, AUTOMATED 234 k/mm3 (150-450); RED CELL DISTRIBUTION WIDTH 12.7 % (11.5-14.5); WHITE BLOOD COUNT 5.2 K/mm3 (4.0-10.0)
[2016-11-02 16:37] LABS: ALBUMIN 3.8 GM/DL (3.2-5.2); ALBUMIN/GLOBULIN RATIO 1.36 (1.00-1.93); ALKALINE PHOSPHATASE 69 U/L (45-117); ALT/SGPT 18 U/L (12-78); ANION GAP 9 MEQ/L (8-16); AST/SGOT 8 U/L (15-37); BILIRUBIN,TOTAL 0.2 MG/DL (0.2-1.0); BLOOD UREA NITROGEN 11 MG/DL (7-18); CALCIUM LEVEL 8.8 MG/DL (8.8-10.2); CARBON DIOXIDE LEVEL 28 MEQ/L (21-32); CHLORIDE LEVEL 106 MEQ/L (98-107); CHOLESTEROL LEVEL 218 MG/DL (<200); FREE T4 1.48 NG/DL (0.76-1.46); GLOMERULAR FILTRATION RATE > 60.0 (>45); GLUCOSE, FASTING 79 MG/DL (80-110); SODIUM LEVEL 143 MEQ/L (136-145); TOTAL PROTEIN 6.6 GM/DL (6.4-8.2); TRIGLYCERIDES LEVEL 122 MG/DL (<150)
[2016-11-02 16:41] LABS: VITAMIN B12 LEVEL 751 PG/ML (247-911)
[2016-11-02 16:42] LABS: FOLATE > 24.0 NG/ML (>5.4)
== END ==
LOC: M LABDRAW1 11:54
PROVIDERS: ATTEND Family Medicine
DX: R73.01 Impaired fasting glucose (principal); E89.0 Postprocedural hypothyroidism; F31.4 Bipolar disorder, current episode depressed, severe, without psychotic features; F10.10 Alcohol abuse, uncomplicated; Z86.73 Personal history of transient ischemic attack (TIA), and cerebral infarction without residual deficits

== ENCOUNTER 2016-11-24 13:39 | Emergency (ER) | payer MEDICARE, OTHER ==
[~2016-11-24] VITALS: Ht 175.3 cm; Wt 83.6 kg
--- NOTE | 2016-11-24 14:38 | REP ---
CT Head without contrast HISTORY: Drug overdose COMPARISON: 05/09/2016 An area of decreased attenuation is present in the right temporal and parietal lobes. This represents an old infarction. Areas of decreased attenuation are present in the periventricular white matter. This represents small-vessel ischemic disease. There is no intraparenchymal hemorrhage, acute infarct, mass or midline shift. The ventricular system and cortical sulci are dilated consistent with minimal volume loss. There is no extra cerebral collection. There is no fracture. The visualized sinuses are clear. IMPRESSION: 1. Old right temporoparietal lobe infarction. 2. Small vessel ischemic disease. 3. Minimal volume loss. Signed by Thaddeus Inman MD 11/24/2016 02:31 P
[2016-11-24 14:56] LABS: BASO # 0.1 10^3/uL (0.0-0.2); BASO % 0.6 % (0.0-1.0); EOS # 0.1 10^3/uL (0.0-0.50); EOS % 1.7 % (0.0-3.0); IMMATURE GRANULOCYTE % 0.5 % (0-0); LYMPH # 1.7 10^3/uL (1.5-4.5); LYMPH % 20.8 % (24.0-44.0); MEAN CORPUSCULAR HEMOGLOBIN 31.1 pg (27.0-33.0); MEAN CORPUSCULAR HGB CONC 32.8 g/dl (32.0-36.5); MEAN CORPUSCULAR VOLUME 94.9 fl (80.0-96.0); MONO # 0.4 10^3/uL (0.0-0.8); NEUTROPHILS # 5.9 10^3/uL (1.8-7.7); NEUTROPHILS % 71.4 % (36.0-66.0); PLATELET COUNT, AUTOMATED 278 10^3/uL (150-450); RED CELL DISTRIBUTION WIDTH 13.6 % (11.5-14.5); WHITE BLOOD COUNT 8.3 10^3/uL (4.0-10.0)
[2016-11-24 14:57] LABS: ADD MORPHOLOGY? NO
[2016-11-24] MEDS ORDERED: LIDOCAINE W/EPINEPHRINE 1% 20ML VIAL As Ordered ONE (15:04)
--- NOTE | 2016-11-24 15:05 | REP ---
CT CERVICAL SPINE WITHOUT CONTRAST: HISTORY: Drug overdose. COMPARISON: 09/27/2011 There is no acute fracture or subluxation. Disc bulges are present at the C3-4, C4-5, and C6-7 levels. A disc bulge with associated osteophyte formation is present at the C5-6 level. There is minimal narrowing of the spinal canal. Uncinate process and/or facet hypertrophy are present at the C2-3 through C7-T1 levels. These findings produce minimal narrowing of the neural foramina. The C4-5 through C6-7 intervertebral discs are decreased in height consistent with disc degeneration. There is loss of the normal lordotic curve. IMPRESSION: 1. There is no acute fracture or subluxation. 2. There is cervical spondylosis at the C2-3 through C7-T1 levels. Signed by Thaddeus Inman MD 11/24/2016 03:11 P
[2016-11-24 15:12] LABS: ALBUMIN/GLOBULIN RATIO 1.33 (1.00-1.93); ALKALINE PHOSPHATASE 83 U/L (45-117); ALT/SGPT 31 U/L (12-78); ANION GAP 9 MEQ/L (8-16); AST/SGOT 12 U/L (15-37); BILIRUBIN,DIRECT < 0.1 MG/DL (0.0-0.2); BILIRUBIN,TOTAL 0.3 MG/DL (0.2-1.0); BLOOD UREA NITROGEN 9 MG/DL (7-18); CALCIUM LEVEL 9.5 MG/DL (8.8-10.2); CARBON DIOXIDE LEVEL 23 MEQ/L (21-32); CHLORIDE LEVEL 109 MEQ/L (98-107); CREATININE FOR GFR 1.06 MG/DL (0.55-1.02); GLOMERULAR FILTRATION RATE 54.6 (>39); GLUCOSE, FASTING 65 MG/DL (83-110); SODIUM LEVEL 141 MEQ/L (136-145)
[2016-11-24] MEDS ORDERED: TETANUS/DIPHTHERIA TOX ADSORB ADULT 0.5ML SYR/VIAL (90714) IM ONE (18:15)
[2016-11-24 18:28] VITALS: BP 130/68
[2016-11-24] MEDS ORDERED: ADACEL/BOOSTRIX VACCINE (DIPHTH/PERTUSS/ACELL/TETANUS)0.5ML SYR (90715) IM ONE (18:30)
--- NOTE | 2016-11-24 18:31 | REP ---
REASON: Pain. COMPARISON: None. The bones are demineralized. Degenerative changes are seen throughout the left hand. Asymmetric intradigital joint space narrowing is noted throughout. There is no evidence of an acute fracture. IMPRESSION: Chronic changes. Signed by Wayne Lloyd DO 11/27/2016 04:41 P
--- NOTE | 2016-11-25 08:24 | ECGEPIP ---
Stationary ECG Study [facility] - ED Test Date: 2016-11-24 Pat Name: JOSÉ MANUEL LACEY Department: Room: - Gender: F Adobe Layer: suma : 1945 Requested By: Collette Hampton Order Number: [id number] Reading MD: Jv Felix Measurements Intervals [place] Rate: 93 P: 64 [place]: 166 QRS: -49 QRSD: 141 T: 3 QT: 398 QTc: 495 Interpretive Statements SINUS RHYTHM POSSIBLE LEFT ATRIAL ENLARGEMENT RIGHT BUNDLE BRANCH BLOCK LEFT ANTERIOR FASCICULAR BLOCK SIMILAR TO 05/10/16 Electronically Signed On 11-25-2016 8:24:14 EDT by Jv Felix
== END 2016-11-24 18:31 | disposition home or self-care (01) ==
LOC: M ED 13:39
DX: S01.90XA Unspecified open wound of unspecified part of head, initial encounter (principal); S60.222A Contusion of left hand, initial encounter; W01.10XA Fall on same level from slipping, tripping and stumbling with subsequent striking against unspecified object, initial encounter; Y92.099 Unspecified place in other non-institutional residence as the place of occurrence of the external cause; Y93.9 Activity, unspecified; Y99.9 Unspecified external cause status; I45.10 Unspecified right bundle-branch block; I44.4 Left anterior fascicular block; F10.129 Alcohol abuse with intoxication, unspecified; Z86.73 Personal history of transient ischemic attack (TIA), and cerebral infarction without residual deficits; I10 Essential (primary) hypertension; F41.9 Anxiety disorder, unspecified; F32.9 Major depressive disorder, single episode, unspecified; F17.200 Nicotine dependence, unspecified, uncomplicated; M47.892 Other spondylosis, cervical region; M47.893 Other spondylosis, cervicothoracic region; Z79.82 Long term (current) use of aspirin; Z79.899 Other long term (current) drug therapy
CPT/HCPCS: 12002; 70450; 72125; 73130; 80048; 80076; 82550; 84443; 85025; 90471; 90715; 93005; 93041; 94760; 99284; G0480

== ENCOUNTER → 2017-03-07 | Outpatient (REF) | payer MEDICARE, SELFPAY, OTHER ==
[2017-03-07 13:41] LABS: BASO # 0.1 10^3/uL (0.0-0.2); BASO % 0.8 % (0.0-1.0); EOS # 0.1 10^3/uL (0.0-0.50); EOS % 2.3 % (0.0-3.0); HEMATOCRIT 44.4 % (36.0-47.0); HEMOGLOBIN 14.8 g/dl (12.0-16.0); IMMATURE GRANULOCYTE % 0.5 % (0-0); LYMPH # 1.2 10^3/uL (1.5-4.5); LYMPH % 19.6 % (24.0-44.0); MEAN CORPUSCULAR HEMOGLOBIN 31.1 pg (27.0-33.0); MEAN CORPUSCULAR HGB CONC 33.3 g/dl (32.0-36.5); MEAN CORPUSCULAR VOLUME 93.3 fl (80.0-96.0); MONO # 0.4 10^3/uL (0.0-0.8); MONO % 5.8 % (0.0-5.0); NEUTROPHILS # 4.3 10^3/uL (1.8-7.7); PLATELET COUNT, AUTOMATED 275 10^3/uL (150-450); RED BLOOD COUNT 4.76 10^6/uL (4.00-5.40)
[2017-03-07 14:03] LABS: ERYTHROCYTE SEDIMENTATION RATE 5 mm/hr (0-30)
[2017-03-07 14:10] LABS: ESTIMATED AVERAGE GLUCOSE 105 MG/DL (60-110); HEMOGLOBIN A1c 5.3 %
[2017-03-07 14:17] LABS: ALBUMIN/GLOBULIN RATIO 1.29 (1.00-1.93); ALKALINE PHOSPHATASE 88 U/L (45-117); ALT/SGPT 18 U/L (12-78); ANION GAP 10 MEQ/L (8-16); AST/SGOT 7 U/L (7-37); BILIRUBIN,TOTAL 0.3 MG/DL (0.2-1.0); BLOOD UREA NITROGEN 16 MG/DL (7-18); CALCIUM LEVEL 9.2 MG/DL (8.8-10.2); CARBON DIOXIDE LEVEL 23 MEQ/L (21-32); CHLORIDE LEVEL 108 MEQ/L (98-107); CHOLESTEROL LEVEL 231 MG/DL (<200); CHOLESTEROL RISK RATIO 2.625 (<5); CREATININE FOR GFR 0.89 MG/DL (0.55-1.02); GLOMERULAR FILTRATION RATE > 60.0 (>39); GLUCOSE, FASTING 94 MG/DL (83-110); HDL CHOLESTEROL 88 MG/DL (>40); LDL CHOLESTEROL 127.4 MG/DL (<100); NON-HDL-C 143 MG/DL; POTASSIUM SERUM 4.3 MEQ/L (3.5-5.1); RHEUMATOID FACTOR QUANT < 10.0 IU/ML (0-15.0); SODIUM LEVEL 141 MEQ/L (136-145); TOTAL PROTEIN 7.1 GM/DL (6.4-8.2); TRIGLYCERIDES LEVEL 78 MG/DL (<150)
[2017-03-07 14:40] LABS: VITAMIN B12 LEVEL 994 PG/ML
[2017-03-07 14:41] LABS: FOLATE 11.2 NG/ML; PTH INTACT 36.6 PG/ML (14.0-72.0)
[2017-03-08 10:48] LABS: ALBUMIN % 61.8 % (55.8-66.1); ALPHA-1-GLOBULIN % 4.8 % (2.9-4.9); ALPHA-2-GLOBULINS % 11.2 % (7.1-11.8)
[2017-03-08 10:49] LABS: ALBUMIN 4.39 GM/DL (3.29-5.55); ALPHA-1-GLOBULINS 0.34 GM/DL (0.17-0.41); BETA-1-GLOBULINS 0.43 GM/DL (0.28-0.60); BETA-2-GLOBULINS 0.31 GM/DL (0.19-0.55); BETA-2-GLOBULINS % 4.4 % (3.2-6.5); GAMMA GLOBULIN % 11.8 % (11.1-18.8); GAMMA GLOBULINS 0.84 GM/DL (0.65-1.58)
[2017-03-13 10:46] LABS: DRVV SCREEN 39.5 SEC
[2017-03-13 14:11] LABS: ANCA-ATYPICAL <1:20 titer (Neg:<1:20); ANTI DOUBLE STRAND-DNA AB <1 IU/mL (0-9); ANTI THROMBIN 3 ANTIGEN IMMUNO 122 % (72-124); ANTI THROMBIN 3 FUNCT ACTIVITY 136 % (75-135); ANTI-HISTONE ANTIBODIES 0.6 Units (0.0-0.9); ANTINUCLEAR ANTIBODIES DIRECT Negative (Negative); CARDIOLIPIN IGA ANTIBODY <9 APL U/mL (0-11); CARDIOLIPIN IGG ANTIBODY <9 GPL U/mL (0-14); CARDIOLIPIN IGM ANTIBODY <9 MPL U/mL (0-12); CYTOPLASMIC NEUTROP AB ANCA-C <1:20 titer (Neg:<1:20); PERINUCLEAR AB ANCA-P <1:20 titer (Neg:<1:20); PROTEIN C FUNCTIONAL ACTIVITY 161 % (73-180); PROTEIN S FUNCTIONAL ACTIVITY 106 % (63-140); RNP ANTIBODIES <0.2 AI (0.0-0.9); SJOGREN'S ANTI SS-A <0.2 AI (0.0-0.9); SJOGREN'S ANTI SS-B <0.2 AI (0.0-0.9); SMITH ANTIBODIES <0.2 AI (0.0-0.9); VITAMIN B1 LEVEL WHOLE BLOOD 277.7 nmol/L (66.5-200.0)
== END ==
LOC: M LABNEURO 13:00
DX: Z00.00 Encounter for general adult medical examination without abnormal findings (principal); R41.3 Other amnesia (principal); I63.9 Cerebral infarction, unspecified
CPT/HCPCS: 82746

== ENCOUNTER → 2017-04-18 | Outpatient (REF) | payer MEDICARE, OTHER ==
[2017-04-18 12:27] LABS: TOTAL 25(OH) VITAMIN D 37.9 NG/ML (30.0-100.0)
[2017-04-18 13:52] LABS: ALBUMIN 3.7 GM/DL (3.2-5.2); ALBUMIN/GLOBULIN RATIO 1.19 (1.00-1.93); ALKALINE PHOSPHATASE 91 U/L (45-117); ALT/SGPT 23 U/L (12-78); ANION GAP 9 MEQ/L (8-16); AST/SGOT 11 U/L (7-37); BILIRUBIN,TOTAL 0.4 MG/DL (0.2-1.0); BLOOD UREA NITROGEN 13 MG/DL (7-18); CALCIUM LEVEL 9.1 MG/DL (8.8-10.2); CARBON DIOXIDE LEVEL 25 MEQ/L (21-32); CHLORIDE LEVEL 106 MEQ/L (98-107); CHOLESTEROL LEVEL 173 MG/DL (<200); CHOLESTEROL RISK RATIO 2.162 (<5); CREATININE FOR GFR 0.83 MG/DL (0.55-1.30); FREE T4 1.44 NG/DL (0.76-1.46); GLOMERULAR FILTRATION RATE > 60.0 (>39); GLUCOSE, FASTING 88 MG/DL (70-100); HDL CHOLESTEROL 80 MG/DL (>40); LDL CHOLESTEROL 76.4 MG/DL (<100); NON-HDL-C 93 MG/DL; POTASSIUM SERUM 4.1 MEQ/L (3.5-5.1); SODIUM LEVEL 140 MEQ/L (136-145); TOTAL PROTEIN 6.8 GM/DL (6.4-8.2); TRIGLYCERIDES LEVEL 83 MG/DL (<150)
== END ==
LOC: M LABDRAW1 11:07
DX: E78.2 Mixed hyperlipidemia (principal); E55.9 Vitamin D deficiency, unspecified; Z86.73 Personal history of transient ischemic attack (TIA), and cerebral infarction without residual deficits
CPT/HCPCS: 84443

== ENCOUNTER → 2017-08-02 | Outpatient (REF) | payer MEDICARE ==
[2017-08-02 15:08] LABS: BASO # 0.1 10^3/uL (0.0-0.2); BASO % 0.7 % (0.0-1.0); EOS # 0.2 10^3/uL (0.0-0.50); EOS % 2.9 % (0.0-3.0); HEMATOCRIT 43.7 % (36.0-47.0); HEMOGLOBIN 14.5 g/dl (12.0-15.5); IMMATURE GRANULOCYTE % 0.6 % (0-3.0); LYMPH # 1.5 10^3/uL (1.5-4.5); LYMPH % 20.9 % (24.0-44.0); MEAN CORPUSCULAR HEMOGLOBIN 30.7 pg (27.0-33.0); MEAN CORPUSCULAR HGB CONC 33.2 g/dl (32.0-36.5); MEAN CORPUSCULAR VOLUME 92.4 fl (80.0-96.0); MONO # 0.5 10^3/uL (0.0-0.8); NEUTROPHILS # 4.9 10^3/uL (1.8-7.7); NEUTROPHILS % 67.9 % (36.0-66.0); PLATELET COUNT, AUTOMATED 259 10^3/uL (150-450); RED BLOOD COUNT 4.73 10^6/uL (4.00-5.40); RED CELL DISTRIBUTION WIDTH 13.3 % (11.5-14.5); WHITE BLOOD COUNT 7.3 10^3/uL (4.0-10.0)
[2017-08-02 15:23] LABS: CHOLESTEROL LEVEL 176 MG/DL (<200); CHOLESTEROL RISK RATIO 2.626 (<5); FREE T4 1.21 NG/DL (0.76-1.46); HDL CHOLESTEROL 67 MG/DL (>40); LDL CHOLESTEROL 93.4 MG/DL (<100); NON-HDL-C 109 MG/DL; TRIGLYCERIDES LEVEL 78 MG/DL (<150)
[2017-08-03 09:48] LABS: TOTAL 25(OH) VITAMIN D 21.2 NG/ML (30.0-100.0)
== END ==
LOC: M LABDRAW1 14:47
DX: I69.898 Other sequelae of other cerebrovascular disease (principal); E78.2 Mixed hyperlipidemia; E55.9 Vitamin D deficiency, unspecified; E89.0 Postprocedural hypothyroidism; Z79.899 Other long term (current) drug therapy
CPT/HCPCS: 84443

== ENCOUNTER → 2017-08-22 | Outpatient (REF) | payer MEDICARE ==
[2017-08-22 16:07] LABS: FREE T4 1.32 NG/DL (0.76-1.46)
== END ==
LOC: M LABDRAW1 14:39
DX: E89.0 Postprocedural hypothyroidism (principal)
CPT/HCPCS: 84443

== ENCOUNTER → 2017-09-26 | Outpatient (REF) | payer MEDICARE ==
[2017-09-26 18:09] LABS: FREE T4 1.53 NG/DL (0.76-1.46)
== END ==
LOC: M LAB REF 17:20
DX: E89.0 Postprocedural hypothyroidism (principal)
CPT/HCPCS: 84443

== ENCOUNTER → 2017-12-19 | Outpatient (REF) | payer MEDICARE ==
[2017-12-19 15:21] LABS: BASO % 0.5 % (0.0-1.0); EOS # 0.2 10^3/uL (0.0-0.50); EOS % 3.7 % (0.0-3.0); HEMATOCRIT 44.2 % (36.0-47.0); HEMOGLOBIN 14.5 g/dl (12.0-15.5); IMMATURE GRANULOCYTE % 0.4 % (0-3.0); LYMPH # 1.8 10^3/uL (1.5-4.5); LYMPH % 31.3 % (24.0-44.0); MEAN CORPUSCULAR HEMOGLOBIN 30.6 pg (27.0-33.0); MEAN CORPUSCULAR HGB CONC 32.8 g/dl (32.0-36.5); MEAN CORPUSCULAR VOLUME 93.2 fl (80.0-96.0); MONO # 0.4 10^3/uL (0.0-0.8); MONO % 7.6 % (0.0-5.0); NEUTROPHILS # 3.2 10^3/uL (1.8-7.7); NEUTROPHILS % 56.5 % (36.0-66.0); PLATELET COUNT, AUTOMATED 282 10^3/uL (150-450); RED BLOOD COUNT 4.74 10^6/uL (4.00-5.40); RED CELL DISTRIBUTION WIDTH 13.2 % (11.5-14.5); WHITE BLOOD COUNT 5.6 10^3/uL (4.0-10.0)
[2017-12-19 15:42] LABS: ALBUMIN 3.9 GM/DL (3.2-5.2); ALBUMIN/GLOBULIN RATIO 1.44 (1.00-1.93); ALKALINE PHOSPHATASE 88 U/L (45-117); ALT/SGPT 23 U/L (12-78); ANION GAP 8 MEQ/L (8-16); AST/SGOT 11 U/L (7-37); BILIRUBIN,TOTAL 0.3 MG/DL (0.2-1.0); BLOOD UREA NITROGEN 18 MG/DL (7-18); CALCIUM LEVEL 9.6 MG/DL (8.8-10.2); CARBON DIOXIDE LEVEL 26 MEQ/L (21-32); CHLORIDE LEVEL 109 MEQ/L (98-107); CHOLESTEROL LEVEL 223 MG/DL (<200); CHOLESTEROL RISK RATIO 2.654 (<5); CREATININE FOR GFR 0.91 MG/DL (0.55-1.30); FREE T4 1.71 NG/DL (0.76-1.46); GLOMERULAR FILTRATION RATE > 60.0 (>39); GLUCOSE, FASTING 104 MG/DL (70-100); HDL CHOLESTEROL 84 MG/DL (>40); LDL CHOLESTEROL 123 MG/DL (<100); NON-HDL-C 139 MG/DL; POTASSIUM SERUM 3.8 MEQ/L (3.5-5.1); SODIUM LEVEL 143 MEQ/L (136-145); THYROID STIMULATING HORMONE 0.064 uIU/ML (0.358-3.740); TOTAL PROTEIN 6.6 GM/DL (6.4-8.2); TRIGLYCERIDES LEVEL 82 MG/DL (<150)
== END ==
LOC: M LABDRAW1 15:09
DX: E89.0 Postprocedural hypothyroidism (principal); E78.2 Mixed hyperlipidemia; I10 Essential (primary) hypertension
CPT/HCPCS: 84443

== ENCOUNTER → 2018-06-11 | Outpatient (REF) | payer MEDICARE ==
[~2018-06-11] MED LIST changes: -AMLO5TAB2 PO; +AMLO5TAB6 PO; +ASPI-1 PO; -ASPI325T PO; +FOLI1TAB11 PO; -FOLI1TAB4 PO; +GLUC1INJ21 SC; -GLUC1VL SC; -GLUC4CHW PO; +GLUC4CHW19 PO; +HEPA1INJ23 SQ; -HEPA50VL SQ; -PROM12.55 PO; +PROM12.56 PO
[2018-06-11 15:55] LABS: BASO # 0.1 10^3/uL (0.0-0.2); EOS # 0.2 10^3/uL (0.0-0.50); EOS % 3.7 % (0.0-3.0); HEMATOCRIT 44.2 % (36.0-47.0); HEMOGLOBIN 14.3 g/dl (12.0-15.5); LYMPH # 2.2 10^3/uL (1.5-4.5); LYMPH % 35.3 % (24.0-44.0); MEAN CORPUSCULAR HGB CONC 32.4 g/dl (32.0-36.5); MEAN CORPUSCULAR VOLUME 92.7 fl (80.0-96.0); MONO # 0.5 10^3/uL (0.0-0.8); MONO % 7.4 % (0.0-5.0); NEUTROPHILS # 3.3 10^3/uL (1.8-7.7); NEUTROPHILS % 52.3 % (36.0-66.0); PLATELET COUNT, AUTOMATED 310 10^3/uL (150-450); RED BLOOD COUNT 4.77 10^6/uL (4.00-5.40); WHITE BLOOD COUNT 6.2 10^3/uL (4.0-10.0)
[2018-06-11 16:09] LABS: ALT/SGPT 22 U/L (12-78); BILIRUBIN,TOTAL 0.3 MG/DL (0.2-1.0); BLOOD UREA NITROGEN 15 MG/DL (7-18); CALCIUM LEVEL 9.2 MG/DL (8.8-10.2); CARBON DIOXIDE LEVEL 24 MEQ/L (21-32); CHLORIDE LEVEL 111 MEQ/L (98-107); CHOLESTEROL LEVEL 208 MG/DL (<200); CHOLESTEROL RISK RATIO 2.337 (<5); CREATININE FOR GFR 0.81 MG/DL (0.55-1.30); FREE T4 1.21 NG/DL (0.76-1.46); GLOMERULAR FILTRATION RATE > 60.0 (>39); GLUCOSE, FASTING 63 MG/DL (70-100); HDL CHOLESTEROL 89 MG/DL (>40); LDL CHOLESTEROL 101 MG/DL (<100); NON-HDL-C 119 MG/DL; SODIUM LEVEL 142 MEQ/L (136-145); TOTAL PROTEIN 6.8 GM/DL (6.4-8.2); TRIGLYCERIDES LEVEL 91 MG/DL (<150)
== END ==
LOC: M LABDRAW1 15:30
PROVIDERS: ATTEND Physician Assistant
DX: Z00.00 Encounter for general adult medical examination without abnormal findings (principal); E78.2 Mixed hyperlipidemia; Z13.0 Encounter for screening for diseases of the blood and blood-forming organs and certain disorders involving the immune mechanism

== ENCOUNTER → 2018-07-15 | Outpatient (REF) | payer MEDICARE ==
[2018-07-15 19:29] LABS: CREATININE FOR GFR 1.08 MG/DL (0.55-1.30); GLOMERULAR FILTRATION RATE 53.2 (>39)
== END ==
LOC: M LABDRAW1 15:52
PROVIDERS: ATTEND Anesthesiology Pain Medicine
DX: Z01.812 Encounter for preprocedural laboratory examination (principal)

== ENCOUNTER → 2018-12-03 | Outpatient (REF) | payer MEDICARE ==
[~2018-12-03] MED LIST changes: -OMEP20CA3 PO; +OMEP20CA4 PO
[2018-12-03 13:44] LABS: BASO # 0.1 10^3/uL (0.0-0.2); BASO % 1.1 % (0.0-1.0); EOS # 0.3 10^3/uL (0.0-0.5); EOS % 4.6 % (0.0-3.0); HEMATOCRIT 41.6 % (36.0-47.0); HEMOGLOBIN 13.3 g/dl (12.0-15.5); LYMPH # 1.6 10^3/uL (1.5-5.0); LYMPH % 25.9 % (24.0-44.0); MEAN CORPUSCULAR HEMOGLOBIN 31.3 pg (27.0-33.0); MEAN CORPUSCULAR VOLUME 97.9 fl (80.0-96.0); MONO # 0.5 10^3/uL (0.0-0.8); MONO % 7.7 % (0.0-5.0); NEUTROPHILS # 3.7 10^3/uL (1.5-8.5); NEUTROPHILS % 60.2 % (36.0-66.0); PLATELET COUNT, AUTOMATED 252 10^3/uL (150-450); RED BLOOD COUNT 4.25 10^6/uL (4.00-5.40); WHITE BLOOD COUNT 6.1 10^3/uL (4.0-10.0)
[2018-12-03 13:59] LABS: ALBUMIN 3.4 GM/DL (3.2-5.2); ALT/SGPT 23 U/L (12-78); BILIRUBIN,TOTAL 0.4 MG/DL (0.2-1.0); BLOOD UREA NITROGEN 16 MG/DL (7-18); CALCIUM LEVEL 8.6 MG/DL (8.8-10.2); CARBON DIOXIDE LEVEL 29 MEQ/L (21-32); CHLORIDE LEVEL 106 MEQ/L (98-107); CHOLESTEROL LEVEL 175 MG/DL (<200); CHOLESTEROL RISK RATIO 2.187 (<5); CREATININE FOR GFR 0.93 MG/DL (0.55-1.30); FREE T4 0.99 NG/DL (0.76-1.46); GLOMERULAR FILTRATION RATE > 60.0 (>39); GLUCOSE, FASTING 83 MG/DL (70-100); HDL CHOLESTEROL 80 MG/DL (>40); LDL CHOLESTEROL 77 MG/DL (<100); NON-HDL-C 95 MG/DL; POTASSIUM SERUM 4.2 MEQ/L (3.5-5.1); SODIUM LEVEL 141 MEQ/L (136-145); TOTAL PROTEIN 6.2 GM/DL (6.4-8.2); TRIGLYCERIDES LEVEL 92 MG/DL (<150)
== END ==
LOC: M LABDRAW1 12:52
PROVIDERS: ATTEND Family Medicine
DX: E78.2 Mixed hyperlipidemia (principal); I10 Essential (primary) hypertension; E89.0 Postprocedural hypothyroidism

== ENCOUNTER 2019-02-21 12:34 | Emergency (ER) | payer MEDICARE ==
[~2019-02-21] VITALS: Ht 175.3 cm; Wt 95.1 kg
[~2019-02-21 12:34] MED LIST changes: +OMEP-172 PO; -OMEP20CA4 PO; -OMEP40CA2 PO; +OMEP40CA97 PO
[2019-02-21] MEDS ORDERED: DULO1CAP6 (13:36)
[2019-02-21] MEDS ORDERED: PRAV40TA2 (13:36)
[2019-02-21] MEDS ORDERED: AMPH1CAP16 (13:36)
[2019-02-21] MEDS ORDERED: LEVO25TA5 PO (13:36)
[2019-02-21] MEDS ORDERED: NORV5TAB PO (13:36)
[2019-02-21] MEDS ORDERED: LEVO200T4 (13:36)
[2019-02-21] MEDS ORDERED: LITH300C (13:36)
[2019-02-21] MEDS ORDERED: CLOP75TA2 (13:36)
--- NOTE | 2019-02-21 14:06 | REP ---
Clinical: Lower back pain and radiculopathy. Technique: Axial noncontrast images from the mid T11 level through mid sacrum with coronal and sagittal re-formations. Comparison: MRI dated 07/17/2018. Findings: Moderate/early advanced degenerative changes are appreciated including chronic grade 1 anterolisthesis at the L4-5 level of approximately 4 mm. Further degenerative findings include endplate sclerosis, marginal spurring, and disc space narrowing. Hypertrophic facet changes are identified primarily involving L2-3 through L5-S1. There is no evidence for acute fracture / compression injury. Impression: Moderate/early advanced multilevel degenerative spondylosis including chronic grade 1 anterolisthesis at L4-5. Findings appear relatively similar to MRI dated 07/17/2018. Electronically Signed by Tomi Patel MD 02/21/2019 01:57 P
--- NOTE | 2019-02-21 14:24 | REP ---
Clinical: Bilateral posterior knee pain . Technique: Verduzco scale and color Doppler evaluation using linear high frequency transducer. Findings: Ultrasound examination of the right and left lower extremity deep venous structures from the common femoral vein to the popliteal vein demonstrates normal compressibility flow and wave patterns in response to respiration and augmentation. There is no evidence for deep venous thrombosis. Impression: No evidence for deep venous thrombosis. Electronically Signed by Tomi Patel MD 02/21/2019 02:16 P
[2019-02-21] MEDS ORDERED: PRED20TA PO (14:26)
[2019-02-21 14:50] VITALS: BP 145/74
== END 2019-02-21 14:48 | disposition home or self-care (01) ==
LOC: M ED 12:34
DX: M79.604 Pain in right leg (principal); M79.605 Pain in left leg; Z86.73 Personal history of transient ischemic attack (TIA), and cerebral infarction without residual deficits; F17.200 Nicotine dependence, unspecified, uncomplicated; M47.816 Spondylosis without myelopathy or radiculopathy, lumbar region; M43.16 Spondylolisthesis, lumbar region; Z79.899 Other long term (current) drug therapy

== ENCOUNTER → 2019-02-27 | Outpatient (CLI) | payer MEDICARE ==
[~2019-02-27] MED LIST changes: +AMPH1CAP16; +CLOP75TA2; +DULO1CAP6; +LEVO200T4; +LEVO25TA5 PO; +LITH300C; +NORV5TAB PO; +PRAV40TA2; +PRED20TA PO
--- NOTE | 2019-02-28 09:46 | REP ---
MRI brain: 02/27/2019. Indication: Stroke. Comparison: 05/09/2016. Technique: Multiplanar short and long TR sequences of the brain were performed without IV gadolinium enhancement. Findings: Image quality is degraded by patient motion. There are no areas of restricted diffusion detected to suggest an acute infarction. There is no significant intracranial mass effect, hydrocephalus or hemorrhage detected. Chronic right temporal parietal infarction is present with associated encephalomalacia/gliosis. Diffuse volume loss is present. Impression: Motion degrades study. No acute intracranial process detected. Chronic right temporal parietal / MCA infarction. Electronically Signed by Juan Pablo Hylton DO 02/28/2019 09:37 A
--- NOTE | 2019-02-28 10:08 | REP ---
Intracranial MRA: 02/27/2019. Indication: Stroke. Comparison: 05/10/2016. Technique: 3-D [id number] imaging of the intracranial vessels were performed with rotational reconstructions provided. Findings: There are no areas of intracranial high-grade stenosis, vessel occlusion, aneurysm or AVM. Impression: No intracranial vascular high-grade stenosis or vessel occlusion. Electronically Signed by Juan Pablo Hylton DO 02/28/2019 09:59 A
== END ==
LOC: M RAD 16:44
PROVIDERS: ATTEND Family Medicine
DX: R53.1 Weakness (principal); R29.2 Abnormal reflex; I69.898 Other sequelae of other cerebrovascular disease; Z79.899 Other long term (current) drug therapy

== ENCOUNTER → 2019-03-31 | Outpatient (REF) | payer MEDICARE ==
[~2019-03-31] MED LIST changes: -BUPR300T34 PO; +BUPR300T92 PO; -MECL12.575 PO; +MECL12.589 PO; -OMEP-172 PO; +OMEP1CAP73 PO; +ONDA-83 PO; -ONDA4TAB5 PO
[2019-03-31 13:56] LABS: ALBUMIN 3.9 GM/DL (3.2-5.2); ALT/SGPT 15 U/L (12-78); BILIRUBIN,TOTAL 0.5 MG/DL (0.2-1.0); BLOOD UREA NITROGEN 12 MG/DL (7-18); CALCIUM LEVEL 8.8 MG/DL (8.8-10.2); CARBON DIOXIDE LEVEL 25 MEQ/L (21-32); CHLORIDE LEVEL 110 MEQ/L (98-107); CREATININE FOR GFR 0.96 MG/DL (0.55-1.30); FREE T4 1.41 NG/DL (0.76-1.46); GLOMERULAR FILTRATION RATE > 60.0 (>39); GLUCOSE, FASTING 91 MG/DL (70-100); POTASSIUM SERUM 3.7 MEQ/L (3.5-5.1); SODIUM LEVEL 141 MEQ/L (136-145); TOTAL 25(OH) VITAMIN D 26.5 NG/ML (30.0-100.0); TOTAL PROTEIN 6.4 GM/DL (6.4-8.2)
== END ==
LOC: M LABDRAW1 12:49
PROVIDERS: ATTEND Family Medicine
DX: I10 Essential (primary) hypertension (principal); E89.0 Postprocedural hypothyroidism

== ENCOUNTER 2019-07-10 16:20 | Emergency (ER) | payer MEDICARE ==
[~2019-07-10 16:20] MED LIST changes: -FLUO20CA19 PO; +FLUO20CA22 PO; -MAPA325T2 PO; +MAPA325T8 PO
[2019-07-10 18:07] LABS: HEMATOCRIT 43.2 % (36.0-47.0); HEMOGLOBIN 13.4 g/dl (12.0-15.5); MEAN CORPUSCULAR HEMOGLOBIN 30.2 pg (27.0-33.0); MEAN CORPUSCULAR VOLUME 97.5 fl (80.0-96.0); PLATELET COUNT, AUTOMATED 289 10^3/uL (150-450); RED BLOOD COUNT 4.43 10^6/uL (4.00-5.40); WHITE BLOOD COUNT 6.6 10^3/uL (4.0-10.0)
[2019-07-10 18:45] LABS: ACETAMINOPHEN LEVEL < 2.0 UG/ML (10.0-30.0); ALBUMIN 3.8 GM/DL (3.2-5.2); ALT/SGPT 24 U/L (12-78); BILIRUBIN,DIRECT < 0.1 MG/DL (0.0-0.2); BILIRUBIN,TOTAL 0.4 MG/DL (0.2-1.0); BLOOD UREA NITROGEN 9 MG/DL (7-18); CALCIUM LEVEL 8.9 MG/DL (8.8-10.2); CARBON DIOXIDE LEVEL 27 MEQ/L (21-32); CHLORIDE LEVEL 109 MEQ/L (98-107); CREATININE FOR GFR 0.97 MG/DL (0.55-1.30); ETHYL ALCOHOL (ETHANOL) < 0.003 % (0.000-0.010); GLOMERULAR FILTRATION RATE > 60.0 (>39); GLUCOSE, FASTING 73 MG/DL (70-100); POTASSIUM SERUM 3.8 MEQ/L (3.5-5.1); SALICYLATE LEVEL 3.4 MG/DL (5.0-30.0); SODIUM LEVEL 141 MEQ/L (136-145); THYROID STIMULATING HORMONE 0.738 uIU/ML (0.358-3.740)
--- NOTE | 2019-07-10 18:58 | REPVR ---
PROCEDURE INFORMATION: Exam: CT Head Without Contrast Exam date and time: 07/10/2019 6:45 PM Age: 73 years old Clinical indication: Altered mental status/memory loss; Confusion or disorientation; Additional info: AMS TECHNIQUE: Imaging protocol: Computed tomography of the head without contrast. Radiation optimization: All CT scans at this facility use at least one of these dose optimization techniques: automated exposure control; mA and/or kV adjustment per patient size (includes targeted exams where dose is matched to clinical indication); or iterative reconstruction. COMPARISON: CT Head without contrast 11/24/2016 2:08 PM FINDINGS: Brain: There is a similar area of right temporoparietal encephalomalacia. There is no evidence for large acute cortical infarct. No intracranial hemorrhage or extraaxial collection is identified. There is no significant intracranial mass effect. Ventricles: The ventricles and sulci are stable in configuration, with similar atrophy. Bones/joints: Unremarkable. No acute fracture. Sinuses: Visualized sinuses are unremarkable. No fluid levels. Mastoid air cells: Visualized mastoid air cells are well aerated. Soft tissues: Unremarkable. IMPRESSION: No CT evidence for acute intracranial abnormality or significant change since 11/24/16. Electronically signed by: Ad Gregory On 07/10/2019 18:58:07 PM
[2019-07-10 19:42] VITALS: BP 140/87
[2019-07-10 20:06] LABS: AMPHETAMINES LEVEL URINE NEGATIVE (NEGATIVE); BARBITURATES URINE NEGATIVE (NEGATIVE); BENZODIAZEPINES URINE NEGATIVE (NEGATIVE); CANNABINOIDS URINE NEGATIVE (NEGATIVE); COCAINE METABOLITE URINE NEGATIVE (NEGATIVE); METHADONE URINE NEGATIVE (NEGATIVE); OPIATES URINE NEGATIVE (NEGATIVE); PHENCYCLIDINE URINE NEGATIVE (NEGATIVE)
[2019-07-10 20:34] LABS: LITHIUM LEVEL 0.96 MEQ/L (0.60-1.20)
[2019-07-10] MEDS ORDERED: KEFL500C17 PO (21:10)
[2019-07-10] MEDS ORDERED: CEPHALEXIN 500 MG CAP PO ONE (21:15)
== END 2019-07-10 21:36 | disposition home or self-care (01) ==
LOC: M ED 16:20
DX: N39.0 Urinary tract infection, site not specified (principal); F31.9 Bipolar disorder, unspecified; F10.11 Alcohol abuse, in remission; E78.5 Hyperlipidemia, unspecified; E03.9 Hypothyroidism, unspecified; Z86.73 Personal history of transient ischemic attack (TIA), and cerebral infarction without residual deficits; Z79.899 Other long term (current) drug therapy; Z79.02 Long term (current) use of antithrombotics/antiplatelets
CPT/HCPCS: 36415; 70450; 80048; 80076; 80178; 80307; 84443; 85027; 87086; 99284; G0480

== ENCOUNTER 2019-09-03 17:10 | Emergency (ER) | payer MEDICARE ==
[~2019-09-03] VITALS: Ht 175.3 cm; Wt 89.3 kg
[~2019-09-03 17:10] MED LIST changes: +KEFL500C17 PO
[2019-09-03 18:02] LABS: VENOUS BASE EXCESS -0.4 (-2.0-2.0); VENOUS HCO3 24.9 MEQ/L (23.0-27.0); VENOUS O2 SATURATION 93.1 % (60.0-80.0); VENOUS PARTIAL PRESSURE CO2 43.2 mmHg (38.0-50.0); VENOUS PH 7.378 UNITS (7.330-7.430); VENOUS TOTAL CO2 26.2 MEQ/L (24.0-28.0)
[2019-09-03 18:05] LABS: BASO % 0.3 % (0.0-1.0); EOS # 0.3 10^3/uL (0.0-0.5); EOS % 4.9 % (0.0-3.0); LYMPH # 1.2 10^3/uL (1.5-5.0); LYMPH % 17.7 % (24.0-44.0); MEAN CORPUSCULAR HGB CONC 32.6 g/dl (32.0-36.5); MEAN CORPUSCULAR VOLUME 92.3 fl (80.0-96.0); MONO # 0.4 10^3/uL (0.0-0.8); MONO % 6.5 % (0.0-5.0); NEUTROPHILS # 4.6 10^3/uL (1.5-8.5); NEUTROPHILS % 70.3 % (36.0-66.0); PLATELET COUNT, AUTOMATED 257 10^3/uL (150-450); RED BLOOD COUNT 4.66 10^6/uL (4.00-5.40); WHITE BLOOD COUNT 6.5 10^3/uL (4.0-10.0)
[2019-09-03 18:15] LABS: INR 1.05; PROTHROMBIN TIME 13.4 SECONDS (11.8-14.0)
[2019-09-03 18:34] LABS: ALBUMIN 3.6 GM/DL (3.2-5.2); ALT/SGPT 833 U/L (12-78); BILIRUBIN,DIRECT 0.4 MG/DL (0.0-0.2); BILIRUBIN,TOTAL 0.8 MG/DL (0.2-1.0); BLOOD UREA NITROGEN 8 MG/DL (7-18); CALCIUM LEVEL 9.1 MG/DL (8.8-10.2); CARBON DIOXIDE LEVEL 24 MEQ/L (21-32); CHLORIDE LEVEL 114 MEQ/L (98-107); CREATININE FOR GFR 0.74 MG/DL (0.55-1.30); ETHYL ALCOHOL (ETHANOL) 0.003 % (0.000-0.010); GLOMERULAR FILTRATION RATE > 60.0 (>39); GLUCOSE, FASTING 85 MG/DL (70-100); NT-PRO BNP 360 PG/ML (<125); POTASSIUM SERUM 3.6 MEQ/L (3.5-5.1); SODIUM LEVEL 143 MEQ/L (136-145); THYROID STIMULATING HORMONE 0.056 uIU/ML (0.358-3.740); TOTAL PROTEIN 6.6 GM/DL (6.4-8.2)
[2019-09-03 19:05] LABS: MONO SCRN NEGATIVE (NEGATIVE)
[2019-09-03 19:10] LABS: LITHIUM LEVEL 1.02 MEQ/L (0.60-1.20)
[2019-09-03 19:30] VITALS: BP 144/74
--- NOTE | 2019-09-03 19:48 | REPVR ---
PROCEDURE INFORMATION: Exam: US Abdomen, Limited; Right Upper Quadrant Exam date and time: 09/03/2019 7:29 PM Age: 73 years old Clinical indication: Abnormal findings; Abnormal lab test; Elevated liver enzymes; Prior surgery; Surgery date: 6+ months; Surgery type: Cholecystectomy; Additional info: Elevated lfts TECHNIQUE: Imaging protocol: US abdomen. Real time ultrasound with image documentation. Limited exam focused on the right upper quadrant. COMPARISON: CT ABD PELVIS W/O CONTRAST 11/19/2013 10:13 AM FINDINGS: Liver: No focal hepatic lesion is identified. Gallbladder: The patient is status post cholecystectomy. Common bile duct: The common bile duct is dilated measuring up to 20 mm in diameter. The common bile duct measured 17 mm on a previous CT scan of the abdomen performed in 2013. The distal most aspect of the common bile duct is not identified. Correlate with signs and symptoms of biliary obstruction. Pancreas: The head and tail of the pancreas are inadequately visualized. No focal abnormality is identified within the body of the pancreas. Right kidney: Normal. No mass. No hydronephrosis. IMPRESSION: 1. Status post cholecystectomy. 2. Dilatation of the common bile duct measuring up to 20 mm in diameter. The common bile duct measured 17 mm on a prior CT scan performed in 2013. The distal most aspect of the common bile duct is not visualized on this examination. Correlate with signs and symptoms of biliary obstruction. Electronically signed by: Yeison West On 09/03/2019 19:48:09 PM
--- NOTE | 2019-09-03 20:41 | REP ---
Single view chest: 09/03/2019. Indication: Dyspnea. Comparison: Rule 03/17/2010. Findings: The lungs are clear. There is no pleural effusion or pneumothorax. The cardiac silhouette is at the upper limits of normal in size. Impression: Clear lungs. Electronically Signed by Juan Pablo Hylton DO 09/03/2019 08:32 P
[2019-09-03] MEDS ORDERED: CLON-412 PO (21:38)
--- NOTE | 2019-09-04 00:40 | ECGEPIP ---
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
--- NOTE | 2019-09-04 15:06 | ED PDOC ---
Post-Departure Follow-Up dr debbie cooney faxed formal report of liver us forfu Collette Sykes MD Sep 04, 2019 15:06
[2019-09-05 09:37] LABS: HEPATITIS B SURFACE ANTIGEN NEGATIVE (NEGATIVE)
[2019-09-05 10:04] LABS: HEPATITIS C VIRUS ABY INDEX 0.1 INDEX (<0.8)
[2019-09-05 10:05] LABS: HEPATITIS B CORE ANTIBODY IGM NEGATIVE (NEGATIVE)
[2019-09-05 10:07] LABS: HEPATITIS A ANTIBODY IGM NEGATIVE (NEGATIVE)
== END 2019-09-03 22:15 | disposition home or self-care (01) ==
LOC: M ED 17:10
DX: R74.0 Nonspecific elevation of levels of transaminase and lactic acid dehydrogenase [LDH] (principal); I45.10 Unspecified right bundle-branch block; I44.4 Left anterior fascicular block; E11.9 Type 2 diabetes mellitus without complications; I10 Essential (primary) hypertension; F31.9 Bipolar disorder, unspecified; E07.9 Disorder of thyroid, unspecified; Z87.891 Personal history of nicotine dependence; Z79.899 Other long term (current) drug therapy
CPT/HCPCS: 71045; 76705; 80048; 80076; 80178; 82803; 83605; 83880; 84443; 84484; 85025; 85610; 86308; 86705; 86709; 86803; 87040; 87340; 87486; 87581; 87633; 87798; 93005; 93041; 99285; G0480

== ENCOUNTER → 2019-09-08 | Outpatient (REF) | payer MEDICARE ==
[~2019-09-08] MED LIST changes: +AMLO1TAB24 PO; -AMLO5TAB6 PO; +CLON-412 PO
== END ==
LOC: M LAB REF 16:48
PROVIDERS: ATTEND Family Medicine
DX: R44.1 Visual hallucinations (principal); Z79.899 Other long term (current) drug therapy

== ENCOUNTER → 2019-10-14 | Outpatient (CLI) | payer MEDICARE ==
--- NOTE | 2019-11-21 14:06 | REP ---
MRCP EXAM: MRI ABDOMEN WITHOUT CONTRAST HISTORY: Abnormal liver function studies. COMPARISON: Hepatic sonography 09/03/2019 showed a dilated common bile duct 20 mm in diameter. Patient is post cholecystectomy. TECHNIQUE: Axial and coronal T2-weighted scans are acquired. MRCP is acquired and maximum intensity projection images are generated and displayed rotationally. Source coronal images are reviewed. MRCP FINDINGS: Imaging confirms the presence of moderate dilation of the extrahepatic and intrahepatic biliary tree. The distal common bile duct measures up to 26 mm in greatest diameter, previously measured at 20 mm by ultrasound. There is moderate dilation of the main pancreatic duct as well measuring up to 12 mm in diameter. The pancreatic duct is dilated throughout the pancreatic body and tail. The accessory pancreatic duct appears dilated as well. No pancreatic mass lesion is visible, although the MRCP protocol is limited regarding the pancreas and no contrast imaging is done. No duodenal mass is appreciated at the ampulla. There is no filling defect in the choledochus or pancreatic duct to suggest choledocholithiasis. No liver mass lesion is evident. There is a subcentimeter cyst in the left lobe of the liver. There is no evidence of ascites. The spleen is unremarkable. No adrenal mass is observed. Kidneys appear morphologically intact. IMPRESSION: Moderate to intrahepatic and extrahepatic biliary ductal dilation. 26 mm common bile duct. No evidence of choledocholithiasis. No mass lesion is visible. There is also moderate dilation of the main pancreatic duct. No duodenal or ampullary mass is visualized with this study. Consider ERCP and depending on the bilirubin and other liver function studies, biliary drainage procedure. MTDD
== END ==
LOC: M RAD 09:00
PROVIDERS: ATTEND Internal Medicine Gastroenterology
DX: R94.5 Abnormal results of liver function studies (principal)

== ENCOUNTER → 2019-12-05 | Outpatient (CLI) | payer MEDICARE ==
[2019-12-05 16:17] LABS: BASO # 0.1 10^3/uL (0.0-0.2); BASO % 1.2 % (0.0-1.0); EOS # 0.3 10^3/uL (0.0-0.5); EOS % 6.2 % (0.0-3.0); HEMATOCRIT 40.8 % (36.0-47.0); LYMPH # 1.9 10^3/uL (1.5-5.0); LYMPH % 37.3 % (24.0-44.0); MEAN CORPUSCULAR HGB CONC 31.9 g/dl (32.0-36.5); MEAN CORPUSCULAR VOLUME 97.1 fl (80.0-96.0); MONO # 0.5 10^3/uL (0.0-0.8); NEUTROPHILS # 2.3 10^3/uL (1.5-8.5); NEUTROPHILS % 44.9 % (36.0-66.0); PLATELET COUNT, AUTOMATED 250 10^3/uL (150-450); WHITE BLOOD COUNT 5.2 10^3/uL (4.0-10.0)
[2019-12-05 16:48] LABS: ALBUMIN 3.7 GM/DL (3.2-5.2); ALT/SGPT 29 U/L (12-78); BILIRUBIN,TOTAL 0.2 MG/DL (0.2-1.0); BLOOD UREA NITROGEN 16 MG/DL (7-18); CALCIUM LEVEL 9.2 MG/DL (8.8-10.2); CARBON DIOXIDE LEVEL 27 MEQ/L (21-32); CHLORIDE LEVEL 108 MEQ/L (98-107); CREATININE FOR GFR 0.73 MG/DL (0.55-1.30); FERRITIN 10 NG/ML (8-252); FREE T4 1.03 NG/DL (0.76-1.46); GLOMERULAR FILTRATION RATE > 60.0 (>39); GLUCOSE, FASTING 70 MG/DL (70-100); IRON (FE) 38 UG/DL (50-170); POTASSIUM SERUM 4.3 MEQ/L (3.5-5.1); SODIUM LEVEL 139 MEQ/L (136-145); THYROID STIMULATING HORMONE 0.159 uIU/ML (0.358-3.740); TOTAL IRON BINDING CAPACITY 379 UG/DL (250-450); TOTAL PROTEIN 6.6 GM/DL (6.4-8.2)
[2019-12-05 16:49] LABS: TOTAL 25(OH) VITAMIN D 58.5 NG/ML (30.0-100.0); VITAMIN B12 LEVEL 1057 PG/ML (247-911)
== END ==
LOC: M WUC 13:30
PROVIDERS: ATTEND Family Medicine
DX: E55.9 Vitamin D deficiency, unspecified (principal); R53.83 Other fatigue; R94.31 Abnormal electrocardiogram [ECG] [EKG]

== ENCOUNTER → 2019-12-15 | Outpatient (CLI) | payer MEDICARE ==
--- NOTE | 2019-12-15 17:40 | REPVR ---
PROCEDURE INFORMATION: Exam: US Duplex Left Lower Extremity Veins, Limited Exam date and time: 12/15/2019 4:50 PM Age: 74 years old Clinical indication: Pain; Leg, lower; Left; Additional info: Pain, edema lt leg, R/O dvt TECHNIQUE: Imaging protocol: Real-time Duplex ultrasound of the Left Lower Extremity with 2-D guzman scale, color Doppler flow and spectral waveform analysis with image documentation. Limited exam focused on the left lower extremity veins. COMPARISON: US Duplex, Ext LOWER veins, bilat 02/21/2019 1:59 PM FINDINGS: Left deep veins: Unremarkable. The common femoral, femoral, proximal profunda femoral and popliteal veins are patent without thrombus. Normal Doppler waveforms. Normal compressibility and/or augmentation response. Left superficial veins: Unremarkable. Saphenofemoral junction is patent without thrombus. Soft tissues: There is a large popliteal cyst measuring 7 cm in length by 2 cm in thickness by 3.3 cm in transverse dimension. IMPRESSION: Large popliteal cyst. No evidence of DVT. Electronically signed by: Julito Du On 12/15/2019 17:39:57 PM
== END ==
LOC: M RAD 16:13
PROVIDERS: ATTEND Internal Medicine Cardiovascular Disease
DX: M79.605 Pain in left leg (principal); M71.22 Synovial cyst of popliteal space [Baker], left knee

== ENCOUNTER 2020-01-26 21:13 | Emergency (ER) | payer MEDICARE ==
[~2020-01-26] VITALS: Ht 177.8 cm; Wt 86.8 kg
[~2020-01-26 21:13] MED LIST changes: -LEVO200T4; +LEVO200T4 PO; -LITH300C; +LITH300C PO; -MECL12.589 PO; +MECL12.590 PO
[2020-01-26] MEDS ORDERED: CLON0.12 PO (22:46)
[2020-01-26] MEDS ORDERED: ADDE30CA3 PO (22:46)
[2020-01-26] MEDS ORDERED: ADDE20CA3 PO (22:46)
[2020-01-26] MEDS ORDERED: METF500T13 PO (22:46)
[2020-01-26] MEDS ORDERED: FLUO40CA PO (22:46)
[2020-01-26] MEDS ORDERED: PROC5TAB57 PO (22:46)
[2020-01-26] MEDS ORDERED: FERR325T3 PO (22:46)
--- NOTE | 2020-01-26 23:01 | REPVR ---
PROCEDURE INFORMATION: Exam: CT Head Without Contrast Exam date and time: 01/26/2020 10:51 PM Age: 74 years old Clinical indication: Other: Confusion TECHNIQUE: Imaging protocol: Computed tomography of the head without contrast. Radiation optimization: All CT scans at this facility use at least one of these dose optimization techniques: automated exposure control; mA and/or kV adjustment per patient size (includes targeted exams where dose is matched to clinical indication); or iterative reconstruction. COMPARISON: CT Head without contrast 07/10/2019 6:42 PM FINDINGS: Brain: Chronic infarct in the right frontal lobe. There are moderate periventricular and subcortical lucencies consistent with chronic microvascular ischemic changes. The guzman-white differentiation is maintained. No hemorrhage. No edema. Cerebral ventricles: No ventriculomegaly. Bones/joints: Unremarkable. No acute fracture. Paranasal sinuses: Visualized sinuses are unremarkable. No fluid levels. Mastoid air cells: Visualized mastoid air cells are well aerated. Orbital cavity: Bilateral cataract surgery. Soft tissues: Unremarkable. IMPRESSION: No acute intracranial abnormality. Chronic microvascular ischemic changes. Electronically signed by: You Napier On 01/26/2020 23:01:43 PM
[2020-01-27 00:40] LABS: HEMATOCRIT 41.3 % (36.0-47.0); HEMOGLOBIN 13.4 g/dl (12.0-15.5); MEAN CORPUSCULAR HEMOGLOBIN 30.2 pg (27.0-33.0); MEAN CORPUSCULAR HGB CONC 32.4 g/dl (32.0-36.5); PLATELET COUNT, AUTOMATED 226 10^3/uL (150-450); RED BLOOD COUNT 4.44 10^6/uL (4.00-5.40); WHITE BLOOD COUNT 7.3 10^3/uL (4.0-10.0)
[2020-01-27 01:24] LABS: ACETAMINOPHEN LEVEL < 2.0 UG/ML (10.0-30.0); ALBUMIN 3.5 GM/DL (3.2-5.2); ALT/SGPT 20 U/L (12-78); BILIRUBIN,DIRECT < 0.1 MG/DL (0.0-0.2); BILIRUBIN,TOTAL 0.4 MG/DL (0.2-1.0); BLOOD UREA NITROGEN 18 MG/DL (7-18); CALCIUM LEVEL 8.9 MG/DL (8.8-10.2); CARBON DIOXIDE LEVEL 23 MEQ/L (21-32); CHLORIDE LEVEL 114 MEQ/L (98-107); CREATININE FOR GFR 0.78 MG/DL (0.55-1.30); ETHYL ALCOHOL (ETHANOL) < 0.003 % (0.000-0.010); GLOMERULAR FILTRATION RATE > 60.0 (>39); GLUCOSE, FASTING 83 MG/DL (70-100); POTASSIUM SERUM 4.2 MEQ/L (3.5-5.1); SALICYLATE LEVEL 2.3 MG/DL (5.0-30.0); SODIUM LEVEL 142 MEQ/L (136-145); THYROID STIMULATING HORMONE 0.192 uIU/ML (0.358-3.740); TOTAL PROTEIN 6.7 GM/DL (6.4-8.2)
[2020-01-27] MEDS ORDERED: NS 1,000 ML IV ONE (02:15)
[2020-01-27 02:24] LABS: AMPHETAMINES LEVEL URINE POSITIVE (NEGATIVE); BARBITURATES URINE NEGATIVE (NEGATIVE); BENZODIAZEPINES URINE POSITIVE (NEGATIVE); CANNABINOIDS URINE NEGATIVE (NEGATIVE); COCAINE METABOLITE URINE NEGATIVE (NEGATIVE); METHADONE URINE NEGATIVE (NEGATIVE); OPIATES URINE NEGATIVE (NEGATIVE); PHENCYCLIDINE URINE NEGATIVE (NEGATIVE)
[2020-01-27] MEDS ORDERED: cefTRIAXone SOD 1 GM in D5W MINI-BAG PLUS 50 ML IV ONE (02:45)
[2020-01-27] MEDS ORDERED: KETOROLAC 30 MG/ML 1ML VIAL IV ONE (03:00)
[2020-01-27] MEDS ORDERED: CEFU1TAB20 PO (04:14)
[2020-01-27 04:15] VITALS: BP 144/71
--- NOTE | 2020-01-27 07:48 | ECGEPIP ---
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
== END 2020-01-27 04:30 | disposition home or self-care (01) ==
LOC: M ED 21:13
DX: F32.9 Major depressive disorder, single episode, unspecified (principal); N39.0 Urinary tract infection, site not specified; T43.621A Poisoning by amphetamines, accidental (unintentional), initial encounter; T42.4X1A Poisoning by benzodiazepines, accidental (unintentional), initial encounter; I45.10 Unspecified right bundle-branch block; I44.4 Left anterior fascicular block; I10 Essential (primary) hypertension; Z86.73 Personal history of transient ischemic attack (TIA), and cerebral infarction without residual deficits
CPT/HCPCS: 70450; 80048; 80076; 80307; 81001; 84443; 85027; 87086; 93005; 96365; 96375; 99285; G0480; J0696; J1885

== ENCOUNTER → 2020-03-10 | Outpatient (CLI) | payer MEDICARE ==
[~2020-03-10] MED LIST changes: +ADDE20CA3 PO; -BUPR150T3 PO; +BUPR150T4 PO; +CEFU1TAB20 PO; +CLON0.12 PO; +FERR325T3 PO; +PROC5TAB57 PO
[2020-03-10 16:49] LABS: BASO # 0.1 10^3/uL (0.0-0.2); BASO % 0.5 % (0.0-1.0); EOS # 0.2 10^3/uL (0.0-0.5); EOS % 2.4 % (0.0-3.0); HEMATOCRIT 46.8 % (36.0-47.0); HEMOGLOBIN 14.9 g/dl (12.0-15.5); MEAN CORPUSCULAR HEMOGLOBIN 30.3 pg (27.0-33.0); MEAN CORPUSCULAR HGB CONC 31.8 g/dl (32.0-36.5); MEAN CORPUSCULAR VOLUME 95.3 fl (80.0-96.0); MONO # 0.7 10^3/uL (0.0-0.8); MONO % 6.9 % (0.0-5.0); NEUTROPHILS # 6.7 10^3/uL (1.5-8.5); NEUTROPHILS % 68.7 % (36.0-66.0); PLATELET COUNT, AUTOMATED 293 10^3/uL (150-450); RED BLOOD COUNT 4.91 10^6/uL (4.00-5.40); WHITE BLOOD COUNT 9.7 10^3/uL (4.0-10.0)
[2020-03-10 17:08] LABS: ALBUMIN 4.1 GM/DL (3.2-5.2); BILIRUBIN,TOTAL 0.4 MG/DL (0.2-1.0); CALCIUM LEVEL 9.7 MG/DL (8.8-10.2); CREATININE FOR GFR 1.03 MG/DL (0.55-1.30); FREE T4 1.58 NG/DL (0.76-1.46); GLOMERULAR FILTRATION RATE 55.9 (>39); THYROID STIMULATING HORMONE 2.06 uIU/ML (0.358-3.740); TOTAL 25(OH) VITAMIN D 34.3 NG/ML (30.0-100.0)
== END ==
LOC: M WUC 13:08
PROVIDERS: ATTEND Family Medicine
DX: E89.0 Postprocedural hypothyroidism (principal); R53.83 Other fatigue; I10 Essential (primary) hypertension

== ENCOUNTER → 2020-05-26 | Outpatient (CLI) | payer MEDICARE ==
[~2020-05-26] MED LIST changes: +BUPR150T12 PO; -BUPR150T4 PO; +DEXT4TAB2 PO; -GLUC4CHW19 PO; +MECL-136 PO; -MECL12.590 PO
[2020-05-26 16:09] LABS: BASO % 0.8 % (0.0-1.0); EOS # 0.2 10^3/uL (0.0-0.5); EOS % 3.8 % (0.0-3.0); HEMATOCRIT 43.3 % (36.0-47.0); HEMOGLOBIN 13.6 g/dl (12.0-15.5); LYMPH # 1.5 10^3/uL (1.5-5.0); LYMPH % 27.4 % (24.0-44.0); MEAN CORPUSCULAR HGB CONC 31.4 g/dl (32.0-36.5); MEAN CORPUSCULAR VOLUME 98.6 fl (80.0-96.0); MONO # 0.4 10^3/uL (0.0-0.8); MONO % 8.1 % (2.0-8.0); NEUTROPHILS # 3.2 10^3/uL (1.5-8.5); NEUTROPHILS % 59.3 % (36.0-66.0); PLATELET COUNT, AUTOMATED 248 10^3/uL (150-450); RED BLOOD COUNT 4.39 10^6/uL (4.00-5.40); WHITE BLOOD COUNT 5.3 10^3/uL (4.0-10.0)
[2020-05-26 16:44] LABS: ALT/SGPT 110 U/L (12-78); BILIRUBIN,TOTAL 0.2 MG/DL (0.2-1.0); BLOOD UREA NITROGEN 17 MG/DL (7-18); CALCIUM LEVEL 9.1 MG/DL (8.8-10.2); CARBON DIOXIDE LEVEL 27 MEQ/L (21-32); CHLORIDE LEVEL 109 MEQ/L (98-107); CHOLESTEROL LEVEL 204 MG/DL (<200); CHOLESTEROL RISK RATIO 2.292 (<5); CREATININE FOR GFR 0.85 MG/DL (0.55-1.30); FREE T4 0.88 NG/DL (0.76-1.46); GLOMERULAR FILTRATION RATE > 60.0 (>39); GLUCOSE, FASTING 58 MG/DL (70-100); HDL CHOLESTEROL 89 MG/DL (>40); LDL CHOLESTEROL 92 MG/DL (<100); NON-HDL-C 115 MG/DL; POTASSIUM SERUM 4.6 MEQ/L (3.5-5.1); SODIUM LEVEL 140 MEQ/L (136-145); TOTAL PROTEIN 6.6 GM/DL (6.4-8.2); TRIGLYCERIDES LEVEL 114 MG/DL (<150)
== END ==
LOC: M WUC 13:20
PROVIDERS: ATTEND Family Medicine
DX: I10 Essential (primary) hypertension (principal); E89.0 Postprocedural hypothyroidism; R53.83 Other fatigue

== ENCOUNTER → 2020-07-09 | Outpatient (REF) | payer MEDICARE ==
[~2020-07-09] MED LIST changes: -DEXT4TAB2 PO; +SFHGLU4TA PO
[2020-07-09 15:54] LABS: BASO # 0.1 10^3/uL (0.0-0.2); BASO % 0.9 % (0.0-1.0); EOS # 0.3 10^3/uL (0.0-0.5); EOS % 4.5 % (0.0-3.0); HEMATOCRIT 41.6 % (36.0-47.0); HEMOGLOBIN 13.5 g/dl (12.0-15.5); LYMPH # 1.8 10^3/uL (1.5-5.0); LYMPH % 27.7 % (24.0-44.0); MEAN CORPUSCULAR HGB CONC 32.5 g/dl (32.0-36.5); MEAN CORPUSCULAR VOLUME 95.6 fl (80.0-96.0); MONO # 0.6 10^3/uL (0.0-0.8); MONO % 9.2 % (2.0-8.0); NEUTROPHILS # 3.8 10^3/uL (1.5-8.5); NEUTROPHILS % 57.2 % (36.0-66.0); PLATELET COUNT, AUTOMATED 259 10^3/uL (150-450); RED BLOOD COUNT 4.35 10^6/uL (4.00-5.40); WHITE BLOOD COUNT 6.6 10^3/uL (4.0-10.0)
[2020-07-09 16:02] LABS: APPEARANCE, URINE HAZY (CLEAR); BACTERIA, URINE AUTO 1+ (NEGATIVE); BILIRUBIN, URINE AUTO NEGATIVE (NEGATIVE); BLOOD, URINE BLOOD NEGATIVE (NEGATIVE); COLOR, URINE YELLOW (YELLOW); GLUCOSE, URINE (UA) AUTO NEGATIVE (NEGATIVE); KETONE, URINE AUTO NEGATIVE (NEGATIVE); LEUKOCYTE ESTERASE, URINE AUTO NEGATIVE (NEGATIVE); NITRITE, URINE AUTO NEGATIVE (NEGATIVE); PROTEIN, URINE AUTO NEGATIVE (NEGATIVE); RBC, URINE AUTO 1 /HPF (0-3); SPECIFIC GRAVITY URINE AUTO 1.017 (1.002-1.035); SQUAMOUS EPITHELIAL CELL UR AU 0 /HPF (0-6); UROBILINOGEN, URINE AUTO 0.2 mg/dL (0.0-2.0); WBC, URINE AUTO 2 /HPF (0-3)
[2020-07-09 16:06] LABS: INR 0.98; PARTIAL THROMBOPLASTIN TIME 25.8 SECONDS (24.2-38.5); PROTHROMBIN TIME 13.2 SECONDS (12.5-14.3)
== END ==
LOC: M LABWUC 15:44
PROVIDERS: ATTEND Podiatrist
DX: M20.40 Other hammer toe(s) (acquired), unspecified foot (principal)

== ENCOUNTER → 2020-07-12 | Outpatient (CLI) | payer SELFPAY | LOC: M LABSMTC 09:40 | PROVIDERS: ATTEND Pediatrics | DX: Z20.822 Contact with and (suspected) exposure to COVID-19 (principal) ==

== ENCOUNTER 2020-07-14 12:58 | Emergency (ER) | payer MEDICARE ==
[~2020-07-14] VITALS: Ht 177.8 cm; Wt 86.4 kg
[2020-07-14 12:58] VITALS: BP 130/67
--- NOTE | 2020-07-14 16:01 | REP ---
INDICATION: severe l post knee pain, known bakers cyst. COMPARISON: 12/15/2019 TECHNIQUE: Focus scanning of the left popliteal fossa reassess complex Arce's cyst FINDINGS: In the posterior left popliteal fossa there is a thick-walled irregular mixed echo 5.9 x 1.6 x 2 cm sized structure which previously measured 7.2 by 2 x 3 cm. Color Doppler shows no internal blood flow. IMPRESSION: Persistent complex Arce's cyst as described above. <Electronically signed by Wayne Lloyd > 07/14/20 [id number]
== END 2020-07-14 16:35 | disposition home or self-care (01) ==
LOC: M ED 12:58
DX: M71.22 Synovial cyst of popliteal space [Baker], left knee (principal); I10 Essential (primary) hypertension; E07.9 Disorder of thyroid, unspecified; E78.5 Hyperlipidemia, unspecified; Z79.890 Hormone replacement therapy; Z79.899 Other long term (current) drug therapy; Z98.890 Other specified postprocedural states

== ENCOUNTER → 2020-09-10 | Outpatient (CLI) | payer MEDICARE ==
[~2020-09-10] MED LIST changes: +OMEP40CA4 PO; -OMEP40CA97 PO
[2020-09-10 13:02] LABS: ALBUMIN 3.5 GM/DL (3.2-5.2); ALT/SGPT 25 U/L (12-78); BILIRUBIN,TOTAL 0.2 MG/DL (0.2-1.0); BLOOD UREA NITROGEN 12 MG/DL (7-18); CALCIUM LEVEL 8.8 MG/DL (8.8-10.2); CARBON DIOXIDE LEVEL 25 MEQ/L (21-32); CHLORIDE LEVEL 115 MEQ/L (98-107); FREE T4 1.09 NG/DL (0.76-1.46); GLOMERULAR FILTRATION RATE > 60.0 (>39); GLUCOSE, FASTING 100 MG/DL (70-100); POTASSIUM SERUM 4.3 MEQ/L (3.5-5.1); SODIUM LEVEL 146 MEQ/L (136-145); TOTAL PROTEIN 6.3 GM/DL (6.4-8.2)
== END ==
LOC: M WUC 09:52
PROVIDERS: ATTEND Family Medicine
DX: E89.0 Postprocedural hypothyroidism (principal); R74.01 Elevation of levels of liver transaminase levels

== ENCOUNTER → 2020-09-10 | Outpatient (CLI) | payer MEDICARE ==
[2020-09-10 12:45] LABS: CALCIUM LEVEL 8.9 MG/DL (8.8-10.2)
== END ==
LOC: M WUC 09:54
PROVIDERS: ATTEND Internal Medicine Endocrinology, Diabetes & Metabolism
DX: E58 Dietary calcium deficiency (principal); E55.9 Vitamin D deficiency, unspecified

== ENCOUNTER → 2020-10-01 | Outpatient (CLI) | payer MEDICARE ==
--- NOTE | 2020-10-01 12:35 | REP ---
INDICATION: OSTEOARTHRITIS, R/O TEARS, OTH INTERNAL DERANGEMENT. COMPARISON: Ultrasound 07/14/2020. TECHNIQUE: Multiple sequences obtained in the axial, coronal and sagittal planes of the left knee. FINDINGS: Menisci: There is a horizontal tear of the posterior horn of the medial meniscus. There is a diffuse complex tear of the anterior posterior horns of the lateral meniscus. Cruciate ligaments: There is mild increased T2 signal in the anterior cruciate ligament suggesting a chronic sprain. Collateral ligaments: Intact. Extensor mechanism/patellar retinacula: Intact. Cartilage: There is moderate diffuse chondromalacia of the lateral femoral condyle and tibial plateau. There is relatively mild global chondromalacia otherwise. Bone marrow: Mild scattered subchondral marrow edema is seen in the proximal tibia centrally and in the lateral femoral condyle. Joint fluid: There is a moderate joint effusion. There is diffuse synovial thickening. There is a medial parapatellar plica and a suprapatellar plica. Popliteal region: There is a lobulated Arce's cyst with mild edema along its inferior aspect. The craniocaudal length is approximately 4.1 cm, maximum AP dimension 1.6 cm, and transverse 2.1 cm. IMPRESSION: Horizontal tear posterior horn medial meniscus. Diffuse complex tear anterior and posterior horns lateral meniscus. Chronic sprain anterior cruciate ligament. Diffuse chondromalacia, most significantly of the lateral femoral condyle and tibial plateau. Mild subchondral marrow edema. Moderate joint effusion with diffuse synovial thickening. Medial and suprapatellar plica. Arce's cyst. <Electronically signed by Sawyer Verduzco > 10/01/20 [id number]
== END ==
LOC: M PLAIMG 10:42
PROVIDERS: ATTEND Orthopaedic Surgery
DX: M17.12 Unilateral primary osteoarthritis, left knee (principal); S83.232A Complex tear of medial meniscus, current injury, left knee, initial encounter; M94.262 Chondromalacia, left knee; M71.22 Synovial cyst of popliteal space [Baker], left knee; M25.462 Effusion, left knee; X58.XXXA Exposure to other specified factors, initial encounter; Y92.9 Unspecified place or not applicable; Y99.9 Unspecified external cause status; Y93.9 Activity, unspecified

== ENCOUNTER → 2020-10-15 | Outpatient (CLI) | payer MEDICARE ==
--- NOTE | 2020-10-15 12:36 | REP ---
INDICATION: RIGHT BREAST CAT 3 MAMMO. COMPARISON: Multiple the latest 04/01/2020 which showed a simple cyst in the right breast at 12 o'clock mammographically and ultrasonographically. Today's examination is the six-month follow-up examination TECHNIQUE: Diagnostic digital magnified spot compression views of the right breast were obtained in the CC and MLO projections as on the prior six-month follow-up. In addition, diagnostic right breast ultrasonography was obtained at the 12 o'clock position in the same fashion as the prior exam. FINDINGS: The right breast is unchanged mammographically. There are no heide soft tissue densities, areas of spiculation, internal architectural distortion, or suspicious calcifications. There is no skin thickening or nipple retraction. Diagnostic ultrasonography shows no change in the simple cyst. IMPRESSION: BIRADS/ACR category 2 benign findings.. There is no evidence of malignant alteration. This mammogram was interpreted with the aid of an FDA-approved computer-aided detection system. The patient states she had a clinical breast exam in over a year. The patient letter being requested is M1. RECOMMENDATION: Repeat screening mammography recommended 1 year (for women over 40). <Electronically signed by Wayne Lloyd > 10/15/20 [id number]
== END ==
LOC: M WHC 10:49
PROVIDERS: ATTEND Family Medicine
DX: N60.01 Solitary cyst of right breast (principal)
CPT/HCPCS: 76642; 77065; G0279

== ENCOUNTER → 2020-11-19 | Outpatient (CLI) | payer MEDICARE ==
[2020-11-19 12:05] LABS: BASO # 0.1 10^3/uL (0.0-0.2); BASO % 0.7 % (0.0-1.0); EOS # 0.4 10^3/uL (0.0-0.5); EOS % 4.8 % (0.0-3.0); HEMATOCRIT 33.6 % (36.0-47.0); HEMOGLOBIN 10.7 g/dl (12.0-15.5); LYMPH # 1.6 10^3/uL (1.5-5.0); LYMPH % 20.9 % (24.0-44.0); MEAN CORPUSCULAR HEMOGLOBIN 29.8 pg (27.0-33.0); MEAN CORPUSCULAR HGB CONC 31.8 g/dl (32.0-36.5); MEAN CORPUSCULAR VOLUME 93.6 fl (80.0-96.0); MONO # 0.5 10^3/uL (0.0-0.8); MONO % 6.3 % (2.0-8.0); NEUTROPHILS % 66.8 % (36.0-66.0); PLATELET COUNT, AUTOMATED 382 10^3/uL (150-450); RED BLOOD COUNT 3.59 10^6/uL (4.00-5.40); WHITE BLOOD COUNT 7.5 10^3/uL (4.0-10.0)
[2020-11-19 12:46] LABS: ALBUMIN 3.4 GM/DL (3.2-5.2); ALT/SGPT 20 U/L (12-78); BILIRUBIN,TOTAL 0.3 MG/DL (0.2-1.0); BLOOD UREA NITROGEN 13 MG/DL (7-18); CALCIUM LEVEL 8.4 MG/DL (8.8-10.2); CARBON DIOXIDE LEVEL 25 MEQ/L (21-32); CHLORIDE LEVEL 107 MEQ/L (98-107); CHOLESTEROL LEVEL 179 MG/DL (<200); CHOLESTEROL RISK RATIO 2.081 (<5); CREATININE FOR GFR 0.83 MG/DL (0.55-1.30); FREE T4 0.79 NG/DL (0.76-1.46); GLOMERULAR FILTRATION RATE > 60.0 (>39); GLUCOSE, FASTING 90 MG/DL (70-100); HDL CHOLESTEROL 86 MG/DL (>40); LDL CHOLESTEROL 79 MG/DL (<100); NON-HDL-C 93 MG/DL; POTASSIUM SERUM 4.4 MEQ/L (3.5-5.1); SODIUM LEVEL 140 MEQ/L (136-145); TOTAL PROTEIN 6.2 GM/DL (6.4-8.2); TRIGLYCERIDES LEVEL 68 MG/DL (<150)
== END ==
LOC: M WUC 09:57
PROVIDERS: ATTEND Family Medicine
DX: E89.0 Postprocedural hypothyroidism (principal); I10 Essential (primary) hypertension; E78.2 Mixed hyperlipidemia

== ENCOUNTER → 2020-11-26 | Outpatient (CLI) | payer MEDICARE ==
[2020-11-26 15:49] LABS: BASO # 0.1 10^3/uL (0.0-0.2); BASO % 0.9 % (0.0-1.0); EOS # 0.4 10^3/uL (0.0-0.5); EOS % 5.3 % (0.0-3.0); HEMATOCRIT 32.8 % (36.0-47.0); HEMOGLOBIN 10.2 g/dl (12.0-15.5); LYMPH # 2.3 10^3/uL (1.5-5.0); LYMPH % 33.2 % (24.0-44.0); MEAN CORPUSCULAR HEMOGLOBIN 29.1 pg (27.0-33.0); MEAN CORPUSCULAR HGB CONC 31.1 g/dl (32.0-36.5); MEAN CORPUSCULAR VOLUME 93.7 fl (80.0-96.0); MONO # 0.4 10^3/uL (0.0-0.8); MONO % 6.5 % (2.0-8.0); NEUTROPHILS # 3.6 10^3/uL (1.5-8.5); NEUTROPHILS % 53.5 % (36.0-66.0); PLATELET COUNT, AUTOMATED 390 10^3/uL (150-450); WHITE BLOOD COUNT 6.8 10^3/uL (4.0-10.0)
[2020-11-26 16:18] LABS: PERCENT SATURATION 4.4 % (13.2-45.0)
== END ==
LOC: M WUC 13:14
PROVIDERS: ATTEND Family Medicine
DX: D51.9 Vitamin B12 deficiency anemia, unspecified (principal)

== ENCOUNTER → 2020-11-28 | Outpatient (REF) | payer MEDICARE | LOC: M LAB REF 14:08 | PROVIDERS: ATTEND Family Medicine | DX: D51.9 Vitamin B12 deficiency anemia, unspecified (principal) ==

== ENCOUNTER → 2021-01-21 | Outpatient (CLI) | payer MEDICARE ==
[~2021-01-21] MED LIST changes: +ADDE20TA PO; +CLOP75TA2 PO; +FOLI800C PO; -LATU40TA PO; +LATU40TA2 PO; -LATU80TA PO; +LATU80TA2 PO; +PANT40TA29 PO; +PROC10TA5 PO; +VITA200021 PO
[2021-01-21 16:56] LABS: FREE T3 3.6 PG/ML (2.2-4.0); LITHIUM LEVEL < 0.20 MEQ/L (0.60-1.20); THYROID STIMULATING HORMONE < 0.005 uIU/ML (0.358-3.740); THYROXINE (T4) 14.5 UG/DL (4.5-12.0)
== END ==
LOC: M WUC 13:14
PROVIDERS: ATTEND Anesthesiology Pain Medicine
DX: Z51.81 Encounter for therapeutic drug level monitoring (principal); E03.9 Hypothyroidism, unspecified; Z79.899 Other long term (current) drug therapy

== ENCOUNTER 2021-01-26 12:47 | Inpatient (IN) | payer MEDICARE ==
[~2021-01-26] VITALS: Ht 177.8 cm; Wt 86.1 kg
[~2021-01-26 12:47] MED LIST changes: -ADDE20TA PO; -CLOP75TA2 PO; -FOLI800C PO; +LATU40TA PO; -LATU40TA2 PO; +LATU80TA PO; -LATU80TA2 PO; -PANT40TA29 PO; -PROC10TA5 PO; -VITA200021 PO
[2021-01-26] MEDS ORDERED: NS 1,000 ML IV SCH (13:00)
[2021-01-26] MEDS ORDERED: PANTOPRAZOLE 40MG VIAL (C9113 PER 1) IV ONE (13:00)
[2021-01-26 13:31] LABS: BASO % 0.5 % (0.0-1.0); EOS # 0.2 10^3/uL (0.0-0.5); EOS % 2.2 % (0.0-3.0); HEMOGLOBIN 8.3 g/dl (12.0-15.5); LYMPH # 1.9 10^3/uL (1.5-5.0); LYMPH % 24.6 % (24.0-44.0); MEAN CORPUSCULAR HGB CONC 30.7 g/dl (32.0-36.5); MEAN CORPUSCULAR VOLUME 84.6 fl (80.0-96.0); MONO # 0.3 10^3/uL (0.0-0.8); MONO % 4.3 % (2.0-8.0); NEUTROPHILS # 5.2 10^3/uL (1.5-8.5); PLATELET COUNT, AUTOMATED 319 10^3/uL (150-450); RED BLOOD COUNT 3.19 10^6/uL (4.00-5.40); WHITE BLOOD COUNT 7.6 10^3/uL (4.0-10.0)
[2021-01-26 13:43] LABS: INR 1.04
--- NOTE | 2021-01-26 13:45 | REP ---
INDICATION: gi bleed. COMPARISON: 11/19/2013 the only prior also without contrast TECHNIQUE: Standard helical technique without intravenous or oral bowel preparatory contrast administration. This causes exam limitations. FINDINGS: There is no significant change in the appearance of the lung bases. Limited evaluation of the solid intra-abdominal organs show no significant changes from the prior exam. There is a simple cyst in the liver status quo. Surgical clips are again seen in the gallbladder fossa from previous cholecystectomy. Limited evaluation of the pancreas, adrenal glands, and kidneys show no gross abnormalities or significant changes from the prior exam. There is no significant change in appearance of the bowel loops or the mesenteries. No mass or adenopathy has developed. There is no evidence of free fluid or free air. There is an unchanged rim calcified mass in the pelvis. Bone window technique throughout the examination shows chronic osseous changes with hip, sacroiliac joint, and spinal degenerative changes along with discogenic changes. There is a grade 1 L4 upon L5 spondylolisthesis. IMPRESSION: There is no evidence of acute disease or significant change compared to the prior exam. Findings as described above. <Electronically signed by Wayne Lloyd > 01/26/21 [id number]
--- OUTSIDE RECORDS SUMMARY | 2021-01-26 13:51 | CCD | Continuity of Care Document ---
Author Author Laura RODRIGUEZ P.A. 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 Name Role Phone Frances Aparicio AUTM Jv Felix MD AUTM Unavailable Problems Active Problems Provider Date Disorder of bursa of shoulder region Ons et: 12/17/1998 Benign essential hypertension Nayeli Mcclelland MD Onset: Hypothyroidism Nayeli Mcclelland MD Onset: 10/22/2010 Morbid obesity Nayeli Mcclelland MD Onset: 10/22/2010 Idiopathic peripheral neuropathy Nayeli Mcclelland MD Onset: 10/22/2010 Gallstone Nayeli Mcclelland MD Onset: 10/22/2010 Bipolar disorder Nayeli Mcclelland MD Onset: 10/22/2010 Gastroesophageal reflux disease Nayeli Mcclelland MD Onset: 0 10/22/2010 Social History Type Date Description Comments Sex Unknown ETOH Use Occasionally consumes alcohol Tobacco Use Start: Unknown End: Unknown Patient is a former smoker quit 30 yrs ago Allergies and adverse reactions Description No Known Drug Allergies Medications Active Medications SIG Qnty Indications Ordering Provide r Date Gel-One 30mg/3ML Prsy lashawn knee 12/01/20 MKM/SH M17.0 DKitty Sibley MD 021 Gabapentin 100mg Capsules 1 po at bedtime for 1 week, then increase to 1 tab po bid for 2nd week, then increase to 1 tab po tid for 3rd week 90caps M48.062 Garcia Ramirez MD 9 Prevnar 13 Suspension 0.5 cubic centimeters x 1 Unknown Fluoxetine HCL 40mg Capsules 1 by mouth every day Unknown Bupropion HCL ER (XL) 300mg Tablets ER 24HR 1 by mouth every day Unknown 000 Magnesium 500mg Tablets Unknown Calcium 600 600mg Tablets 1 by mouth every day Unknown Ondansetron HCL 4mg Tablets Unknown Amlodipine Besylate 5mg Tablets Unknown Synthroid 200mcg Tablets 1 by mouth every day Unknown Omeprazole 40mg Capsules DR Unknown Aspirin [address] 1 by mouth every day Unknown Vitamin B12 1000mcg Tablets ER 1 by mouth every day Unknown Vitamin D3 2000Unit Capsules 1 by mouth every day Unknown Clopidogrel Bisulfate 75mg Tablets Unknown Immunizations Description No Information Available Vital Signs Date Vital Result Comment 08/02/2020 10:33am Body Temperature 96.9 F Height 68.10 inches 5'8.10" Weight 197.50 lb BMI (Body Mass Index) 29.9 kg/m2 09/11/2018 11:04am Body Temperature 98.8 F Height 68.5 inches 5'8.50" Weight 187.25 lb BMI (Body Mass Index) 28.1 kg/m2 Results Description No Information Available Procedures Date Code Description Status 12/01/202034522 Inject/Drain Joint/Bursa Major C ompleted 11/23/2020 32120 Office/Outpatient Established Lo w MDM 20-29 Min Completed 11/23/2020 13810 X-Ray Knee Ap & Lateral W/Obliqu es Three Views Completed 10/20/2020 96643 Office/Outpatient Established Mo d MDM 30-39 Min Completed 10/20/202073738 Inject/Drain Joint/Bursa Major C ompleted 09/14/2020 02929 Office/Outpatient Established Mo d MDM 30-39 Min Completed 09/14/2020 22477 X-Ray Knee Ap & Lateral W/Obliqu es Three Views Completed 08/02/2020 62137 Office/Outpatient Established Mo d MDM 30-39 Min Completed 08/02/202032871 Inject/Drain Joint/Bursa Major C ompleted Medical Devices Description No Information Available Encounters Type Date Location Provider Dx Diagnosis Office Visit 12/01/2020 2:15p Aileen Rodriguez, P.A. M17.0 Bilateral primary osteoarthritis of knee Office Visit 11/23/2020 1:15p Aileen Sibley MD M1 7.0 Bilateral primary osteoarthritis of knee Office Visit 10/20/2020 1:00p Aileen Sibley MD M1 7.12 Unilateral primary osteoarthritis, left knee M23.242 Derang of ant horn [place] due to old tear/inj, l knee M23.252 Derang of post horn of [place] due to old tear/inj, l knee M23.232 Derang of medial meniscus du e to old tear/inj, left knee Office Visit 09/14/2020 10:45a Aileen Sibley MD M1 7.12 Unilateral primary osteoarthritis, left knee M71.22 Synovial cyst of popliteal s pace [Arce], left knee Office Visit 08/02/2020 10:15a Aileen Rodriguez, P.A. M17.12 Unilateral primary osteoarthritis, left knee Assessments Date Code Description Provider 12/01/2020 M17.0 Bilateral primary osteoarthritis of knee Ad Rodriguez, P.A. 11/23/2020 M17.0 Bilateral primary osteoarthritis of knee Radha Sibley MD 10/20/2020 M17.12 Unilateral primary osteoarthriti s, left knee Radha Sibley MD 10/20/2020 M23.242 Derangement of anter ior horn of lateral meniscus due to old tear or injury, left knee Radha Sibley MD 10/20/2020 M23.252 Derangement of poste rior horn of lateral meniscus due to old tear or injury, left knee Radha Sibley MD 10/20/2020 M23.232 Derangement of other medial meniscus due to old tear or injury, left knee Radha Sibley MD 09/14/2020 M17.12 Unilateral primary osteoarthriti s, left knee Radha Sibley MD 09/14/2020 M71.22 Synovial cyst of popliteal space [Arce], left knee Radha Sibley MD 08/02/2020 M17.12 Unilateral primary osteoarthriti s, left knee Lary Cool 08/02/2020 M17.12 Unilateral primary osteoarthriti s, left knee Lary Cool Plan of Treatment 12/01/2020 - Lary Cool* M17.0 Bilateral primary osteoarthritis of knee* New Medication:* Gel-One 30 mg/3ML - lashawn knee 12/01/20 MKM/SH * Follow up:* prn Functional Status Description No Information Available Mental Status Description No Information Available Referrals Refer to Reason for Referral Status Appt Date Deepak Sibley MD 11/30/20 Gel One Lashawn Knee aut h [id number],exp 03/01/21, passed to maría gallegos to order sw. Created [address] [place] [address], [address] [place] [address] [phone] Ad Rodriguez PA MRI APPROVED PER DEVONTE Campos OR MRI OF LEFT KNEE ([id number]) TO MARÍA Lopez Created [address] [place] [address] [address] [place] [address] [phone]
--- OUTSIDE RECORDS SUMMARY | 2021-01-26 13:51 | CCD | Continuity of Care Document ---
Author Author Laura RODRIGUEZ P.A. 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 Name Role Phone Frances Aparicio DO AUTM [phone] Jv Felix MD AUTM Unavailable Problems Active [...] a former smoker quit 30 yrs ago Allergies, Adverse Reactions, Alerts Description No Known Drug Allergies Medications Active Medications SIG Qnty Indications Ordering Provide r Date Gel-One 30mg/3ML Prsy lashawn knee 12/01/20 MKM/SH M17.0 Radha Sibley MD 021 Gabapentin 100mg Capsules 1 [...] Information Available Procedures Date Code Description Status 11/23/2020 50141 Office/Outpatient Established Lo w MDM 20-29 Min Completed 11/23/2020 59398 X-Ray Knee Ap & Lateral W/Obliqu es Three Views Completed 10/20/2020 44288 Office/Outpatient Established Mo d MDM 30-39 Min Completed 10/20/2020 26264 Inject/Drain Joint/Bursa Major C ompleted 09/14/2020 28536 Office/Outpatient Established Mo d MDM 30-39 Min Completed 09/14/2020 94292 X-Ray Knee Ap & Lateral W/Obliqu es Three Views Completed 08/02/2020 56013 Office/Outpatient Established Mo d MDM 30-39 Min Completed 08/02/2020 20215 Inject/Drain Joint/Bursa Major C ompleted Medical Devices Description No Information Available Encounters Type Date Location Provider Dx Diagnosis Office Visit 11/23/2020 1:15p Paguatealphonse Sibley MD M1 7.0 Bilateral primary osteoarthritis [...] M17.12 Unilateral primary osteoarthriti s, left knee Ad Rodriguez, P.A. 08/02/2020 M17.12 Unilateral primary osteoarthriti s, left knee Lary Cool Plan of Treatment 12/01/2020 - Lary Cool* M17.0 Bilateral primary osteoarthritis of knee* New Medication:* Gel-One 30 mg/3ML - lashawn knee 12/01/20 MKM/SH * Follow up:* prn Functional Status Description No Information Available Mental Status Description No Information Available Referrals Refer to Dr Reason for Referral Status Appt Date Deepak Sibley MD 11/30/20 Gel One Lashawn Knee aut h [id number],exp 03/01/21, passed to maría gallegos to order sw. Created [address] [place] [address], [address] [place] [address] [phone] Ad Rodriguez PA MRI APPROVED PER DEVONTE Campos OR MRI OF LEFT KNEE ([id number]) TO MARÍA Lopez Created [address] [place], [place] [id number] [place] [id number] [phone]
--- OUTSIDE RECORDS SUMMARY | 2021-01-26 13:51 | CCD | Continuity of Care Document ---
Author Author Laura APARICIO Organization Unknown Address [address] [place] [address] Phone [phone] Care Team Providers Care Flight Information Expediter Name Role Phone Frances Aparicio D.O. AUTM [phone] Radha Sibley M.D. AUTM [phone] Andrew Rogel M.D. AUTM [phone] [facility] AUTM [phone] Murtaza Arreola M.D. AUTM [phone] [facility] AUTM [phone] [facility] AUTM Fátima Fairchild D.P.M. pc AUTM Yosvany Brown MD AUTM [phone] Problems Active Problems Provider Date Hypothyroidism Frances Aparicio D.O. Onset: 2016 Bipolar disorder Frances Aparicio D.O. Onset: 2016 Spinal stenosis Frances Aparicio D.O. Onset: 2016 Vitamin D deficiency Frances Aparicio D.O. Onset: 11/06 Essential hypertension Frances Aparicio D.O. Onset: 12/2016 Mixed hyperlipidemia Frances Aparicio D.O. Onset: 09/11 /2017 Osteopenia Frances Aparicio D.O. 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 Onset: 08/08/2017 Late effects of cerebrovascular disease Frances Aparicio D.O. Onset: 08/08/2017 Postoperative hypothyroidism Frances Aparicio D.O. Onse t: 08/08/2017 Psychophysical visual disturbance Frances Aparicio D.O. Onset: 07/10/2019 Mixed bipolar affective disorder, severe, with psychos is Frances Aparicio D.O. Onset: 07/10/2019 Dyspnea Frances Aparicio D.O. Onset: 2019 Social History Type Date Description Comments Sex Unknown Tobacco Use Start: Unknown End: Quit Smoking Status Reviewed: 11/26/20 Quit ETOH Use Occasionally consumes alcohol Tobacco Use Start: Unknown End: Unknown Patient is a former smoker Recreational Drug Use Denies Drug Use Exercise Type/Frequency Walks 3 times a week Exercise Type/Frequency Lifts weights 3 times a week Sun Exposure Uses sunscreen Seat Belt/Car Seat Always uses seat belt Allergies, Adverse Reactions, Alerts Description No Known Drug Allergies Medications Active Medications SIG Qnty Indications Ordering Provide r Date Ferrous Sulfate 325(65Fe) mg Table ts 1 by mouth twice daily for 2 weeks then once daily 120tabs D50.9 Frances Kinney D.O. 11/29/2020 Levothyroxine Sodium 75mcg Tablets Take One Tablet By Mouth Every Morning With 200mcg 90tabs E89.0 Frances Aparicio D.O. 11/26/2020 Prolia 60mg/ml Soln Prefill Syring e inject every 6 months Frances Aparicio D.O. 04/30 Adderall 20mg Tablets 1 tab by mouth at noon and 4 pm 30tabs Frances Aparicio D.O. 01/26 Vitamin B 12 500mcg Tablets 1 by mouth every day Frances Aparicio D.O. 11/26 Clopidogrel Bisulfate 75mg Tablets take one tablet by mouth every day 30tabs I69.898 Frances li, D.O. 12/24/2017 [place] Carbonate 300mg Capsules 1 capsules by mouth twice aday 90caps Deepak Tello.O. 08/08/2017 Vitamin D3 5000Unit Capsules 1 by mouth every day with dinner 90caps Radha OrtizO. 08/08/2017 Pravastatin Sodium 40mg Tablets take 1 tablet by mouth every night 90tabs Deepak Ortiz.OKitty 11/03/2016 Bupropion HCL ER (XL) 300mg Tablets ER 24HR Take One Tablet By Mouth Every Day Unknow n Amlodipine Besylate 5mg Tablets take one tablet by mouth at bedtime 90tabs Deepak Ortiz.O. Levothyroxine Sodium 200mcg Tablet s take one tablet by mouth every day with 75 mcg tablet 30tabs Deepak Ortiz.OKitty Adderall XR 30mg Caps ER 24HR 1 by mouth every day istop reference # [id number] Unknown Calcium 500+D [id number] Table ts 1 by mouth once daily Unknown Gabapentin 300mg Capsules 2 caps by mouth three times a day Elmer Rosa D.O. [facility] Doxycycline Hyclate 50mg Capsules Take One Capsule By Mouth Every Day Unknown Immunizations Description No Information Available Vital Signs Date Vital Result Comment 11/29/2020 10:45am BP Systolic 132 mmHg BP Diastolic 74 mmHg Height 68.2 inches 5'8.20" Weight 211.50 lb BMI (Body Mass Index) 32.0 kg/m2 Heart Rate 91 /min Respiratory Rate 18 /min Body Temperature 98.9 F O2 % BldC Oximetry 97 % Ewing Body Weight 140 lb 11/26/2020 9:58am BP Systolic 128 mmHg BP Diastolic 76 mmHg Height 68.2 inches 5'8.20" Weight 209.25 lb BMI (Body Mass Index) 31.6 kg/m2 Heart Rate 93 /min Respiratory Rate 18 /min Body Temperature 98.7 F O2 % BldC Oximetry 97 % Ewing Body Weight 140 lb Results Test Acquired Date Facility Test Result H/L Range Note Laboratory test finding 11/28/[address] [address] [phone] Occult Blood OCCULT BLOOD 1 <SEE NOTE> Normal 1 CBC With Differential 11/26/[address] [address] [phone] White Blood Count 6.8 10 Normal 4.0-10.0 Red Blood Count 3.50 10 Low 4.00-5.40 Hemoglobin 10.2 g/dL Low 12.0-15.5 Hematocrit 32.8 % Low 36.0-47.0 Mean Corpuscular Volume 93.7 fl Normal 80.0-96.0 Mean Corpuscular Hemoglobin 29.1 pg Normal 27.0-33.0 Mean Corpuscular HGB Conc 31.1 g/dL Low 32.0-36.5 Red Cell Distribution Width 15.3 % High 11.5-14.5 Platelet Count, Automated 390 10 Normal 150-450 Neutrophils % 53.5 % Normal 36.0-66.0 Lymph % 33.2 % Normal 24.0-44.0 [place] % 6.5 % Normal 2.0-8.0 Eos % 5.3 % High 0.0-3.0 Baso % 0.9 % Normal 0.0-1.0 Immature Granulocyte % 0.6 % Normal 0-3.0 Nucleated Red Blood Cell % 0.0 % Normal 0-0 Neutrophils # 3.6 10 Normal 1.5-8.5 Lymph # 2.3 10 Normal 1.5-5.0 [place] # 0.4 10 Normal 0.0-0.8 Eos # 0.4 10 Normal 0.0-0.5 Baso # 0.1 10 Normal 0.0-0.2 Total Iron Binding Capacit 11/26/[address] [address] [phone] Iron (Fe) 19 g/dL Low 50-170 Total Iron Binding Capacity 427 g/dL Normal 250-450 Percent Saturation 4.4 % Low 13.2-45.0 Laboratory test finding 11/26/[address] [address] [phone] Ferritin 5 NG/ML Low 8-252 Vitamin B12 Level 588 pg/mL Normal 247-911 2 CBC With Differential 11/19/[address] [address] [phone] White Blood Count 7.5 10 Normal 4.0-10.0 Red Blood Count 3.59 10 Low 4.00-5.40 Hemoglobin 10.7 g/dL Low 12.0-15.5 Hematocrit 33.6 % Low 36.0-47.0 Mean Corpuscular Volume 93.6 fl Normal 80.0-96.0 Mean Corpuscular Hemoglobin 29.8 pg Normal 27.0-33.0 Mean Corpuscular HGB Conc 31.8 g/dL Low 32.0-36.5 Red Cell Distribution Width 14.8 % High 11.5-14.5 Platelet Count, Automated 382 10 Normal 150-450 Neutrophils % 66.8 % High 36.0-66.0 Lymph % 20.9 % Low 24.0-44.0 [place] % 6.3 % Normal 2.0-8.0 Eos % 4.8 % High 0.0-3.0 Baso % 0.7 % Normal 0.0-1.0 Immature Granulocyte % 0.5 % Normal 0-3.0 Nucleated Red Blood Cell % 0.0 % Normal 0-0 Neutrophils # 5.0 10 Normal 1.5-8.5 Lymph # 1.6 10 Normal 1.5-5.0 [place] # 0.5 10 Normal 0.0-0.8 Eos # 0.4 10 Normal 0.0-0.5 Baso # 0.1 10 Normal 0.0-0.2 Comprehensive Metabolic Profil 11/19/[address] [address] [phone] Glucose, Fasting 90 mg/dL Normal 70-100 Blood Urea Nitrogen 13 mg/dL Normal 7-18 Creatinine For GFR 0.83 mg/dL Normal 0.55-1.30 Glomerular Filtration Rate > 60.0 Normal >39 3 Sodium Level 140 mEq/L Normal 136-145 Potassium Serum 4.4 mEq/L Normal 3.5-5.1 Chloride Level 107 mEq/L Normal 98-107 Carbon Dioxide Level 25 mEq/L Normal 21-32 Anion Gap 8 mEq/L Normal 8-16 Calcium Level 8.4 mg/dL Low 8.8-10.2 Ast/Sgot 12 U/L Normal 7-37 Alt/SGPT 20 U/L Normal 12-78 Alkaline Phosphatase 64 U/L Normal 45-117 Bilirubin,Total 0.3 mg/dL Normal 0.2-1.0 Total Protein 6.2 GM/DL Low 6.4-8.2 Albumin 3.4 GM/DL Normal 3.2-5.2 Albumin/Globulin Ratio 1.2 Normal 1.2-2.2 Lipid Panel 11/19/[address] [address] [phone] Triglycerides Level 68 mg/dL Normal <150 Cholesterol Level 179 mg/dL Normal <200 HDL Cholesterol 86 mg/dL Normal >40 LDL Cholesterol 79 mg/dL Normal <100 Non-HDL-C 93 mg/dL Normal Cholesterol Risk Ratio 2.081 Normal <5 FT4&TSH Panel 11/19/[address] [address] [phone] Thyroid Stimulating Hormone 4.150 uIU/ML High 0. 358-3.740 Free T4 0.79 ng/dL Normal 0.76-1.46 FT4&TSH Panel 09/10/[address] [address] [phone] Thyroid Stimulating Hormone 1.240 uIU/ML Normal 0. 358-3.740 Free T4 1.09 ng/dL Normal 0.76-1.46 Comprehensive Metabolic Profil 09/10/[address] [address] [phone] Glucose, Fasting 100 mg/dL Normal 70-100 Blood Urea Nitrogen 12 mg/dL Normal 7-18 Creatinine For GFR 0.90 mg/dL Normal 0.55-1.30 Glomerular Filtration Rate > 60.0 Normal >39 4 Sodium Level 146 mEq/L High 136-145 Potassium Serum 4.3 mEq/L Normal 3.5-5.1 Chloride Level 115 mEq/L High 98-107 Carbon Dioxide Level 25 mEq/L Normal 21-32 Anion Gap 6 mEq/L Low 8-16 Calcium Level 8.8 mg/dL Normal 8.8-10.2 Ast/Sgot 9 U/L Normal 7-37 Alt/SGPT 25 U/L Normal 12-78 Alkaline Phosphatase 64 U/L Normal 45-117 Bilirubin,Total 0.2 mg/dL Normal 0.2-1.0 Total Protein 6.3 GM/DL Low 6.4-8.2 Albumin 3.5 GM/DL Normal 3.2-5.2 Albumin/Globulin Ratio 1.3 Normal 1.2-2.2 Laboratory test finding 09/10/2020 [facility] Out[facility] [place] (Registration) [address] [place], [place] [id number] [phone] Calcium Level 8.9 mg/dL Normal 8.8-10.2 Total 25(Oh) Vitamin D 35.0 NG/ML Normal 30.0-100.0 Order 06/30/2020 In House Orders EKG see result in chart 1 OCCULT BLOOD 1 NEGATIVE 2 VITAMIN B12 NORMAL RANGE NORMAL 247 - 911 PG/ML INDETERMINATE 211 - 246 PG/ML DEFICIENT LESS THAN 211 PG/ML 3 Units are mL/min/1.73 m2 Chronic Kidney Disease Staging per NKF: Stage I & II GFR >=60 Normal to Mildly Decreased Stage III GFR 30-59 Moderately Decreased Stage IV GFR 15-29 Severely Decreased Stage V GFR <15 Very Little GFR Left ESRD GFR <15 on OIL RIG ROUGHNECK 4 Units are mL/min/1.73 m2 Chronic Kidney Disease Staging per NKF: Stage I & II GFR >=60 Normal to Mildly Decreased Stage III GFR 30-59 Moderately Decreased Stage IV GFR 15-29 Severely Decreased Stage V GFR <15 Very Little GFR Left ESRD GFR <15 on OIL RIG ROUGHNECK Procedures Date Code Description Status 11/29/2020 12824 Office/Outpatient Established Lo w MDM 20-29 Min Completed 11/26/2020 63896 Office/Outpatient Established Lo w MDM 20-29 Min Completed 10/27/2020 83874 Office/Outpatient Established Mo d MDM 30-39 Min Completed 08/24/2020 10704 Office/Outpatient Established Lo w MDM 20-29 Min Completed 06/30/2020 53587 Electrocardiogram Complete Compl eted 06/29/2020 27212 Office/Outpatient Established Mo d MDM 30-39 Min Completed 06/29/2020 83579 Electrocardiogram Complete Compl eted Medical Devices Description No Information Available Encounters Type Date Location Provider Dx Diagnosis Office Visit 11/29/2020 10:40a [facility] Harris Aparicio D.O. Z01.818 Encounter for other preproce dural examination H02.401 Unspecified ptosis of right eyelid H02.402 Unspecified ptosis of left e yelid D50.9 Iron deficiency anemia, unsp ecified Office Visit 11/26/2020 10:00a [facility] Harris Aparicio D.O. H02.401 Unspecified ptosis of right eyelid H02.402 Unspecified ptosis of left e yelid Z01.818 Encounter for other preproce dural examination E89.0 Postprocedural hypothyroidis m I10 Essential (primary) hyperten mason M81.0 Age-related osteoporosis w/o current pathological fracture E55.9 Vitamin D deficiency, unspec ified F31.5 Bipolar disord, crnt epsd de press, severe, w psych features I69.898 Other sequelae of other cere brovascular disease Z87.891 Personal history of nicotine dependence Z79.899 [facility] dr renetta bullock E78.2 Mixed hyperlipidemia D51.9 Vitamin B12 deficiency anemi a, unspecified Office Visit 10/27/2020 2:00p [facility] Harris Aparicio D.O. 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 M71.22 Synovial cyst of popliteal s pace [Arce], left knee M79.672 Pain in left foot E89.0 Postprocedural hypothyroidis m I10 Essential (primary) hyperten mason M81.0 Age-related osteoporosis w/o current pathological fracture Office Visit 06/29/2020 1:30p [facility] Frances Aparicio D.O. Z01.818 Encounter for other preproce dural examination M79.672 Pain in left foot M20.42 Other hammer toe(s) (acquire d), left foot I10 Essential (primary) hyperten mason E89.0 Postprocedural hypothyroidis m I45.10 Unspecified right bundle-bra ndh block Assessments Date Code Description Provider 11/29/2020 Z01.818 Encounter for other preprocedura l examination Frances Kinney D.O. 11/29/2020 H02.401 Unspecified ptosis of right eyel id Frances Aparicio, D.O. 11/29/2020 H02.402 Unspecified ptosis of left eyeli d Frances Aparicio D.O. 11/29/2020 D50.9 Iron deficiency anemia, unspecif ied Frances Aparicio D.O. 11/26/2020 H02.401 Unspecified ptosis of right eyel id Frances Aparicio, D.O. 11/26/2020 H02.402 Unspecified ptosis of left eyeli d Frances Aparicio, D.O. 11/26/2020 Z01.818 Encounter for other preprocedura l examination Frances Kinney D.O. 11/26/2020 E89.0 Postprocedural hypothyroidism Ayaan Aparicio D.O. 11/26/2020 I10 Essential (primary) hypertension Frances Aparicio D.O. 11/26/2020 M81.0 Age-related osteoporosis without current pathological fracture Frances Aparicio D.O. 11/26/2020 E55.9 Vitamin D deficiency, unspecifie d Frances Aparicio, D.O. 11/26/2020 F31.5 Bipolar disorder, cu rrent episode depressed, severe, with psychotic features Frances Aparicio D.O. 11/26/2020 I69.898 Other sequelae of other cerebrov ascular disease Frances Aparicio, D.O. 11/26/2020 Z87.891 Personal history of nicotine dep endence Frances Aparicio, D.O. 11/26/2020 Z79.899 Other [facility] (current[facility] drug t herapy Frances Aparicio, D.O. 11/26/2020 E78.2 Mixed hyperlipidemia Frances Bolden, D.O. 11/26/2020 D51.9 Vitamin B12 deficiency anemia, u nspecified Frances Kinney D.O. 10/27/2020 E89.0 Postprocedural hypothyroidism Ayaan Aparicio, D.O. 10/27/2020 I10 Essential (primary) hypertension Frances Aparicoi, D.O. 10/27/2020 M81.0 Age-related osteoporosis without current pathological fracture Frances Aparicio D.O. 10/27/2020 E55.9 Vitamin D deficiency, unspecifie d Frances Aparicio, D.O. 10/27/2020 F31.5 Bipolar disorder, cu rrent episode depressed, severe, with psychotic features Frances Aparicio D.O. 10/27/2020 I69.898 Other sequelae of other cerebrov ascular disease Frances Aparicio, D.O. 10/27/2020 Z87.891 Personal history of nicotine dep endence Frances Aparicio, D.O. 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 10/27/2020 E78.2 Mixed hyperlipidemia Frances Bolden, D.O. 10/27/2020 I63.311 Cerebral infarction due to thrombosis of right middle cerebral artery Frances Aparicio D.O. 08/24/2020 M71.22 Synovial cyst of popliteal space [Arce], left knee Frances Aparicio D.O. 08/24/2020 M79.672 Pain in left foot Frances Kinney, D.O. 08/24/2020 E89.0 Postprocedural hypothyroidism Ayaan Aparicio D.O. 08/24/2020 I10 Essential (primary) hypertension Frances Aparicio D.O. 08/24/2020 M81.0 Age-related osteoporosis without current pathological fracture Frances Aparicio D.OKitty 06/30/2020 Z01.818 Encounter for other preprocedura l examination Frances Kinney D.O. 06/29/2020 Z01.818 Encounter for other preprocedura l examination Frances Kinney D.O. 06/29/2020 M79.672 Pain in left foot Frances Kinney, D.O. 06/29/2020 M20.42 Other hammer toe(s) (acquired), left foot Frances Kinney D.OKitty 06/29/2020 I10 Essential (primary) hypertension Frances Aparicio D.OKitty 06/29/2020 E89.0 Postprocedural hypothyroidism Ayaan Aparicio D.OKitty 06/29/2020 I45.10 Unspecified right bundle-branch block Frances Aparicio D.O. Plan of Treatment Future Appointment(s):* 01/27/2021 2:00 pm - Frances Aparicio D.O. at [facility] Functional Status Description No Information Available Mental Status Description No Information Available Referrals Description No Information Available
--- OUTSIDE RECORDS SUMMARY | 2021-01-26 13:51 | CCD | Continuity of Care Document ---
Author Author Laura APARICIO Organization Unknown Address [address] [place] [address] Phone [phone] Care Team Providers Care Security Professional Name Role Phone Frances Aparicio D.O. AUTM Radha Sibley M.D. AUTM [phone] Andrew Rogel M.D. AUTM [phone] [facility] AUTM [phone] Murtaza Arreola M.D. AUTM [phone] [facility] AUTM [phone] [facility] AUTM [phone] Fátima Fairchild D.P.M. pc AUTM Yosvany Brown MD AUTM [phone] Problems Active Problems Provider Date Hypothyroidism Frances Aparicoi D.O. Onset: 2016 Bipolar disorder Frances Aparicio [...] day 30tabs I69.898 Frances li, D.O. 12/24/2017 [place] Carbonate 300mg Capsules 1 capsules by mouth twice aday 90caps Frances simms, Deepak.O. 08/08/2017 Vitamin D3 5000Unit Capsules 1 by mouth every day with dinner 90caps Deepak Ortiz.O. 08/08/2017 Pravastatin Sodium 40mg Tablets take 1 tablet by mouth every night 90tabs Deepak Ortiz.OKitty 11/03/2016 Bupropion HCL ER (XL) 300mg Tablets ER 24HR Take One Tablet By Mouth Every Day Unknow n Amlodipine Besylate 5mg Tablets take one tablet by mouth at bedtime 90tabs Deepak Ortiz.O. Levothyroxine Sodium 200mcg Tablet s take one tablet by mouth every day 30tabs Frances li, D.O. Adderall XR 30mg Caps ER 24HR 1 by mouth every day istop reference # [id number] Unknown Calcium 500+D [id number] Table ts 1 by mouth once daily Unknown Gabapentin 300mg Capsules 2 caps by mouth three times a day Elmer Rosa D.O. [facility] Doxycycline Hyclate 50mg Capsules Take One Capsule By Mouth Every Day Unknown History Medications Levothyroxine Sodium 50mcg Tablets Take One Tablet By Mouth Every Morning With 200mcg 90tabs E89.0 Radha OrtizOKitty 06/02/2020 - 11/26/2020 Immunizations Description No Information Available Vital Signs Date Vital Result Comment 11/29/2020 10:45am BP Systolic 132 mmHg BP Diastolic 74 mmHg Height 68.2 inches 5'8.20" Weight 211.50 lb BMI (Body Mass Index) 32.0 kg/m2 Heart Rate 91 /min Respiratory Rate 18 /min Body Temperature 98.9 F O2 % BldC Oximetry 97 % [place] Body Weight 140 lb 11/26/2020 9:58am BP Systolic 128 mmHg BP Diastolic 76 mmHg Height 68.2 inches 5'8.20" Weight 209.25 lb BMI (Body Mass Index) 31.6 kg/m2 Heart Rate 93 /min Respiratory Rate 18 /min Body Temperature 98.7 F O2 % BldC Oximetry 97 % [place] Body Weight 140 lb Results Test Acquired Date Facility Test Result H/L Range Note Laboratory test finding 11/28/[address] [id number] [phone] Occult Blood OCCULT BLOOD 1 <SEE NOTE> Normal 1 CBC With Differential 11/26/[address] [address] [phone] White Blood Count 6.8 10 Normal 4.0-10.0 [...] 36.0-66.0 Lymph % 33.2 % Normal 24.0-44.0 [place] % 6.5 % Normal 2.0-8.0 Eos % 5.3 % High 0.0-3.0 Baso % 0.9 % Normal 0.0-1.0 Immature Granulocyte % 0.6 % Normal 0-3.0 Nucleated Red Blood Cell % 0.0 % Normal 0-0 Neutrophils # 3.6 10 Normal 1.5-8.5 Lymph # 2.3 10 Normal 1.5-5.0 [place] # 0.4 10 Normal 0.0-0.8 Eos # 0.4 10 Normal 0.0-0.5 Baso # 0.1 10 Normal 0.0-0.2 Total Iron Binding Capacit 11/26/[address] [id number] [phone] Iron (Fe) 19 g/dL Low 50-170 Total Iron Binding Capacity 427 g/dL Normal 250-450 Percent Saturation 4.4 % Low 13.2-45.0 Laboratory test finding 11/26/[address] [address] [phone] Ferritin 5 NG/ML Low 8-252 Vitamin B12 Level 588 pg/mL Normal 247-911 2 CBC With Differential 11/19/[address] [address] [phone] White Blood Count 7.5 10 Normal 4.0-10.0 [...] 36.0-66.0 Lymph % 20.9 % Low 24.0-44.0 [place] % 6.3 % Normal 2.0-8.0 Eos % 4.8 % High 0.0-3.0 Baso % 0.7 % Normal 0.0-1.0 Immature Granulocyte % 0.5 % Normal 0-3.0 Nucleated Red Blood Cell % 0.0 % Normal 0-0 Neutrophils # 5.0 10 Normal 1.5-8.5 Lymph # 1.6 10 Normal 1.5-5.0 [place] # 0.5 10 Normal 0.0-0.8 Eos # 0.4 10 Normal 0.0-0.5 Baso # 0.1 10 Normal 0.0-0.2 Comprehensive Metabolic Profil 11/19/[address] [address] [phone] Glucose, Fasting 90 mg/dL Normal 70-100 Blood [...] 1.2 Normal 1.2-2.2 Lipid Panel 11/19/[address] [id number] [phone] Triglycerides Level 68 mg/dL Normal <150 Cholesterol Level 179 mg/dL Normal <200 HDL Cholesterol 86 mg/dL Normal >40 LDL Cholesterol 79 mg/dL Normal <100 Non-HDL-C 93 mg/dL Normal Cholesterol Risk Ratio 2.081 Normal <5 FT4&TSH Panel 11/19/[address] [id number] [phone] Thyroid Stimulating Hormone 4.150 uIU/ML High 0. 358-3.740 Free T4 0.79 ng/dL Normal 0.76-1.46 FT4&TSH Panel 09/10/[address] [id number] [phone] Thyroid Stimulating Hormone 1.240 uIU/ML Normal 0. 358-3.740 Free T4 1.09 ng/dL Normal 0.76-1.46 Comprehensive Metabolic Profil 09/10/[address] 1579525 [phone] Glucose, Fasting 100 mg/dL Normal 70-100 Blood [...] 1.3 Normal 1.2-2.2 Laboratory test finding 09/10/2020 [facility] Outpatient [facility] [place] (Registration) 0 [place], [place] [id number] [phone] Calcium Level 8.9 mg/dL Normal 8.8-10.2 Total [...] Little GFR Left ESRD GFR <15 on LENS FINISHER 4 Units are mL/min/1.73 m2 Chronic Kidney Disease Staging per NKF: Stage I & II GFR >=60 Normal to Mildly Decreased Stage III GFR 30-59 Moderately Decreased Stage IV GFR 15-29 Severely Decreased Stage V GFR <15 Very Little GFR Left ESRD GFR <15 on LENS FINISHER Procedures Date Code Description Status 11/29/2020 23515 Office/Outpatient Established Lo w MDM 20-29 Min Completed 11/26/2020 19097 Office/Outpatient Established Lo w MDM 20-29 Min Completed 10/27/2020 95321 Office/Outpatient Established Mo d MDM 30-39 Min Completed 08/24/2020 57122 Office/Outpatient Established Lo w MDM 20-29 Min Completed 06/30/2020 19415 Electrocardiogram Complete Compl eted 06/29/2020 13912 Office/Outpatient Established Mo d MDM 30-39 Min Completed 06/29/2020 66864 Electrocardiogram Complete Compl eted 06/02/2020 16586 Office/Outpatient Established Mo d MDM 30-39 Min Completed Medical Devices Description No Information Available Encounters Type Date Location Provider Dx Diagnosis Office Visit 11/29/2020 10:40a [facility] Frances Aparicio D.O. Z01.818 Encounter for other preproce dural examination H02.401 Unspecified ptosis of right eyelid H02.402 Unspecified ptosis of left e yelid D50.9 Iron deficiency anemia, unsp ecified Office Visit 11/26/2020 10:00a [facility] Frances Aparicio D.O. H02.401 Unspecified ptosis of right [...] Personal history of nicotine dependence Z79.899 Other custodial (current) dr jackson therapy E78.2 Mixed hyperlipidemia D51.9 Vitamin B12 deficiency anemi a, unspecified Office Visit 10/27/2020 2:00p [facility] Frances Aparicio D.O. 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 Z01.818 Encounter for other preproce dural examination M79.672 Pain in left foot M20.42 Other hammer toe(s) (acquire d), left foot I10 Essential (primary) hyperten mason E89.0 Postprocedural hypothyroidis m I45.10 Unspecified right bundle-bra [facility] block Office Visit 06/02/2020 1:00p [facility] Radha VoO. I10 Essential (primary) hyperten mason R53.83 Other fatigue E89.0 Postprocedural hypothyroidis m M81.0 Age-related osteoporosis w/o current pathological fracture I45.10 Unspecified right bundle-bra nch block M71.22 Synovial cyst of popliteal s pace [Arce], left knee R74.01 Elevation of levels of liver transaminase levels E55.9 Vitamin D deficiency, unspec ified Assessments Date Code Description Provider 11/29/2020 Z01.818 Encounter for other preprocedura l examination Frances Kinney D.O. 11/29/2020 H02.401 Unspecified ptosis of right eyel id Frances Aparicio D.O. 11/29/2020 H02.402 Unspecified ptosis of left eyeli d Frances Aparicio D.O. 11/29/2020 D50.9 Iron deficiency anemia, unspecif ied Deepak Ortiz.O. 11/26/2020 H02.401 Unspecified ptosis of right eyel id Frances Aparicio, D.O. 11/26/2020 H02.402 Unspecified ptosis of left eyeli d Frances Aparicio D.O. 11/26/2020 Z01.818 Encounter for other preprocedura l examination Frances Kinney, D.O. 11/26/2020 E89.0 Postprocedural hypothyroidism Ayaan Aparicio, D.O. 11/26/2020 I10 Essential (primary) hypertension Frances Aparicio D.O. 11/26/2020 M81.0 Age-related osteoporosis without current pathological fracture Frances Aparicio D.O. 11/26/2020 E55.9 Vitamin D deficiency, unspecifie deepak Aparicio D.O. 11/26/2020 F31.5 Bipolar disorder, cu rrent episode depressed, severe, with psychotic features Frances Aparicio D.O. 11/26/2020 I69.898 Other sequelae of other cerebrov ascular disease Frances Aparicio D.O. 11/26/2020 Z87.891 Personal history of nicotine dep endence Frances Aparicio D.O. 11/26/2020 Z79.899 Other custodial (current) drug t herapy Frances Aparicio D.O. 11/26/2020 E78.2 Mixed hyperlipidemia Frances Bolden, D.O. 11/26/2020 D51.9 Vitamin B12 deficiency anemia, u nspecified Frances Kinney D.O. 10/27/2020 E89.0 Postprocedural hypothyroidism Ayaan Aparicio D.O. 10/27/2020 I10 Essential (primary) hypertension Frances Aparicio D.O. 10/27/2020 M81.0 Age-related osteoporosis without current pathological fracture Frances Aparicio D.O. 10/27/2020 E55.9 Vitamin D deficiency, unspecifie d Frances Aparicio, D.O. 10/27/2020 F31.5 Bipolar disorder, cu rrent episode depressed, severe, with psychotic features Frances Aparicio D.O. 10/27/2020 I69.898 Other sequelae of other cerebrov ascular disease Frances Aparicio D.O. 10/27/2020 Z87.891 Personal history of nicotine dep endence Frances Aparicio, D.O. 10/27/2020 Z79.899 Other custodial (current) drug t herapy Frances Aparicio D.O. 10/27/2020 E78.2 Mixed hyperlipidemia Frances Bolden, D.O. 10/27/2020 I63.311 Cerebral infarction due to thrombosis of right middle cerebral artery Frances Aparicio D.O. 08/24/2020 M71.22 Synovial cyst of popliteal space [Acre], left knee Frances Aparicio D.O. 08/24/2020 M79.672 Pain in left foot Frances Kinney, D.O. 08/24/2020 E89.0 Postprocedural hypothyroidism Ayaan Aparicio D.O. 08/24/2020 I10 Essential (primary) hypertension Frances Aparicio D.O. 08/24/2020 M81.0 Age-related osteoporosis without current pathological fracture Frances Aparicio D.O. 06/30/2020 Z01.818 Encounter for other preprocedura l examination Frances Kinney D.O. 06/29/2020 Z01.818 Encounter for other preprocedura l examination Frances Kinney D.O. 06/29/2020 M79.672 Pain in left foot Frances Kinney, D.O. 06/29/2020 M20.42 Other hammer toe(s) (acquired), left foot Frances Kinney D.O. 06/29/2020 I10 Essential (primary) hypertension Radha OrtizOKitty 06/29/2020 E89.0 Postprocedural hypothyroidism Radha DiasOKitty 06/29/2020 I45.10 Unspecified right bundle-branch block Radha OrtizOKitty 06/02/2020 I10 Essential (primary) hypertension Radha OrtizOKitty 06/02/2020 R53.83 Other fatigue Radha LouisOKitty 06/02/2020 E89.0 Postprocedural hypothyroidism Ayaan Aparicio D.O. 06/02/2020 M81.0 Age-related osteoporosis without current pathological fracture Frances Aparicio D.O. 06/02/2020 I45.10 Unspecified right bundle-branch block Frances Aparicio D.O. 06/02/2020 M71.22 Synovial cyst of popliteal space [Arce], left knee Frances Aparicio D.O. 06/02/2020 R74.01 Elevation of levels of liver tra nsaminase levels Frances Aparicio D.O. 06/02/2020 E55.9 Vitamin D deficiency, unspecifie d Frances Aparicio D.O. Plan of Treatment Future Appointment(s):* 01/27/2021 2:00 pm - Frances Aparicio D.O. at [facility] Functional Status Description No Information Available Mental Status Description No Information Available Referrals Description No Information Available
--- OUTSIDE RECORDS SUMMARY | 2021-01-26 13:51 | CCD | Continuity of Care Document ---
Author Author Laura SIBLEY MD Organization Unknown Address [address] [place] [address], [address] [address] Phone [phone] Care Team Providers Care Vb Developer Name Role Phone Frances Aparicio DO AUTM Jv Felix MD AUTM Unavailable Problems [...] SIG Qnty Indications Ordering Provide r Date Gabapentin 100mg Capsules 1 po at bedtime [...] Available Procedures Date Code Description Status 11/23/2020 82414 Office/Outpatient Established Lo w MDM 20-29 Min Completed 11/23/2020 37063 X-Ray Knee Ap & Lateral W/Obliqu es Three Views Completed 10/20/2020 45554 Office/Outpatient Established Mo d MDM 30-39 Min Completed 10/20/2020 22740 Inject/Drain Joint/Bursa Major C ompleted 09/14/2020 33508 Office/Outpatient Established Mo d MDM 30-39 Min Completed 09/14/2020 18221 X-Ray Knee Ap & Lateral W/Obliqu es Three Views Completed 08/02/2020 28174 Office/Outpatient Established Mo d MDM 30-39 Min Completed 08/02/2020 29606 Inject/Drain Joint/Bursa Major C ompleted Medical Devices Description No Information Available Encounters Type Date Location Provider Dx Diagnosis Office Visit 11/23/2020 1:15p Aileen Sibley MD [...] tear/inj, left knee Office Visit 09/14/2020 10:45a [place] Radha Sibley MD M1 7.12 Unilateral primary osteoarthritis, left knee M71.22 Synovial cyst of popliteal s pace [Yazmin], left knee Office Visit 08/02/2020 10:15a [place] Ad Rodriguez, P.A. M17.12 Unilateral primary osteoarthritis, left knee Assessments Date Code Description Provider 11/23/2020 M17.0 Bilateral primary osteoarthritis of knee [...] primary osteoarthriti s, left knee Ad Rodriguez, Lary 08/02/2020 M17.12 Unilateral primary osteoarthriti s, left knee Ad Rodriguez, PKittyA. Plan of Treatment Future Appointment(s):* 12/01/2020 2:15 pm - Ad Rodriguez, PJess at [place] 11/23/2020 - Deepak. Garry Sibley MD* M17.0 Bilateral primary osteoarthritis of knee* Follow up:* upon lion gel one approval with any pa Functional Status Description No Information Available Mental Status Description No Information Available Referrals Refer to Reason for Referral Status Appt Date Deepak Sibley MD 11/30/20 Gel One Lion Knee aut h [id number],exp 03/01/21, passed to hemant gallegos to order sw. Created [address] [place] [address], [address] [place] [address] [phone] Ad Rodriguez PA MRI APPROVED PER DEVONTE Campos OR MRI OF LEFT KNEE (51623) TO HEMANT Gallegos. Created [address] [place], [place] [id number] [place] [address] [phone]
--- OUTSIDE RECORDS SUMMARY | 2021-01-26 13:51 | CCD | Continuity of Care Document ---
Author Author Laura APARICIO Organization Unknown Address [address] [place] [address] Phone [phone] Care Team Providers Care Batteryman Name Role Phone Frances Aparicio D.O. AUTM Radha Sibley M.D. AUTM [phone] Andrew Rogel M.D. AUTM [phone] [facility] AUTM [phone] Murtaza Arreola M.D. AUTM [phone] [facility] AUTM [phone] [facility] AUTM [phone] Fátima Fairchild D.P.M. pc AUTM [phone] Yosvany Brown MD AUTM [phone] Problems Active Problems Provider Date Hypothyroidism Frances [...] SIG Qnty Indications Ordering Provide r Date Levothyroxine Sodium 75mcg Tablets Take One Tablet [...] tablet by mouth every day 30tabs I69.898 Radha MacarioOKitty 12/24/2017 [place] Carbonate 300mg Capsules 1 capsules by mouth twice aday 90caps Frances Sandoval r, D.O. 08/08/2017 Vitamin D3 5000Unit Capsules 1 by mouth every day with dinner 90caps Radha OrtizOKitty 08/08/2017 Pravastatin Sodium 40mg Tablets take 1 tablet by mouth every night 90tabs Radha OrtizOKitty 11/03/2016 Bupropion HCL ER (XL) 300mg Tablets ER 24HR Take One Tablet By Mouth Every Day Unknow n Amlodipine Besylate 5mg Tablets take one tablet by mouth at bedtime 90tabs Radha OrtizOKitty Levothyroxine Sodium 200mcg Tablet s Take One Tablet By Mouth Every Day 30tabs Frances Martin er, D.O. Adderall XR 30mg Caps ER 24HR 1 by mouth every day istop reference # [id number] Unknown Calcium 500+D [id number] Table ts 1 by mouth once daily Unknown Gabapentin 300mg Capsules 2 caps by mouth three times a day Elmer Rosa D.O. PHD Doxycycline Hyclate 50mg Capsules Take One Capsule By Mouth Every Day Unknown History Medications Levothyroxine Sodium 50mcg Tablets Take One Tablet By Mouth Every Morning With 200mcg 90tabs E89.0 Radha OrtizOKitty 06/02/2020 - 11/26/2020 Immunizations Description No Information Available Vital Signs Date Vital Result Comment 11/26/2020 9:58am BP Systolic 128 mmHg BP Diastolic 76 mmHg Height 68.2 inches 5'8.20" Weight 209.25 lb BMI (Body Mass Index) 31.6 kg/m2 Heart Rate 93 /min Respiratory Rate 18 /min Body Temperature 98.7 F O2 % BldC Oximetry 97 % [place] Body Weight 140 lb 10/27/2020 1:58pm BP Systolic 132 mmHg BP Diastolic 76 mmHg Height 68.2 inches 5'8.20" Weight 203.00 lb BMI (Body Mass Index) 30.7 kg/m2 Heart Rate 97 /min Respiratory Rate 18 /min Body Temperature 98.7 F O2 % BldC Oximetry 98 % [place] Body Weight 140 lb Results Test Acquired Date Facility Test Result H/L Range Note Laboratory test finding 11/28/[address] [address] [phone] Occult Blood OCCULT BLOOD 1 <SEE NOTE> Normal 1 CBC With Differential 11/26/[address] [address] [phone] White Blood Count 6.8 10 Normal 4.0-10.0 [...] 36.0-66.0 Lymph % 33.2 % Normal 24.0-44.0 [place] % 6.5 % Normal 2.0-8.0 Eos % 5.3 % High 0.0-3.0 Baso % 0.9 % Normal 0.0-1.0 Immature Granulocyte % 0.6 % Normal 0-3.0 Nucleated Red Blood Cell % 0.0 % Normal 0-0 Neutrophils # 3.6 10 Normal 1.5-8.5 Lymph # 2.3 10 Normal 1.5-5.0 [place] # 0.4 10 Normal 0.0-0.8 Eos # 0.4 10 Normal 0.0-0.5 Baso # 0.1 10 Normal 0.0-0.2 Total Iron Binding Capacit 11/26/[address] [address] [phone] Iron (Fe) 19 g/dL Low 50-170 Total Iron Binding Capacity 427 g/dL Normal 250-450 Percent Saturation 4.4 % Low 13.2-45.0 Laboratory test finding 11/26/[address] [address] [phone] Ferritin 5 NG/ML Low 8-252 Vitamin B12 Level 588 pg/mL Normal 247-911 2 CBC With Differential 11/19/[address] [address] [phone] White Blood Count 7.5 10 Normal 4.0-10.0 [...] 36.0-66.0 Lymph % 20.9 % Low 24.0-44.0 [place] % 6.3 % Normal 2.0-8.0 Eos % 4.8 % High 0.0-3.0 Baso % 0.7 % Normal 0.0-1.0 Immature Granulocyte % 0.5 % Normal 0-3.0 Nucleated Red Blood Cell % 0.0 % Normal 0-0 Neutrophils # 5.0 10 Normal 1.5-8.5 Lymph # 1.6 10 Normal 1.5-5.0 [place] # 0.5 10 Normal 0.0-0.8 Eos # 0.4 10 Normal 0.0-0.5 Baso # 0.1 10 Normal 0.0-0.2 Comprehensive Metabolic Profil 11/19/[address] [address] [phone] Glucose, Fasting 90 mg/dL Normal 70-100 Blood [...] Ratio 1.2 Normal 1.2-2.2 Lipid Panel 11/19/[address] [address] [phone] Triglycerides Level 68 mg/dL Normal <150 Cholesterol Level 179 mg/dL Normal <200 HDL Cholesterol 86 mg/dL Normal >40 LDL Cholesterol 79 mg/dL Normal <100 Non-HDL-C 93 mg/dL Normal Cholesterol Risk Ratio 2.081 Normal <5 FT4&TSH Panel 11/19/[address] [address] [phone] Thyroid Stimulating Hormone 4.150 uIU/ML High 0. 358-3.740 Free T4 0.79 ng/dL Normal 0.76-1.46 FT4&TSH Panel 09/10/[address] [id number] [phone] Thyroid Stimulating Hormone 1.240 uIU/ML Normal 0. 358-3.740 Free T4 1.09 ng/dL Normal 0.76-1.46 Comprehensive Metabolic Profil 09/10/[address] [address] [phone] Glucose, Fasting 100 mg/dL Normal 70-100 Blood [...] 1.3 Normal 1.2-2.2 Laboratory test finding 09/10/2020 [facility] Out[facility] (Registration) 0 [place], [place] [id number] [phone] Calcium Level 8.9 mg/dL Normal 8.8-10.2 Total [...] Little GFR Left ESRD GFR <15 on [employer] 4 Units are mL/min/1.73 m2 Chronic Kidney Disease Staging per NKF: Stage I & II GFR >=60 Normal to Mildly Decreased Stage III GFR 30-59 Moderately Decreased Stage IV GFR 15-29 Severely Decreased Stage V GFR <15 Very Little GFR Left ESRD GFR <15 on [employer] Procedures Date Code Description Status 11/26/2020 34329 Office/Outpatient Established Lo w MDM 20-29 Min Completed 10/27/2020 38306 Office/Outpatient Established Mo d MDM 30-39 Min Completed 08/24/2020 76534 Office/Outpatient Established Lo w MDM 20-29 Min Completed 06/30/2020 93356 Electrocardiogram Complete Compl eted 06/29/2020 46752 Office/Outpatient Established Mo d MDM 30-39 Min Completed 06/29/2020 12482 Electrocardiogram Complete Compl eted 06/02/2020 13848 Office/Outpatient Established Mo d MDM 30-39 Min Completed Medical Devices Description No Information Available Encounters Type Date Location Provider Dx Diagnosis Office Visit 11/26/2020 10:00a [facility] Harris Aparicio D.O. 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 M71.22 Synovial cyst of popliteal s pace [Arce], left knee M79.672 Pain in left foot E89.0 Postprocedural hypothyroidis m I10 Essential (primary) hyperten mason M81.0 Age-related osteoporosis w/o current pathological fracture Office Visit 06/29/2020 1:30p [facility] Deepak Ortiz.OKitty Z01.818 Encounter for other preproce dural examination M79.672 Pain in left foot M20.42 Other hammer toe(s) (acquire d), left foot I10 Essential (primary) hyperten mason E89.0 Postprocedural hypothyroidis m I45.10 Unspecified right bundle-bra [facility] block Office Visit 06/02/2020 1:00p [facility] Deepak Vo.O. I10 Essential (primary) hyperten mason R53.83 Other fatigue E89.0 Postprocedural hypothyroidis m M81.0 Age-related osteoporosis w/o current pathological fracture I45.10 Unspecified right bundle-bra vth block M71.22 Synovial cyst of popliteal s pace [Arce], left knee R74.01 Elevation of levels of liver transaminase levels E55.9 Vitamin D deficiency, unspec ified Assessments Date Code Description Provider 11/26/2020 H02.401 Unspecified ptosis of right eyel id Deepak Ortiz.OKitty 11/26/2020 H02.402 Unspecified ptosis of left eyeli d Deepak Ortiz.OKitty 11/26/2020 Z01.818 Encounter for other preprocedura l examination Deepak Preciado.OKitty 11/26/2020 E89.0 Postprocedural hypothyroidism Deepak Dias.OKitty 11/26/2020 I10 Essential (primary) hypertension Deepak Ortiz.OKitty 11/26/2020 M81.0 Age-related osteoporosis without current pathological fracture Deepak Ortiz.OKitty 11/26/2020 E55.9 Vitamin D deficiency, unspecifie d Deepak Ortiz.OKitty 11/26/2020 F31.5 Bipolar disorder, cu rrent episode depressed, severe, with psychotic features Deepak Ortiz.OKitty 11/26/2020 I69.898 Other sequelae of other cerebrov ascular disease Frances Aparicio D.O. 11/26/2020 Z87.891 Personal history of nicotine dep endence Frances Aparicio, D.O. 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 11/26/2020 E78.2 Mixed hyperlipidemia Frances Bolden, D.O. 11/26/2020 D51.9 Vitamin B12 deficiency anemia, u nspecified Frances Kinney D.O. 10/27/2020 E89.0 Postprocedural hypothyroidism Ayaan Aparicio D.O. 10/27/2020 I10 Essential (primary) hypertension Frances Aparicio D.O. 10/27/2020 M81.0 Age-related osteoporosis without current pathological fracture Deepak Ortiz.OKitty 10/27/2020 E55.9 Vitamin D deficiency, unspecifie d Frances Aparicio D.O. 10/27/2020 F31.5 Bipolar disorder, cu rrent episode depressed, severe, with psychotic features Frances Aparicio D.O. 10/27/2020 I69.898 Other sequelae of other cerebrov ascular disease Frances Aparicio D.O. 10/27/2020 Z87.891 Personal history of nicotine dep endence Frances Aparicio, D.O. 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 10/27/2020 E78.2 Mixed hyperlipidemia Frances Bolden D.O. 10/27/2020 I63.311 Cerebral infarction due to thrombosis of right middle cerebral artery Frances Aparicio D.O. 08/24/2020 M71.22 Synovial cyst of popliteal space [Arce], left knee Deepak Ortiz.OKitty 08/24/2020 M79.672 Pain in left foot Radha PreciadoO. 08/24/2020 E89.0 Postprocedural hypothyroidism Ayaan Aparicio, D.O. 08/24/2020 I10 Essential (primary) hypertension Francesrikki FraireHilarioRhina, D.O. 08/24/2020 M81.0 Age-related osteoporosis without current pathological fracture Frances Aparicio D.O. 06/30/2020 Z01.818 Encounter for other preprocedura l examination Frances Hilarioandreas Kinney D.O. 06/29/2020 Z01.818 Encounter for other preprocedura l examination Frances Kinney D.O. 06/29/2020 M79.672 Pain in left foot Frances Hilarioandreas Kinney, D.O. 06/29/2020 M20.42 Other hammer toe(s) (acquired), left foot Frances Kinney D.O. 06/29/2020 I10 Essential (primary) hypertension Frances HilarioRhina, D.O. 06/29/2020 E89.0 Postprocedural hypothyroidism Ayaan Aparicio D.O. 06/29/2020 I45.10 Unspecified right bundle-branch block Frances Aparicio, D.O. 06/02/2020 I10 Essential (primary) hypertension Frances Aparicio, D.O. 06/02/2020 R53.83 Other fatigue Frances mendoza, D.O. 06/02/2020 E89.0 Postprocedural hypothyroidism Ayaan Aparicio D.O. [...] 2:00 pm - Frances Aparicio D.O. at [facility] Functional Status Description No Information Available Mental Status Description No Information Available Referrals Description No Information Available
--- OUTSIDE RECORDS SUMMARY | 2021-01-26 13:51 | CCD | Continuity of Care Document ---
Author Author Laura RODRIGUEZ P.A. Organization Unknown Address [address] [place] [address], [address] [address] Phone [phone] Care Team Providers Care Public Health Staff Nurse Name Role Phone Frances Aparicio DO AUTM [phone] Jv Felix MD AUTM Unavailable Problems [...] Available Procedures Date Code Description Status 11/23/2020 36188 Office/Outpatient Established Lo w MDM 20-29 Min Completed 11/23/2020 92184 X-Ray Knee Ap & Lateral W/Obliqu es Three Views Completed 10/20/2020 71568 Office/Outpatient Established Mo d MDM 30-39 Min Completed 10/20/2020 13844 Inject/Drain Joint/Bursa Major C ompleted 09/14/2020 29500 Office/Outpatient Established Mo d MDM 30-39 Min Completed 09/14/2020 69272 X-Ray Knee Ap & Lateral W/Obliqu es Three Views Completed 08/02/2020 06544 Office/Outpatient Established Mo d MDM 30-39 Min Completed 08/02/2020 51625 Inject/Drain Joint/Bursa Major C ompleted Medical Devices Description No Information Available Encounters Type Date Location Provider Dx Diagnosis Office Visit 11/23/2020 1:15p Guindaalphonse Sibley MD M1 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 Created [address] [place] [address], [address] [place] [address] [phone] Ad Rodriguez PA MRI APPROVED PER DEVONTE Campos OR MRI OF LEFT KNEE (50521) TO MARÍA Lopez Created [address] [place], [place] [id number] [place] [id number] [phone]
--- OUTSIDE RECORDS SUMMARY | 2021-01-26 13:52 | CCD | Continuity of Care Document ---
Author Author Laura APARICIO Organization Unknown Address [address] [place] [address] Phone [phone] Care Team Providers Care Board Writer Name Role Phone Frances Aparicio D.O. AUTM [phone] Radha Sibley M.D. AUTM [phone] Andrew Rogel M.D. AUTM [phone] [facility] AUTM [phone] Murtaza Arreola M.D. AUTM [phone] [facility] AUTM [phone] [facility] AUTM Fátima Fairchild D.P.M. pc AUTM Yosvany Brown MD AUTM [phone] Problems Active Problems Provider Date Hypothyroidism Frances [...] every day 30tabs I69.898 Radha MacarioOKitty 12/24/2017 [place] Carbonate 300mg Capsules 1 capsules by mouth [...] by mouth every day istop reference # [id number] Unknown Calcium 500+D [id number]-[id number] Table ts 1 by mouth once daily [...] F O2 % BldC Oximetry 97 % [place] Body Weight 140 lb 10/27/2020 1:58pm BP Systolic 132 mmHg BP Diastolic 76 mmHg Height 68.2 inches 5'8.20" Weight 203.00 lb BMI (Body Mass Index) 30.7 kg/m2 Heart Rate 97 /min Respiratory Rate 18 /min Body Temperature 98.7 F O2 % BldC Oximetry 98 % [place] Body Weight 140 lb Results Test Acquired Date Facility Test Result H/L Range Note Laboratory test finding 11/28/[address] [address] [phone] Occult Blood OCCULT BLOOD 1 <SEE NOTE> Normal 1 CBC With Differential 11/26/[address] [address] [phone] White Blood Count 6.8 10 Normal 4.0-10.0 [...] 36.0-66.0 Lymph % 33.2 % Normal 24.0-44.0 [place] % 6.5 % Normal 2.0-8.0 Eos % 5.3 % High 0.0-3.0 Baso % 0.9 % Normal 0.0-1.0 Immature Granulocyte % 0.6 % Normal 0-3.0 Nucleated Red Blood Cell % 0.0 % Normal 0-0 Neutrophils # 3.6 10 Normal 1.5-8.5 Lymph # 2.3 10 Normal 1.5-5.0 [place] # 0.4 10 Normal 0.0-0.8 Eos # 0.4 10 Normal 0.0-0.5 Baso # 0.1 10 Normal 0.0-0.2 Total Iron Binding Capacit 11/26/[address] [address] [phone] Iron (Fe) 19 g/dL Low 50-170 Total Iron Binding Capacity 427 g/dL Normal 250-450 Percent Saturation 4.4 % Low 13.2-45.0 Laboratory test finding 11/26/[address] [address] [phone] Ferritin 5 NG/ML Low 8-252 Vitamin B12 Level 588 pg/mL Normal 247-911 2 CBC With Differential 11/19/[address] [address] [phone] White Blood Count 7.5 10 Normal 4.0-10.0 [...] 36.0-66.0 Lymph % 20.9 % Low 24.0-44.0 [place] % 6.3 % Normal 2.0-8.0 Eos % 4.8 % High 0.0-3.0 Baso % 0.7 % Normal 0.0-1.0 Immature Granulocyte % 0.5 % Normal 0-3.0 Nucleated Red Blood Cell % 0.0 % Normal 0-0 Neutrophils # 5.0 10 Normal 1.5-8.5 Lymph # 1.6 10 Normal 1.5-5.0 [place] # 0.5 10 Normal 0.0-0.8 Eos # 0.4 10 Normal 0.0-0.5 Baso # 0.1 10 Normal 0.0-0.2 Comprehensive Metabolic Profil 11/19/[address] [address] [phone] Glucose, Fasting 90 mg/dL Normal 70-100 Blood [...] Ratio 1.2 Normal 1.2-2.2 Lipid Panel 11/19/[address] [address] [phone] Triglycerides Level 68 mg/dL Normal <150 Cholesterol Level 179 mg/dL Normal <200 HDL Cholesterol 86 mg/dL Normal >40 LDL Cholesterol 79 mg/dL Normal <100 Non-HDL-C 93 mg/dL Normal Cholesterol Risk Ratio 2.081 Normal <5 FT4&TSH Panel 11/19/[address] [address] [phone] Thyroid Stimulating Hormone 4.150 uIU/ML High 0. 358-3.740 Free T4 0.79 ng/dL Normal 0.76-1.46 FT4&TSH Panel 09/10/[address] 9197302 [phone] Thyroid Stimulating Hormone 1.240 uIU/ML Normal 0. 358-3.740 Free T4 1.09 ng/dL Normal 0.76-1.46 Comprehensive Metabolic Profil 09/10/[address] [address] [phone] Glucose, Fasting 100 mg/dL Normal 70-100 Blood [...] 1.3 Normal 1.2-2.2 Laboratory test finding 09/10/2020 [facility] Outpatient T [place] (Registration) 0 [place], [place] [address] [phone] Calcium Level 8.9 mg/dL Normal 8.8-10.2 Total [...] Little GFR Left ESRD GFR <15 on [employer] 4 Units are mL/min/1.73 m2 Chronic Kidney Disease Staging per NKF: Stage I & II GFR >=60 Normal to Mildly Decreased Stage III GFR 30-59 Moderately Decreased Stage IV GFR 15-29 Severely Decreased Stage V GFR <15 Very Little GFR Left ESRD GFR <15 on [employer] Procedures Date Code Description Status 11/26/2020 59989 Office/Outpatient Established Lo w MDM 20-29 Min Completed 10/27/2020 28595 Office/Outpatient Established Mo d MDM 30-39 Min Completed 08/24/2020 51257 Office/Outpatient Established Lo w MDM 20-29 Min Completed 06/30/2020 22623 Electrocardiogram Complete Compl eted 06/29/2020 10472 Office/Outpatient Established Mo d MDM 30-39 Min Completed 06/29/2020 38977 Electrocardiogram Complete Compl eted 06/02/2020 69323 Office/Outpatient Established Mo d MDM 30-39 Min Completed Medical Devices Description No Information Available Encounters Type Date Location Provider Dx Diagnosis Office Visit 11/26/2020 10:00a [facility] Harris Aparicio D.O. 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 M71.22 Synovial cyst of popliteal s pace [Arce], left knee M79.672 Pain in left foot E89.0 Postprocedural hypothyroidis m I10 Essential (primary) hyperten mason M81.0 Age-related osteoporosis w/o current pathological fracture Office Visit 06/29/2020 1:30p [facility] Deepak Ortiz.OKitty Z01.818 Encounter for other preproce dural examination M79.672 Pain in left foot M20.42 Other hammer toe(s) (acquire d), left foot I10 Essential (primary) hyperten mason E89.0 Postprocedural hypothyroidis m I45.10 Unspecified right bundle-bra [facility] block Office Visit 06/02/2020 1:00p [facility] Deepak Vo.O. I10 Essential (primary) hyperten mason R53.83 Other fatigue E89.0 Postprocedural hypothyroidis m M81.0 Age-related osteoporosis w/o current pathological fracture I45.10 Unspecified right bundle-bra mah block M71.22 Synovial cyst of popliteal s [...] endence Frances Aparicio, D.O. 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 [...] endence Frances Aparicio, D.O. 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 [...] 2:00 pm - Frances Aparicio D.O. at [facility] Functional Status Description No Information Available Mental Status Description No Information Available Referrals Description No Information Available
--- OUTSIDE RECORDS SUMMARY | 2021-01-26 13:52 | CCD | Continuity of Care Document ---
Author Author Laura APARICIO Organization Unknown Address [email or web address] [place] [address] Phone [phone] Care Team Providers Care Lyft Driver Name Role Phone Frances Aparicio D.O. AUTM [phone] Radha Sibley M.D. AUTM Andrew Rogel M.D. AUTM [phone] [facility] AUTM [phone] Murtaza Arreola M.D. AUTM [phone] [facility] AUTM [phone] [facility] AUTM Fátima Fairchild D.P.M. pc AUTM [phone] Yosvany Brown MD AUTM [phone] Problems Active Problems Provider Date Hypothyroidism Frances [...] every day 30tabs I69.898 Radha MacarioOKitty 12/24/2017 Willey Carbonate 300mg Capsules 1 capsules by mouth [...] by mouth every day istop reference # [id number] Unknown Calcium 500+D [id number] Table ts 1 by mouth once daily [...] F O2 % BldC Oximetry 97 % [place] Body Weight 140 lb 10/27/2020 1:58pm BP Systolic 132 mmHg BP Diastolic 76 mmHg Height 68.2 inches 5'8.20" Weight 203.00 lb BMI (Body Mass Index) 30.7 kg/m2 Heart Rate 97 /min Respiratory Rate 18 /min Body Temperature 98.7 F O2 % BldC Oximetry 98 % [place] Body Weight 140 lb Results Test Acquired Date Facility Test Result H/L Range Note CBC With Differential 11/19/[address] [address] [phone] White Blood Count 7.5 10 Normal 4.0-10.0 [...] 36.0-66.0 Lymph % 20.9 % Low 24.0-44.0 Boyle % 6.3 % Normal 2.0-8.0 Eos % 4.8 % High 0.0-3.0 Baso % 0.7 % Normal 0.0-1.0 Immature Granulocyte % 0.5 % Normal 0-3.0 Nucleated Red Blood Cell % 0.0 % Normal 0-0 Neutrophils # 5.0 10 Normal 1.5-8.5 Lymph # 1.6 10 Normal 1.5-5.0 Boyle # 0.5 10 Normal 0.0-0.8 Eos # 0.4 10 Normal 0.0-0.5 Baso # 0.1 10 Normal 0.0-0.2 Comprehensive Metabolic Profil 11/19/[address] [address] [phone] Glucose, Fasting 90 mg/dL Normal 70-100 Blood Urea Nitrogen 13 mg/dL Normal 7-18 Creatinine For GFR 0.83 mg/dL Normal 0.55-1.30 Glomerular Filtration Rate > 60.0 Normal >39 1 Sodium Level 140 mEq/L Normal 136-145 Potassium [...] Ratio 1.2 Normal 1.2-2.2 Lipid Panel 11/19/[address] [address] [phone] Triglycerides Level 68 mg/dL Normal <150 Cholesterol Level 179 mg/dL Normal <200 HDL Cholesterol 86 mg/dL Normal >40 LDL Cholesterol 79 mg/dL Normal <100 Non-HDL-C 93 mg/dL Normal Cholesterol Risk Ratio 2.081 Normal <5 FT4&TSH Panel 11/19/[address] [phone] Thyroid Stimulating Hormone 4.150 uIU/ML High 0. 358-3.740 Free T4 0.79 ng/dL Normal 0.76-1.46 FT4&TSH Panel 09/10/[address] [id number] [phone] Thyroid Stimulating Hormone 1.240 uIU/ML Normal 0. 358-3.740 Free T4 1.09 ng/dL Normal 0.76-1.46 Comprehensive Metabolic Profil 09/10/[address] [id number] [phone] Glucose, Fasting 100 mg/dL Normal 70-100 Blood Urea Nitrogen 12 mg/dL Normal 7-18 Creatinine For GFR 0.90 mg/dL Normal 0.55-1.30 Glomerular Filtration Rate > 60.0 Normal >39 2 Sodium Level 146 mEq/L High 136-145 Potassium [...] 1.3 Normal 1.2-2.2 Laboratory test finding 09/10/2020 [facility] [place] (Registration) [address] [id number] [phone] Calcium Level 8.9 mg/dL Normal 8.8-10.2 Total 25(Oh) Vitamin D 35.0 NG/ML Normal 30.0-100.0 Order 06/30/2020 In House Orders EKG see result in chart 1 Units are mL/min/1.73 m2 Chronic Kidney Disease Staging per NKF: Stage I & II GFR >=60 Normal to Mildly Decreased Stage III GFR 30-59 Moderately Decreased Stage IV GFR 15-29 Severely Decreased Stage V GFR <15 Very Little GFR Left ESRD GFR <15 on OVEREDGER 2 Units are mL/min/1.73 m2 Chronic Kidney Disease Staging per NKF: Stage I & II GFR >=60 Normal to Mildly Decreased Stage III GFR 30-59 Moderately Decreased Stage IV GFR 15-29 Severely Decreased Stage V GFR <15 Very Little GFR Left ESRD GFR <15 on OVEREDGER Procedures Date Code Description Status 11/26/2020 16037 Office/Outpatient Established Lo w MDM 20-29 Min Completed 10/27/2020 46513 Office/Outpatient Established Mo d MDM 30-39 Min Completed 08/24/2020 96865 Office/Outpatient Established Lo w MDM 20-29 Min Completed 06/30/2020 31857 Electrocardiogram Complete Compl eted 06/29/2020 57402 Office/Outpatient Established Mo d MDM 30-39 Min Completed 06/29/2020 54933 Electrocardiogram Complete Compl eted 06/02/2020 73004 Office/Outpatient Established Mo d MDM 30-39 Min Completed Medical Devices Description No Information Available Encounters Type Date Location Provider Dx Diagnosis Office Visit 11/26/2020 10:00a [facility] Harris Aparicio D.O. H02.401 Unspecified ptosis of [...] anemi a, unspecified Office Visit 10/27/2020 2:00p [facility] Harris Aparicio D.O. 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 M71.22 Synovial cyst of popliteal s pace [Arce], left knee M79.672 Pain in left foot E89.0 Postprocedural hypothyroidis m I10 Essential (primary) hyperten mason M81.0 Age-related osteoporosis w/o current pathological fracture Office Visit 06/29/2020 1:30p [facility] taylor Aparicio D.O. Z01.818 Encounter for other preproce dural examination M79.672 Pain in left foot M20.42 Other hammer toe(s) (acquire d), left foot I10 Essential (primary) hyperten mason E89.0 Postprocedural hypothyroidis m I45.10 Unspecified right bundle-bra [facility] block Office Visit 06/02/2020 1:00p [facility] Deepak Vo.O. I10 Essential (primary) hyperten mason R53.83 Other fatigue E89.0 Postprocedural hypothyroidis m M81.0 Age-related osteoporosis w/o current pathological fracture I45.10 Unspecified right bundle-bra [facility] block M71.22 Synovial cyst of popliteal s [...] Other sequelae of other cerebrov ascular disease Deepak Ortiz.OKitty 11/26/2020 Z87.891 Personal history of nicotine dep endence Deepak Ortiz.OKitty 11/26/2020 Z79.899 Other custodial (current) drug t herapy Frances Aparicio, D.O. 11/26/2020 E78.2 Mixed hyperlipidemia Frances Bolden, D.O. 11/26/2020 D51.9 Vitamin B12 deficiency anemia, u nspecified Frances Kinney, D.O. 10/27/2020 E89.0 Postprocedural hypothyroidism Ayaan Aparicio, D.O. 10/27/2020 I10 Essential (primary) hypertension Frances Aparicio, D.O. 10/27/2020 M81.0 Age-related osteoporosis without current pathological fracture Frances Aparicio D.O. 10/27/2020 E55.9 Vitamin D deficiency, unspecifie d Frances Aparicio D.O. 10/27/2020 F31.5 Bipolar disorder, cu rrent episode depressed, severe, with psychotic features Frances Aparicio D.O. 10/27/2020 I69.898 Other sequelae of other cerebrov ascular disease Frances Aparicio, D.O. 10/27/2020 Z87.891 Personal history of nicotine dep endence Frances Aparicio, D.O. 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 10/27/2020 E78.2 Mixed hyperlipidemia Frances Bolden, D.O. 10/27/2020 I63.311 Cerebral infarction due to thrombosis of right middle cerebral artery Frances Aparicio, D.O. 08/24/2020 M71.22 Synovial cyst of popliteal space [Arce], left knee Frances Aparicio, D.O. 08/24/2020 M79.672 Pain in left foot Frances Kinney, D.O. 08/24/2020 E89.0 Postprocedural hypothyroidism Ayaan Aparicio, D.O. 08/24/2020 I10 Essential (primary) hypertension Frances Aparicio, D.O. 08/24/2020 M81.0 Age-related osteoporosis without current pathological fracture Frances Aparicio D.OKitty 06/30/2020 Z01.818 Encounter for other preprocedura l examination Frances Kinney D.O. 06/29/2020 Z01.818 Encounter for other preprocedura l examination Frances Kinney D.O. 06/29/2020 M79.672 Pain in left foot Frances Kinney, D.O. 06/29/2020 M20.42 Other hammer toe(s) (acquired), left foot Frances Kinney D.O. 06/29/2020 I10 Essential (primary) hypertension Frances Aparicio D.O. 06/29/2020 E89.0 Postprocedural hypothyroidism Ayaan Aparicio D.O. 06/29/2020 I45.10 Unspecified right bundle-branch block Frances Aparicio, D.O. 06/02/2020 I10 Essential (primary) hypertension Frances Aparicio D.O. 06/02/2020 R53.83 Other fatigue Frances mendoza D.O. 06/02/2020 E89.0 Postprocedural hypothyroidism Ayaan Aparicio D.O. 06/02/2020 M81.0 Age-related osteoporosis without current pathological fracture Frances Aparicio D.O. 06/02/2020 I45.10 Unspecified right bundle-branch block Frances Aparicio D.O. 06/02/2020 M71.22 Synovial cyst of popliteal space [Arce], left knee Frances Aparicio D.O. 06/02/2020 R74.01 Elevation of levels of liver tra nsaminase levels Frances Aparicio D.O. 06/02/2020 E55.9 Vitamin D deficiency, unspecifie d Deepak Ortiz.O. Plan of Treatment Future Appointment(s):* 11/29/2020 10:40 am - Frances Aparicio D.O. at [facility] * 01/27/2021 2:00 pm - Frances Aparicio D.O. at [facility] Functional Status Description No Information Available Mental Status Description No Information Available Referrals Description No Information Available
--- OUTSIDE RECORDS SUMMARY | 2021-01-26 13:52 | CCD | Continuity of Care Document ---
Author Author Laura SIBLEY MD Organization Unknown Address [address] [place] [address], [address] [address] Phone [phone] Care Team Providers Care Director Of Neurology Name Role Phone Frances Aparicio DO AUTM [...] Available Procedures Date Code Description Status 11/23/2020 01110 X-Ray Knee Ap & Lateral W/Obliqu es Three Views Completed 10/20/2020 28822 Office/Outpatient Established Mo d MDM 30-39 Min Completed 10/20/2020 03318 Inject/Drain Joint/Bursa Major C ompleted 09/14/2020 99499 Office/Outpatient Established Mo d MDM 30-39 Min Completed 09/14/2020 39736 X-Ray Knee Ap & Lateral W/Obliqu es Three Views Completed 08/02/2020 40107 Office/Outpatient Established Mo d MDM 30-39 Min Completed 08/02/2020 30164 Inject/Drain Joint/Bursa Major C ompleted Medical Devices Description No Information Available Encounters Type Date Location Provider Dx Diagnosis Office Visit 10/20/2020 1:00p Aileen Sibley MD M1 7.12 Unilateral primary osteoarthritis, left knee M23.242 Derang of [place] due to old tear/inj, l knee M23.252 Derang of post [place] due to old tear/inj, l knee M23.232 Derang of medial meniscus du e to old tear/inj, left knee Office Visit 09/14/2020 10:45a Sunspotalphonse Sibley MD M1 7.12 Unilateral primary osteoarthritis, left knee M71.22 Synovial cyst of popliteal s pace [Arce], left knee Office Visit 08/02/2020 10:15a Aileen Rodriguez, P.A. M17.12 Unilateral primary osteoarthritis, left knee Assessments Date Code Description Provider 11/23/2020 M23.242 Derangement of anter ior horn of lateral meniscus due to old tear or injury, left knee Radha Sibley MD 11/23/2020 M23.252 Derangement of poste rior horn of lateral meniscus due to old tear or injury, left knee Radha Sibley MD 11/23/2020 M23.232 Derangement of other medial meniscus due to old tear or injury, left knee Radha Sibley MD 11/23/2020 M17.0 Bilateral primary osteoarthritis of knee [...] osteoarthriti s, left knee Ad Rodriguez, P.A. Plan of Treatment 11/23/2020 - Radha Sibley MD* M23.242 Derangement of anterior horn of lateral meniscus due to old tear or injury, left knee * M23.252 Derangement of posterior horn of lateral meniscus due to old tear or injury, left knee * M23.232 Derangement of other medial meniscus due to old tear or injury, left knee * M17.0 Bilateral primary osteoarthritis of knee* New Orders:* Lashawn Knee Gel One Injection, Ordered: 11/23/20 * Follow up:* upon lashawn gel one approval with any pa Functional Status Description No Information Available Mental Status Description No Information Available Referrals Refer to Reason for Referral Status Appt Date Ad Rodriguez, PA MRI APPROVED PER DEVONTE Campos OR MRI OF LEFT KNEE ([id number]) TO MARÍA Reddy [facility] [address] [place] [address] [phone]
--- OUTSIDE RECORDS SUMMARY | 2021-01-26 13:52 | CCD | Continuity of Care Document ---
Author Author Laura APARICIO Organization Unknown Address [address] [place] [address] Phone [phone] Care Team Providers Care Technology Specialist Name Role Phone Frances Aparicio D.O. AUTM Radha Sibley M.D. AUTM [phone] Andrew Rogel M.D. AUTM [phone] [facility] AUTM [phone] Murtaza Arreola M.D. AUTM [phone] [facility] AUTM [phone] [facility] AUTM Fátima Fairchild D.P.M. AUTM [phone] Problems Active Problems Provider Date Hypothyroidism Frances Aparicio D.O. Onset: 2016 Bipolar disorder Frances Aparicio D.O. Onset: 2016 Spinal stenosis Frances Aparicio D.O. Onset: 2016 Vitamin D deficiency Frances Aparicio D.O. Onset: 11/06 Essential hypertension Frances Aparicio D.O. Onset: 12/2016 Mixed hyperlipidemia Frances Aparicio D.O. Onset: 11/06 Osteopenia Frances Aparicio D.O. Onset: 2016 CVA [...] Start: Unknown End: Quit Smoking Status Reviewed: 10/27/20 Quit ETOH Use Occasionally consumes alcohol Tobacco [...] Indications Ordering Provide r Date Levothyroxine Sodium 50mcg Tablets Take One Tablet By Mouth Every Morning With 200mcg 90tabs E89.0 Frances Aparicio D.O. 06/02/2020 Prolia 60mg/ml Soln Prefill Syring e inject every 6 months Frances Aparicio D.O. 04/30 Adderall 20mg Tablets 1 tab by mouth at noon and 4 pm 30tabs Frances Aparicio D.O. 01/26 Vitamin B 12 500mcg Tablets 1 by mouth every day Frances Aparicio D.O. 11/26 Clopidogrel Bisulfate 75mg Tablets take one tablet by mouth every day 30tabs I69.898 Frances li D.O. 12/24/2017 [place] Carbonate 300mg Capsules 1 capsules by mouth twice aday 90caps Frances Sandoval r, D.O. 08/08/2017 Vitamin D3 5000Unit Capsules 1 by mouth every day with dinner 90caps Deepak Ortiz.O. 08/08/2017 Pravastatin Sodium 40mg Tablets take 1 tablet by mouth every night 90tabs Deepak Ortiz.O. 11/03/2016 Bupropion HCL ER (XL) 300mg Tablets ER 24HR Take One Tablet By Mouth Every Day Unknow n Amlodipine Besylate 5mg Tablets take one tablet by mouth at bedtime 90tabs Frances Aparicio D.O. Levothyroxine Sodium 200mcg Tablet s Take One Tablet By Mouth Every Day 30tabs Frances Martin er, D.O. Adderall XR 30mg Caps ER 24HR 1 by mouth every day istop reference # [id number] Unknown Calcium 500+D [id number] Table ts 1 by mouth once daily Unknown Immunizations Description No Information Available Vital Signs Date Vital Result Comment 10/27/2020 1:58pm BP Systolic 132 mmHg BP Diastolic 76 mmHg Height 68.2 inches 5'8.20" Weight 203.00 lb BMI (Body Mass Index) 30.7 kg/m2 Heart Rate 97 /min Respiratory Rate 18 /min Body Temperature 98.7 F O2 % BldC Oximetry 98 % [place] Body Weight 140 lb 08/24/2020 1:42pm BP Systolic 128 mmHg BP Diastolic 80 mmHg Height 68.2 inches 5'8.20" Weight 199.12 lb BMI (Body Mass Index) 30.1 kg/m2 Heart Rate 81 /min Respiratory Rate 12 /min Body Temperature 97.4 F O2 % BldC Oximetry 99 % [place] Body Weight 140 lb Results Test Acquired Date Facility Test Result H/L Range Note CBC With Differential 11/19/[address] [address] [phone] White Blood Count 7.5 10 Normal 4.0-10.0 [...] 36.0-66.0 Lymph % 20.9 % Low 24.0-44.0 Creek % 6.3 % Normal 2.0-8.0 Eos % 4.8 % High 0.0-3.0 Baso % 0.7 % Normal 0.0-1.0 Immature Granulocyte % 0.5 % Normal 0-3.0 Nucleated Red Blood Cell % 0.0 % Normal 0-0 Neutrophils # 5.0 10 Normal 1.5-8.5 Lymph # 1.6 10 Normal 1.5-5.0 Creek # 0.5 10 Normal 0.0-0.8 Eos # 0.4 10 Normal 0.0-0.5 Baso # 0.1 10 Normal 0.0-0.2 Comprehensive Metabolic Profil 11/19/[address] [address] [phone] Glucose, Fasting 90 mg/dL Normal 70-100 Blood [...] Ratio 1.2 Normal 1.2-2.2 Lipid Panel 11/19/[address] [address] [phone] Triglycerides Level 68 mg/dL Normal <150 Cholesterol Level 179 mg/dL Normal <200 HDL Cholesterol 86 mg/dL Normal >40 LDL Cholesterol 79 mg/dL Normal <100 Non-HDL-C 93 mg/dL Normal Cholesterol Risk Ratio 2.081 Normal <5 FT4&TSH Panel 11/19/[address] [id number] [phone] Thyroid Stimulating Hormone 4.150 uIU/ML High 0. 358-3.740 Free T4 0.79 ng/dL Normal 0.76-1.46 FT4&TSH Panel 09/10/[address] [address] [phone] Thyroid Stimulating Hormone 1.240 uIU/ML Normal 0. 358-3.740 Free T4 1.09 ng/dL Normal 0.76-1.46 Comprehensive Metabolic Profil 09/10/[address] [address] [phone] Glucose, Fasting 100 mg/dL Normal 70-100 Blood [...] 1.3 Normal 1.2-2.2 Laboratory test finding 09/10/2020 [facility] Outpatient [facility] [place] (Registration) [address] [place] [address] [phone] Calcium Level 8.9 mg/dL Normal 8.8-10.2 Total 25(Oh) Vitamin D 35.0 NG/ML Normal 30.0-100.0 Order 06/30/2020 In House Orders EKG see result in chart Comprehensive Metabolic Profil 05/26/[address] [address] [phone] Glucose, Fasting 58 mg/dL Low 70-100 Blood Urea Nitrogen 17 mg/dL Normal 7-18 Creatinine For GFR 0.85 mg/dL Normal 0.55-1.30 Glomerular Filtration Rate > 60.0 Normal >39 3 Sodium Level 140 mEq/L Normal 136-145 Potassium Serum 4.6 mEq/L Normal 3.5-5.1 Chloride Level 109 mEq/L High 98-107 Carbon Dioxide Level 27 mEq/L Normal 21-32 Anion Gap 4 mEq/L Low 8-16 Calcium Level 9.1 mg/dL Normal 8.8-10.2 Ast/Sgot 60 U/L High 7-37 Alt/SGPT 110 U/L High 12-78 Alkaline Phosphatase 107 U/L Normal 45-117 Bilirubin,Total 0.2 mg/dL Normal 0.2-1.0 Total Protein 6.6 GM/DL Normal 6.4-8.2 Albumin 4.0 GM/DL Normal 3.2-5.2 Albumin/Globulin Ratio 1.5 Normal 1.2-2.2 FT4&TSH Panel 05/26/2020 [facility] ce nter [address] [place] [address] [phone] Thyroid Stimulating Hormone 3.840 uIU/ML High 0. 358-3.740 Free T4 0.88 ng/dL Normal 0.76-1.46 CBC With Differential 05/26/[address] [address] [phone] White Blood Count 5.3 10 Normal 4.0-10.0 Red Blood Count 4.39 10 Normal 4.00-5.40 Hemoglobin 13.6 g/dL Normal 12.0-15.5 Hematocrit 43.3 % Normal 36.0-47.0 Mean Corpuscular Volume 98.6 fl High 80.0-96.0 Mean Corpuscular Hemoglobin 31.0 pg Normal 27.0-33.0 Mean Corpuscular HGB Conc 31.4 g/dL Low 32.0-36.5 Red Cell Distribution Width 13.2 % Normal 11.5-14.5 Platelet Count, Automated 248 10 Normal 150-450 Neutrophils % 59.3 % Normal 36.0-66.0 Lymph % 27.4 % Normal 24.0-44.0 Creek % 8.1 % High 2.0-8.0 Eos % 3.8 % High 0.0-3.0 Baso % 0.8 % Normal 0.0-1.0 Immature Granulocyte % 0.6 % Normal 0-3.0 Nucleated Red Blood Cell % 0.0 % Normal 0-0 Neutrophils # 3.2 10 Normal 1.5-8.5 Lymph # 1.5 10 Normal 1.5-5.0 Creek # 0.4 10 Normal 0.0-0.8 Eos # 0.2 10 Normal 0.0-0.5 Baso # 0.0 10 Normal 0.0-0.2 Lipid Panel 05/26/2020 [facility] nter [address] [place] [id number] [phone] Triglycerides Level 114 mg/dL Normal <150 Cholesterol Level 204 mg/dL High <200 HDL Cholesterol 89 mg/dL Normal >40 LDL Cholesterol 92 mg/dL Normal <100 Non-HDL-C 115 mg/dL Normal Cholesterol Risk Ratio 2.292 Normal <5 1 Units are mL/min/1.73 m2 Chronic Kidney Disease Staging per NKF: Stage I & II GFR >=60 Normal to Mildly Decreased Stage III GFR 30-59 Moderately Decreased Stage IV GFR 15-29 Severely Decreased Stage V GFR <15 Very Little GFR Left ESRD GFR <15 on KENO WRITER / RUNNER 2 Units are mL/min/1.73 m2 Chronic Kidney Disease Staging per NKF: Stage I & II GFR >=60 Normal to Mildly Decreased Stage III GFR 30-59 Moderately Decreased Stage IV GFR 15-29 Severely Decreased Stage V GFR <15 Very Little GFR Left ESRD GFR <15 on KENO WRITER / RUNNER 3 Units are mL/min/1.73 m2 Chronic Kidney Disease Staging per NKF: Stage I & II GFR >=60 Normal to Mildly Decreased Stage III GFR 30-59 Moderately Decreased Stage IV GFR 15-29 Severely Decreased Stage V GFR <15 Very Little GFR Left ESRD GFR <15 on KENO WRITER / RUNNER Procedures Date Code Description Status 10/27/2020 22682 Office/Outpatient Established Mo d MDM 30-39 Min Completed 08/24/2020 37772 Office/Outpatient Established Lo w MDM 20-29 Min Completed 06/30/2020 98953 Electrocardiogram Complete Compl eted 06/29/2020 04110 Office/Outpatient Established Mo d MDM 30-39 Min Completed 06/29/2020 38319 Electrocardiogram Complete Compl eted 06/02/2020 25737 Office/Outpatient Established Mo d MDM 30-39 Min Completed Medical Devices Description No Information Available Encounters Type Date Location Provider Dx Diagnosis Office Visit 10/27/2020 2:00p [facility] Harris Aparicio D.O. E89.0 Postprocedural hypothyroidis m I10 Essential (primary) hyperten mason M81.0 Age-related osteoporosis w/o current pathological fracture E55.9 Vitamin D deficiency, unspec ified F31.5 Bipolar disord, crnt epsd de press, severe, w psych features I69.898 Other sequelae of other cere brovascular disease Z87.891 Personal history of nicotine dependence Z79.899 Other care home (current) dr jackson therapy E78.2 Mixed hyperlipidemia [...] current pathological fracture Office Visit 06/29/2020 1:30p [facility] Harris Aparicio D.O. Z01.818 Encounter for other preproce dural examination M79.672 Pain in left foot M20.42 Other hammer toe(s) (acquire d), left foot I10 Essential (primary) hyperten mason E89.0 Postprocedural hypothyroidis m I45.10 Unspecified right bundle-bra formerly [facility] block Office Visit 06/02/2020 1:00p [facility] Deepak Ortiz.O. I10 Essential (primary) hyperten mason R53.83 Other fatigue E89.0 Postprocedural hypothyroidis m M81.0 Age-related osteoporosis w/o current pathological fracture I45.10 Unspecified right bundle-bra meh block M71.22 Synovial cyst of popliteal s pace [Yazmin], left knee R74.01 Elevation of levels of liver transaminase levels E55.9 Vitamin D deficiency, unspec ified Assessments Date Code Description Provider 10/27/2020 E89.0 Postprocedural hypothyroidism Deepak Dias.OKitty 10/27/2020 I10 Essential (primary) hypertension Radha OrtizOKitty 10/27/2020 M81.0 Age-related osteoporosis without current pathological fracture Deepak Ortiz.OKitty 10/27/2020 E55.9 Vitamin D deficiency, unspecifie d Deepak Ortiz.OKitty 10/27/2020 F31.5 Bipolar disorder, cu rrent episode depressed, severe, with psychotic features Deepak Ortiz.OKitty 10/27/2020 I69.898 Other sequelae of other cerebrov ascular disease Radha OrtizOKitty 10/27/2020 Z87.891 Personal history of nicotine dep endence Deepak Ortiz.OKitty 10/27/2020 Z79.899 Other care home (current) drug t herapy Deepak Ortiz.OKitty 10/27/2020 E78.2 Mixed hyperlipidemia Deepak Marshall.OKitty 10/27/2020 I63.311 Cerebral infarction due to thrombosis of right middle cerebral artery Radha OrtizOKitty 08/24/2020 M71.22 Synovial cyst of popliteal space [Arce], left knee Radha OrtizO. 08/24/2020 M79.672 Pain in left foot Frances Kinney, D.O. 08/24/2020 E89.0 Postprocedural hypothyroidism Ayaan Aparicio, D.O. 08/24/2020 I10 Essential (primary) hypertension Frances Aparicio, D.O. 08/24/2020 M81.0 Age-related osteoporosis without current pathological fracture Frances Hilario-Nirmal, D.O. 06/30/2020 Z01.818 Encounter for other preprocedura l examination Frances Kinney, D.O. 06/29/2020 Z01.818 Encounter for other preprocedura l examination Frances Kinney, D.O. 06/29/2020 M79.672 Pain in left foot Frances Kinney, D.O. 06/29/2020 M20.42 Other hammer toe(s) (acquired), left foot Frances Kinney, D.O. 06/29/2020 I10 Essential (primary) hypertension Frances LagunaNirmal, D.O. 06/29/2020 E89.0 Postprocedural hypothyroidism Ayaan Aparicio, D.O. 06/29/2020 I45.10 Unspecified right bundle-branch block Francesrikki Aparicio, D.O. 06/02/2020 I10 Essential (primary) hypertension Frances Aparicio, D.O. 06/02/2020 R53.83 Other fatigue Frances Mary Lou rbguillermo, D.O. 06/02/2020 E89.0 Postprocedural hypothyroidism Ayaan Aparicio, D.O. 06/02/2020 M81.0 Age-related osteoporosis without current pathological fracture Frances Aparicio, D.O. 06/02/2020 I45.10 Unspecified right bundle-branch block Frances Alessandra, D.O. 06/02/2020 M71.22 Synovial cyst of popliteal space [Arce], left knee Frances Aparicio D.O. 06/02/2020 R74.01 Elevation of levels of liver tra nsaminase levels Frances Aparicio D.O. 06/02/2020 E55.9 Vitamin D deficiency, unspecifie d Frances Aparicio D.O. Plan of Treatment Future Appointment(s):* 01/27/2021 2:00 pm - Frances Aparicio D.O. at [facility] * 11/26/2020 10:00 am - Frances Aparicio D.O. at [facility] Functional Status Description No Information Available Mental Status Description No Information Available Referrals Description No Information Available
--- OUTSIDE RECORDS SUMMARY | 2021-01-26 13:52 | CCD | Continuity of Care Document ---
Author Author Laura APARICIO Organization Unknown Address [address] [place] [address] Phone [phone] Care Team Providers Care Investigations Director Name Role Phone Frances Aparicio D.O. AUTM Radha Sibley M.D. AUTM Andrew Rogel M.D. AUTM [phone] [facility] AUTM [phone] Murtaza Arreola M.D. AUTM [phone] [facility] AUTM [phone] [facility] AUTM Fátima Fairchild D.P.M. pc AUTM Yosvany Brown MD AUTM [phone] Problems Active Problems Provider Date Hypothyroidism Frances [...] every day 30tabs I69.898 Radha MacarioOKitty 12/24/2017 [place] Carbonate 300mg Capsules 1 capsules by mouth [...] by mouth every day istop reference # [id number] Unknown Calcium 500+D [id number] Table ts 1 by mouth once daily [...] F O2 % BldC Oximetry 97 % [place] Body Weight 140 lb 10/27/2020 1:58pm BP Systolic 132 mmHg BP Diastolic 76 mmHg Height 68.2 inches 5'8.20" Weight 203.00 lb BMI (Body Mass Index) 30.7 kg/m2 Heart Rate 97 /min Respiratory Rate 18 /min Body Temperature 98.7 F O2 % BldC Oximetry 98 % [place] Body Weight 140 lb Results Test Acquired Date Facility Test Result H/L Range Note CBC With Differential 11/19/[address] [address] [phone] White Blood Count 7.5 10 Normal 4.0-10.0 [...] 36.0-66.0 Lymph % 20.9 % Low 24.0-44.0 [place] % 6.3 % Normal 2.0-8.0 Eos % 4.8 % High 0.0-3.0 Baso % 0.7 % Normal 0.0-1.0 Immature Granulocyte % 0.5 % Normal 0-3.0 Nucleated Red Blood Cell % 0.0 % Normal 0-0 Neutrophils # 5.0 10 Normal 1.5-8.5 Lymph # 1.6 10 Normal 1.5-5.0 [place] # 0.5 10 Normal 0.0-0.8 Eos # 0.4 10 Normal 0.0-0.5 Baso # 0.1 10 Normal 0.0-0.2 Comprehensive Metabolic Profil 11/19/[address] [address] [phone] Glucose, Fasting 90 mg/dL Normal 70-100 Blood [...] Ratio 1.2 Normal 1.2-2.2 Lipid Panel 11/19/[address] [address] [phone] Triglycerides Level 68 mg/dL Normal <150 Cholesterol Level 179 mg/dL Normal <200 HDL Cholesterol 86 mg/dL Normal >40 LDL Cholesterol 79 mg/dL Normal <100 Non-HDL-C 93 mg/dL Normal Cholesterol Risk Ratio 2.081 Normal <5 FT4&TSH Panel 11/19/[address] [id number] [phone] Thyroid Stimulating Hormone 4.150 uIU/ML High 0. 358-3.740 Free T4 0.79 ng/dL Normal 0.76-1.46 FT4&TSH Panel 09/10/[address] [id number] [phone] Thyroid Stimulating Hormone 1.240 uIU/ML Normal 0. 358-3.740 Free T4 1.09 ng/dL Normal 0.76-1.46 Comprehensive Metabolic Profil 09/10/[address] [id number] [phone] Glucose, Fasting 100 mg/dL Normal 70-100 Blood [...] 1.3 Normal 1.2-2.2 Laboratory test finding 09/10/2020 [facility] Outpatient [facility] [place] (Registration) [address] [place] [id number] [phone] Calcium Level 8.9 mg/dL Normal 8.8-10.2 Total [...] Little GFR Left ESRD GFR <15 on TOBACCO EDUCATOR 2 Units are mL/min/1.73 m2 Chronic Kidney Disease Staging per NKF: Stage I & II GFR >=60 Normal to Mildly Decreased Stage III GFR 30-59 Moderately Decreased Stage IV GFR 15-29 Severely Decreased Stage V GFR <15 Very Little GFR Left ESRD GFR <15 on TOBACCO EDUCATOR Procedures Date Code Description Status 11/26/2020 30354 Office/Outpatient Established Lo w MDM 20-29 Min Completed 10/27/2020 26814 Office/Outpatient Established Mo d MDM 30-39 Min Completed 08/24/2020 74657 Office/Outpatient Established Lo w MDM 20-29 Min Completed 06/30/2020 90531 Electrocardiogram Complete Compl eted 06/29/2020 08364 Office/Outpatient Established Mo d MDM 30-39 Min Completed 06/29/2020 91402 Electrocardiogram Complete Compl eted 06/02/2020 07574 Office/Outpatient Established Mo d MDM 30-39 Min Completed Medical Devices Description No Information Available Encounters Type Date Location Provider Dx Diagnosis Office Visit 11/26/2020 10:00a [facility] Harris Aparicio D.O. H02.401 Unspecified ptosis of [...] Personal history of nicotine dependence Z79.899 Other longterm (current) dr jackson therapy E78.2 Mixed hyperlipidemia D51.9 Vitamin B12 deficiency anemi a, unspecified Office Visit 10/27/2020 2:00p [facility] Harris Aparicio D.O. 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 M71.22 Synovial cyst of popliteal s pace [Arce], left knee M79.672 Pain in left foot E89.0 Postprocedural hypothyroidis m I10 Essential (primary) hyperten mason M81.0 Age-related osteoporosis w/o current pathological fracture Office Visit 06/29/2020 1:30p [facility] taylor Aparicio D.O. Z01.818 Encounter for other preproce dural examination M79.672 Pain in left foot M20.42 Other hammer toe(s) (acquire d), left foot I10 Essential (primary) hyperten mason E89.0 Postprocedural hypothyroidis m I45.10 Unspecified right bundle-bra formerly [facility] block Office Visit 06/02/2020 1:00p [facility] Deepak Vo.O. I10 Essential (primary) hyperten mason R53.83 Other fatigue E89.0 Postprocedural hypothyroidis m M81.0 Age-related osteoporosis w/o current pathological fracture I45.10 Unspecified right bundle-bra formerly [facility] block M71.22 Synovial cyst of popliteal s [...] dep endence Deepak Ortiz.OKitty 11/26/2020 Z79.899 Other longterm (current) drug t herapy Frances Aparicio, D.O. [...] Frances Aparicio, D.O. 10/27/2020 Z79.899 Other terminal operator (current) drug t herapy Frances Aparicio, D.O. [...] 10:40 am - Frances Aparicio D.O. at [facility] * 01/27/2021 2:00 pm - Frances Aparicio D.O. at [facility] Functional Status Description No Information Available Mental Status Description No Information Available Referrals Description No Information Available
--- OUTSIDE RECORDS SUMMARY | 2021-01-26 13:52 | CCD | Continuity of Care Document ---
Author Author Laura APARICIO Organization Unknown Address [address] [place] [address] Phone [phone] Care Team Providers Care Delivery Driver Assistant Name Role Phone Frances Aparicio D.O. AUTM Radha Sibley M.D. AUTM Andrew Rogel M.D. AUTM [phone] [facility] AUTM [phone] Murtaza Arreola M.D. AUTM [phone] [facility] AUTM [phone] [facility] AUTM [phone] Fátima Fairchild D.P.M. pc AUTM [phone] Yosvany Brown MD AUTM [phone] Problems Active Problems Provider Date Hypothyroidism Frances [...] by mouth every day 30tabs I69.898 Radha MacarioOKtity 12/24/2017 [place] Carbonate 300mg Capsules 1 capsules by mouth [...] by mouth every day istop reference # [id number] Unknown Calcium 500+D [id number] Table ts 1 by mouth once daily [...] F O2 % BldC Oximetry 97 % [place] Body Weight 140 lb 10/27/2020 1:58pm BP Systolic 132 mmHg BP Diastolic 76 mmHg Height 68.2 inches 5'8.20" Weight 203.00 lb BMI (Body Mass Index) 30.7 kg/m2 Heart Rate 97 /min Respiratory Rate 18 /min Body Temperature 98.7 F O2 % BldC Oximetry 98 % [place] Body Weight 140 lb Results Test Acquired Date Facility Test Result H/L Range Note CBC With Differential 11/19/[address] [address] [phone] White Blood Count 7.5 10 Normal 4.0-10.0 [...] 36.0-66.0 Lymph % 20.9 % Low 24.0-44.0 [place] % 6.3 % Normal 2.0-8.0 Eos % 4.8 % High 0.0-3.0 Baso % 0.7 % Normal 0.0-1.0 Immature Granulocyte % 0.5 % Normal 0-3.0 Nucleated Red Blood Cell % 0.0 % Normal 0-0 Neutrophils # 5.0 10 Normal 1.5-8.5 Lymph # 1.6 10 Normal 1.5-5.0 Kimble # 0.5 10 Normal 0.0-0.8 Eos # 0.4 10 Normal 0.0-0.5 Baso # 0.1 10 Normal 0.0-0.2 Comprehensive Metabolic Profil 11/19/[address] [address] [phone] Glucose, Fasting 90 mg/dL Normal 70-100 Blood [...] Ratio 1.2 Normal 1.2-2.2 Lipid Panel 11/19/[address] [address] [phone] Triglycerides Level 68 mg/dL Normal <150 Cholesterol Level 179 mg/dL Normal <200 HDL Cholesterol 86 mg/dL Normal >40 LDL Cholesterol 79 mg/dL Normal <100 Non-HDL-C 93 mg/dL Normal Cholesterol Risk Ratio 2.081 Normal <5 FT4&TSH Panel 11/19/[address] [id number] [phone] Thyroid Stimulating Hormone 4.150 uIU/ML High 0. 358-3.740 Free T4 0.79 ng/dL Normal 0.76-1.46 FT4&TSH Panel 09/10/[address] 2020769 [phone] Thyroid Stimulating Hormone 1.240 uIU/ML Normal 0. 358-3.740 Free T4 1.09 ng/dL Normal 0.76-1.46 Comprehensive Metabolic Profil 09/10/[address] [id number] [phone] Glucose, Fasting 100 mg/dL Normal 70-100 Blood [...] 1.3 Normal 1.2-2.2 Laboratory test finding 09/10/2020 [facility] Out[facility] [place] (Registration) [address] [address]210 [phone] Calcium Level 8.9 mg/dL Normal 8.8-10.2 Total [...] Little GFR Left ESRD GFR <15 on [employer] AD[employer] REPRESENTATIVE 2 Units are mL/min/1.73 m2 Chronic Kidney Disease Staging per NKF: Stage I & II GFR >=60 Normal to Mildly Decreased Stage III GFR 30-59 Moderately Decreased Stage IV GFR 15-29 Severely Decreased Stage V GFR <15 Very Little GFR Left ESRD GFR <15 on [employer] ADMISS[employer] REPRESENTATIVE Procedures Date Code Description Status 11/26/2020 14800 Office/Outpatient Established Lo w MDM 20-29 Min Completed 10/27/2020 50877 Office/Outpatient Established Mo d MDM 30-39 Min Completed 08/24/2020 83682 Office/Outpatient Established Lo w MDM 20-29 Min Completed 06/30/2020 97653 Electrocardiogram Complete Compl eted 06/29/2020 24546 Office/Outpatient Established Mo d MDM 30-39 Min Completed 06/29/2020 75826 Electrocardiogram Complete Compl eted 06/02/2020 56611 Office/Outpatient Established Mo d MDM 30-39 Min Completed Medical Devices Description No Information Available Encounters Type Date Location Provider Dx Diagnosis Office Visit 11/26/2020 10:00a [facility] Harris Aparicio D.O. H02.401 Unspecified ptosis [...] Personal history of nicotine dependence Z79.899 Other fpc (current) dr jackson therapy E78.2 Mixed hyperlipidemia D51.9 Vitamin B12 deficiency anemi a, unspecified Office Visit 10/27/2020 2:00p [facility] Harris Aparicio D.O. 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 M71.22 Synovial cyst of popliteal s pace [Arce], left knee M79.672 Pain in left foot E89.0 Postprocedural hypothyroidis m I10 Essential (primary) hyperten mason M81.0 Age-related osteoporosis w/o current pathological fracture Office Visit 06/29/2020 1:30p [facility] taylor Aparicio D.O. Z01.818 Encounter for other preproce dural examination M79.672 Pain in left foot M20.42 Other hammer toe(s) (acquire d), left foot I10 Essential (primary) hyperten mason E89.0 Postprocedural hypothyroidis m I45.10 Unspecified right bundle-bra formerly [facility] block Office Visit 06/02/2020 1:00p [facility] Deepak Vo.O. I10 Essential (primary) hyperten mason R53.83 Other fatigue E89.0 Postprocedural hypothyroidis m M81.0 Age-related osteoporosis w/o current pathological fracture I45.10 Unspecified right bundle-bra formerly [facility] block M71.22 Synovial cyst of [...] dep endence Deepak Ortiz.OKitty 11/26/2020 Z79.899 Other fpc (current) drug t herapy Frances Aparicio, D.O. [...] endence Frances Aparicio, D.O. 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 [...] 10:40 am - Frances Aparicio D.O. at [facility] * 01/27/2021 2:00 pm - Frances Aparicio D.O. at [facility] Functional Status Description No Information Available Mental Status Description No Information Available Referrals Description No Information Available
--- OUTSIDE RECORDS SUMMARY | 2021-01-26 13:54 | CCD ---
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 Package Yarns Name Role Phone MCELHERAN, SIGIFREDO PA Unavailable Unavailable MCELHERAN, SIGIFREDO PA Unavailable Unavailable MCELHERAN, SIGIFREDO PA Unavailable Unavailable MCELHERAN, SIGIFREDO PA Unavailable Unavailable MCELHERAN, SIGIFREDO PA Unavailable Unavailable MCELHERAN, SIGIFREDO PA Unavailable Unavailable MCELHERAN, SIGIFREDO PA Unavailable Unavailable MCELHERAN, SIGIFREDO PA Unavailable Unavailable MCELHERAN, SIGIFREDO PA Unavailable Unavailable MCELHERAN, SIGIFREDO PA Unavailable Unavailable MCELHERAN, SIGIFREDO PA Unavailable Unavailable MCELHERAN, SIGIFREDO PA Unavailable Unavailable MCELHERAN, SIGIFREDO PA Unavailable Unavailable MCELHERAN, SIGIFREDO PA Unavailable Unavailable MCELHERAN, SIGIFREDO PA Unavailable Unavailable MCELHERAN, SIGIFREDO PA Unavailable Unavailable MCELHERAN, SIGIFREDO PA Unavailable Unavailable MCELHERAN, SIGIFREDO PA Unavailable Unavailable MCELHERAN, SIGIFREDO PA Unavailable Unavailable MCELHERAN, SIGIFREDO PA Unavailable Unavailable MCELHERAN, SIGIFREDO PA Unavailable Unavailable MCELHERAN, SIGIFREDO PA Unavailable Unavailable MCELHERAN, SIGIFREDO PA Unavailable Unavailable MCELHERAN, SIGIFREDO PA Unavailable Unavailable MCELHERAN, SIGIFREDO PA Unavailable Unavailable MCELHERAN, SIGIFREDO PA Unavailable Unavailable MCELHERAN, SIGIFREDO PA Unavailable Unavailable MCELHERAN, SIGIFREDO PA Unavailable Unavailable MCELHERAN, SIGIFREDO PA Unavailable Unavailable SEB-WAQAR, FRANCES DO Unavailable Unavailable SEB-WAQAR, FRANCES DO Unavailable Unavailable SEB-WAQAR, FRANCES DO Unavailable Unavailable SEB-WAQAR, FRANCES DO Unavailable Unavailable SEB-WAQAR, FRANCES DO Unavailable Unavailable SEB-WAQAR, FRANCES DO Unavailable Unavailable SEB-WAQAR, FRANCES DO Unavailable Unavailable SEB-WAQAR, FRANCES DO Unavailable Unavailable SEB-WAQAR, FRANCES DO Unavailable Unavailable SEB-WAQAR, FRANCES DO Unavailable Unavailable SEB-WAQAR, FRANCES DO Unavailable Unavailable SEB-WAQAR, FRANCES DO Unavailable Unavailable SEB-WAQAR, FRANCES DO Unavailable Unavailable SEB-WAQAR, FRANCES DO Unavailable Unavailable SEB-WAQAR, FRANCES DO Unavailable Unavailable SEB-WAQAR, FRANCES DO Unavailable Unavailable SEB-WAQAR, FRANCES DO Unavailable Unavailable SEB-WAQAR, FRANCES DO Unavailable Unavailable SEB-WAQAR, FRANCES DO Unavailable Unavailable SEB-WAQAR, FRANCES DO Unavailable Unavailable SEB-WAQAR, FRANCES DO Unavailable Unavailable SEB-WAQAR, FRANCES DO Unavailable Unavailable SEB-WAQAR, FRANCES DO Unavailable Unavailable SEB-WAQAR, FRANCES DO Unavailable Unavailable SEB-WAQAR, FRANCES DO Unavailable Unavailable SEB-WAQAR, FRANCES DO Unavailable Unavailable SEB-WAQAR, FRANCES DO Unavailable Unavailable SEB-WAQAR, FRANCES DO Unavailable Unavailable SEB-WAQAR, FRANCES DO Unavailable Unavailable SEB-WAQAR, FRANCES DO Unavailable Unavailable SEB-WAQAR, FRANCES DO Unavailable Unavailable SEB-WAQAR, FRANCES DO Unavailable Unavailable SEB-WAQAR, FRANCES DO Unavailable Unavailable SEB-WAQAR, FRANCES DO Unavailable Unavailable SEB-WAQAR, FRANCES DO Unavailable Unavailable SEB-WAQAR, FRANCES DO Unavailable Unavailable SEB-WAQAR, FRANCES DO Unavailable Unavailable SEB-WAQAR, FRANCES DO Unavailable Unavailable SEB-WAQAR, FRANCES DO Unavailable Unavailable SEB-WAQAR, FRANCES DO Unavailable Unavailable SEB-WAQAR, FRANCES DO Unavailable Unavailable SEB-WAQAR, FRANCES DO Unavailable Unavailable SEB-WAQAR, FRANCES DO Unavailable Unavailable SEB-WAQAR, FRANCES DO Unavailable Unavailable SEB-WAQAR, FRANCES DO Unavailable Unavailable SEB-WAQAR, FRANCES DO Unavailable Unavailable SEB-WAQAR, FRANCES DO Unavailable Unavailable SEB-WAQAR, FRANCES DO Unavailable Unavailable SEB-WAQAR, FRANCES DO Unavailable Unavailable SEB-WAQAR, FRANCES DO Unavailable Unavailable SEB-WAQAR, FRANCES DO Unavailable Unavailable SEB-WAQAR, FRANCES DO Unavailable Unavailable SEB-WAQAR, FRANCES DO Unavailable Unavailable SEB-WAQAR, FRANCES DO Unavailable Unavailable SEB-WAQAR, FRANCES DO Unavailable Unavailable SEB-WAQAR, FRANCES DO Unavailable Unavailable SEB-WAQAR, FRANCES DO Unavailable Unavailable SEB-WAQAR, FRANCES DO Unavailable Unavailable SEB-WAQAR, FRANCES DO Unavailable Unavailable SEB-WAQAR, FRANCES DO Unavailable Unavailable SEB-WAQAR, FRANCES DO Unavailable Unavailable SEB-WAQAR, FRANCES DO Unavailable Unavailable SEB-WAQAR, FRANCES DO Unavailable Unavailable SEB-WAQAR, FRANCES DO Unavailable Unavailable SEB-WAQAR, FRANCES DO Unavailable Unavailable SEB-WAQAR, FRANCES DO Unavailable Unavailable SEB-WAQAR, FRANCES DO Unavailable Unavailable SEB-WAQAR, FRANCES DO Unavailable Unavailable SEB-WAQAR, FRANCES DO Unavailable Unavailable SEB-WAQAR, FRANCES DO Unavailable Unavailable SEB-WAQAR, FRANCES DO Unavailable Unavailable SEB-WAQAR, FRANCES DO Unavailable Unavailable SEB-WAQAR, FRANCES DO Unavailable Unavailable SEB-WAQAR, FRANCES DO Unavailable Unavailable SEB-WAQAR, FRANCES DO Unavailable Unavailable SEB-WAQAR, FRANCES DO Unavailable Unavailable SEB-WAQAR, FRANCES DO Unavailable Unavailable SEB-WAQAR, FRANCES DO Unavailable Unavailable SEB-WAQAR, FRANCES DO Unavailable Unavailable SEB-WAQAR, FRANCES DO Unavailable Unavailable SEB-WAQAR, FRANCES DO Unavailable Unavailable SEB-WAQAR, FRANCES DO Unavailable Unavailable SEB-WAQAR, FRANCES DO Unavailable Unavailable SEB-WAQAR, FRANCES DO Unavailable Unavailable Arie Mcclelland MD Unavailable Unavailable Arie Mcclelland MD Unavailable Unavailable Arie Mcclelland MD Unavailable Unavailable KrystinArie rivera MD Unavailable Unavailable Arie Mcclelland MD Unavailable Unavailable Arie Mcclelland MD Unavailable Unavailable Arie Mcclelland MD Unavailable Unavailable Arie Mcclelland MD Unavailable Unavailable Arie Mcclelland MD Unavailable Unavailable Arie Mcclelland MD Unavailable Unavailable Arie Mcclelland MD Unavailable Unavailable Arie Mcclelland MD Unavailable Unavailable Arie Mcclelland MD Unavailable Unavailable Arie Mcclelland MD Unavailable Unavailable Arie Mcclelland MD Unavailable Unavailable Arie Mcclelland MD Unavailable Unavailable Arie Mcclelland MD Unavailable Unavailable Arie Mcclelland MD Unavailable Unavailable Arie Mcclelland MD Unavailable Unavailable Arie Mcclelland MD Unavailable Unavailable Arie Mcclelland MD Unavailable Unavailable Arie Mcclelland MD Unavailable Unavailable Arie Mcclelland MD Unavailable Unavailable Arie Mcclelland MD Unavailable Unavailable Arie Mcclelland MD Unavailable Unavailable Arie Mcclelland MD Unavailable Unavailable Arie Mcclelland MD Unavailable Unavailable Arie Mcclelland MD Unavailable Unavailable Arie Mcclelland MD Unavailable Unavailable Arie Mcclelland MD Unavailable Unavailable Arie Mcclelland MD Unavailable Unavailable Arie Mcclelland MD Unavailable Unavailable Arie Mcclelland MD Unavailable Unavailable Arie Mcclelland MD Unavailable Unavailable Arie Mcclelland MD Unavailable Unavailable Arie Mcclelland MD Unavailable Unavailable Arie Mcclelland MD Unavailable Unavailable Arie Mcclelland MD Unavailable Unavailable Arie Mcclelland MD Unavailable Unavailable Arie Mcclelland MD Unavailable Unavailable Arie Mcclelland MD Unavailable Unavailable Arie Mcclelland MD Unavailable Unavailable Arie Mcclelland MD Unavailable Unavailable Arie Mcclelland MD Unavailable Unavailable Arie Mcclelland MD Unavailable Unavailable Arie Mcclelland MD Unavailable Unavailable Arie Mcclelland MD Unavailable Unavailable Arie Mcclelland MD Unavailable Unavailable Arie Mcclelland MD Unavailable Unavailable Arie Mcclelland MD Unavailable Unavailable Arie Mcclelland MD Unavailable Unavailable Arie Mcclelland MD Unavailable Unavailable Arie Mcclelland MD Unavailable Unavailable Arie Mcclelland MD Unavailable Unavailable Arie Mcclelland MD Unavailable Unavailable Arie Mcclelland MD Unavailable Unavailable Arie Mcclelland MD Unavailable Unavailable Arie Mcclelland MD Unavailable Unavailable Arie Mcclelland MD Unavailable Unavailable Arie Mcclelland MD Unavailable Unavailable Arie Mcclelland MD Unavailable Unavailable Arie Mcclelland MD Unavailable Unavailable Arie Mcclelland MD Unavailable Unavailable Arie Mcclelland MD Unavailable Unavailable Arie Mcclelland MD Unavailable Unavailable Arie Mcclelland MD Unavailable Unavailable Arie Mcclelland MD Unavailable Unavailable Arie Mcclelland MD Unavailable Unavailable Arie Mcclelland MD Unavailable Unavailable Arie Mcclelland MD Unavailable Unavailable Arie Mcclelland MD Unavailable Unavailable Arie Mcclelland MD Unavailable Unavailable Arie Mcclelland MD Unavailable Unavailable Arie Mcclelland MD Unavailable Unavailable Arie Mcclelland MD Unavailable Unavailable Arie Mcclelland MD Unavailable Unavailable Arie Mcclelland MD Unavailable Unavailable Arie Mcclelland MD Unavailable Unavailable Arie Mcclelland MD Unavailable Unavailable Arie Mcclelland MD Unavailable Unavailable Arie Mcclelland MD Unavailable Unavailable Arie Mcclelland MD Unavailable Unavailable Arie Mcclelland MD Unavailable Unavailable Arie Mcclelland MD Unavailable Unavailable Shahab Arreola MD Unavailable Unavailable Sahhab Arreola MD Unavailable Unavailable Shahab Arreola MD Unavailable Unavailable Shahab Arreola MD Unavailable Unavailable Shahab Arreola MD Unavailable Unavailable Shahab Arreola MD Unavailable Unavailable Shahab Arreola MD Unavailable Unavailable Shahab Arreola MD Unavailable Unavailable Shahab Arreola MD Unavailable Unavailable Shahab Arreola MD Unavailable Unavailable Shahab Arreola MD Unavailable Unavailable Fish, Shahab Bal MD Unavailable Unavailable Fish, Shahab Bal MD Unavailable Unavailable Fish, Shahab Bal MD Unavailable Unavailable Fish, Shahab Bal MD Unavailable Unavailable Fish, Shahab Bal MD Unavailable Unavailable Fish, Shahab Bal MD Unavailable Unavailable Fish, Shahab Bal MD Unavailable Unavailable Fish, Shahab Bal MD Unavailable Unavailable Fish, Shahab Bal MD Unavailable Unavailable Fish, Shahab Bal MD Unavailable Unavailable Fish, B Mally APONTE Unavailable Unavailable Fish, Shahab Bal MD Unavailable Unavailable Fish, B Mally APONTE Unavailable Unavailable Fish, B Mally APONTE Unavailable Unavailable Fish, Shahab Bal MD Unavailable Unavailable Fish, Shahab Bal MD Unavailable Unavailable Fish, Shahab Bal MD Unavailable Unavailable Fish, B Mally APONTE Unavailable Unavailable Fish, B Mally APONTE Unavailable Unavailable Fish, B Mally APONTE Unavailable Unavailable Fish, B Mally APONTE Unavailable Unavailable Fish, B Mally APONTE Unavailable Unavailable Fish, B Mally APONTE Unavailable Unavailable Fish, B Mally APONTE Unavailable Unavailable Fish, B Mally APONTE Unavailable Unavailable Fish, B Mally APONTE Unavailable Unavailable Fish, B Mally APONTE Unavailable Unavailable Fish, B Mally APONTE Unavailable Unavailable Fish, B Mally APONTE Unavailable Unavailable Fish, B Mally APONTE Unavailable Unavailable Fish, Shahab Bal MD Unavailable Unavailable Fish, B Mally APONTE Unavailable Unavailable Fish, Shahab Bal MD Unavailable Unavailable Fish, B Mally APONTE Unavailable Unavailable Fish, B Mally APONTE Unavailable Unavailable Fish, B Mally APONTE Unavailable Unavailable Fish, B Mally APONTE Unavailable Unavailable Fish, Shahab Bal MD Unavailable Unavailable Fish, Shahab Bal MD Unavailable Unavailable Fish, Shahab Bal MD Unavailable Unavailable Fish, Shahab Bal MD Unavailable Unavailable Fish, Shahab Bal MD Unavailable Unavailable Fish, Shahab Bal MD Unavailable Unavailable Fish, Shahab Bal MD Unavailable Unavailable Fish, B Mally APONTE Unavailable Unavailable Fish, Shahab Bal MD Unavailable Unavailable Fish, Shahab Bal MD Unavailable Unavailable Fish, Shahab Bal MD Unavailable Unavailable Fish, Shahab Bal MD Unavailable Unavailable Fish, B Mally APONTE Unavailable Unavailable Fish, B Mally APONTE Unavailable Unavailable Fish, B Mally APONTE Unavailable Unavailable Fish, B Mally APONTE Unavailable Unavailable Fish, B Mally APONTE Unavailable Unavailable Andrew Rogel MD Unavailable Unavailable Andrew Rogel MD Unavailable Unavailable Andrew Rogel MD Unavailable Unavailable Andrew Rogel MD Unavailable Unavailable Andrew Rogel MD Unavailable Unavailable Andrew Rogel MD Unavailable Unavailable Andrew Rogel MD Unavailable Unavailable Andrew Rogel MD Unavailable Unavailable Andrew Rogel MD Unavailable Unavailable Andrew Rogel MD Unavailable Unavailable Andrew Rogel MD Unavailable Unavailable Andrew Rogel MD Unavailable Unavailable Andrew Rogel MD Unavailable Unavailable Andrew Rogel MD Unavailable Unavailable Andrew Rogel MD Unavailable Unavailable Andrew Rogel MD Unavailable Unavailable Andrew Rogel MD Unavailable Unavailable Andrew Rogel MD Unavailable Unavailable Andrew Rogel MD Unavailable Unavailable Andrew Rogel MD Unavailable Unavailable Andrew Rogel MD Unavailable Unavailable Andrew Rogel MD Unavailable Unavailable Andrew Rogel MD Unavailable Unavailable Andrew Rogel MD Unavailable Unavailable Andrew Rogel MD Unavailable Unavailable Andrew Rogel MD Unavailable Unavailable Andrew Rogel MD Unavailable Unavailable Andrew Rogel MD Unavailable Unavailable Andrew Rogel MD Unavailable Unavailable Andrew Rogel MD Unavailable Unavailable Andrew Rogel MD Unavailable Unavailable Andrew Rogel MD Unavailable Unavailable Andrew Rogel MD Unavailable Unavailable Andrew Rogel MD Unavailable Unavailable Andrew Rogel MD Unavailable Unavailable Andrew Rogel MD Unavailable Unavailable Andrew Rogel MD Unavailable Unavailable Andrew Rogel MD Unavailable Unavailable Andrew Rogel MD Unavailable Unavailable Andrew Rogel MD Unavailable Unavailable Andrew Rogel MD Unavailable Unavailable Andrew Rogel MD Unavailable Unavailable Andrew Rogel MD Unavailable Unavailable Andrew Rogel MD Unavailable Unavailable Andrew Rogel MD Unavailable Unavailable Andrew Rogel MD Unavailable Unavailable Andrew Rogel MD Unavailable Unavailable Andrew Rogel MD Unavailable Unavailable Andrew Rogel MD Unavailable Unavailable Andrew Rogel MD Unavailable Unavailable Andrew Rogel MD Unavailable Unavailable Andrew Rogel MD Unavailable Unavailable Andrew Rogel MD Unavailable Unavailable Andrew Rogel MD Unavailable Unavailable Andrew Rogel MD Unavailable Unavailable Andrew Rogel MD Unavailable Unavailable Andrew Rogel MD Unavailable Unavailable Andrew Rogel MD Unavailable Unavailable Andrew Rogel MD Unavailable Unavailable VanDeepak oliver MD Unavailable Unavailable VaneenenaamDeepak MD Unavailable Unavailable VaneenenaamDeepak MD Unavailable Unavailable VaneenenaamDeepak MD Unavailable Unavailable VaneenenaamDeepak MD Unavailable Unavailable VanremaamDeepak MD Unavailable Unavailable VaneenenaamDeepak MD Unavailable Unavailable VaneenenaamDeepak MD Unavailable Unavailable VaneenenaamDeepak MD Unavailable Unavailable VaneenenaamDeepak MD Unavailable Unavailable VaneenenaamDeepak MD Unavailable Unavailable VanremaamDeepak MD Unavailable Unavailable VanremaamDeepak MD Unavailable Unavailable VaneenenaamDeepak MD Unavailable Unavailable Vaneenenaam, Deepak Castañeda MD Unavailable Unavailable VaneensunithaamDeepak MD Unavailable Unavailable VaneensunithaamDeepak MD Unavailable Unavailable VanDeepak oliver MD Unavailable Unavailable VanremaamDeepak MD Unavailable Unavailable VanremaamDeepak MD Unavailable Unavailable VaneensunithaamDeepak MD Unavailable Unavailable VaneensunithaamDeepak MD Unavailable Unavailable VaneensunithaamDeepak MD Unavailable Unavailable VanDeepak oliver MD Unavailable Unavailable VanremaamDeepak MD Unavailable Unavailable VanDeepak oliver MD Unavailable Unavailable VanremaamDeepak MD Unavailable Unavailable VanDeepak oliver MD Unavailable Unavailable VanremaamDeepak MD Unavailable Unavailable VanDeepak oliver MD Unavailable Unavailable VanDeepak oliver MD Unavailable Unavailable VanDeepak oliver MD Unavailable Unavailable VanDeepak oliver MD Unavailable Unavailable VanDeepak oliver MD Unavailable Unavailable VanDeepak oliver MD Unavailable Unavailable VanDeepak oliver MD Unavailable Unavailable VanDeepak oliver MD Unavailable Unavailable VanDeepak oliver MD Unavailable Unavailable Deepak Sibley MD Unavailable Unavailable Deepak Sibley MD Unavailable Unavailable VanDeepak oliver MD Unavailable Unavailable VanremaamDeepak MD Unavailable Unavailable VanDeepak oliver MD Unavailable Unavailable Deepak Sibley MD Unavailable Unavailable VanDeepak oliver MD Unavailable Unavailable VanDeepak oliver MD Unavailable Unavailable Ashlyn [facility] Unavailable Unavailable ROSA [facility], [facility] Unavailable Unavailable ROSA M, [facility] Unavailable Unavailable ROSA M, [facility] Unavailable Unavailable ROSA M, [facility] Unavailable Unavailable ROSA M, [facility] Unavailable Unavailable ROSA M, [facility] Unavailable Unavailable ROSA M, [facility] Unavailable Unavailable ROSA M, [facility] Unavailable Unavailable ROSA M, [facility] Unavailable Unavailable ROSA M, [facility] Unavailable Unavailable ROSA M, [facility] Unavailable Unavailable ROSA M, [facility] Unavailable Unavailable ROSA M, [facility] Unavailable Unavailable ROSA M, [facility] Unavailable Unavailable ROSA M, [facility] Unavailable Unavailable ROSA M, [facility] Unavailable Unavailable ROSA M, [facility] Unavailable Unavailable ROSA M, [facility] Unavailable Unavailable ROSA M, [facility] Unavailable Unavailable ROSA M, [facility] Unavailable Unavailable ROSA M, [facility] Unavailable Unavailable ROSA M, [facility] Unavailable Unavailable ROSA M, [facility] Unavailable Unavailable ROSA M, [facility] Unavailable Unavailable ROSA M, [facility] Unavailable Unavailable ROSA M, [facility] Unavailable Unavailable ROSA [facility], [facility] Unavailable Unavailable Arie Mcclelland MD Unavailable Unavailable Arie Mcclelland MD Unavailable Unavailable Arie Mcclelland MD Unavailable Unavailable Arie Mcclelland MD Unavailable Unavailable Arie Mcclelland MD Unavailable Unavailable Arie Mcclelland MD Unavailable Unavailable Arie Mcclelland MD Unavailable Unavailable Arie Mcclelland MD Unavailable Unavailable Arie Mcclelland MD Unavailable Unavailable Arie Mcclelland MD Unavailable Unavailable Arie Mcclelland MD Unavailable Unavailable Arie Mcclelland MD Unavailable Unavailable Arie Mcclelland MD Unavailable Unavailable Arie Mcclelland MD Unavailable Unavailable Arie Mcclelland MD Unavailable Unavailable Arie Mcclelland MD Unavailable Unavailable Arie Mcclelland MD Unavailable Unavailable Arie Mcclelland MD Unavailable Unavailable Arie Mcclelland MD Unavailable Unavailable Arie Mcclelland MD Unavailable Unavailable Arie Mcclelland MD Unavailable Unavailable Arie Mcclelland MD Unavailable Unavailable Arie Mcclelland MD Unavailable Unavailable Arie Mcclelland MD Unavailable Unavailable KrystinArie MD Unavailable Unavailable KrystinArie rivera MD Unavailable Unavailable KrystinArie MD Unavailable Unavailable KrystinArie MD Unavailable Unavailable KrystinArie MD Unavailable Unavailable KrystinArie MD Unavailable Unavailable KrystinArie MD Unavailable Unavailable KrystinArie MD Unavailable Unavailable KrystinArie MD Unavailable Unavailable KrystinArie albert MD Unavailable Unavailable KrystinArie MD Unavailable Unavailable KrystinArie MD Unavailable Unavailable KrystinArie MD Unavailable Unavailable KrystinArie MD Unavailable Unavailable KrystinArie MD Unavailable Unavailable KrystinArie MD Unavailable Unavailable KrystinArie MD Unavailable Unavailable KrystinArie rivera MD Unavailable Unavailable KrystinArie MD Unavailable Unavailable Arie Mcclelland MD Unavailable Unavailable Arie Mcclelland MD Unavailable Unavailable Arie Mcclelland MD Unavailable Unavailable KrystinArie rivera MD Unavailable Unavailable Arie Mcclelland MD Unavailable Unavailable Arie Mcclelland MD Unavailable Unavailable Arie Mcclelland MD Unavailable Unavailable Arie Mcclelland MD Unavailable Unavailable Arie Mcclelland MD Unavailable Unavailable Arie Mcclelland MD Unavailable Unavailable Arie Mcclelland MD Unavailable Unavailable Arie Mcclelland MD Unavailable Unavailable Arie Mcclelland MD Unavailable Unavailable Arie Mcclelland MD Unavailable Unavailable Arie Mcclelland MD Unavailable Unavailable Arie Mcclelland MD Unavailable Unavailable Arie Mcclelland MD Unavailable Unavailable Arie Mcclelland MD Unavailable Unavailable Arie Mcclelland MD Unavailable Unavailable Arie Mcclelland MD Unavailable Unavailable Arie Mcclelland MD Unavailable Unavailable Arie Mcclelland MD Unavailable Unavailable Arie Mcclelland MD Unavailable Unavailable Arie Mcclelland MD Unavailable Unavailable Arie Mcclelland MD Unavailable Unavailable Arie Mcclelland MD Unavailable Unavailable Arie Mcclelland MD Unavailable Unavailable Arie Mcclelland MD Unavailable Unavailable Arie Mcclelland MD Unavailable Unavailable Arie Mcclelland MD Unavailable Unavailable Arie Mcclelland MD Unavailable Unavailable Krystin M Nayeli MD Unavailable Unavailable Arie Mcclelland MD Unavailable Unavailable Arie Mcclelland MD Unavailable Unavailable Arie Mcclelland MD Unavailable Unavailable Arie Mcclelland MD Unavailable Unavailable Arie Mcclelland MD Unavailable Unavailable Arie Mcclelland MD Unavailable Unavailable Arie Mcclelland MD Unavailable Unavailable Arie Mcclelland MD Unavailable Unavailable Arie Mcclelland MD Unavailable Unavailable [facility], [facility] Unavailable Unavailable [facility], [facility] Unavailable Unavailable ROS[facility], [facility] Unavailable Unavailable ROSA M, [facility] Unavailable Unavailable ROSA M, [facility] Unavailable Unavailable ROSA M, [facility] Unavailable Unavailable ROSA M, [facility] Unavailable Unavailable ROSA M, [facility] Unavailable Unavailable ROSA M, [facility] Unavailable Unavailable ROSA M, [facility] Unavailable Unavailable ROSA M, [facility] Unavailable Unavailable ROSA M, [facility] Unavailable Unavailable ROSA M, [facility] Unavailable Unavailable ROSA M, [facility] Unavailable Unavailable [facility] M, [facility] Unavailable Unavailable [facility], [facility] Unavailable Unavailable [facility] M, [facility] Unavailable Unavailable ROS[facility] M, [facility] Unavailable Unavailable ROSA M, [facility] Unavailable Unavailable ROSA M, [facility] Unavailable Unavailable ROS[facility] M, [facility] Unavailable Unavailable ROS[facility] M, [facility] Unavailable Unavailable [facility], [facility] Unavailable Unavailable ROS[facility] M, [facility] Unavailable Unavailable [facility], [facility] Unavailable Unavailable [facility], [facility] Unavailable Unavailable [facility], [facility] Unavailable Unavailable [facility], [facility] Unavailable Unavailable Re-disclosure Warning The records that you are about to access may contain information from federally-assisted alcohol or drug abuse programs. If such information is present, then the following federally mandated warning applies: This information has been disclosed to you from records protected by federal confidentiality rules (42 CFR part 2). The federal rules prohibit you from making any further disclosure of this information unless further disclosure is expressly permitted by the written consent of the person to whom it pertains or as otherwise permitted by 42 CFR part 2. A general authorization for the release of medical or other information is NOT sufficient for this purpose. The Federal rules restrict any use of the information to criminally investigate or prosecute any alcohol or drug abuse patient.The records that you are about to access may contain highly sensitive health information, the redisclosure of which is protected by Article 27-F of the [facility] Public Health law. If you continue you may have access to information: Regarding HIV / AIDS; Provided by facilities licensed or operated by the [facility] Office of Mental Health; or Provided by the [facility] Office for People With Developmental Disabilities. If such information is present, then the following [facility] mandated warning applies: This information has been disclosed to you from confidential records which are protected by state law. State law prohibits you from making any further disclosure of this information without the specific written consent of the person to whom it pertains, or as otherwise permitted by law. Any unauthorized further disclosure in violation of state law may result in a fine or usp sentence or both. A general authorization for the release of medical or other information is NOT sufficient authorization for further disc losure. Allergies and Adverse Reactions Type Description Substance Reaction Status Data Source(s ) No Known Drug Allergies No Known Drug Allergies [facility] No Known Environmental Allergies No Known Environmental Al lergies [facility] No Known Food Allergies No Known Food Allergies [facility] Drug allergy CODEINE CODEINE ITCHING [facility] Family History Family Member Name Family Member Gender Family Member Status Date o f Status Description Data Source(s) Unknown Male Problem [facility] ([facility]) Encounters Encounter Providers Location Date Indications Data Source(s ) Office Visit Attender: SIGIFREDO ARNETT Physical Therapy 12/01/2020 02:15:00 PM EDT [facility] ([facility]) Outpatient Attender: FRANCES SHANE DO [facility] 11/29/2020 10:40:00 AM EDT [facility] ([facility]) Outpatient Attender: FRANCES SHANE DO [facility] 11/26/2020 10:00:00 AM EDT [facility] ([facility]) OFFICE OUTPATIENT VISIT 15 MINUTES Attender: Deepak lundberg MD Physical Therapy 11/23/2020 01:15:00 PM EDT [facility] ([facility]) Outpatient Attender: FRANCES SHANE [facility] 10/27/2020 02:00:00 PM EDT [facility] ([facility]) Outpatient Attender: Deepak Sibley MD Physical Therap y 10/20/2020 01:00:00 PM EDT [facility] ([facility]) OFFICE OUTPATIENT VISIT 15 MINUTES Attender: Mally Arreola MD Phy sical Therapy 10/07/2020 11:15:00 AM EDT [facility] ([facility]) Outpatient Attender: Deepak Sibley MD Physical Therap y 09/14/2020 10:45:00 AM EDT [facility] ([facility]) Outpatient Attender: FRANCES SHANE [facility] 08/24/2020 01:40:00 PM EDT MED[facility] ([facility]) Outpatient Attender: FÁTIMA MEDEROS DPM PCConsultant: Nayeli Mcclelland MD 08/11/2020 01:22:00 PM EDT - 08/11/2020 01:22:00 PM T [facility] Outpatient Attender: SIGIFREDO ARNETT Physical Therapy 08/02/2020 10:15:00 AM EDT [facility] ([facility]) Outpatient Attender: FÁTIMA MEDEROS DPM PCConsultant: Nayeli Mcclelland MD 07/28/2020 03:03:00 PM EDT - 07/28/2020 03:03:00 PM [facility] Outpatient Attender: FÁTIMA MEDEROS DPM PCConsultant: Nayeli Mcclelland MD 07/21/2020 02:27:00 PM EDT - 07/21/2020 02:27:00 PM T [facility] Outpatient Attender: FÁTIMA MEDEROS DPM PCConsultant: Nayeli Mcclelland MD 07/16/2020 07:15:00 AM EDT - 07/16/2020 09:56:00 AM [facility] Patient discharged. Outpatient Attender: FÁTIMA MEDEROS DPM PCConsultant: Nayeli Mcclelland MD 07/13/2020 01:18:54 PM EDT - 07/14/2020 07:30:00 AM EDT [facility] Patient discharged. Outpatient Attender: FÁTIMA MEDEROS DPM PCConsultant: Nayeli Mcclelland MD 07/08/2020 09:24:07 AM EDT - 07/12/2020 07:30:00 AM EDT [facility] Patient discharged. Outpatient Attender: FÁTIMA MEDEROS DPM PCConsultant: Nayeli Mcclelland MD 07/08/2020 08:09:24 AM EDT - 07/09/2020 11:40:00 AM EDT [facility] Patient discharged. Outpatient Attender: FÁTIMA MEDEROS DPM [facility] 07/07/2020 01:00:00 PM EDT [facility] ([facility]) Outpatient Attender: FÁTIMA MEDEROS DPM PCConsultant: Nayeli Mcclelland MD 07/07/2020 12:55:00 PM EDT - 07/07/2020 12:55:00 PM EDT [facility] Outpatient Attender: FRANCES SHANE DO [facility] 06/29/2020 01:30:00 PM EDT [facility] Outpatient Attender: FÁTIMA MEDEROS DPM [facility] 06/09/2020 01:30:00 PM EDT [facility] ([facility]) Outpatient Attender: FÁTIMA MEDEROS DPM PCConsultant: Nayeli Mcclelland MD 06/09/2020 01:15:00 PM EDT - 06/09/2020 01:15:00 PM EDT [facility] Outpatient Attender: FRANCES SHANE DO [facility] 06/02/2020 01:00:00 PM EDT [facility] ([facility]) Outpatient Attender: FRANCES SHANE [facility] 04/30/2020 12:10:00 PM EST [facility] ([facility]) OFFICE OUTPATIENT VISIT 15 MINUTES Attender: Mally Arreola MD Phy sical Therapy 04/08/2020 09:45:00 AM EST [facility] ([facility] OFFICE OUTPATIENT NEW 60 MINUTES Attender: Mally Arreola MD Physi nay Therapy 03/29/2020 01:00:00 PM EST [facility] ([facility]) Outpatient Attender: FRANCES SHANE DO [facility] 03/24/2020 01:00:00 PM EST [facility] ([facility]) Recurring Patient Referrer: Nayeli Mcclelland MD 03/19/2020 0 3:19:01 PM [facility] Outpatient Attender: FÁTIMA MEDEROS DPM PCConsultant: Nayeli Mcclelland MD 02/23/2020 02:37:00 PM EST - 02/23/2020 02:37:00 PM [facility] Outpatient Attender: FRANCES SHANE [facility] 02/17/2020 01:30:00 PM EST [facility] ([facility]) Outpatient Attender: FÁTIMA MEDEROS DPM PCConsultant: Nayeli Mcclelland MD 02/05/2020 02:13:00 PM EST - 02/05/2020 02:13:00 PM [facility] Outpatient Attender: FRANCES SHANE [facility] 01/27/2020 01:00:00 PM EST [facility] ([facility]) Outpatient Attender: FÁTIMA MEDEROS DPM PCConsultant: Nayeli Mcclelland MD 01/21/2020 02:02:00 PM EST - 01/21/2020 02:02:00 PM [facility] Outpatient Referrer: Andrew MARQUEZZUHAIR-[email or web address].[email or web address] 12/27 12:00:00 AM EST - 01/15/2020 10:46:56 AM EST [facility] Outpatient Attender: FRANCES SHANE [facility] 01/01/2020 12:20:00 PM EST [facility] ([facility]) Outpatient Attender: Andrew Rogel MD [email or web address] 11/26 12:00:00 AM EDT - 12/15/2019 03:41:20 PM EDT [facility] Outpatient Attender: FRANCES SHANE DO [facility] 11/27/2019 03:00:00 PM EDT [facility] ([facility]) Immunizations Vaccine Date Status Description Data Source(s) COVID-19 VACCINE Pfizer 12/01/2020 12:00:00 AM EDT completed [facility] Vaccine Series Complete: YESThis Data wa s Submitted to [facility] [employer]. COVID-19 VACC, MRNA(PFIZER)/PF 12/01/2020 12:00:00 AM EDT completed [facility] COVID-19 VACCINE Pfizer 04/15/2020 12:00:00 AM EST completed [facility] Vaccine Series Complete: YESThis Data wa s Submitted to [facility] [employer]. COVID-19 VACCINE Pfizer 03/25/2020 12:00:00 AM EST completed [facility] Vaccine Series Complete: NOThis Data was Submitted to [facility] [employer]. Medications Medication Brand Name Start Date Product Form Dose Route Admi nistrative Instructions Pharmacy Instructions Status Indications Reaction Description Data Source(s) 20 mg 01/18/2021 12:00:00 AM EST tablet 30 TAKE ONE TABLET BY MOUTH EVERY EVENING MAXIMUM DAILY DOSE = 1 TAKE ONE TABLET BY MOUTH EVERY EVENING M AXIMUM DAILY DOSE = 1 SOLD: 01/19/2021 [facility] 24 HR Amphetamine aspartate 7.5 MG / Amp hetamine Sulfate 7.5 MG / Dextroamphetamine saccharate 7.5 MG / Dextroamphetamine Sulfate 7.5 MG Extended Release Oral Capsule 30 mg DEXTROAMPHETAMINE/AMPHETAMINE 01/18/2021 12:00:00 AM EST capsule,extended release 24hr 30 TA KE ONE CAPSULE BY MOUTH EVERY MORNING UPON AWAKENING MAXIMUM DAILY DOSE = 1 TAKE ONE CAPSULE BY MOUTH EVERY MORNING UPON AWAKENING MAXIMUM DAILY DOSE = 1 SOLD: 01/19/2021 [facility] 24 HR Amphetamine aspartate 7.5 MG / Amp hetamine Sulfate 7.5 MG / Dextroamphetamine saccharate 7.5 MG / Dextroamphetamine Sulfate 7.5 MG Extended Release Oral Capsule 30 mg DEXTROAMPHETAMINE/AMPHETAMINE 12/20/2020 12:00:00 AM EDT capsule,extended release 24hr 30 TA KE ONE CAPSULE BY MOUTH EVERY DAY IN THE MORNING UPON AWAKENING MAXIMUM DAILY DOSE = 1 CAPSULE TAKE ONE CAPSULE BY MOUTH EVERY DAY IN THE MORNING UPON AWAKENING MAXIMUM DAILY DOSE = 1 CAPSULE SOLD: 12/20/2020 [facility] 20 mg 12/19/2020 12:00:00 AM EDT tablet 30 TAKE ONE TABLET BY MOUTH IN THE EVENING MAXIMUM DAILY DOSE = 1 TABLET TAKE ONE TABLET BY MOUTH IN THE EVENING MAXIMUM DAILY DOSE = 1 TABLET SOLD: 12/20/2020 [facility] 24 HR Bupropion Hydrochloride 300 MG Extended Release Oral T ablet BUPROPION HCL 12/18/2020 12:00:00 AM EDT tablet extended release 24 hr 30 TAKE ONE TABLET BY MOUTH EVERY DAY TAKE ONE TABLET BY MOUTH EVERY DAY SOLD: 12/20/2020 [facility] 15 mg 12/17/2020 12:00:00 AM EDT tablet extended release 60 TAKE ONE TABLET BY MOUTH EVERY 12 HOURS MAXIMUM DAILY DOSE = 2 TABLETS TAKE ONE TABLET BY MOUTH EVERY 12 HOURS MAXIMUM DAILY DOSE = 2 TABLETS SOLD: 12/17/2020 [facility] 5 mg/gram (0.5 %) 12/16/2020 12:00:00 AM EDT ointment 3 APPLY TO SUTURES FOUR TIMES A DAY FOR 7-10 DAYS AFTER SURGERY APPLY TO SUTURES FOUR TIMES A DAY FOR 7-10 DAYS AFTER SURGERY SOLD: 12/17/2020 [facility] 300 mg 12/12/2020 12:00:00 AM EDT capsule 60 TAKE ONE CAPSULE BY MOUTH TWICE A DAY TAKE ONE CAPSULE BY MOUTH TWICE A DAY SOLD: 12/14/2020 [facility] 3 ML Sodium Hyaluronate 10 MG/ML Prefilled Syringe [Gel-One] Gel-One 12/01/2020 12:00:00 AM EDT active M [facility]ENT ([facility] 200 mcg 12/01/2020 12:00:00 AM EDT tablet 30 TAKE ONE TABLET BY MOUTH EVERY DAY WITH 75MCG TABLET TAKE ONE TABLET BY MOUTH EVERY DAY WITH 75MCG TABLET S OLD: 01/03/2021 [facility] 200 mcg 12/01/2020 12:00:00 AM EDT tablet 30 TAKE ONE TABLET BY MOUTH EVERY DAY WITH 75MCG TABLET TAKE ONE TABLET BY MOUTH EVERY DAY WITH 75MCG TABLET S OLD: 12/03/2020 [facility] ferrous sulfate 325 MG Oral Tablet Ferrous Sulfate 11/29/2020 12:00 :00 AM EDT ORAL active [facility] ([facility] 75 mcg 11/27/2020 12:00:00 AM EDT tablet 90 TAKE ONE TABLET BY MOUTH EVERY MORNING WITH 200MCG TAKE ONE TABLET BY MOUTH EVERY MORNING WITH 200MCG TWYLA [facility] Levothyroxine Sodium 0.075 MG Oral Tablet Levothyroxine Sodi um 11/26/2020 12:00:00 AM EDT active M RACHELALEKSANDAR ([facility]) 75 mg 11/23/2020 12:00:00 AM EDT tablet 30 TAKE ONE TABLET BY MOUTH EVERY DAY TAKE ONE TABLET BY MOUTH EVERY DAY SOLD: 11/26/2020 [facility] 75 mg 11/23/2020 12:00:00 AM EDT tablet 30 TAKE ONE TABLET BY MOUTH EVERY DAY TAKE ONE TABLET BY MOUTH EVERY DAY SOLD: 01/03/2021 [facility] 24 HR Amphetamine aspartate 7.5 MG / Amp hetamine Sulfate 7.5 MG / Dextroamphetamine saccharate 7.5 MG / Dextroamphetamine Sulfate 7.5 MG Extended Release Oral Capsule 30 mg DEXTROAMPHETAMINE/AMPHETAMINE 11/20/2020 12:00:00 AM EDT capsule,extended release 24hr 30 TA KE ONE CAPSULE BY MOUTH EVERY DAY IN THE MORNING UPON AWAKENING MAXIMUM DAILY DOSE = 1 TAKE ONE CAPSULE BY MOUTH EVERY DAY IN THE MORNING UPON AWAKENING MAXIMUM DAILY DOSE = 1 SOLD: 11/20/2020 [facility] Amphetamine aspartate 5 MG / Amphetamine Sulfate 5 MG / Dextroamphetamine saccharate 5 MG / Dextroamphetamine Sulfate 5 MG Oral Tablet 20 mg DEXTROAMPHETAMINE/AMPHETAMINE 11/20/2020 12:00:00 AM EDT tablet 30 TAKE ONE TABLET BY MOUTH EVERY EVENING MAXIMUM DAILY DOSE = 1 TAKE ONE TABLET BY MOUTH EVERY EVENING MAXIMUM DAILY DOSE = 1 SOLD: 11/20/2020 [facility] 300 mg 11/20/2020 12:00:00 AM EDT capsule 60 TAKE ONE CAPSULE BY MOUTH TWICE A DAY TAKE ONE CAPSULE BY MOUTH TWICE A DAY SOLD: 11/26/2020 [facility] 300 mg 11/19/2020 12:00:00 AM EDT capsule 180 TAKE TWO CAPSULES BY MOUTH THREE TIMES A DAY TAKE TWO CAPSULES BY MOUTH THREE TIMES A DAY SOLD: [facility] 40 mg 10/25/2020 12:00:00 AM EDT capsule 60 TAKE TWO CAPSULES BY MOUTH EVERY DAY TAKE TWO CAPSULES BY MOUTH EVERY DAY SOLD: 12/01/2020 [facility] 40 mg 10/25/2020 12:00:00 AM EDT capsule 60 TAKE TWO CAPSULES BY MOUTH EVERY DAY TAKE TWO CAPSULES BY MOUTH EVERY DAY SOLD: 10/30/2020 [facility] 40 mg 10/25/2020 12:00:00 AM EDT capsule 60 TAKE TWO CAPSULES BY MOUTH EVERY DAY TAKE TWO CAPSULES BY MOUTH EVERY DAY SOLD: 01/14/2021 [facility] 5 mg 10/21/2020 12:00:00 AM EDT tablet 120 TAKE ONE TABLET BY MOUTH FOUR TIMES A DAY NEEDED MAXIMUM DAILY DOSE = 4 TAKE ONE TABLET BY MOUTH FOUR TIMES A DAY NEEDED MAXIMUM DAILY DOSE = 4 SOLD: 10/22/2020 [facility] 24 HR Amphetamine aspartate 7.5 MG / Amp hetamine Sulfate 7.5 MG / Dextroamphetamine saccharate 7.5 MG / Dextroamphetamine Sulfate 7.5 MG Extended Release Oral Capsule 30 mg DEXTROAMPHETAMINE/AMPHETAMINE 10/21/2020 12:00:00 AM EDT capsule,extended release 24hr 30 TA KE ONE CAPSULE BY MOUTH EVERY MORNING UPON AWAKENING MAXIMUM DAILY DOSE = 1 TAKE ONE CAPSULE BY MOUTH EVERY MORNING UPON AWAKENING MAXIMUM DAILY DOSE = 1 SOLD: 10/22/2020 [facility] 20 mg 10/21/2020 12:00:00 AM EDT tablet 30 TAKE ONE TABLET BY MOUTH EVERY EVENING MAXIMUM DAILY DOSE = 1 TAKE ONE TABLET BY MOUTH EVERY EVENING M AXIMUM DAILY DOSE = 1 SOLD: 10/22/2020 [facility]#[id number] (60mg Syringe)1MG 10/07/2020 12:00:00 AM EDT completed [facility] ([facility]) Medication administered onsite 10 mg 09/30/2020 12:00:00 AM EDT tablet 90 TAKE ONE TABLET BY MOUTH THREE TIMES A DAY MAXIMUM DAILY DOSE = 3 TBALETS TAKE ONE TABLET BY MOUTH THREE TIMES A DAY MAXIMUM DAILY DOSE = 3 TBALETS SOLD: 12/14/2020 [facility] 10 mg 09/30/2020 12:00:00 AM EDT tablet 90 TAKE ONE TABLET BY MOUTH THREE TIMES A DAY MAXIMUM DAILY DOSE = 3 TBALETS TAKE ONE TABLET BY MOUTH THREE TIMES A DAY MAXIMUM DAILY DOSE = 3 TBALETS SOLD: 01/14/2021 [facility] 10 mg 09/30/2020 12:00:00 AM EDT tablet 90 TAKE ONE TABLET BY MOUTH THREE TIMES A DAY MAXIMUM DAILY DOSE = 3 TBALETS TAKE ONE TABLET BY MOUTH THREE TIMES A DAY MAXIMUM DAILY DOSE = 3 TBALETS SOLD: 10/01/2020 [facility] 10 mg 09/30/2020 12:00:00 AM EDT tablet 90 TAKE ONE TABLET BY MOUTH THREE TIMES A DAY MAXIMUM DAILY DOSE = 3 TBALETS TAKE ONE TABLET BY MOUTH THREE TIMES A DAY MAXIMUM DAILY DOSE = 3 TBALETS SOLD: 11/09/2020 [facility] 40 mg 09/29/2020 12:00:00 AM EDT tablet 90 TAKE ONE TABLET BY MOUTH EVERY EVENING TAKE ONE TABLET BY MOUTH EVERY EVENING SOLD: 10/01/2020 [facility] 40 mg 09/29/2020 12:00:00 AM EDT tablet 90 TAKE ONE TABLET BY MOUTH EVERY EVENING TAKE ONE TABLET BY MOUTH EVERY EVENING SOLD: 01/14/2021 [facility] 24 HR Amphetamine aspartate 7.5 MG / Amp hetamine Sulfate 7.5 MG / Dextroamphetamine saccharate 7.5 MG / Dextroamphetamine Sulfate 7.5 MG Extended Release Oral Capsule 30 mg DEXTROAMPHETAMINE/AMPHETAMINE 09/25/2020 12:00:00 AM EDT capsule,extended release 24hr 30 TA KE ONE CAPSULE BY MOUTH EVERY MORNING UPON AWAKENING, MAXIMUM DAILY DOSE = 1 TAKE ONE CAPSULE BY MOUTH EVERY MORNING UPON AWAKENING, MAXIMUM DAILY DOSE = 1 SOLD: 09/25/2020 [facility] 5 mg 09/23/2020 12:00:00 AM EDT tablet 90 TAKE ONE TABLET BY MOUTH EVERY DAY AT BEDTIME TAKE ONE TABLET BY MOUTH EVERY DAY AT BEDTIME SOLD: 12/14/2020 [facility] 5 mg 09/23/2020 12:00:00 AM EDT tablet 90 TAKE ONE TABLET BY MOUTH EVERY DAY AT BEDTIME TAKE ONE TABLET BY MOUTH EVERY DAY AT BEDTIME SOLD: 09/24/2020 [facility] 20 mg 09/19/2020 12:00:00 AM EDT tablet 30 TAKE 1 TABLET EVERY EVENING MAXIMUM DAILY DOSE = 1 TAKE 1 TABLET EVERY EVENING MAXIMUM DAILY DOSE = 1 TWYLA [facility] 300 mg 09/18/2020 12:00:00 AM EDT capsule 90 TAKE ONE CAPSULE BY MOUTH THREE TIMES A DAY TAKE ONE CAPSULE BY MOUTH THREE TIMES A DAY SOLD: 09/20/2020 [facility] 5 mg 09/17/2020 12:00:00 AM EDT tablet 120 TAKE 1 TABLET FOUR TIMES A DAY NEEDED MAXIMUM DAILY DOSE = 4 TABLETS TAKE 1 TABLET FOUR TIMES A DAY NEEDED MAXIMUM DAILY DOSE = 4 TABLETS SOLD: 09/17/2020 [facility] doxycycline hyclate 50 MG Oral Capsule DOXYCYCLINE HYCLATE 0 09/16/2020 12:00:00 AM EDT capsule 30 TAKE ONE CAPSULE BY MOUTH JOHANNA TAKE ONE CAPSULE BY MOUTH EVERY DAY SOLD: 09/17/2020 [facility] doxycycline hyclate 50 MG Oral Capsule DOXYCYCLINE HYCLATE 0 09/16/2020 12:00:00 AM EDT capsule 30 TAKE ONE CAPSULE BY MOUTH JOHANNA TAKE ONE CAPSULE BY MOUTH EVERY DAY SOLD: 11/03/2020 [facility] 20 mg 08/27/2020 12:00:00 AM EDT tablet 30 TAKE ONE TABLET BY MOUTH EVERY EVENING MAXIMUM DAILY DOSE = 1 TABLET TAKE ONE TABLET BY MOUTH EVERY EVENING MAXIMUM DAILY DOSE = 1 TABLET SOLD: 08/27/2020 [facility] 24 HR Amphetamine aspartate 7.5 MG / Amp hetamine Sulfate 7.5 MG / Dextroamphetamine saccharate 7.5 MG / Dextroamphetamine Sulfate 7.5 MG Extended Release Oral Capsule 30 mg DEXTROAMPHETAMINE/AMPHETAMINE 08/27/2020 12:00:00 AM EDT capsule,extended release 24hr 30 TA KE ONE CAPSULE BY MOUTH EVERY MORNING UPON AWAKENING MAXIMUM DAILY DOSE = 1 CAPSULE TAKE ONE CAPSULE BY MOUTH EVERY MORNING UPON AWAKENING MAXIMUM DAILY DOSE = 1 CAPSULE SOLD: 08/27/2020 [facility] 200 mcg 08/21/2020 12:00:00 AM EDT tablet 30 TAKE ONE TABLET BY MOUTH EVERY DAY TAKE ONE TABLET BY MOUTH EVERY DAY SOLD: 08/21/2020 [facility] 200 mcg 08/21/2020 12:00:00 AM EDT tablet 30 TAKE ONE TABLET BY MOUTH EVERY DAY TAKE ONE TABLET BY MOUTH EVERY DAY SOLD: 10/13/2020 [facility] 5 mg 08/18/2020 12:00:00 AM EDT tablet 120 TAKE ONE TABLET BY MOUTH FOUR TIMES A DAY MAXIMUM DAILY DOSE = 4 TAKE ONE TABLET BY MOUTH FOUR TIMES A DA Y MAXIMUM DAILY DOSE = 4 SOLD: 08/19/2020 [facility] Amphetamine aspartate 5 MG / Amphetamine Sulfate 5 MG / Dextroamphetamine saccharate 5 MG / Dextroamphetamine Sulfate 5 MG Oral Tablet 20 mg DEXTROAMPHETAMINE/AMPHETAMINE 07/28/2020 12:00:00 AM EDT tablet 30 TAKE ONE TABLET BY MOUTH EVERY EVENING MAXIMUM DAILY DOSE = 1 TABLET TAKE ONE TABLET BY MOUTH EVERY EVENING MAXIMUM DAILY DOSE = 1 TABLET SOLD: 07/29/2020 N([facility] 24 HR Amphetamine aspartate 7.5 MG / Amp hetamine Sulfate 7.5 MG / Dextroamphetamine saccharate 7.5 MG / Dextroamphetamine Sulfate 7.5 MG Extended Release Oral Capsule 30 mg DEXTROAMPHETAMINE/AMPHETAMINE 07/28/2020 12:00:00 AM EDT capsule,extended release 24hr 30 TA KE ONE CAPSULE BY MOUTH EVERY MORNING UPON AWAKENING MAXIMUM DAILY DOSE = 1 CAPSULE TAKE ONE CAPSULE BY MOUTH EVERY MORNING UPON AWAKENING MAXIMUM DAILY DOSE = 1 CAPSULE SOLD: 07/29/2020 [facility] 5-325 mg 07/21/2020 12:00:00 AM EDT tablet 30 TAKE 1 TABLET BY MOUTH EVERY 4-6 HOURS NEEDED FOR SEVERE PAIN MAXIMUM DAILY DOSE = 4 TAKE 1 TABLET BY MOUTH EVERY 4-6 HOURS NEEDED FOR SEVERE PAIN MAXIMUM DAILY DOSE = 4 SOLD: 07/21/2020 N(i)² Acetaminophen 325 MG / Hydrocodone Bitartrate 5 MG Oral Tabl et [Christine] Christine 07/21/2020 12:00:00 AM EDT ORAL completed [facility] ([facility]) Acetaminophen 325 MG / Oxycodone Hydrochloride 5 MG Or al Tablet [Percocet] Percocet 07/07/2020 12:00:00 AM EDT completed [facility] ([facility]) 5-325 mg 07/07/2020 12:00:00 AM EDT tablet 30 TAKE 1 TABLET BY MOUTH EVERY 4-6 HOURS FOR SEVERE PAIN MAXIMUM DAILY DOSE = 4 TAKE 1 TABLET BY MOUTH EVERY 4- 6 HOURS FOR SEVERE PAIN MAXIMUM DAILY DOSE = 4 SOLD: 07/12/2020 [facility] 4 mg 07/01/2020 12:00:00 AM EDT tablets,dose pack 21 TAKE DIRECTED TAKE DIRECTED SOLD: 07/01/2020 [facility] 0.12 % 07/01/2020 12:00:00 AM EDT mouthwash 473 RINSE MOUTH WITH 15ML (1 CAPFUL) FOR 30 SECONDS MORNING AND EVENING AFTER TOOTHBRUSHING, EXPECTORATE AFTER RINSING, DO NOT SWALLOW RINSE MOUTH WITH 15ML (1 CAPFUL) FOR 30 SECONDS MORNING AND EVENING AFTER TOOTHBRUSHING, EXPECTORATE AFTER RINSING, DO NOT SWALLOW SOLD: 07/01/2020 [facility] 500 mg 07/01/2020 12:00:00 AM EDT capsule 21 TAKE ONE CAPSULE BY MOUTH EVERY 8 HOURS UNTIL FINISHED TAKE ONE CAPSULE BY MOUTH EVERY 8 HOURS UNTIL FINISHED SOLD: 07/01/2020 [facility] 600 mg 07/01/2020 12:00:00 AM EDT tablet 20 TAKE ONE TABLET BY MOUTH EVERY 6 HOURS NEEDED TAKE ONE TABLET BY MOUTH EVERY 6 HOURS NEEDED SOLD: 07/01/2020 [facility] 20 mg 06/29/2020 12:00:00 AM EDT tablet 30 TAKE ONE TABLET BY MOUTH EVERY DAY IN THE EVENING MAXIMUM DAILY DOSE = 1 TAKE ONE TABLET BY MOUTH EVERY DAY IN THE EVENING MAXIMUM DAILY DOSE = 1 SOLD: 06/29/2020 [facility] 24 HR Amphetamine aspartate 7.5 MG / Amp hetamine Sulfate 7.5 MG / Dextroamphetamine saccharate 7.5 MG / Dextroamphetamine Sulfate 7.5 MG Extended Release Oral Capsule 30 mg DEXTROAMPHETAMINE/AMPHETAMINE 06/29/2020 12:00:00 AM EDT capsule,extended release 24hr 30 TA KE ONE CAPSULE BY MOUTH EVERY DAY IN THE MORNING UPON AWAKENING MAXIMUM DAILY DOSE = 1 TAKE ONE CAPSULE BY MOUTH EVERY DAY IN THE MORNING UPON AWAKENING MAXIMUM DAILY DOSE = 1 SOLD: 06/29/2020 [facility] 300 mg 06/05/2020 12:00:00 AM EDT tablet 120 TAKE TWO TABLETS BY MOUTH TWICE A DAY TAKE TWO TABLETS BY MOUTH TWICE A DAY SOLD: 06/07/2020 [facility] Levothyroxine Sodium 0.05 MG Oral Tablet Levothyroxine Sodiu m 06/02/2020 12:00:00 AM EDT completed [facility] ([facility]) 50 mcg 06/02/2020 12:00:00 AM EDT tablet 90 TAKE ONE TABLET BY MOUTH EVERY DAY IN THE MORNING WITH 200MCG TAKE ONE TABLET BY MOUTH EVERY DAY IN MORNING WITH 200MCG SOLD: 06/02/2020 [facility] 50 mcg 06/02/2020 12:00:00 AM EDT tablet 90 TAKE ONE TABLET BY MOUTH EVERY DAY IN THE MORNING WITH 200MCG TAKE ONE TABLET BY MOUTH EVERY DAY IN MORNING WITH 200MCG SOLD: 08/15/2020 [facility] 30 mg 05/31/2020 12:00:00 AM EDT capsule,extended releas e 24hr 30 TAKE ONE CAPSULE BY MOUTH EVERY MORNING UPON WAKING MAXIMUM DAILY DOSE = 1 CAPSULE TAKE ONE CAPSULE BY MOUTH EVERY MORNING UPON WAKING MAXIMUM DAILY DOSE = 1 CAPSULE SOLD: 05/31/2020 [facility] 20 mg 05/31/2020 12:00:00 AM EDT tablet 30 TAKE ONE TABLET BY MOUTH IN THE EVENING MAXIMUM DAILY DOSE = 1 TABLET TAKE ONE TABLET BY MOUTH IN THE EVENING MAXIMUM DAILY DOSE = 1 TABLET SOLD: 05/31/2020 [facility] 37.5 mg 05/18/2020 12:00:00 AM EDT capsule 15 TAKE ONE CAPSULE BY MOUTH EVERY MORNING BEFORE BREAKFAST MAXIMUM DAILY DOSE = 1 CAPSULE TAKE ONE CAPSULE BY MOUTH EVERY MORNING BEFORE BREAKFAST MAXIMUM DAILY DOSE = 1 CAPSULE SOLD: 05/18/2020 [facility] 10 mg 05/16/2020 12:00:00 AM EDT tablet 90 TAKE ONE TABLET BY MOUTH THREE TIMES A DAY TAKE ONE TABLET BY MOUTH THREE TIMES A DAY SOLD: 06/07/2020 [facility] 10 mg 05/16/2020 12:00:00 AM EDT tablet 90 TAKE ONE TABLET BY MOUTH THREE TIMES A DAY TAKE ONE TABLET BY MOUTH THREE TIMES A DAY SOLD: 07/13/2020 [facility] 10 mg 05/16/2020 12:00:00 AM EDT tablet 90 TAKE ONE TABLET BY MOUTH THREE TIMES A DAY TAKE ONE TABLET BY MOUTH THREE TIMES A DAY SOLD: 08/21/2020 [facility] 10 mg 05/16/2020 12:00:00 AM EDT tablet 90 TAKE ONE TABLET BY MOUTH THREE TIMES A DAY TAKE ONE TABLET BY MOUTH THREE TIMES A DAY SOLD: 05/17/2020 [facility] 24 HR Bupropion Hydrochloride 300 MG Extended Release Oral T ablet BUPROPION HCL 05/15/2020 12:00:00 AM EDT tablet extended release 24 hr 30 TAKE ONE TABLET BY MOUTH EVERY DAY TAKE ONE TABLET BY MOUTH EVERY DAY SOLD: 06/17/2020 [facility] 24 HR Bupropion Hydrochloride 300 MG Extended Release Oral T ablet BUPROPION HCL 05/15/2020 12:00:00 AM EDT tablet extended release 24 hr 30 TAKE ONE TABLET BY MOUTH EVERY DAY TAKE ONE TABLET BY MOUTH EVERY DAY SOLD: 05/15/2020 [facility] 24 HR Bupropion Hydrochloride 300 MG Extended Release Oral T ablet BUPROPION HCL 05/15/2020 12:00:00 AM EDT tablet extended release 24 hr 30 TAKE ONE TABLET BY MOUTH EVERY DAY TAKE ONE TABLET BY MOUTH EVERY DAY SOLD: 09/08/2020 [facility] 40 mg 05/15/2020 12:00:00 AM EDT capsule 60 TAKE TWO CAPSULES BY MOUTH EVERY DAY TAKE TWO CAPSULES BY MOUTH EVERY DAY SOLD: 05/15/2020 [facility] 40 mg 05/15/2020 12:00:00 AM EDT capsule 60 TAKE TWO CAPSULES BY MOUTH EVERY DAY TAKE TWO CAPSULES BY MOUTH EVERY DAY SOLD: 07/30/2020 [facility] 24 HR Bupropion Hydrochloride 300 MG Extended Release Oral T ablet BUPROPION HCL 05/15/2020 12:00:00 AM EDT tablet extended release 24 hr 30 TAKE ONE TABLET BY MOUTH EVERY DAY TAKE ONE TABLET BY MOUTH EVERY DAY SOLD: 10/11/2020 [facility] 40 mg 05/15/2020 12:00:00 AM EDT capsule 60 TAKE TWO CAPSULES BY MOUTH EVERY DAY TAKE TWO CAPSULES BY MOUTH EVERY DAY SOLD: 06/17/2020 [facility] 24 HR Bupropion Hydrochloride 300 MG Extended Release Oral T ablet BUPROPION HCL 05/15/2020 12:00:00 AM EDT tablet extended release 24 hr 30 TAKE ONE TABLET BY MOUTH EVERY DAY TAKE ONE TABLET BY MOUTH EVERY DAY SOLD: 11/09/2020 [facility] 24 HR Bupropion Hydrochloride 300 MG Extended Release Oral T ablet BUPROPION HCL 05/15/2020 12:00:00 AM EDT tablet extended release 24 hr 30 TAKE ONE TABLET BY MOUTH EVERY DAY TAKE ONE TABLET BY MOUTH EVERY DAY SOLD: 07/30/2020 [facility] 40 mg 05/15/2020 12:00:00 AM EDT capsule 60 TAKE TWO CAPSULES BY MOUTH EVERY DAY TAKE TWO CAPSULES BY MOUTH EVERY DAY SOLD: 09/29/2020 [facility] 300 mg 05/04/2020 12:00:00 AM EST tablet 60 TAKE ONE TABLET BY MOUTH TWICE A DAY FOR 1 WEEK THEN TAKE TWO TABLETS BY MOUTH TWICE A DAY THEREAFTER TAKE ONE TABLET BY MOUTH TWICE A DAY FOR 1 WEEK THEN TAKE TWO TABLETS BY MOUTH TWICE A DAY THEREAFTER SOLD: 05/04/2020 [facility] 5-325 mg 05/04/2020 12:00:00 AM EST tablet 28 TAKE ONE TABLET BY MOUTH EVERY 6 HOURS NEEDED FOR PAIN MAXIMUM DAILY DOSE = 4 TAKE ONE TABLET BY MOUTH EVERY 6 HOURS NEEDED FOR PAIN MAXIMUM DAILY DOSE = 4 SOLD: 05/04/2020 [facility] 300 mg 05/04/2020 12:00:00 AM EST tablet 60 TAKE ONE TABLET BY MOUTH TWICE A DAY FOR 1 WEEK THEN TAKE TWO TABLETS BY MOUTH TWICE A DAY THEREAFTER TAKE ONE TABLET BY MOUTH TWICE A DAY FOR 1 WEEK THEN TAKE TWO TABLETS BY MOUTH TWICE A DAY THEREAFTER SOLD: 05/23/2020 [facility] 37.5 mg 05/04/2020 12:00:00 AM EST capsule 15 TAKE ONE CAPSULE BY MOUTH EVERY DAY BEFORE BREAKFAST MAXIMUM DAILY DOSE = 1 TAKE ONE CAPSULE BY MOUTH EVERY DAY BEFORE BREAKFAST MAXIMUM DAILY DOSE = 1 SOLD: 05/04/2020 [facility] gabapentin 300 MG Oral Capsule Gabapentin 04/30/2020 12:00:00 AM EST ORAL completed [facility] ([facility]) 1 ML denosumab 60 MG/ML Prefilled Syringe [Prolia] Prolia 04/30/2020 12:00:00 AM EST active [facility] ([facility]) 75 mg 04/23/2020 12:00:00 AM EST tablet 30 TAKE ONE TABLET BY MOUTH EVERY DAY TAKE ONE TABLET BY MOUTH EVERY DAY SOLD: 07/05/2020 [facility] 75 mg 04/23/2020 12:00:00 AM EST tablet 30 TAKE ONE TABLET BY MOUTH EVERY DAY TAKE ONE TABLET BY MOUTH EVERY DAY SOLD: 04/23/2020 [facility] 75 mg 04/23/2020 12:00:00 AM EST tablet 30 TAKE ONE TABLET BY MOUTH EVERY DAY TAKE ONE TABLET BY MOUTH EVERY DAY SOLD: 08/15/2020 [facility] 75 mg 04/23/2020 12:00:00 AM EST tablet 30 TAKE ONE TABLET BY MOUTH EVERY DAY TAKE ONE TABLET BY MOUTH EVERY DAY SOLD: 05/25/2020 [facility] 75 mg 04/23/2020 12:00:00 AM EST tablet 30 TAKE ONE TABLET BY MOUTH EVERY DAY TAKE ONE TABLET BY MOUTH EVERY DAY SOLD: 09/15/2020 [facility] 75 mg 04/23/2020 12:00:00 AM EST tablet 30 TAKE ONE TABLET BY MOUTH EVERY DAY TAKE ONE TABLET BY MOUTH EVERY DAY SOLD: 10/18/2020 [facility] 30 mg 04/11/2020 12:00:00 AM EST capsule,extended releas e 24hr 30 TAKE ONE CAPSULE BY MOUTH EVERY DAY IN THE MORNING UPON AWAKENING MAXIMUM DAILY DOSE = 1 TAKE ONE CAPSULE BY MOUTH EVERY DAY IN THE MORNING UPON AWAKENING MAXIMUM DAILY DOSE = 1 SOLD: 04/11/2020 [facility] 20 mg 04/11/2020 12:00:00 AM EST tablet 20 TAKE ONE TABLET BY MOUTH EVERY DAY IN THE EVENING MAXIMUM DAILY DOSE = 1 TAKE ONE TABLET BY MOUTH EVERY DAY IN THE EVENING MAXIMUM DAILY DOSE = 1 SOLD: 04/14/2020 [facility] 20 mg 04/11/2020 12:00:00 AM EST tablet 10 TAKE ONE TABLET BY MOUTH EVERY DAY IN THE EVENING MAXIMUM DAILY DOSE = 1 TAKE ONE TABLET BY MOUTH EVERY DAY IN THE EVENING MAXIMUM DAILY DOSE = 1 SOLD: 04/11/2020 [facility] Prolia [facility]#[id number] (60mg Syringe)1MG 04/08/2020 12:00:00 AM EST completed [facility] ([facility]) Medication administered onsite 40 mg 03/29/2020 12:00:00 AM EST tablet 90 TAKE 1 TABLET BY MOUTH EVERY NIGHT TAKE 1 TABLET BY MOUTH EVERY NIGHT SOLD: 07/06/2020 [facility] 40 mg 03/29/2020 12:00:00 AM EST tablet 90 TAKE 1 TABLET BY MOUTH EVERY NIGHT TAKE 1 TABLET BY MOUTH EVERY NIGHT SOLD: 03/29/2020 [facility] 5 mg 03/29/2020 12:00:00 AM EST tablet 90 TAKE ONE TABLET BY MOUTH AT BEDTIME TAKE ONE TABLET BY MOUTH AT BEDTIME SOLD: 03/29/2020 [facility] 5 mg 03/29/2020 12:00:00 AM EST tablet 90 TAKE ONE TABLET BY MOUTH AT BEDTIME TAKE ONE TABLET BY MOUTH AT BEDTIME SOLD: 06/26/2020 [facility] 300 mg 03/25/2020 12:00:00 AM EST capsule 90 TAKE ONE CAPSULE BY MOUTH EVERY DAY AT BEDTIME TAKE ONE CAPSULE BY MOUTH EVERY DAY AT BEDTIME SOLD: [facility] gabapentin 300 MG Oral Capsule Gabapentin 03/24/2020 12:00:00 AM EST ORAL completed [facility] ([facility]) 25 mcg 03/15/2020 12:00:00 AM EST tablet 90 TAKE ONE TABLET BY MOUTH EVERY MORNING WITH 200MCG TAKE ONE TABLET BY MOUTH EVERY MORNING WITH 200MCG TWYLA [facility] 20 mg 03/12/2020 12:00:00 AM EST tablet 30 TAKE ONE TABLET BY MOUTH EVERY EVENING MAXIMUM DAILY DOSE = 1 TAKE ONE TABLET BY MOUTH EVERY EVENING M AXIMUM DAILY DOSE = 1 SOLD: 03/13/2020 [facility] Metformin hydrochloride 500 MG Oral Tablet METFORMIN HCL 03/12/2020 12:00:00 AM EST tablet 60 TAKE ONE TABLET BY MOUTH TWI CE A DAY TAKE ONE TABLET BY MOUTH TWICE A DAY SOLD: 03/13/2020 [facility] 30 mg 03/12/2020 12:00:00 AM EST capsule,extended releas e 24hr 30 TAKE ONE CAPSULE BY MOUTH EVERY MORNING MAXIMUM DAILY DOSE = 1 TAKE ONE CAPSULE BY MOUTH EVERY MORNING MAXIMUM DAILY DOSE = 1 SOLD: 03/13/2020 [facility] 20 mg 02/10/2020 12:00:00 AM EST tablet 30 TAKE ONE TABLET BY MOUTH EVERY EVENING MAXIMUM DAILY DOSE = 1 TAKE ONE TABLET BY MOUTH EVERY EVENING M AXIMUM DAILY DOSE = 1 SOLD: 02/10/2020 [facility] 30 mg 02/10/2020 12:00:00 AM EST capsule,extended releas e 24hr 30 TAKE 1 CAPSULE BY MOUTH ONCE DAILY IN THE MORNING UPON AWAKENING MAXIMUM DAILY DOSE = 1 TAKE 1 CAPSULE BY MOUTH ONCE DAILY IN TH E MORNING UPON AWAKENING MAXIMUM DAILY DOSE = 1 SOLD: 02/10/2020 [facility] Cefuroxime 250 MG Oral Tablet CEFUROXIME AXETIL 01/27/2020 12:00 :00 AM EST tablet 14 TAKE ONE TABLET BY MOUTH EVERY 1 2 HOURS TAKE ONE TABLET BY MOUTH EVERY 12 HOURS SOLD: 01/27/2020 [facility] Amphetamine aspartate 5 MG / Amphetamine Sulfate 5 MG / Dextroamphetamine saccharate 5 MG / Dextroamphetamine Sulfate 5 MG Oral Tablet [Adderall] Adderall 01/27/2020 12:00:00 AM EST ORAL active [facility] ([facility]) 30 mg 01/12/2020 12:00:00 AM EST capsule,extended releas e 24hr 30 TAKE ONE CAPSULE BY MOUTH EVERY DAY IN THE MORNING UPON AWAKENING MAXIMUM DAILY DOSE = 1 TAKE ONE CAPSULE BY MOUTH EVERY DAY IN THE MORNING UPON AWAKENING MAXIMUM DAILY DOSE = 1 SOLD: 01/12/2020 [facility] 20 mg 01/12/2020 12:00:00 AM EST tablet 30 TAKE ONE TABLET BY MOUTH IN THE EVENING MAXIMUM DAILY DOSE = 1 TAKE ONE TABLET BY MOUTH IN THE EVENING MAXIMUM DAILY DOSE = 1 SOLD: 01/12/[address] [facility] 40 mg 01/08/2020 12:00:00 AM EST capsule 60 TAKE TWO CAPSULES BY MOUTH EVERY DAY TAKE TWO CAPSULES BY MOUTH EVERY DAY SOLD: 02/10/2020 [facility] 10 mg 01/08/2020 12:00:00 AM EST tablet 90 TAKE ONE TABLET BY MOUTH THREE TIMES A DAY TAKE ONE TABLET BY MOUTH THREE TIMES A DAY SOLD: 02/10/2020 [facility] 10 mg 01/08/2020 12:00:00 AM EST tablet 90 TAKE ONE TABLET BY MOUTH THREE TIMES A DAY TAKE ONE TABLET BY MOUTH THREE TIMES A DAY SOLD: 03/24/2020 [facility] 40 mg 01/08/2020 12:00:00 AM EST capsule 60 TAKE TWO CAPSULES BY MOUTH EVERY DAY TAKE TWO CAPSULES BY MOUTH EVERY DAY SOLD: 01/09/2020 [facility] 10 mg 01/08/2020 12:00:00 AM EST tablet 90 TAKE ONE TABLET BY MOUTH THREE TIMES A DAY TAKE ONE TABLET BY MOUTH THREE TIMES A DAY SOLD: 01/09/2020 [facility] 10 mg 01/08/2020 12:00:00 AM EST tablet 90 TAKE ONE TABLET BY MOUTH THREE TIMES A DAY TAKE ONE TABLET BY MOUTH THREE TIMES A DAY SOLD: 04/23/2020 [facility] 40 mg 01/08/2020 12:00:00 AM EST capsule 60 TAKE TWO CAPSULES BY MOUTH EVERY DAY TAKE TWO CAPSULES BY MOUTH EVERY DAY SOLD: 03/15/2020 [facility] 200 mcg 01/02/2020 12:00:00 AM EST tablet 30 TAKE ONE TABLET BY MOUTH EVERY DAY TAKE ONE TABLET BY MOUTH EVERY DAY SOLD: 05/25/2020 [facility] 200 mcg 01/02/2020 12:00:00 AM EST tablet 30 TAKE ONE TABLET BY MOUTH EVERY DAY TAKE ONE TABLET BY MOUTH EVERY DAY SOLD: 06/28/2020 [facility] 200 mcg 01/02/2020 12:00:00 AM EST tablet 30 TAKE ONE TABLET BY MOUTH EVERY DAY TAKE ONE TABLET BY MOUTH EVERY DAY SOLD: 04/23/2020 [facility] 200 mcg 01/02/2020 12:00:00 AM EST tablet 30 TAKE ONE TABLET BY MOUTH EVERY DAY TAKE ONE TABLET BY MOUTH EVERY DAY SOLD: 03/17/2020 [facility] 25 mcg 01/02/2020 12:00:00 AM EST tablet 90 TAKE ONE TABLET BY MOUTH EVERY MORNING WITH 200MCG TAKE ONE TABLET BY MOUTH EVERY MORNING WITH 200MCG TWYLA [facility] 200 mcg 01/02/2020 12:00:00 AM EST tablet 30 TAKE ONE TABLET BY MOUTH EVERY DAY TAKE ONE TABLET BY MOUTH EVERY DAY SOLD: 01/04/2020 [facility] 200 mcg 01/02/2020 12:00:00 AM EST tablet 30 TAKE ONE TABLET BY MOUTH EVERY DAY TAKE ONE TABLET BY MOUTH EVERY DAY SOLD: 02/14/2020 [facility] 25 mcg 01/02/2020 12:00:00 AM EST tablet 90 TAKE ONE TABLET BY MOUTH EVERY MORNING WITH 200MCG TAKE ONE TABLET BY MOUTH EVERY MORNING WITH 200MCG TWYLA [facility] 1 mg 12/30/2019 12:00:00 AM EST tablet 90 TAKE ONE TABLET BY MOUTH THREE TIMES A DAY MAXIMUM DAILY DOSE = 3 TABLETS TAKE ONE TABLET BY MOUTH THREE TIMES A DAY MAXIMUM DAILY DOSE = 3 TABLETS SOLD: 12/31/2019 [facility] 40 mg 12/23/2019 12:00:00 AM EDT capsule 30 TAKE ONE CAPSULE BY MOUTH EVERY DAY TAKE ONE CAPSULE BY MOUTH EVERY DAY SOLD: 04/18/2020 [facility] 40 mg 12/23/2019 12:00:00 AM EDT capsule 30 TAKE ONE CAPSULE BY MOUTH EVERY DAY TAKE ONE CAPSULE BY MOUTH EVERY DAY SOLD: 12/23/2019 [facility] 20 mg 12/10/2019 12:00:00 AM EDT tablet 30 TAKE ONE TABLET BY MOUTH EVERY EVENING MAXIMUM DAILY DOSE = 1 TAKE ONE TABLET BY MOUTH EVERY EVENING M AXIMUM DAILY DOSE = 1 SOLD: 12/11/2019 [facility] 30 mg 12/10/2019 12:00:00 AM EDT capsule,extended releas e 24hr 30 TAKE ONE CAPSULE BY MOUTH EVERY MORNING MAXIMUM DAILY DOSE = 1 TAKE ONE CAPSULE BY MOUTH EVERY MORNING MAXIMUM DAILY DOSE = 1 SOLD: 12/11/2019 [facility] 325 mg (65 mg iron) 12/09/2019 12:00:00 AM EDT tablet 90 TAKE ONE TABLET BY MOUTH EVERY DAY TAKE ONE TABLET BY MOUTH EVERY DAY SOLD: 12/11/2019 [facility] ferrous sulfate 325 MG Oral Tablet Ferrousul 12/09/2019 12:00:00 AM EDT ORAL active [facility] ([facility]) Metformin hydrochloride 500 MG Oral Tablet METFORMIN HCL 11/30/2019 12:00:00 AM EDT tablet 180 TAKE ONE TABLET BY MOUTH TWI CE A DAY TAKE ONE TABLET BY MOUTH TWICE A DAY SOLD: 05/04/2020 [facility] Metformin hydrochloride 500 MG Oral Tablet METFORMIN HCL 11/30/2019 12:00:00 AM EDT tablet 180 TAKE ONE TABLET BY MOUTH TWI CE A DAY TAKE ONE TABLET BY MOUTH TWICE A DAY SOLD: 12/01/2019 [facility] Milk Thistle Xtra 11/27/2019 12:00:00 AM EDT active [facility] ([facility]) 24 HR Bupropion Hydrochloride 300 MG Extended Release Oral T ablet BUPROPION HCL 11/07/2019 12:00:00 AM EDT tablet extended release 24 hr 30 TAKE ONE TABLET BY MOUTH EVERY DAY TAKE ONE TABLET BY MOUTH EVERY DAY SOLD: 03/12/2020 [facility] 24 HR Bupropion Hydrochloride 300 MG Extended Release Oral T ablet BUPROPION HCL 11/07/2019 12:00:00 AM EDT tablet extended release 24 hr 30 TAKE ONE TABLET BY MOUTH EVERY DAY TAKE ONE TABLET BY MOUTH EVERY DAY SOLD: 12/11/2019 [facility] 24 HR Bupropion Hydrochloride 300 MG Extended Release Oral T ablet BUPROPION HCL 11/07/2019 12:00:00 AM EDT tablet extended release 24 hr 30 TAKE ONE TABLET BY MOUTH EVERY DAY TAKE ONE TABLET BY MOUTH EVERY DAY SOLD: 04/18/2020 [facility] 24 HR Bupropion Hydrochloride 300 MG Extended Release Oral T ablet BUPROPION HCL 11/07/2019 12:00:00 AM EDT tablet extended release 24 hr 30 TAKE ONE TABLET BY MOUTH EVERY DAY TAKE ONE TABLET BY MOUTH EVERY DAY SOLD: 01/10/2020 [facility] 24 HR Bupropion Hydrochloride 300 MG Extended Release Oral T ablet BUPROPION HCL 11/07/2019 12:00:00 AM EDT tablet extended release 24 hr 30 TAKE ONE TABLET BY MOUTH EVERY DAY TAKE ONE TABLET BY MOUTH EVERY DAY SOLD: 02/10/2020 [facility] 300 mg 10/24/2019 12:00:00 AM EDT capsule 60 TAKE ONE CAPSULE BY MOUTH TWICE A DAY TAKE ONE CAPSULE BY MOUTH TWICE A DAY SOLD: 03/17/2020 [facility] 300 mg 10/24/2019 12:00:00 AM EDT capsule 60 TAKE ONE CAPSULE BY MOUTH TWICE A DAY TAKE ONE CAPSULE BY MOUTH TWICE A DAY SOLD: 12/11/2019 [facility] 300 mg 10/24/2019 12:00:00 AM EDT capsule 60 TAKE ONE CAPSULE BY MOUTH TWICE A DAY TAKE ONE CAPSULE BY MOUTH TWICE A DAY SOLD: 04/23/2020 [facility] 300 mg 10/24/2019 12:00:00 AM EDT capsule 60 TAKE ONE CAPSULE BY MOUTH TWICE A DAY TAKE ONE CAPSULE BY MOUTH TWICE A DAY SOLD: 02/14/2020 [facility] 300 mg 10/24/2019 12:00:00 AM EDT capsule 60 TAKE ONE CAPSULE BY MOUTH TWICE A DAY TAKE ONE CAPSULE BY MOUTH TWICE A DAY SOLD: 06/26/2020 [facility] 5 mg 09/13/2019 12:00:00 AM EDT tablet 90 TAKE ONE TABLET BY MOUTH AT BEDTIME TAKE ONE TABLET BY MOUTH AT BEDTIME SOLD: 12/11/2019 [facility] 75 mg 09/12/2019 12:00:00 AM EDT tablet 30 TAKE ONE TABLET BY MOUTH EVERY DAY TAKE ONE TABLET BY MOUTH EVERY DAY SOLD: 03/24/2020 [facility] 75 mg 09/12/2019 12:00:00 AM EDT tablet 30 TAKE ONE TABLET BY MOUTH EVERY DAY TAKE ONE TABLET BY MOUTH EVERY DAY SOLD: 12/01/2019 [facility] 75 mg 09/12/2019 12:00:00 AM EDT tablet 30 TAKE ONE TABLET BY MOUTH EVERY DAY TAKE ONE TABLET BY MOUTH EVERY DAY SOLD: 01/24/2020 [facility] 75 mg 09/12/2019 12:00:00 AM EDT tablet 30 TAKE ONE TABLET BY MOUTH EVERY DAY TAKE ONE TABLET BY MOUTH EVERY DAY SOLD: 02/25/2020 [facility] 200 mcg 08/28/2019 12:00:00 AM EDT tablet 30 TAKE ONE TABLET BY MOUTH EVERY DAY TAKE ONE TABLET BY MOUTH EVERY DAY SOLD: 12/11/2019 [facility] 200 mcg 08/28/2019 12:00:00 AM EDT tablet 30 TAKE ONE TABLET BY MOUTH EVERY DAY TAKE ONE TABLET BY MOUTH EVERY DAY SOLD: 07/30/2020 [facility] 40 mg 08/25/2019 12:00:00 AM EDT tablet 90 TAKE 1 TABLET BY MOUTH EVERY NIGHT TAKE 1 TABLET BY MOUTH EVERY NIGHT SOLD: 12/23/2019 [facility] 10 mg 08/04/2019 12:00:00 AM EDT tablet 90 TAKE ONE TABLET BY MOUTH THREE TIMES A DAY NEEDED FOR NAUSEA TAKE ONE TABLET BY MOUTH THREE TIMES A D AY NEEDED FOR NAUSEA SOLD: 12/11/2019 [facility] Insurance Providers Payer name Policy type / Coverage type Policy ID Covered alliance party ID Covered alliance party's relationship to condon Policy [place] Plan Information BS [place] Medigap Part B [id number] Self [place] Medigap Part B [id number] Self Y [id number] MEDICARE [id number] SP [id number] D MEDICARE [id number] SP [id number] W MEDICARE [id number] SP [id number] A Medicare Natl Govt Servic Medicare Primary [id number] Self [id number] Medicare Natl Govt Servic Medicare Primary [id number] Self 1 [id number] Medicare Natl Govt Servic Medicare Primary [id number] Self 1 [id number] Medicare Natl Govt Servic Medicare Primary [id number] Self MEDICARE COMPLETE [id number] SP [id number] MEDICARE COMPLETE [id number] SP [id number] [employer] Medigap Part B [id number] Self [employer] Medigap Part B [id number] Self [id number] [facility] Medicare [employer] Commercial [id number] Self [id number] [facility] [place] Medicare [employer] Commercial [id number] Self [id number] [facility] (Medicare) Medigap Part B [id number] Self [id number] [facility] (Medicare) Medigap Part B [id number] Self [id number] MEDICARE COMPLETE [id number] SP [id number] MEDICARE COMPLETE [id number] SP [id number] MEDICARE COMPLETE [id number] SP [id number] [facility] Medicare Solutions F [id number] SELF [id number] [facility] ([facility]) Commercial [id number] Self [id number] [facility] ([facility]) Medigap Part B [id number] Self [id number] [employer] Medigap Part B [id number] Self MEBNMTYW [employer] Medigap Part B [id number] Self MEBNMTYW [employer] Medigap Part B [id number] Self MEBNMTYW [employer] Medigap Part B [id number] Self MEBNMTYW [employer] Medigap Part B [id number] Self MEBNMTYW [employer] Medicare F MEBNMTYW SELF MEBNM TYW [employer] Medigap Part B [id number] Self MEBNMTYW [employer] Medigap Part B [id number] Self MEBNMTYW [employer] Medigap Part B MEBNMTYW [id number] Self MEBNMTYW [employer] Medigap Part B [id number] Self MEBNMTYW [employer] Medigap Part B [id number] Self MEBNMTYW AETNA MEDICARE COMPLETE G MEBNMTYW Self MEBNMTYW AETNA MEDICARE COMPLETE G MEBNMTYW Self MEBNMTYW AETNA MEDICARE COMPLETE G MEBNMTYW Self MEBNMTYW AETNA MEDICARE MEBNMTYW [place] MEBNM TYW [employer] Commercial [id number] Self [employer] Commercial [id number] Self MEDICARE COMPLETE-UHC O [id number] S [id number] [facility] O [id number] S [id number] MEDICARE COMPLETE-UHC P [id number] S [id number] [place] Primary [id number] Self AETNA MEDICARE MEBNMTYW SP MEBNM TYW AETNA MEDICARE CO MEBNMTYW 18 MEBNM TYW AETNA MEDICARE -O/P CO MEBNMTYW 18 MEBNMTYW AETNA [facility] CO MEBNMTYW 18 MEBNMTYW SELF PAY ONLY UNK SP UNK AETNA MEDICARE O MEBNMTYW [id number] S MEBNM TYW AETNA MEDICARE MEBNMTYW SP MEBNM TYW AETNA CO MEBNMTYW 18 MEBNMTYW AETNA MEDICARE MEBNMTYW SP MEBNM TYW AETNA MEDICARE O MEBNMTYW [id number] S MEBNM TYW AETNA MEDICARE O MEBNMTYW [id number] S MEBNM TYW [employer] Commercial mebnmtyw [id number] Self mebnmtyw AETNA MEDICARE MEBNMTYW SP MEBNM TYW [facility] Medicare Solutions Commercial [id number] Self [id number] [facility] Medicare Solutions Commercial [id number] Self [id number] [facility] Medicare Solutions Commercial [id number] Self [id number] [employer] (MCR) Commercial [id number] Self MEBNMTYW [employer] Medicare F [id number] SELF [id number] [facility] Medicare Solutions Commercial [id number] Self [id number] [employer] [id number] SP [id number] [facility] Medicare Solutions Commercial [id number] Self [id number] [facility] Medicare Solutions Commercial [id number] Self [id number] [facility] Medicare Solutions Commercial [id number] Self [id number] [facility] Medicare Solutions Commercial [id number] Self [id number] [facility] Medicare Solutions Commercial [id number] Self [id number] [facility] [id number] SP [id number] AETNA MEDICARE O [id number] S [id number] [employer]/[facility] [place] O [id number] S [id number] [facility] Medicare Solutions Commercial [id number] Self [id number] [place] Medicare Primary [id number] Self [id number] [place] Medicare Primary [id number] Self [id number] BS [employer] Medigap Part B [id number] Self Y [id number] MEDICARE [id number] SP [id number] A [employer] CR/Medicare Solu Commercial [id number] Self [id number] BS [employer] Medigap Part B [id number] Self [id number] [employer]/Medicare Commercial [id number] Self AETNA MEDICARE MEBNMTYW SP MEBNM TYW United HLCR/Medicare Solu Commercial [id number] Self [facility] O [id number] S [id number] Problems, Conditions, and Diagnoses Code Display Name Description Problem Type Effective Dates Data Source(s) Z4802 Encounter for removal of sutures Encounter for r emoval of sutures Diagnosis 07/28/2020 03:03:00 PM EDT [facility] Z4889 Encounter for other specified surgical a ftercare Encounter for other specified surgical aftercare Diagnosis 07/21/2020 02:27:00 PM EDT [facility] Z885 Allergy status to narcotic agent Allergy status to narcotic agent Diagnosis 07/16/2020 07:15:00 AM EDT [facility] E27140 Personal history of nicotine dependence Personal history of nicotine dependence Diagnosis 07/16/2020 07:15:00 AM EDT [facility] I4510 Unspecified right bundle-branch block Un specified right bundle-branch block Diagnosis 07/16/2020 07:15:00 AM EDT [facility] 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 Postprocedural hypothyro idism Diagnosis 07/16/2020 07:15:00 AM EDT [facility] I10 Essential (primary) hypertension Essential (primary) h ypertension Diagnosis 07/16/2020 07:15:00 AM EDT [facility] 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 Diagnosis 07/16/2020 07:15:00 AM EDT [facility] M2042 Other hammer toe(s) (acquired), left killian t Other hammer toe(s) (acquired), left foot Diagnosis 07/16/2020 07:15:00 AM EDT [facility] S24660 Encounter for other preprocedural examin ation Encounter for other preprocedural examination Diagnosis 07/14/2020 07:15:00 AM EDT [facility] H84654 Pain in left foot Pain in left foot Diagnosis 07/07/2020 12:55:00 PM EDT [facility] L84 Corns and callosities Corns and callosities Diagnosis 07/07/2020 12:55:00 PM EDT [facility] B351 Tinea unguium Tinea unguium Diagnosis 07/07/2020 12:55:00 PM EDT [facility] M7752 Other enthesopathy of left foot and ankl e Other enthesopathy of left foot and ankle Diagnosis 07/07/2020 12:55:00 PM EDT [facility] M7740 Metatarsalgia, unspecified foot Metatarsalgia, unspeci fied foot Diagnosis 07/07/2020 12:55:00 PM EDT [facility] M2040 Other hammer toe(s) (acquired), unspecif ied foot Other hammer toe(s) (acquired), unspecified foot Diagnosis 07/07/2020 12:55:00 PM EDT [facility] 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 Idiopathic pro gressive neuropathy Diagnosis 07/07/2020 12:55:00 PM EDT [facility] [id number] Nondisplaced fracture of thi rd metatarsal bone, left foot, subsequent encounter for fracture with routine healing Nondisplaced fracture of third metatarsal bone, left foot, subsequent encounter for fracture with routine healing Diagnosis 02/05/2020 02:13:00 PM [facility] M1991 Primary osteoarthritis, unspecified site Primary osteoarthritis, unspecified site Diagnosis 01/21/2020 02:02:00 PM [facility] [id number] Nondisplaced fracture of thi rd metatarsal bone, left foot, initial encounter for closed fracture Nondisplaced fracture of third metatarsa l bone, left foot, initial encounter for closed fracture Diagnosis 01/20 02:02:00 PM [facility] R06.00 Dyspnea, unspecified Dyspnea, unspecified Diagnosis 01/15/2020 10:04:10 AM [facility] R53.82 Chronic fatigue, unspecified Chronic fatigue, unspecif ied Diagnosis 12/15/2019 02:30:12 PM EDT [facility] R94.31 Abnormal electrocardiogram [ECG] [EKG] A bnormal electrocardiogram (ECG) (EKG) Diagnosis 12/15/2019 02:30:12 PM EDT [facility] M79.605 Pain in left leg Pain in left leg Diagnosis 12/15/2019 02 :30:12 PM EDT [facility] Z48.89 Convalescence after surgery Convalescence after surger y Problem 07/21/2020 12:00:00 AM EDT [facility] ([facility]) M77.40 Metatarsalgia Metatarsalgia Problem 06/09/2020 12:00:00 AM EDT [facility] ([facility]) [id number] Pure hypercholesterolemia Pure hypercholesterolemia Pr oblem 03/29/2020 12:00:00 AM EST [facility] ([facility] ) [id number] Essential hypertension Essential hypertension Problem 03/29/2020 12:00:00 AM EST [facility] ([facility] ) M79.672 Pain in limb Pain in limb Problem 01/21/2020 12:00:00 A M EST [facility] ([facility]) M20.40 Hammer toe Hammer toe Problem 01/21/2020 12:00:00 AM ES T [facility] ([facility]) B35.1 Onychomycosis Onychomycosis Problem 01/21/2020 12:00:00 AM EST [facility] ([facility]) M19.91 Localized, primary osteoarthritis Localized, josé miguel brandie osteoarthritis Problem 01/21/2020 12:00:00 AM EST [facility] ([facility]) S92.335A Closed fracture of metatarsal bone Closed fractu re of metatarsal bone Problem 01/21/2020 12:00:00 AM EST [facility] ([facility]) [id number] Dyspnea Dyspnea Problem 12/01/2019 12:00:00 AM ED T [facility] ([facility]) Surgeries/Procedures Procedure Description Date Indications Data Source(s) ARTHROCENTESIS ASPIR&/INJECTION MAJOR JT/BURSA 021 12:00:00 AM EDT [facility] ([facility] ) OFFICE OUTPATIENT VISIT 15 MINUTES 11/29/2020 12:00:00 AM EDT [facility] ([facility]) OFFICE OUTPATIENT VISIT 15 MINUTES 11/26/2020 12:00:00 AM EDT [facility] ([facility]) RADIOLOGIC EXAMINATION KNEE 3 VIEWS 11/23/2020 12:00:0 0 AM EDT [facility] ([facility] ) OFFICE OUTPATIENT VISIT 15 MINUTES 11/23/2020 12:00:00 AM EDT [facility] ([facility] ) OFFICE OUTPATIENT VISIT 25 MINUTES 10/27/2020 12:00:00 AM EDT [facility] ([facility]) ARTHROCENTESIS ASPIR&/INJECTION MAJOR JT/BURSA 021 12:00:00 AM EDT [facility] ([facility]) OFFICE OUTPATIENT VISIT 25 MINUTES 10/20/2020 12:00:00 AM EDT [facility] ([facility]) THERAPEUTIC PROPHYLACTIC/DX INJECTION SUBQ/IM 10/08/19 21 12:00:00 AM EDT [facility] ([facility]) OFFICE OUTPATIENT VISIT 15 MINUTES 10/07/2020 12:00:00 AM EDT [facility] ([facility]) RADIOLOGIC EXAMINATION KNEE 3 VIEWS 09/14/2020 12:00:0 0 AM EDT [facility] ([facility]) OFFICE OUTPATIENT VISIT 25 MINUTES 09/14/2020 12:00:00 AM EDT [facility] ([facility]) OFFICE OUTPATIENT VISIT 15 MINUTES 08/24/2020 12:00:00 AM EDT [facility] ([facility]) ARTHROCENTESIS ASPIR&/INJECTION MAJOR JT/BURSA 021 12:00:00 AM EDT [facility] ([facility]) OFFICE OUTPATIENT VISIT 25 MINUTES 08/02/2020 12:00:00 AM EDT [facility] ([facility]) Electrocardiogram Complete 06/30/2020 12:00:00 AM EDT [facility] ([facility]) Electrocardiogram Complete 06/29/2020 12:00:00 AM EDT [facility] ([facility]) OFFICE OUTPATIENT VISIT 25 MINUTES 06/29/2020 12:00:00 AM EDT [facility] ([facility]) Pare Hyperkeratotic Lesion, 2-4 06/09/2020 12:00:00 AM EDT [facility] ([facility]) Debridement Nails Any Method 6 Or More 06/09/2020 12:0 0:00 AM EDT [facility] ([facility]) OFFICE OUTPATIENT VISIT 25 MINUTES 06/02/2020 12:00:00 AM EDT [facility] ([facility]) OFFICE OUTPATIENT VISIT 15 MINUTES 04/30/2020 12:00:00 AM EST [facility] ([facility]) THERAPEUTIC PROPHYLACTIC/DX INJECTION SUBQ/IM 04/08/19 12:00:00 AM EST [facility] ([facility]) OFFICE OUTPATIENT VISIT 15 MINUTES 04/08/2020 12:00:00 AM EST [facility] ([facility]) OFFICE OUTPATIENT NEW 60 MINUTES 03/29/2020 12:00:00 A M EST [facility] ([facility]) OFFICE OUTPATIENT VISIT 25 MINUTES 03/24/2020 12:00:00 AM EST [facility] ([facility]) No Chargeable Service 02/23/2020 12:00:00 AM EST [facility] ([facility]) No Chargeable Service 02/05/2020 12:00:00 AM EST [facility] ([facility]) CLOSED TX METATARSAL FRACTURE W/O MANIPULATION 020 12:00:00 AM EST [facility] ([facility]) X-Ray Foot Complete 01/21/2020 12:00:00 AM EST [facility] ([facility]) Results ID Date Data Source [id number] 11/28/2020 08:00:00 AM EDT [facility] ([facility]) Name Value Range Interpretation Code Description Data Sue rce(s) Supporting Document(s) Hemoglobin.gastrointestinal [Presence] in Stool Laboratory test result Normal (applies to non-numeric results) [facility] ([facility]) OCCULT BLOOD 1 NEGATIVE ID Date Data Source [id number] 11/26/2020 01:18:00 PM EDT [facility] ([facility]) Name Value Range Interpretation Code Description Data Sue rce(s) Supporting Document(s) Total Iron Binding Capacity 427 ug/dL 250-450 Norm al (applies to non-numeric results) [facility] ([facility]) Iron (Fe) 19 ug/dL 50-170 Below low normal [facility] ( [facility]) Percent Saturation 4.4 % 13.2-45.0 Below low normal [facility] ([facility]) ID Date Data Source [id number] 11/26/2020 01:18:00 PM EDT [facility] ([facility]) Name Value Range Interpretation Code Description Data Sue rce(s) Supporting Document(s) Red Blood Count 3.50 10 4.00-5.40 Below low normal [facility] ([facility]) White Blood Count 6.8 10 4.0-10.0 Normal (applies to non-numeri c results) [facility] ([facility]) Mean Corpuscular Volume 93.7 fl 80.0-96.0 Normal ( applies to non-numeric results) [facility] ([facility]) Hemoglobin 10.2 g/dL 12.0-15.5 Below low normal [facility] ( [facility]) Hematocrit 32.8 % 36.0-47.0 Below low normal [facility] ( [facility]) Mean Corpuscular Hemoglobin 29.1 pg 27.0-33.0 Norm al (applies to non-numeric results) [facility] ([facility]) Mean Corpuscular HGB Conc 31.1 g/dL 32.0-36.5 Below low normal [facility] ([facility]) Red Cell Distribution Width 15.3 % 11.5-14.5 Above high normal [facility] ([facility]) Lymph % 33.2 % 24.0-44.0 Normal (applies to non-numeric resul ts) [facility] ([facility]) Platelet Count, Automated 390 10 150-450 Normal (applies to non-numeric results) [facility] ([facility]) Neutrophils % 53.5 % 36.0-66.0 Normal (applies to non-numeric re sults) [facility] ([facility]) Greenlee % 6.5 % 2.0-8.0 Normal (applies to non-numeric resul ts) [facility] ([facility]) Baso % 0.9 % 0.0-1.0 Normal (applies to non-numeric resul ts) [facility] ([facility]) Eos % 5.3 % 0.0-3.0 Above high normal [facility] ([facility]) Nucleated Red Blood Cell % 0.0 % 0-0 Normal (applies to n on-numeric results) [facility] ([facility]) Neutrophils # 3.6 10 1.5-8.5 Normal (applies to non-numeric re sults) [facility] ([facility]) Immature Granulocyte % 0.6 % 0-3.0 Normal (applies to non-n umeric results) [facility] ([facility]) Greenlee # 0.4 10 0.0-0.8 Normal (applies to non-numeric resul ts) [facility] ([facility]) Lymph # 2.3 10 1.5-5.0 Normal (applies to non-numeric resul ts) [facility] ([facility]) Baso # 0.1 10 0.0-0.2 Normal (applies to non-numeric resul ts) [facility] ([facility]) Eos # 0.4 10 0.0-0.5 Normal (applies to non-numeric resul ts) [facility] ([facility]) ID Date Data Source [id number] 11/26/2020 01:18:00 PM EDT [facility] ([facility]) Name Value Range Interpretation Code Description Data Sue rce(s) Supporting Document(s) Ferritin [Mass/volume] in Serum or Plasma 5 ng/mL 8-252 Below low normal [facility] ([facility]) Cobalamin (Vitamin B12) [Mass/volume] in Serum or Plasma 588 pg/ mL 247-911 Normal (applies to non-numeric results) [facility] ([facility]) VITAMIN B12 NORMAL RANGE NORMAL 247 - 911 PG/ML INDETERMINATE 211 - 246 PG/ML DEFICIENT LESS THAN 211 PG/ML ID Date Data Source [id number] 11/19/2020 09:58:00 AM EDT [facility] ([facility]) Name Value Range Interpretation Code Description Data Sue rce(s) Supporting Document(s) Thyroid Stimulating Hormone 4.150 uIU/ML 0.358-3.740 Above high chelle l [facility] ([facility]) Free T4 0.79 ng/dL 0.76-1.46 Normal (applies to non-numeric resul ts) [facility] ([facility]) ID Date Data Source [id number] 11/19/2020 09:58:00 AM EDT [facility] ([facility]) Name Value Range Interpretation Code Description Data Sue rce(s) Supporting Document(s) Triglycerides Level 68 mg/dL Normal (applies to non-nume jb results) [facility] ([facility]) HDL Cholesterol 86 mg/dL Normal (applies to non-numeric results) [facility] ([facility]) Cholesterol Level 179 mg/dL Normal (applies to non-numeri c results) [facility] ([facility]) LDL Cholesterol 79 mg/dL Normal (applies to non-numeric results) [facility] ([facility]) Non-HDL-C 93 mg/dL Normal (applies to non-numeric resul ts) [facility] ([facility]) Cholesterol Risk Ratio 2.081 Normal (applies to non-n umeric results) [facility] ([facility]) ID Date Data Source [id number] 11/19/2020 09:58:00 AM EDT [facility] ([facility]) Name Value Range Interpretation Code Description Data Sue rce(s) Supporting Document(s) Glucose, Fasting 90 mg/dL 70-100 Normal (applies to non-numeric results) [facility] ([facility]) Creatinine For GFR 0.83 mg/dL 0.55-1.30 Normal (applies to non -numeric results) [facility] ([facility]) Glomerular Filtration Rate Laboratory test result Normal (applies to non- numeric results) [facility] ([facility]) <content>Units are mL/min/1.73 m2</content>
<content></content>
<content>Chronic Kidney Disease Staging per NKF:</content>
<content></content>
<content>Stage I & II GFR >=60 Normal to Mildly Decreased</content>
<content>Stage III GFR 30- 59 Moderately Decreased</content>
<content>Stage IV GFR 15-29 Severely Decreased</content>
<content>Stage V GFR <15 Very Little GFR Left</content>
<content>ESRD GFR <15 on ANTHROPOLOGIST</content>
<content></content> Blood Urea Nitrogen 13 mg/dL 7-18 Normal (applies to non-nume jb results) [facility] ([facility]) Sodium Level 140 meq/L 136-145 Normal (applies to non-numeric res ults) [facility] ([facility]) Potassium Serum 4.4 meq/L 3.5-5.1 Normal (applies to non-numeric results) [facility] ([facility]) Chloride Level 107 meq/L 98-107 Normal (applies to non-numeric r esults) [facility] ([facility]) Carbon Dioxide Level 25 meq/L 21-32 Normal (applies to non-num osmany results) [facility] ([facility]) Anion Gap 8 meq/L 8-16 Normal (applies to non-numeric resul ts) [facility] ([facility]) Calcium Level 8.4 mg/dL 8.8-10.2 Below low normal [facility] ([facility]) Ast/Sgot 12 U/L 7-37 Normal (applies to non-numeric resul ts) [facility] ([facility]) Alt/SGPT 20 U/L 12-78 Normal (applies to non-numeric resul ts) [facility] ([facility]) Alkaline Phosphatase 64 U/L 45-117 Normal (applies to non-num osmany results) [facility] ([facility]) Total Protein 6.2 GM/DL 6.4-8.2 Below low normal [facility] ([facility]) Bilirubin,Total 0.3 mg/dL 0.2-1.0 Normal (applies to non-numeric results) [facility] ([facility]) Albumin/Globulin Ratio 1.2 1.2-2.2 Normal (applies to non-n umeric results) [facility] ([facility]) Albumin 3.4 GM/DL 3.2-5.2 Normal (applies to non-numeric resul ts) [facility] ([facility]) ID Date Data Source [id number] 11/19/2020 09:58:00 AM EDT [facility] ([facility]) Name Value Range Interpretation Code Description Data Sue rce(s) Supporting Document(s) White Blood Count 7.5 10 4.0-10.0 Normal (applies to non-numeri c results) [facility] ([facility]) Red Blood Count 3.59 10 4.00-5.40 Below low normal [facility] ([facility]) Hemoglobin 10.7 g/dL 12.0-15.5 Below low normal [facility] ( [facility]) Hematocrit 33.6 % 36.0-47.0 Below low normal [facility] ( [facility]) Mean Corpuscular Hemoglobin 29.8 pg 27.0-33.0 Norm al (applies to non-numeric results) [facility] ([facility]) Mean Corpuscular Volume 93.6 fl 80.0-96.0 Normal ( applies to non-numeric results) [facility] ([facility]) Red Cell Distribution Width 14.8 % 11.5-14.5 Above high normal [facility] ([facility]) Mean Corpuscular HGB Conc 31.8 g/dL 32.0-36.5 Below low normal [facility] ([facility]) Neutrophils % 66.8 % 36.0-66.0 Above high normal [facility] ([facility]) Platelet Count, Automated 382 10 150-450 Normal (applies to non-numeric results) [facility] ([facility]) Lymph % 20.9 % 24.0-44.0 Below low normal [facility] ( [facility]) Greenlee % 6.3 % 2.0-8.0 Normal (applies to non-numeric resul ts) [facility] ([facility]) Baso % 0.7 % 0.0-1.0 Normal (applies to non-numeric resul ts) [facility] ([facility]) Eos % 4.8 % 0.0-3.0 Above high normal [facility] ([facility]) Immature Granulocyte % 0.5 % 0-3.0 Normal (applies to non-n umeric results) [facility] ([facility]) Neutrophils # 5.0 10 1.5-8.5 Normal (applies to non-numeric re sults) [facility] ([facility]) Nucleated Red Blood Cell % 0.0 % 0-0 Normal (applies to n on-numeric results) [facility] ([facility]) Eos # 0.4 10 0.0-0.5 Normal (applies to non-numeric resul ts) [facility] ([facility]) Lymph # 1.6 10 1.5-5.0 Normal (applies to non-numeric resul ts) [facility] ([facility]) Greenlee # 0.5 10 0.0-0.8 Normal (applies to non-numeric resul ts) [facility] ([facility]) Baso # 0.1 10 0.0-0.2 Normal (applies to non-numeric resul ts) [facility] ([facility]) ID Date Data Source [id number] 09/10/2020 09:55:00 AM EDT [facility]) Name Value Range Interpretation Code Description Data Sue rce(s) Supporting Document(s) Calcium [Mass/volume] in Serum or Plasma 8.9 mg/dL 8.8-10. 2 Normal (applies to non-numeric results) [facility] ([facility]) Calcidiol [Mass/volume] in Serum or Plasma 35.0 ng/mL 30.0- 100.0 Normal (applies to non-numeric results) [facility] ([facility]) ID Date Data Source [id number] 09/10/2020 09:55:00 AM [facility]T [facility] Name Value Range Interpretation Code Description Data Sue rce(s) Supporting Document(s) Glucose, Fasting 100 mg/dL 70-100 Normal (applies to non-numeric results) [facility] ([facility]) Blood Urea Nitrogen 12 mg/dL 7-18 Normal (applies to non-nume jb results) [facility] ([facility]) Glomerular Filtration Rate Laboratory test result Normal (applies to non- numeric results) [facility] ([facility]) <content>Units are mL/min/1.73 m2</content>
<content></content>
<content>Chronic Kidney Disease Staging per NKF:</content>
<content></content>
<content>Stage I & II GFR >=60 Normal to Mildly Decreased</content>
<content>Stage III GFR 30- 59 Moderately Decreased</content>
<content>Stage IV GFR 15-29 Severely Decreased</content>
<content>Stage V GFR <15 Very Little GFR Left</content>
<content>ESRD GFR <15 on ANTHROPOLOGIST</content>
<content></content> Creatinine For GFR 0.90 mg/dL 0.55-1.30 Normal (applies to non -numeric results) [facility] ([facility]) Sodium Level 146 meq/L 136-145 Above high normal [facility] ([facility]) Potassium Serum 4.3 meq/L 3.5-5.1 Normal (applies to non-numeric results) [facility] ([facility]) Carbon Dioxide Level 25 meq/L 21-32 Normal (applies to non-num osmany results) [facility] ([facility]) Chloride Level 115 meq/L 98-107 Above high normal [facility] ([facility]) Ast/Sgot 9 U/L 7-37 Normal (applies to non-numeric resul ts) [facility] ([facility]) Anion Gap 6 meq/L 8-16 Below low normal [facility] ( [facility]) Calcium Level 8.8 mg/dL 8.8-10.2 Normal (applies to non-numeric re sults) [facility] ([facility]) Alkaline Phosphatase 64 U/L 45-117 Normal (applies to non-num osmany results) [facility] ([facility]) Bilirubin,Total 0.2 mg/dL 0.2-1.0 Normal (applies to non-numeric results) [facility] ([facility]) Alt/SGPT 25 U/L 12-78 Normal (applies to non-numeric resul ts) [facility] ([facility]) Albumin 3.5 GM/DL 3.2-5.2 Normal (applies to non-numeric resul ts) [facility] ([facility]) Total Protein 6.3 GM/DL 6.4-8.2 Below low normal [facility] ([facility]) Albumin/Globulin Ratio 1.3 1.2-2.2 Normal (applies to non-n umeric results) [facility] ([facility]) ID Date Data Source [id number] 09/10/2020 09:55:00 AM EDT [facility] ([facility]) Name Value Range Interpretation Code Description Data Sue rce(s) Supporting Document(s) Thyroid Stimulating Hormone 1.240 uIU/ML 0.358-3.740 Norm al (applies to non- numeric results) [facility] ([facility]) Free T4 1.09 ng/dL 0.76-1.46 Normal (applies to non-numeric resul ts) [facility] ([facility]) ID Date Data Source [id number] 09/10/2020 09:55:00 AM EDT [facility] ([facility]) Name Value Range Interpretation Code Description Data Sue rce(s) Supporting Document(s) Thyroid Stimulating Hormone 1.240 uIU/ML 0.358-3.740 [facility] ([facility]) Free T4 1.09 ng/dL 0.76-1.46 [facility] ([facility]) ID Date Data Source [id number] 09/10/2020 09:55:00 AM EDT [facility] ([facility] ) Name Value Range Interpretation Code Description Data Sue rce(s) Supporting Document(s) Glucose, Fasting 100 mg/dL 70-100 [facility] ([facility]) Blood Urea Nitrogen 12 mg/dL 7-18 [facility] ([facility]) Glomerular Filtration Rate Laboratory test result [facility] ([facility]) <content>Units are mL/min/1.73 m2</content>
<content></content>
<content>Chronic Kidney Disease Staging per NKF:</content>
<content></content>
<content>Stage I & II GFR >=60 Normal to Mildly Decreased</content>
<content>Stage III GFR 30- 59 Moderately Decreased</content>
<content>Stage IV GFR 15-29 Severely Decreased</content>
<content>Stage V GFR <15 Very Little GFR Left</content>
<content>ESRD GFR <15 on ANTHROPOLOGIST</content>
<content></content> Creatinine For GFR 0.90 mg/dL 0.55-1.30 [facility] ([facility]) Potassium Serum 4.3 meq/L 3.5-5.1 [facility] ([facility] ) Sodium Level 146 meq/L 136-145 [facility] ([facility]) Carbon Dioxide Level 25 meq/L 21-32 [facility] ([facility]) Chloride Level 115 meq/L 98-107 [facility] Anion Gap 6 meq/L 8-16 [facility] Calcium Level 8.8 mg/dL 8.8-10.2 [facility]) Ast/Sgot 9 U/L 7-37 [facility]) Alt/SGPT 25 U/L 12-78 [facility]) Alkaline Phosphatase 64 U/L 45-117 [facility]) Total Protein 6.3 GM/DL 6.4-8.2 [facility]) Bilirubin,Total 0.2 mg/dL 0.2-1.0 [facility] ([facility]) Albumin/Globulin Ratio 1.3 1.2-2.2 [facility] ([facility]) Albumin 3.5 GM/DL 3.2-5.2 [facility] ([facility]) ID Date Data Source [id number] 09/10/2020 09:55:00 AM EDT [facility] ([facility]) Name Value Range Interpretation Code Description Data Sue rce(s) Supporting Document(s) Calcidiol [Mass/volume] in Serum or Plasma 35.0 ng/mL 30.0-100.0 [facility] ([facility]) Calcium [Moles/volume] in Serum or Plasma 8.9 mg/dL 8.8-10.2 [facility] ([facility]) ID Date Data Source [id number] 07/16/2020 10:05:00 [place] [address] OPERATIVE SUMMARYNAME: DEEPTHI Goldberg DATE OF : 7ATTENDING PHYS: Fátima Mederos DPM DATE: 07/16/20 MR#: [id number] PROCEDURE: 07/16/2020REOPERATIVE DIAGNOSIS: Hammertoe of the left second, third, fourth, and fifth digits.POSTOPERATIVE DIAGNOSIS: Hammertoe of the left second, third, fourth, and fifth digits.PROCEDURE: Tenotomies of subcuticular extensor and flexor of the left second, third, fourth,and fifth digits with hammertoe correction left third and fourth digits.SURGEON: Fátima Mederos MD.ANESTHESIA CARE PROVIDER: Gabriel William CRNA.ANESTHESIA: Local digital blocks, 0.5% Marcaine, 2% lidocaine plain, 17 cc evenly betweenthe left second, third, fourth, and fifth digits with IV sedation.ESTIMATED BLOOD LOSS: None.DRAINS: None.IMPLANTS: None.EMPLOYMENT PROGRAM REPRESENTATIVE: None.BLOOD: None.SPECIMENS: None.COMPLICATIONS: None.DESCRIPTION OF PROCEDURE:The patient was given 2 g Kefzol IV prophylactically prior to surgery. She was brought to the OR,placed on the table in supine position. She had second, third, fourth, and fifth digital blocks on theleft foot using 0.5% Marcaine, 2% lidocaine plain, 17 cc total evenly between all the digits.Multiple turns of Webril were placed around the left ankle, the tourniquet apparatus was placed onthe left foot. She was prepped in the usual aseptic manner. I placed one sterile stockinette over theleft leg and foot, elevated the leg to 45 degrees, used Esmarch bandage to exsanguinate blood fromthe foot, inflated the tourniquet to 250 mmHg. I draped in the usual aseptic manner. I checked for 1 [place] [address] OPERATIVE SUMMARYNAME: DEEPTHI Goldberg DATE OF : 7ATTENDING PHYS: Fátima Mederos DPM DATE: 07/16/20 MR#: [id number], it was adequate. I used an 11 blade to do subcuticular extensor and flexor tenotomies atthe level of the metatarsophalangeal joint of the extensor and the usual location on the flexortendon, plantarly on the second, third, fourth, and fifth digits. Once this was done, I made twoconverting semi-elliptical incisions over the head of the proximal phalanx on the left third andfourth digits. I used a second sterile 15 blade to remove the skin wedge. I made one transverseincision just distal to the head of the proximal with a 15 blade, freeing up the collateral ligamentsmedially and laterally, and all ligaments of the head of the proximal phalanx. Once this was totallyfreed up, I used double-action bone cutters to remove the head of the proximal phalanx at thesurgical neck, removing about 5-6 mm of bone. Once this was done, I used a hand rasp to rasp itsmooth. I flushed with copious amounts of sterile saline. I re-attached the extensor tendon usingthree simple interrupted sutures of 4-0 Vicryl. I closed the skin of the left third and fourth digitswith 4-0 nylon, five sutures, closed each of the tenotomy sites, the extensor and flexor, with onesimple interrupted suture at ea ch one of the digits dorsally and plantarly, injected 4 mg ofdexamethasone and 0.5% Marcaine 2.5 cc between each of the four digits. I placed Adaptic and 1"bandar to stabilize the digits, multiple 4 x 4, fluffs, 2" bandar, released the tourniquet, instantaneousreturn of color and subcapillary venous plexus filling time is less than 3 seconds. I finished thedressing with Webril and Coban. Fabiola cordoba was taken to Ambulatory for written and oral post-operative instructions.POSTOPERATIVE THERAPY PROTOCOL:She will be seen in my office on Sunday, the fourth post-operative day.DD: Fátima Mederos DPM 07/16/20 09:19DT: ANGEL 07/16/20 09:49DS: Fátima Mederos DPM 07/19/20 10:04 2 Name Value Range Interpretation Code Description Data Sue rce(s) Supporting Document(s) ID Date Data Source [id number] 07/12/2020 12:00:00 AM EDT [facility] Name Value Range Interpretation Code Description Data Sue rce(s) Supporting Document(s) SARS-CoV-2 (COVID-19) RNA [Presence] in Respiratory specimen by TUAN with probe detection Not Detected [facility] This lab was ordered by [facility] and reported by [email or web address]. ID Date Data Source [id number] 07/09/2020 01:30:00 PM EDT [facility] ([facility]) Name Value Range Interpretation Code Description Data Sue rce(s) Supporting Document(s) Prothrombin Time 13.2 s 12.5-14.3 Normal (applies to non-numeric results) [facility] ([facility]) Partial Thromboplastin Time 25.8 s 24.2-38.5 Norm al (applies to non-numeric results) [facility] ([facility]) Inr 0.98 Normal (applies to non-numeric resul ts) [facility] ([facility]) THERAPUTIC HUMAN INR VALUES INDICATIONS NORMAL RANGES PROPHYLAXIS/TREATMENT OF: VENOUS THROMBOSIS 2.0-3.0 PULMONARY EMBOLISM 2.0-3.0 PREVENTION OF SYSTEMIC EMBOLISM FROM: TISSUE HEART VALVES 2.0-3.0 ACUTE MYOCARDIAL INFARCTION 2.0-3.0 VALVULAR HEART DISEASE 2.0-3.0 ATRIAL FIBRILLATION 2.0-3.0 MECHANICAL VALVES(HIGH RISK) 2.5-3.5 RECURRENT MYOCARDIAL INFARCTION 2.5-3.5 ID Date Data Source [id number] 07/09/2020 01:30:00 PM EDT [facility] ([facility]) Name Value Range Interpretation Code Description Data Sue rce(s) Supporting Document(s) Color, Urine Laboratory test result Normal (applies to non -numeric results) [facility] ([facility]) Appearance, Urine Laboratory test result Normal (applies to non-numeric results) [facility] ([facility]) Specific [place] Urine Auto 1.017 1.002-1.035 Norm al (applies to non-numeric results) [facility] ([facility]) PH,Urine 6.0 units 5.0-9.0 Normal (applies to non-numeric resul ts) [facility] ([facility]) Glucose, Urine (Ua) Auto Laboratory test result Normal (applies to non-numeric results) [facility] ([facility]) Ketone, Urine Auto Laboratory test result Normal (applies to non-numeric results) [facility]) Protein, Urine Auto Laboratory test result Chelle l (applies to non-numeric results) [facility]) Bilirubin, Urine Auto Laboratory test result Nor mal (applies to non-numeric results) [facility]) Urobilinogen, Urine Auto 0.2 mg/dL 0.0-2.0 Normal (applies to non-numeric results) [facility] ([facility]) Leukocyte Esterase, Urine Auto Laboratory test result Normal (applies to non- numeric results) [facility] ([facility]) Blood, Urine Blood Laboratory test result Normal (applies to non-numeric results) [facility] ([facility]) Nitrite, Urine Auto Laboratory test result Chelle l (applies to non-numeric results) [facility] ([facility]) Bacteria, Urine Auto Laboratory test result Above high nor mal [facility] ([facility]) RBC, Urine Auto 1 /HPF 0-3 Normal (applies to non-numeric results) [facility] ([facility]) WBC, Urine Auto 2 /HPF 0-3 Normal (applies to non-numeric results) [facility] ([facility]) Squamous Epithelial Cell Ur AU 0 /HPF 0-6 N ormal (applies to non-numeric results) [facility] ([facility]) Hyaline Cast, Urine Auto 0 /LPF 0-1 Normal (applies to non -numeric results) [facility] ([facility]) ID Date Data Source [id number] 07/09/2020 01:30:00 PM EDT [facility] ([facility]) Name Value Range Interpretation Code Description Data Seu rce(s) Supporting Document(s) Red Blood Count 4.35 10 4.00-5.40 Normal (applies to non-numeric results) [facility] ([facility]) White Blood Count 6.6 10 4.0-10.0 Normal (applies to non-numeri c results) [facility] ([facility]) Hemoglobin 13.5 g/dL 12.0-15.5 Normal (applies to non-numeric resul ts) [facility] Hematocrit 41.6 % 36.0-47.0 Normal (applies to non-numeric resul ts) [facility] Mean Corpuscular Hemoglobin 31.0 pg 27.0-33.0 Norm al (applies to non-numeric results) [facility]) Mean Corpuscular Volume 95.6 fl 80.0-96.0 Normal ( applies to non-numeric results) [facility]) Red Cell Distribution Width 13.0 % 11.5-14.5 Norm al (applies to non-numeric results) [facility]) Mean Corpuscular HGB Conc 32.5 g/dL 32.0-36.5 Normal (applies to non-numeric results) [facility] ([facility]) Platelet Count, Automated 259 10 150-450 Normal (applies to non-numeric results) [facility] ([facility]) Neutrophils % 57.2 % 36.0-66.0 Normal (applies to non-numeric re sults) [facility] ([facility]) Lymph % 27.7 % 24.0-44.0 Normal (applies to non-numeric resul ts) [facility] ([facility]) Greenlee % 9.2 % 2.0-8.0 Above high normal [facility] ([facility]) Eos % 4.5 % 0.0-3.0 Above high normal [facility] ([facility]) Baso % 0.9 % 0.0-1.0 Normal (applies to non-numeric resul ts) [facility] ([facility]) Immature Granulocyte % 0.5 % 0-3.0 Normal (applies to non-n umeric results) [facility] ([facility]) Nucleated Red Blood Cell % 0.0 % 0-0 Normal (applies to n on-numeric results) [facility] ([facility]) Neutrophils # 3.8 10 1.5-8.5 Normal (applies to non-numeric re sults) [facility] ([facility]) Lymph # 1.8 10 1.5-5.0 Normal (applies to non-numeric resul ts) [facility] ([facility]) Greenlee # 0.6 10 0.0-0.8 Normal (applies to non-numeric resul ts) [facility] ([facility]) Baso # 0.1 10 0.0-0.2 Normal (applies to non-numeric resul ts) [facility] ([facility]) Eos # 0.3 10 0.0-0.5 Normal (applies to non-numeric resul ts) [facility] ([facility]) ID Date Data Source [id number] 06/30/2020 11:02:00 AM EDT [facility] ([facility]) Name Value Range Interpretation Code Description Data Sue rce(s) Supporting Document(s) EKG Laboratory test result [facility] ([facility]) ID Date Data Source [id number] 05/26/2020 01:28:00 PM EDT [facility] ([facility]) Name Value Range Interpretation Code Description Data Sue rce(s) Supporting Document(s) Triglycerides Level 114 mg/dL Normal (applies to non-nume jb results) [facility] ([facility]) Cholesterol Level 204 mg/dL Above high normal [facility] ([facility]) Non-HDL-C 115 mg/dL Normal (applies to non-numeric resul ts) [facility] ([facility]) LDL Cholesterol 92 mg/dL Normal (applies to non-numeric results) [facility] ([facility]) HDL Cholesterol 89 mg/dL Normal (applies to non-numeric results) [facility] ([facility]) Cholesterol Risk Ratio 2.292 Normal (applies to non-n umeric results) [facility] ([facility]) ID Date Data Source [id number] 05/26/2020 01:28:00 PM EDT [facility] ([facility]) Name Value Range Interpretation Code Description Data Sue rce(s) Supporting Document(s) White Blood Count 5.3 10 4.0-10.0 Normal (applies to non-numeri c results) [facility] ([facility]) Hemoglobin 13.6 g/dL 12.0-15.5 Normal (applies to non-numeric resul ts) [facility] ([facility]) Red Blood Count 4.39 10 4.00-5.40 Normal (applies to non-numeric results) [facility] ([facility]) Mean Corpuscular Hemoglobin 31.0 pg 27.0-33.0 Norm al (applies to non-numeric results) [facility] ([facility]) Hematocrit 43.3 % 36.0-47.0 Normal (applies to non-numeric resul ts) [facility] ([facility]) Mean Corpuscular Volume 98.6 fl 80.0-96.0 Above high normal [facility] ([facility]) Mean Corpuscular HGB Conc 31.4 g/dL 32.0-36.5 Below low normal [facility] ([facility]) Red Cell Distribution Width 13.2 % 11.5-14.5 Norm al (applies to non-numeric results) [facility] ([facility]) Platelet Count, Automated 248 10 150-450 Normal (applies to non-numeric results) [facility] ([facility]) Lymph % 27.4 % 24.0-44.0 Normal (applies to non-numeric resul ts) [facility] ([facility]) Neutrophils % 59.3 % 36.0-66.0 Normal (applies to non-numeric re sults) [facility] ([facility]) Baso % 0.8 % 0.0-1.0 Normal (applies to non-numeric resul ts) [facility] ([facility]) Greenlee % 8.1 % 2.0-8.0 Above high normal [facility] ([facility]) Eos % 3.8 % 0.0-3.0 Above high normal [facility] ([facility]) Neutrophils # 3.2 10 1.5-8.5 Normal (applies to non-numeric re sults) [facility] ([facility]) Nucleated Red Blood Cell % 0.0 % 0-0 Normal (applies to n on-numeric results) [facility] ([facility]) Immature Granulocyte % 0.6 % 0-3.0 Normal (applies to non-n umeric results) [facility] ([facility]) Lymph # 1.5 10 1.5-5.0 Normal (applies to non-numeric resul ts) [facility] ([facility]) Eos # 0.2 10 0.0-0.5 Normal (applies to non-numeric resul ts) [facility] ([facility]) Greenlee # 0.4 10 0.0-0.8 Normal (applies to non-numeric resul ts) [facility] ([facility]) Baso # 0.0 10 0.0-0.2 Normal (applies to non-numeric resul ts) [facility] ([facility]) ID Date Data Source [id number] 05/26/2020 01:28:00 PM EDT [facility] ([facility]) Name Value Range Interpretation Code Description Data Sue rce(s) Supporting Document(s) Thyroid Stimulating Hormone 3.840 uIU/ML 0.358-3.740 Above high chelle l [facility] ([facility]) Free T4 0.88 ng/dL 0.76-1.46 Normal (applies to non-numeric resul ts) [facility] ([facility]) ID Date Data Source [id number] 05/26/2020 01:28:00 PM EDT [facility] ([facility]) Name Value Range Interpretation Code Description Data Sue rce(s) Supporting Document(s) Glucose, Fasting 58 mg/dL 70-100 Below low normal [facility] ([facility]) Creatinine For GFR 0.85 mg/dL 0.55-1.30 Normal (applies to non -numeric results) [facility] ([facility]) Blood Urea Nitrogen 17 mg/dL 7-18 Normal (applies to non-nume jb results) [facility] ([facility]) Sodium Level 140 meq/L 136-145 Normal (applies to non-numeric res ults) [facility] ([facility]) Potassium Serum 4.6 meq/L 3.5-5.1 Normal (applies to non-numeric results) [facility] ([facility]) Glomerular Filtration Rate Laboratory test result Normal (applies to non- numeric results) [facility]) <content>Units are mL/min/1.73 m2</content>
<content></content>
<content>Chronic Kidney Disease Staging per NKF:</content>
<content></content>
<content>Stage I & II GFR >=60 Normal to Mildly Decreased</content>
<content>Stage III GFR 30- 59 Moderately Decreased</content>
<content>Stage IV GFR 15-29 Severely Decreased</content>
<content>Stage V GFR <15 Very Little GFR Left</content>
<content>ESRD GFR <15 on ANTHROPOLOGIST</content>
<content></content> Chloride Level 109 meq/L 98-107 Above high normal [facility] ([facility]) Anion Gap 4 meq/L 8-16 Below low normal [facility] ( [facility]) Carbon Dioxide Level 27 meq/L 21-32 Normal (applies to non-num osmany results) [facility] ([facility]) Calcium Level 9.1 mg/dL 8.8-10.2 Normal (applies to non-numeric re sults) [facility] ([facility]) Alt/SGPT 110 U/L 12-78 Above high normal [facility] ([facility]) Ast/Sgot 60 U/L 7-37 Above high normal [facility] ([facility]) Bilirubin,Total 0.2 mg/dL 0.2-1.0 Normal (applies to non-numeric results) [facility] ([facility]) Total Protein 6.6 GM/DL 6.4-8.2 Normal (applies to non-numeric re sults) [facility] ([facility]) Alkaline Phosphatase 107 U/L 45-117 Normal (applies to non-num osmany results) [facility] ([facility]) Albumin/Globulin Ratio 1.5 1.2-2.2 Normal (applies to non-n umeric results) [facility] ([facility]) Albumin 4.0 GM/DL 3.2-5.2 Normal (applies to non-numeric resul ts) [facility] ([facility]) ID Date Data Source [id number] 04/01/2020 12:00:00 AM EST [facility] Frances Kinney DO Patient Name: JOSÉ MANUEL [id number] Date of : 1945 1 Date of Exam:04/01/2020YARIEL Gallagher [id number]#: Fax: [phone] EXAM: MAMMO UNI DIAGNOSTIC INCLUDE CAD RT AND ULTRASOUND BREAST UNI LIMITEDCLINICAL INFORMATION: Left breast call back.COMPARISON: 03/19/2020 as well as other prior exams.Spot compression views of the right breast confirm the presence of a fairlysmoothly marginated nodule at 12 o'oclock right breast anteriorlyapproximately 4 cm from the nipple, 9 mm in maximum diameter. There are noassociated microcalcifications.Real-time sonographic evaluation of the right breast was performed at the12 o'clock position. There is an oval simple cyst present which correspondsto the mammographic abnormality. This measures approximately 7 x 4 x 6 mm.Elastography interrogation demonstrates average KpA value 8.1. There isalso an adjacent hypoechoic nodule 3 mm in diameter. There are diffuseinternal echoes. I suspect this represents a complex cyst. Elastographyinterrogation demonstrates average KpA volume 18.9.IMPRESSION:ACR 3 probably benign. The nodule on the mammogram at 12 o'clock rightbreast corresponds to a simple benign cyst by ultrasound. Adjacent to thissimple benign cyst is a 3 mm hypoechoic nodule which probably represents atiny complex cyst. Recommend followup ultrasound in 6 months.LUCIE Mendez/Charlotte you for referring JOSÉ MANUEL LACEY to our office. Electronically Signed - BREANNA ORTEGA MD 04/05/20 11:40 Name Value Range Interpretation Code Description Data Sue rce(s) Supporting Document(s) ID Date Data Source [id number] 04/01/2020 12:00:00 AM [facility] Frances Kinney DO Patient Name: JOSÉ MANUEL [id number] Date of : 1945 1 Date of Exam:04/01/2020YARIEL Gallagher [id number]#: Fax: [phone] EXAM: MAMMO UNI DIAGNOSTIC INCLUDE CAD RT AND ULTRASOUND BREAST UNI LIMITEDCLINICAL INFORMATION: Left breast call back.COMPARISON: 03/19/2020 as well as other prior exams.Spot compression views of the right breast confirm the presence of a fairlysmoothly marginated nodule at 12 o'oclock right breast anteriorlyapproximately 4 cm from the nipple, 9 mm in maximum diameter. There are noassociated microcalcifications.Real-time sonographic evaluation of the right breast was performed at the12 o'clock position. There is an oval simple cyst present which correspondsto the mammographic abnormality. This measures approximately 7 x 4 x 6 mm.Elastography interrogation demonstrates average KpA value 8.1. There isalso an adjacent hypoechoic nodule 3 mm in diameter. There are diffuseinternal echoes. I suspect this represents a complex cyst. Elastographyinterrogation demonstrates average KpA volume 18.9.IMPRESSION:ACR 3 probably benign. The nodule on the mammogram at 12 o'clock rightbreast corresponds to a simple benign cyst by ultrasound. Adjacent to thissimple benign cyst is a 3 mm hypoechoic nodule which probably represents atiny complex cyst. Recommend followup ultrasound in 6 months.LUCIE Mendez/Charlotte you for referring JOSÉ MANUEL LACEY to our office. Electronically Signed - BREANNA ORTEGA MD 04/05/20 11:40 Name Value Range Interpretation Code Description Data Sue rce(s) Supporting Document(s) ID Date Data Source [id number] 03/19/2020 03:12:00 PM EST [facility] ([facility]) Name Value Range Interpretation Code Description Data Sue rce(s) Supporting Document(s) Mammography Screening, Bilateral; 2-View Each Breast Laboratory mary t result [facility] ([facility]) Dexa Bone Density Study, Vertebral Fracture Assessment Laborator y test result [facility] ([facility]) ID Date Data Source [id number] 03/19/2020 12:00:00 AM EST [facility] Frances Kinney DO Patient Name: JOSÉ MANUEL [id number] Date of : 1945 1 Date of Exam:03/19/2020YARIEL Gallagher [id number]#: Fax: [phone] EXAM: MAMMO SCREENING WITH CADCLINICAL INFORMATION: Screening.Based on the personal and family history information your patient suppliedat the time of imaging, her lifetime risk of breast cancer estimated by theTyrer-Cuzick model is 3.5%. Given that this patient has less than 20% TCrisk score, no further medical management is currently recommended at thistime.Digital screening (2D) mammography was performed bilaterally in the CC andMLO projections. Additionally, breast tomosynthesis (3D mammography) wasperformed bilaterally in the CC and MLO projections. Today's exam wascompared to the prior exam(s). There are no prior DBT examinations forcomparison.By history, the patient has no complaints of a palpable breast abnormalityor other significant breast complaints.The patient states that a clinical breast exam was not performed.In the right breast at the 12 o'clock position, there is a potentialneo-asymmetric density. No other suspicious features are seen in eitherbreast. Stable benign calcifications are again seen bilaterally. There isno skin thickening or nipple retraction.The Volpara volumetric breast density category is B, there are scatteredareas of fibroglandular density.IMPRESSION:BI-RADS Category 0 - Incomplete: Needs additional imaging evaluation.Potential heide-density seen in the right breast 12 o'clock position and beston the DBT images. Diagnostic digital magnified spot compression views ofthe right breast CC and MLO projections over the region of interestrecommended along with ultrasonography if necessary.Our office will attempt to contact the patient for additional imaging.This mammogram was read with the assistance of Lei GoodAskem, an FDAapproved computer aided detection system for mammography.Negative x-ray reports should not delay surgical consultation if a dominantor clinically suspicious mass is present.Not all breast cancers can be identified by mammography. Therefore, werecommend that you continue to perform regular breast self-examination andphysical examination and then promptly contact your physician of anyconcerns or changes.Adenosis and dense breasts may obscure an underlying neoplasm.NARINDER Silvestre/Daynek you for referring JOSÉ MANUEL LACEY to our office. Electronically Signed - MITUL MILLER DO 03/22/20 16:58 Name Value Range Interpretation Code Description Data Sue rce(s) Supporting Document(s) ID Date Data Source [id number] 03/10/2020 01:10:00 PM EST [facility] ([facility]) Name Value Range Interpretation Code Description Data Sue rce(s) Supporting Document(s) Glucose, Fasting 80 mg/dL 70-100 Normal (applies to non-numeric results) [facility] ([facility]) Blood Urea Nitrogen 22 mg/dL 7-18 Above high normal [facility] ([facility]) Creatinine For GFR 1.03 mg/dL 0.55-1.30 Normal (applies to non -numeric results) [facility] ([facility]) Sodium Level 140 meq/L 136-145 Normal (applies to non-numeric res ults) [facility] ([facility]) Glomerular Filtration Rate 55.9 Normal (applies to n on-numeric results) [facility] ([facility]) <content>Units are mL/min/1.73 m2</content>
<content></content>
<content>Chronic Kidney Disease Staging per NKF:</content>
<content></content>
<content>Stage I & II GFR >=60 Normal to Mildly Decreased</content>
<content>Stage III GFR 30- 59 Moderately Decreased</content>
<content>Stage IV GFR 15-29 Severely Decreased</content>
<content>Stage V GFR <15 Very Little GFR Left</content>
<content>ESRD GFR <15 on ANTHROPOLOGIST</content>
<content></content> Potassium Serum 4.0 meq/L 3.5-5.1 Normal (applies to non-numeric results) [facility] ([facility]) Carbon Dioxide Level 25 meq/L 21-32 Normal (applies to non-num osmany results) [facility] ([facility]) Chloride Level 109 meq/L 98-107 Above high normal [facility] ([facility]) Calcium Level 9.7 mg/dL 8.8-10.2 Normal (applies to non-numeric re sults) [facility] ([facility]) Anion Gap 6 meq/L 8-16 Below low normal [facility] ( [facility]) Ast/Sgot 19 U/L 7-37 Normal (applies to non-numeric resul ts) [facility] ([facility]) Alt/SGPT 26 U/L 12-78 Normal (applies to non-numeric resul ts) [facility] ([facility]) Alkaline Phosphatase 97 U/L 45-117 Normal (applies to non-num osmany results) [facility] ([facility]) Total Protein 7.0 GM/DL 6.4-8.2 Normal (applies to non-numeric re sults) [facility] ([facility]) Bilirubin,Total 0.4 mg/dL 0.2-1.0 Normal (applies to non-numeric results) [facility] ([facility]) Albumin 4.1 GM/DL 3.2-5.2 Normal (applies to non-numeric resul ts) [facility] ([facility]) Albumin/Globulin Ratio 1.4 1.2-2.2 Normal (applies to non-n umeric results) [facility] ([facility]) ID Date Data Source [id number] 03/10/2020 01:10:00 PM EST [facility] ([facility]) Name Value Range Interpretation Code Description Data Sue rce(s) Supporting Document(s) White Blood Count 9.7 10 4.0-10.0 Normal (applies to non-numeri c results) [facility] ([facility]) Hemoglobin 14.9 g/dL 12.0-15.5 Normal (applies to non-numeric resul ts) [facility] ([facility]) Red Blood Count 4.91 10 4.00-5.40 Normal (applies to non-numeric results) [facility] ([facility]) Hematocrit 46.8 % 36.0-47.0 Normal (applies to non-numeric resul ts) [facility] ([facility]) Mean Corpuscular Hemoglobin 30.3 pg 27.0-33.0 Norm al (applies to non-numeric results) [facility] ([facility]) Mean Corpuscular Volume 95.3 fl 80.0-96.0 Normal ( applies to non-numeric results) [facility] ([facility]) Mean Corpuscular HGB Conc 31.8 g/dL 32.0-36.5 Below low normal [facility] ([facility]) Red Cell Distribution Width 14.3 % 11.5-14.5 Norm al (applies to non-numeric results) [facility] ([facility]) Lymph % 21.0 % 24.0-44.0 Below low normal [facility] ( [facility]) Neutrophils % 68.7 % 36.0-66.0 Above high normal [facility] ([facility]) Platelet Count, Automated 293 10 150-450 Normal (applies to non-numeric results) [facility] ([facility]) Eos % 2.4 % 0.0-3.0 Normal (applies to non-numeric resul ts) [facility] [facility] [place] % 6.9 % 0.0-5.0 Above high normal [facility] ([facility]) Immature Granulocyte % 0.5 % 0-3.0 Normal (applies to non-n umeric results) [facility] ([facility]) Baso % 0.5 % 0.0-1.0 Normal (applies to non-numeric resul ts) [facility] ([facility]) Lymph # 2.0 10 1.5-5.0 Normal (applies to non-numeric resul ts) [facility] ([facility]) Neutrophils # 6.7 10 1.5-8.5 Normal (applies to non-numeric re sults) [facility] ([facility]) Nucleated Red Blood Cell % 0.0 % 0-0 Normal (applies to n on-numeric results) [facility] ([facility]) Greenlee # 0.7 10 0.0-0.8 Normal (applies to non-numeric resul ts) [facility] ([facility]) Eos # 0.2 10 0.0-0.5 Normal (applies to non-numeric resul ts) [facility] ([facility]) Baso # 0.1 10 0.0-0.2 Normal (applies to non-numeric resul ts) [facility] ([facility]) ID Date Data Source [id number] 03/10/2020 01:10:00 PM EST [facility] ([facility]) Name Value Range Interpretation Code Description Data Sue rce(s) Supporting Document(s) Calcidiol [Mass/volume] in Serum or Plasma 34.3 ng/mL 30.0- 100.0 Normal (applies to non-numeric results) [facility] ([facility]) ID Date Data Source [id number] 03/10/2020 01:10:00 PM EST [facility] ([facility]) Name Value Range Interpretation Code Description Data Sue rce(s) Supporting Document(s) Free T4 1.58 ng/dL 0.76-1.46 Above high normal [facility] ([facility]) Thyroid Stimulating Hormone 2.060 uIU/ML 0.358-3.740 Norm al (applies to non- numeric results) [facility] ([facility]) ID Date Data Source [id number] 01/27/2020 01:30:00 AM EST [facility] ([facility]) Name Value Range Interpretation Code Description Data Sue rce(s) Supporting Document(s) Reflex Urine Culture Laboratory test result Norm al (applies to non-numeric results) [facility] ([facility]) FULL REPORT IN LAB NOTES (eCW and [facility] ). SPECIMEN APPEARS CONTAMINATED ID Date Data Source [id number] 01/27/2020 01:30:00 AM EST [facility] ([facility]) Name Value Range Interpretation Code Description Data Sue rce(s) Supporting Document(s) Appearance, Urine RFX Laboratory test result Nor mal (applies to non-numeric results) [facility] ([facility]) Color, Urine RFX Laboratory test result Normal ( applies to non-numeric results) [facility] ([facility]) PH,Urine RFX 5.0 units 5.0-9.0 Normal (applies to non-numeric res ults) [facility] ([facility]) Specific [place] Ur Auto RFX 1.025 1.002-1.035 Nor mal (applies to non-numeric results) [facility] ([facility]) Protein, Urine Auto RFX Laboratory test result Above high normal [facility] ([facility]) Ketone, Urine Auto RFX Laboratory test result Above high n ormal [facility] ([facility]) Glucose, Urine (Ua) Auto RFX Laboratory test result Normal (applies to non- numeric results) [facility] ([facility]) Urobilinogen, Urine Auto RFX 2.0 mg/dL 0.0-2.0 Above high normal [facility] ([facility]) Bilirubin, Urine Auto RFX Laboratory test result Normal (applies to non- numeric results) [facility] ([facility]) Leukocyte Esterase Ur Auto RFX Laboratory test result Abov e high normal [facility] ([facility]) Nitrite, Urine Auto RFX Laboratory test result N ormal (applies to non-numeric results) [facility] ([facility]) WBC, Urine Auto RFX 31 /HPF 0-3 Above high normal [facility] ([facility]) Blood, Urine Blood RFX Laboratory test result No rmal (applies to non-numeric results) [facility] ([facility]) RBC, Urine Auto RFX 4 /HPF 0-3 Above high normal [facility] ([facility]) Bacteria, Urine Auto RFX Laboratory test result Normal (applies to non-numeric results) [facility] ([facility]) Transitional Epithelial AU RFX Laboratory test result Normal (applies to non- numeric results) [facility] Squam Epithelial Cell Ur Aurfx 0 /HPF 0-6 N ormal (applies to non-numeric results) [facility] ([facility]) Mucus, Urine RFX Laboratory test result Normal ( applies to non-numeric results) [facility] ([facility]) Hyaline Cast, Urine Auto RFX 4 /LPF 0-1 Normal (appl ies to non-numeric results) [facility] ([facility]) Calcium Oxalate Crystals RFX Laboratory test result Normal (applies to non- numeric results) [facility] ([facility]) ID Date Data Source [id number] 01/27/2020 12:31:00 AM EST [facility] ([facility]) Name Value Range Interpretation Code Description Data Sue rce(s) Supporting Document(s) Ethanol [Mass/volume] in Serum or Plasma Laboratory test result 0.000-0.010 Normal (applies to non-numeric results) [facility] ([facility]) Salicylates [Mass/volume] in Serum or Plasma 2.3 mg/dL 5.0 -30.0 Below low normal [facility] ([facility]) Thyrotropin [Units/volume] in Serum or Plasma 0.192 uIU/ML 0. 358-3.740 Below low normal [facility] ([facility]) Acetaminophen [Mass/volume] in Serum or Plasma Laboratory test r esult 10.0-30.0 Below low normal [facility] ([facility]) ID Date Data Source [id number] 01/27/2020 12:31:00 AM EST [facility] ([facility]) Name Value Range Interpretation Code Description Data Sue rce(s) Supporting Document(s) Glucose, Fasting 83 mg/dL 70-100 Normal (applies to non-numeric results) [facility] ([facility]) Blood Urea Nitrogen 18 mg/dL 7-18 Normal (applies to non-nume jb results) [facility] ([facility]) Creatinine For GFR 0.78 mg/dL 0.55-1.30 Normal (applies to non -numeric results) [facility] ([facility]) Glomerular Filtration Rate Laboratory test result Normal (applies to non- numeric results) [facility] ([facility]) <content>Units are mL/min/1.73 m2</content>
<content></content>
<content>Chronic Kidney Disease Staging per NKF:</content>
<content></content>
<content>Stage I & II GFR >=60 Normal to Mildly Decreased</content>
<content>Stage III GFR 30- 59 Moderately Decreased</content>
<content>Stage IV GFR 15-29 Severely Decreased</content>
<content>Stage V GFR <15 Very Little GFR Left</content>
<content>ESRD GFR <15 on ANTHROPOLOGIST</content>
<content></content> Sodium Level 142 meq/L 136-145 Normal (applies to non-numeric res ults) [facility] ([facility]) Potassium Serum 4.2 meq/L 3.5-5.1 Normal (applies to non-numeric results) [facility] ([facility]) Testing was performed on a hemolysed spe cimen. Suggest recollection of specimen for more accurate test results. Chloride Level 114 meq/L 98-107 Above high normal [facility] ([facility]) Carbon Dioxide Level 23 meq/L 21-32 Normal (applies to non-num osmany results) [facility] ([facility]) Anion Gap 5 meq/L 8-16 Below low normal [facility] ( [facility]) Calcium Level 8.9 mg/dL 8.8-10.2 Normal (applies to non-numeric re sults) [facility] ([facility]) ID Date Data Source [id number] 01/27/2020 12:31:00 AM EST [facility] ([facility]) Name Value Range Interpretation Code Description Data Sue rce(s) Supporting Document(s) Ast/Sgot 30 U/L 7-37 Normal (applies to non-numeric resul ts) [facility] ([facility]) Alt/SGPT 20 U/L 12-78 Normal (applies to non-numeric resul ts) [facility] ([facility]) Alkaline Phosphatase 77 U/L 45-117 Normal (applies to non-num osmany results) [facility] ([facility]) Bilirubin,Direct Laboratory test result 0.0-0.2 Normal ( applies to non-numeric results) [facility] ([facility]) Bilirubin,Total 0.4 mg/dL 0.2-1.0 Normal (applies to non-numeric results) [facility] ([facility]) Albumin 3.5 GM/DL 3.2-5.2 Normal (applies to non-numeric resul ts) [facility] ([facility]) Total Protein 6.7 GM/DL 6.4-8.2 Normal (applies to non-numeric re sults) [facility] ([facility]) Albumin/Globulin Ratio 1.1 1.2-2.2 Below low normal [facility] ([facility]) ID Date Data Source [id number] 01/27/2020 12:31:00 AM EST [facility] ([facility]) Name Value Range Interpretation Code Description Data Sue rce(s) Supporting Document(s) White Blood Count 7.3 10 4.0-10.0 Normal (applies to non-numeri c results) [facility] ([facility]) Red Blood Count 4.44 10 4.00-5.40 Normal (applies to non-numeric results) [facility] ([facility]) Hemoglobin 13.4 g/dL 12.0-15.5 Normal (applies to non-numeric resul ts) [facility] ([facility]) Hematocrit 41.3 % 36.0-47.0 Normal (applies to non-numeric resul ts) [facility] ([facility]) Mean Corpuscular Volume 93.0 fl 80.0-96.0 Normal ( applies to non-numeric results) [facility] ([facility]) Mean Corpuscular Hemoglobin 30.2 pg 27.0-33.0 Norm al (applies to non-numeric results) [facility] ([facility]) Mean Corpuscular HGB Conc 32.4 g/dL 32.0-36.5 Normal (applies to non-numeric results) [facility] ([facility]) Red Cell Distribution Width 13.3 % 11.5-14.5 Norm al (applies to non-numeric results) [facility] ([facility]) Platelet Count, Automated 226 10 150-450 Normal (applies to non-numeric results) [facility] ([facility]) Nucleated Red Blood Cell % 0.0 % 0-0 Normal (applies to n on-numeric results) [facility] ([facility]) ID Date Data Source [id number] 01/26/2020 11:18:00 PM EST [facility] ([facility]) Name Value Range Interpretation Code Description Data Sue rce(s) Supporting Document(s) Amphetamines Level Urine Laboratory test result Above high normal [facility] ([facility]) Benzodiazepines Urine Laboratory test result Above high no rmal [facility] ([facility]) Barbiturates Urine Laboratory test result Normal (applies to non-numeric results) [facility] ([facility]) Cannabinoids Urine Laboratory test result Normal (applies to non-numeric results) [facility] ([facility]) Cocaine Metabolite Urine Laboratory test result Normal (applies to non-numeric results) [facility] ([facility]) Opiates Urine Laboratory test result Normal (applies t o non-numeric results) [facility] ([facility]) Methadone Urine Laboratory test result Normal (a pplies to non-numeric results) [facility] ([facility]) Phencyclidine Urine Laboratory test result Chelle l (applies to non-numeric results) [facility] ([facility]) ALL PRESUMPTIVE POSITIVE FINDINGS AR E UNCONFIRMED THRESHOLD IN NG/ML AMPHETAMINES/METHAMPHET 1000 BARBITURATES 200 BENZODIAZEPINES 200 CANNABINOIDS (THC) 50 COCAINE METABOLITE 300 METHADONE 300 OPIATES 300 PHENCYCLIDINE 25 RESULTS ARE FOR MEDICAL PURPOSES ONLY. ALL URINE SPECIMENS WILL BE SAVED FOR 3 DAYS. IF CONFIRMATION OF A PRESUMPTIVE POSITIVE SCREEN RESULT IS DESIRED, CALL CHEMISTRY ([phone]) AND REQUEST URINE TO BE SENT TO REFERENCE LAB. FOR A LIST OF CLOSELY RELATED COMPOUNDS PLEASE CALL THE LAB. ID Date Data Source [id number] 12/05/2019 01:31:00 PM EDT [facility] ([facility]) Name Value Range Interpretation Code Description Data Sue rce(s) Supporting Document(s) Iron (Fe) 38 ug/dL 50-170 Below low normal [facility] ( [facility]) Percent Saturation 10.0 % 13.2-45.0 Below low normal [facility] ([facility]) Total Iron Binding Capacity 379 ug/dL 250-450 Norm al (applies to non-numeric results) [facility] ([facility]) ID Date Data Source [id number] 12/05/2019 01:31:00 PM EDT [facility] ([facility]) Name Value Range Interpretation Code Description Data Sue rce(s) Supporting Document(s) Ferritin [Mass/volume] in Serum or Plasma 10 ng/mL 8-252 Normal (applies to non- numeric results) [facility] ([facility]) ID Date Data Source [id number] 12/05/2019 01:31:00 PM EDT [facility] ([facility]) Name Value Range Interpretation Code Description Data Sue rce(s) Supporting Document(s) White Blood Count 5.2 10 4.0-10.0 Normal (applies to non-numeri c results) [facility] ([facility]) Red Blood Count 4.20 10 4.00-5.40 Normal (applies to non-numeric results) [facility] ([facility]) Hemoglobin 13.0 g/dL 12.0-15.5 Normal (applies to non-numeric resul ts) [facility] ([facility]) Hematocrit 40.8 % 36.0-47.0 Normal (applies to non-numeric resul ts) [facility] ([facility]) Mean Corpuscular Volume 97.1 fl 80.0-96.0 Above high normal [facility] ([facility]) Mean Corpuscular Hemoglobin 31.0 pg 27.0-33.0 Norm al (applies to non-numeric results) [facility] ([facility]) Mean Corpuscular HGB Conc 31.9 g/dL 32.0-36.5 Below low normal [facility] ([facility]) Red Cell Distribution Width 13.9 % 11.5-14.5 Norm al (applies to non-numeric results) [facility] ([facility]) Platelet Count, Automated 250 10 150-450 Normal (applies to non-numeric results) [facility] ([facility]) Lymph % 37.3 % 24.0-44.0 Normal (applies to non-numeric resul ts) [facility] ([facility]) Neutrophils % 44.9 % 36.0-66.0 Normal (applies to non-numeric re sults) [facility] ([facility]) Baso % 1.2 % 0.0-1.0 Above high normal [facility] ([facility]) Eos % 6.2 % 0.0-3.0 Above high normal [facility] ([facility]) [place] % 10.0 % 0.0-5.0 Above high normal [facility] ([facility]) Nucleated Red Blood Cell % 0.0 % 0-0 Normal (applies to n on-numeric results) [facility] ([facility]) Immature Granulocyte % 0.4 % 0-3.0 Normal (applies to non-n umeric results) [facility] ([facility]) Neutrophils # 2.3 10 1.5-8.5 Normal (applies to non-numeric re sults) [facility] ([facility]) Lymph # 1.9 10 1.5-5.0 Normal (applies to non-numeric resul ts) [facility] ([facility]) [place] # 0.5 10 0.0-0.8 Normal (applies to non-numeric resul ts) [facility] ([facility]) Eos # 0.3 10 0.0-0.5 Normal (applies to non-numeric resul ts) [facility] ([facility]) Baso # 0.1 10 0.0-0.2 Normal (applies to non-numeric resul ts) [facility] ([facility]) ID Date Data Source [id number] 12/05/2019 01:31:00 PM EDT [facility] ([facility]) Name Value Range Interpretation Code Description Data Sue rce(s) Supporting Document(s) Blood Urea Nitrogen 16 mg/dL 7-18 Normal (applies to non-nume jb results) [facility] ([facility]) Glucose, Fasting 70 mg/dL 70-100 Normal (applies to non-numeric results) [facility] ([facility]) Glomerular Filtration Rate Laboratory test result Normal (applies to non- numeric results) [facility] ([facility]) <content>Units are mL/min/1.73 m2</content>
<content></content>
<content>Chronic Kidney Disease Staging per NKF:</content>
<content></content>
<content>Stage I & II GFR >=60 Normal to Mildly Decreased</content>
<content>Stage III GFR 30- 59 Moderately Decreased</content>
<content>Stage IV GFR 15-29 Severely Decreased</content>
<content>Stage V GFR <15 Very Little GFR Left</content>
<content>ESRD GFR <15 on ANTHROPOLOGIST</content>
<content></content> Creatinine For GFR 0.73 mg/dL 0.55-1.30 Normal (applies to non -numeric results) [facility] ([facility]) Potassium Serum 4.3 meq/L 3.5-5.1 Normal (applies to non-numeric results) [facility] ([facility]) Sodium Level 139 meq/L 136-145 Normal (applies to non-numeric res ults) [facility] ([facility]) Carbon Dioxide Level 27 meq/L 21-32 Normal (applies to non-num osmany results) [facility] ([facility]) Chloride Level 108 meq/L 98-107 Above high normal [facility] ([facility]) Anion Gap 4 meq/L 8-16 Below low normal [facility] ( [facility]) Calcium Level 9.2 mg/dL 8.8-10.2 Normal (applies to non-numeric re sults) [facility] ([facility]) Ast/Sgot 13 U/L 7-37 Normal (applies to non-numeric resul ts) [facility] ([facility]) Alkaline Phosphatase 77 U/L 45-117 Normal (applies to non-num osmany results) [facility] ([facility]) Alt/SGPT 29 U/L 12-78 Normal (applies to non-numeric resul ts) [facility] ([facility]) Total Protein 6.6 GM/DL 6.4-8.2 Normal (applies to non-numeric re sults) [facility] ([facility]) Bilirubin,Total 0.2 mg/dL 0.2-1.0 Normal (applies to non-numeric results) [facility] ([facility]) Albumin 3.7 GM/DL 3.2-5.2 Normal (applies to non-numeric resul ts) [facility] ([facility]) Albumin/Globulin Ratio 1.3 1.2-2.2 Normal (applies to non-n umeric results) [facility] ([facility]) ID Date Data Source [id number] 12/05/2019 01:31:00 PM EDT [facility] ([facility]) Name Value Range Interpretation Code Description Data Sue rce(s) Supporting Document(s) Thyroid Stimulating Hormone 0.159 uIU/ML 0.358-3.740 Below low normal [facility] ([facility]) Free T4 1.03 ng/dL 0.76-1.46 Normal (applies to non-numeric resul ts) [facility] ([facility]) ID Date Data Source [id number] 12/05/2019 01:31:00 PM EDT [facility] ([facility]) Name Value Range Interpretation Code Description Data Sue rce(s) Supporting Document(s) Cobalamin (Vitamin B12) [Mass/volume] in Serum or Plasma 1057 pg /mL 247-911 Above high normal [facility] ([facility]) VITAMIN B12 NORMAL RANGE NORMAL 247 - 911 PG/ML INDETERMINATE 211 - 246 PG/ML DEFICIENT LESS THAN 211 PG/ML Calcidiol [Mass/volume] in Serum or Plasma 58.5 ng/mL 30.0- 100.0 Normal (applies to non-numeric results) [facility] ([facility]) Procedure Social History Code Duration Value Status Description Data Source(s ) Smoking 07/28/2020 12:00:00 AM EDT Patient has never smoked co mpleted Patient has never smoked [facility] ([facility]) Smoking 01/21/2020 12:00:00 AM EST Never Smoked A Pipe complet ed Never Smoked A Pipe [facility] ([facility]) Vital Signs ID Date Data Source [id number] Name Value Range Interpretation Code Description Data Source(s) Systolic blood pressure 132 mm[Hg] 132 mm[Hg] M [facility] ([facility]) Diastolic blood pressure 74 mm[Hg] 74 mm[Hg] [facility] ([facility]) Body height 68.2 [in_i] 68.2 [in_i] [facility] ([facility]) 5'8.20" Body weight 211.50 [lb_av] 211.50 [lb_av] [facility] ([facility]) Body mass index (BMI) [Ratio] 32.0 kg/m2 32.0 k g/m2 [facility] ([facility]) Heart rate 91 /min 91 /min [facility] ([facility]) Respiratory rate 18 /min 18 /min [facility] ( [facility]) Body temperature 98.9 [degF] 98.9 [degF] [facility] ([facility]) Oxygen saturation in Arterial blood by Pulse oximetry 97 % 97 % [facility] ([facility]) Otto body weight 140 [lb_av] 140 [lb_av] [facility] ([facility]) Body weight 209.25 [lb_av] 209.25 [lb_av] [facility] ([facility]) Systolic blood pressure 128 mm[Hg] 128 mm[Hg] [facility] ([facility]) Otto body weight 140 [lb_av] 140 [lb_av] [facility] ([facility]) Diastolic blood pressure 76 mm[Hg] 76 mm[Hg] [facility] ([facility]) Body height 68.2 [in_i] 68.2 [in_i] [facility] ([facility]) 5'8.20" Body mass index (BMI) [Ratio] 31.6 kg/m2 31.6 k g/m2 [facility] ([facility]) Heart rate 93 /min 93 /min [facility] ([facility]) Respiratory rate 18 /min 18 /min [facility] ( [facility]) Body temperature 98.7 [degF] 98.7 [degF] [facility] ([facility]) Oxygen saturation in Arterial blood by Pulse oximetry 97 % 97 % [facility] ([facility]) Respiratory rate 18 /min 18 /min [facility] ( [facility]) Body temperature 98.7 [degF] 98.7 [degF] [facility] ([facility]) Oxygen saturation in Arterial blood by Pulse oximetry 98 % 98 % [facility] ([facility]) Systolic blood pressure 132 mm[Hg] 132 mm[Hg] M [facility] ([facility]) Diastolic blood pressure 76 mm[Hg] 76 mm[Hg] [facility] ([facility]) Body height 68.2 [in_i] 68.2 [in_i] [facility] ([facility]) 5'8.20" Body weight 203.00 [lb_av] 203.00 [lb_av] [facility] ([facility]) Body mass index (BMI) [Ratio] 30.7 kg/m2 30.7 k g/m2 [facility] ([facility]) Heart rate 97 /min 97 /min [facility] ([facility]) Otto body weight 140 [lb_av] 140 [lb_av] [facility] ([facility]) Heart rate 81 /min 81 /min [facility] ([facility]) Body weight 199.12 [lb_av] 199.12 [lb_av] [facility] ([facility]) Respiratory rate 12 /min 12 /min [facility] ( [facility]) Oxygen saturation in Arterial blood by Pulse oximetry 99 % 99 % [facility] ([facility]) Body temperature 97.4 [degF] 97.4 [degF] [facility] ([facility]) Body mass index (BMI) [Ratio] 30.1 kg/m2 30.1 k g/m2 [facility] ([facility]) Otto body weight 140 [lb_av] 140 [lb_av] [facility] ([facility]) Systolic blood pressure 128 mm[Hg] 128 mm[Hg] M [facility] ([facility]) Diastolic blood pressure 80 mm[Hg] 80 mm[Hg] [facility] ([facility]) Body height 68.2 [in_i] 68.2 [in_i] [facility] ([facility]) 5'8.20" Body temperature 96.9 [degF] 96.9 [degF] [facility] ([facility] Body height 68.10 [in_i] 68.10 [in_i] [facility] ([facility]) 5'8.10" Body weight 197.50 [lb_av] 197.50 [lb_av] [facility] ([facility]) Body mass index (BMI) [Ratio] 29.9 kg/m2 29.9 k g/m2 [facility] ([facility]) Respiratory rate 18 /min 18 /min [facility] ( [facility]) Systolic blood pressure 126 mm[Hg] 126 mm[Hg] M [facility] ([facility]) Diastolic blood pressure 74 mm[Hg] 74 mm[Hg] [facility] ([facility]) Body height 68.2 [in_i] 68.2 [in_i] [facility] ([facility]) 5'8.20" Body weight 199.12 [lb_av] 199.12 [lb_av] [facility] ([facility]) Body mass index (BMI) [Ratio] 30.1 kg/m2 30.1 k g/m2 [facility] ([facility]) Heart rate 93 /min 93 /min [facility] ([facility]) Body temperature 98.9 [degF] 98.9 [degF] [facility] ([facility]) Oxygen saturation in Arterial blood by Pulse oximetry 97 % 97 % [facility] ([facility]) Otto body weight 140 [lb_av] 140 [lb_av] [facility] ([facility]) Systolic blood pressure 136 mm[Hg] 136 mm[Hg] M [facility] ([facility]) Diastolic blood pressure 84 mm[Hg] 84 mm[Hg] [facility] ([facility]) Body height 68.2 [in_i] 68.2 [in_i] [facility] ([facility]) 5'8.20" Body weight 201.25 [lb_av] 201.25 [lb_av] [facility] ([facility]) Body mass index (BMI) [Ratio] 30.4 kg/m2 30.4 k g/m2 [facility] ([facility]) Heart rate 84 /min 84 /min [facility] ([facility]) Respiratory rate 18 /min 18 /min [facility] ( [facility]) Body temperature 98.8 [degF] 98.8 [degF] [facility] ([facility]) Oxygen saturation in Arterial blood by Pulse oximetry 96 % 96 % [facility] ([facility]) Otto body weight 140 [lb_av] 140 [lb_av] [facility] ([facility]) Body weight 199.25 [lb_av] 199.25 [lb_av] [facility] T ([facility]) Body mass index (BMI) [Ratio] 30.1 kg/m2 30.1 k g/m2 [facility] ([facility]) Heart rate 80 /min 80 /min [facility] ([facility]) Respiratory rate 18 /min 18 /min [facility] ( [facility]) Body temperature 97.8 [degF] 97.8 [degF] [facility] ([facility]) Oxygen saturation in Arterial blood by Pulse oximetry 98 % 98 % [facility] ([facility]) Otto body weight 140 [lb_av] 140 [lb_av] [facility] T ([facility]) Systolic blood pressure 138 mm[Hg] 138 mm[Hg] M EDENT ([facility]) Diastolic blood pressure 80 mm[Hg] 80 mm[Hg] [facility] Body height 68.2 [in_i] 68.2 [in_i] [facility] ([facility]) 5'8.20" Oxygen saturation in Arterial blood by Pulse oximetry 97 % 97 % [facility] ([facility]) Systolic blood pressure 138 mm[Hg] 138 mm[Hg] M EDENT ([facility]) Diastolic blood pressure 80 mm[Hg] 80 mm[Hg] [facility] ([facility]) Heart rate 88 /min 88 /min [facility] ([facility]) Body temperature 97.3 [degF] 97.3 [degF] [facility] ([facility]) Body weight 195.38 [lb_av] 195.38 [lb_av] [facility] T ([facility]) Body mass index (BMI) [Ratio] 29.7 kg/m2 29.7 k g/m2 [facility] ([facility]) Body height 68 [in_i] 68 [in_i] [facility] ([facility]) 5'8" Systolic blood pressure 142 mm[Hg] 142 mm[Hg] M [facility] ([facility]) Heart rate 82 /min 82 /min [facility] ([facility]) Body weight 195.00 [lb_av] 195.00 [lb_av] [facility] T ([facility] Body mass index (BMI) [Ratio] 29.6 kg/m2 29.6 k g/m2 [facility] ([facility] Oxygen saturation in Arterial blood by Pulse oximetry 97 % 97 % [facility] ([facility]) Diastolic blood pressure 82 mm[Hg] 82 mm[Hg] [facility] ([facility]) Body temperature 97.3 [degF] 97.3 [degF] [facility] ([facility] Body height 68 [in_i] 68 [in_i] [facility] ([facility] 5'8" Respiratory rate 18 /min 18 /min [facility] ( [facility]) Body height 68.2 [in_i] 68.2 [in_i] [facility] ([facility]) 5'8.20" Body weight 192.00 [lb_av] 192.00 [lb_av] [facility] T ([facility]) Body mass index (BMI) [Ratio] 29.0 kg/m2 29.0 k g/m2 [facility] ([facility]) Systolic blood pressure 134 mm[Hg] 134 mm[Hg] M EDENT ([facility]) Diastolic blood pressure 86 mm[Hg] 86 mm[Hg] [facility] ([facility]) Heart rate 98 /min 98 /min [facility] ([facility]) Body temperature 99.3 [degF] 99.3 [degF] [facility] ([facility]) Oxygen saturation in Arterial blood by Pulse oximetry 99 % 99 % [facility] ([facility]) Otto body weight 140 [lb_av] 140 [lb_av] [facility] T ([facility]) Body mass index (BMI) [Ratio] 29.2 kg/m2 29.2 k g/m2 [facility] ([facility]) Heart rate 86 /min 86 /min [facility] ([facility]) Respiratory rate 18 /min 18 /min [facility] ( [facility]) Body temperature 98.5 [degF] 98.5 [degF] [facility] ([facility]) Oxygen saturation in Arterial blood by Pulse oximetry 98 % 98 % [facility] ([facility]) Body height 68.2 [in_i] 68.2 [in_i] [facility] ([facility]) 5'8.20" Otto body weight 140 [lb_av] 140 [lb_av] [facility] Systolic blood pressure 142 mm[Hg] 142 mm[Hg] [facility] Diastolic blood pressure 82 mm[Hg] 82 mm[Hg] [facility] ([facility]) Body weight 193.38 [lb_av] 193.38 [lb_av] [facility] I suspect previous weight was error foot fracture Body mass index (BMI) [Ratio] 27.9 kg/m2 27.9 k g/m2 [facility] ([facility]) Body surface area Derived from formula 2.02 m2 2.02 m2 [facility] ([facility]) Body weight 189.00 [lb_av] 189.00 [lb_av] [facility] T ([facility]) Body weight 85.730 kg 85.730 kg [facility] ([facility]) Body height 69 [in_i] 69 [in_i] [facility] ([facility]) 5'9" Body temperature 99.4 [degF] 99.4 [degF] [facility] ([facility]) Oxygen saturation in Arterial blood by Pulse oximetry 94 % 94 % [facility] ([facility]) Systolic blood pressure 144 mm[Hg] 144 mm[Hg] [facility] Diastolic blood pressure 84 mm[Hg] 84 mm[Hg] [facility] ([facility]) Body height 68.2 [in_i] 68.2 [in_i] [facility] ([facility]) 5'8.20" Body weight 165.25 [lb_av] 165.25 [lb_av] [facility] T ([facility]) Body mass index (BMI) [Ratio] 25.0 kg/m2 25.0 k g/m2 [facility] ([facility]) Heart rate 90 /min 90 /min [facility] ([facility]) Respiratory rate 18 /min 18 /min [facility] ( [facility]) Otto body weight 140 [lb_av] 140 [lb_av] [facility] T ([facility]) Systolic blood pressure 154 mm[Hg] 154 mm[Hg] [facility] ([facility]) Diastolic blood pressure 100 mm[Hg] 100 mm[Hg] [facility] ([facility]) Body height 68.2 [in_i] 68.2 [in_i] [facility] ([facility]) 8." Heart rate 85 /min 85 /min [facility] ([facility]) Respiratory rate 16 /min 16 /min [facility] ( [facility]) Body temperature 98.0 [degF] 98.0 [degF] [facility] ([facility]) Oxygen saturation in Arterial blood by Pulse oximetry 97 % 97 % [facility] ([facility]) Otto body weight 140 [lb_av] 140 [lb_av] [facility] ([facility]) Systolic blood pressure 118 mm[Hg] 118 mm[Hg] M [facility] ([facility]) Body height 68.2 [in_i] 68.2 [in_i] [facility] ([facility]) 8.20" Diastolic blood pressure 80 mm[Hg] 80 mm[Hg] [facility] ([facility]) Body weight 191.25 [lb_av] 191.25 [lb_av] [facility] ([facility]) Body mass index (BMI) [Ratio] 28.9 kg/m2 28.9 k g/m2 [facility] ([facility]) Heart rate 91 /min 91 /min [facility] ([facility]) Respiratory rate 16 /min 16 /min [facility] ( [facility]) Body temperature 98.2 [degF] 98.2 [degF] [facility] ([facility]) Oxygen saturation in Arterial blood by Pulse oximetry 94 % 94 % [facility] ([facility]) Otto body weight 140 [lb_av] 140 [lb_av] WAYNE Joseph ([facility]) ID Date Data Source [id number] 08/11/2020 01:23:03 PM EDT [facility] Name Value Range Interpretation Code Description Data Source(s) WEIGHT RECORDED 189.00 pounds 189.00 pounds Car [facility] Height 70 Inches 070 Inches [facility]
[2021-01-26 14:03] LABS: ALBUMIN 2.9 GM/DL (3.2-5.2); ALT/SGPT 14 U/L (12-78); BILIRUBIN,DIRECT < 0.1 MG/DL (0.0-0.2); BILIRUBIN,TOTAL 0.3 MG/DL (0.2-1.0); BLOOD UREA NITROGEN 43 MG/DL (7-18); CALCIUM LEVEL 8.1 MG/DL (8.8-10.2); CARBON DIOXIDE LEVEL 20 MEQ/L (21-32); CHLORIDE LEVEL 116 MEQ/L (98-107); ETHYL ALCOHOL (ETHANOL) < 0.003 % (0.000-0.010); GLOMERULAR FILTRATION RATE > 60.0 (>39); GLUCOSE, FASTING 101 MG/DL (70-100); LIPASE 148 U/L (73-393); LITHIUM LEVEL 0.22 MEQ/L (0.60-1.20); POTASSIUM SERUM 4.5 MEQ/L (3.5-5.1); SODIUM LEVEL 144 MEQ/L (136-145); TOTAL PROTEIN 5.5 GM/DL (6.4-8.2)
[2021-01-26] MEDS ORDERED: ACETAMINOPHEN TAB 650MG DOSE (2X325MG) PO PRN (16:35)
--- NOTE | 2021-01-26 17:07 | HPEPDOC ---
General Date of Admission 01/26/21 Date of Service: Jan 26, 2021 Chief Complaint The patient is a 75-year-old female admitted with a reason for visit of Dizziness. 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 Patient stated that for past 2 weeks she has been having intermittent black stool and progressive weakness associated with shortness of breath on exertion. Patient denied any red blood in the stool. Patient reported that she takes Plavix on a daily basis after stroke. In ER patient was found to have hemoglobin of 8.3, no leukocytosis. CT abdomen/pelvis showed There is no evidence of acute disease or significant change compared to the prior exam Home Medications Scheduled Amlodipine Besylate (Norvasc) 5 Mg Tablet, 5 MG PO QHS, (Reported) Bupropion Hcl (Bupropion Xl) 150 Mg Tab, 300 MG PO DAILY Clonazepam (Clonazepam) 0.125 Mg Tab.rapdis, 1 TAB PO TID, (Reported) Dextroamphetamine/Amphetamine (Adderall Xr 20 mg Capsule) 20 Mg Cap.er.24h, 20 MG PO QHS, (Reported) Dextroamphetamine/Amphetamine (Adderall Xr 30 mg Capsule) 30 Mg Cap.er.24h, 30 MG PO QAM, (Reported) Fluoxetine Hcl (Fluoxetine HCl) 40 Mg Capsule, 80 MG PO DAILY, (Reported) Levothyroxine Sodium (Levothyroxine Sodium) 200 Mcg Tablet, 200 MCG PO DAILY, (Reported) Ponca Carbonate (Ponca Carbonate) 300 Mg Capsule, 300 MG PO BID, (Reported) Miscellaneous Medications Clopidogrel Bisulfate (Clopidogrel) 75 Mg Tablet, (Reported) Allergies Coded Allergies: No Known Allergies (Unverified , 02/21/19) Past Medical History Medical History Hypertension Bipolar disorder Anxiety Depression s/p ECT Insomnia Gastroesophageal reflux disease (GERD) Nephrolithiasis Hiatal hernia Urinary incontinence Diverticulosis Hemorrhoids Chronic back pain s/p GAYLA which she states caused manic episode Left foot Brunson's neuroma CVA in 2017 Surgical History Hysterectomy Appendectomy Cholecystectomy Carpal tunnel surgery Left foot surgery Family History I personally reviewed family history and found not pertinent Social History * Smoker: former Smoker Alcohol: occationally Drugs: denies A-FIB/CHADSVASC A-FIB History Current/History of A-Fib/PAF?: No Current PO Anticoag Therapy: No Review of Systems Constitutional: Reports: Malaise, Weakness; Denies: Chills, Fever Eyes: Denies: Pain ENT: Denies: Head Aches Skin: Denies: Rash Pulmonary: Denies: Dyspnea Cardiovascular: Denies: Chest Pain Gastrointestinal: Denies: Nausea Genitourinary: Denies: Dysuria Hematologic: Denies: Bruising Endocrine: Denies: Polydipsia Musculoskeletal: Denies: Neck Pain Neurological: Denies: Weakness Psych: Reports: Mood Normal Physical Examination General Exam: Positive: Alert Eye Exam: Positive: PERRLA ENT Exam: Positive: Atraumatic Neck Exam: Positive: Supple; Negative: JVD Chest Exam: Positive: Clear to auscultation Heart Exam: Positive: Rate Normal Telemetry: Positive: No significant arrhythmia Abdomen Exam: Positive: Normal bowel sounds Extremity Exam: Negative: Clubbing Skin Exam: Positive: Nl turgor and temperature Neuro Exam: Positive: Cranial Nerves 3-12 NL Psych Exam: Positive: Oriented x 3 Vital Signs Vital Signs Date Time Temp Pulse Resp B/P (MAP) Pulse Ox O2 Delivery O2 Flow Rate FiO2 01/26/21 13:36 102 132/66 (88) 97 01/26/21 13:01 98.1 17 Laboratory Data Labs 24H Laboratory Tests 2 01/26/21 13:08: Immature Granulocyte % (Auto) 0.4, Neutrophils (%) (Auto) 68.0H, Lymphocytes (%) (Auto) 24.6, Monocytes (%) (Auto) 4.3, Eosinophils (%) (Auto) 2.2, Basophils (%) (Auto) 0.5, Neutrophils # (Auto) 5.2, Lymphocytes # (Auto) 1.9, Monocytes # (Auto) 0.3, Eosinophils # (Auto) 0.2, Basophils # (Auto) 0.0, Nucleated Red Blood Cells % (auto) 0.0, Prothrombin Time 14.0, Prothromb Time International Ratio 1.04, Anion Gap 8, Glomerular Filtration Rate > 60.0, Calcium Level 8.1L, Total Bilirubin 0.3, Direct Bilirubin < 0.1, Aspartate Amino Transf (AST/SGOT) 5L, Alanine Aminotransferase (ALT/SGPT) 14, Alkaline Phosphatase 46, Total Pro tein 5.5L, Albumin 2.9L, Albumin/Globulin Ratio 1.1L, Lipase 148, Ponca Level 0.22L, Ethyl Alcohol Level < 0.003 CBC/BMP Laboratory Tests 01/26/21 13:08 Assessment/Plan Patient is 75 years old female with past medical history of hypertension, bipolar disorder, anxiety, depression, 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 Patient stated that for past 2 weeks she has been having intermittent black stool and progressive weakness associated with shortness of breath on exertion. Patient denied any red blood in the stool. Patient reported that she takes Plavix on a daily basis after stroke. In ER patient was found to have hemoglobin of 8.3, no leukocytosis. CT abdomen/ pelvis showed There is no evidence of acute disease or significant change compared to the prior exam Problems (1) Acute anemia Status: Acute Problem Text: Most likely secondary to upper GI bleed Patient developed generalized weakness secondary to symptomatic anemia I will give 2 units of blood H&H every 6 hours Clear liquid diet PPI IV twice daily I talked with , EGD can be done after 5 days after last dose of Plavix (2) GI bleed Status: Acute Problem Text: See above (3) CVA, old, hemiparesis Status: Chronic Problem Text: Plavix on hold for now (4) Hypertension Status: Chronic Problem Text: Blood pressure under control Continue home meds (5) Anxiety Status: Chronic Problem Text: Continue home meds Plan / VTE VTE Prophylaxis Ordered?: No VTE Exclusion Pharmacological: Bleeding Risk KIRILL SALMON DO Jan 26, 2021 17:07
--- OUTSIDE RECORDS SUMMARY | 2021-01-26 17:24 | CCD ---
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 Name Role Phone MCELHERAN, SIGIFREDO PA Unavailable [...] Unavailable SEB-WAQAR, FRANCES DO Unavailable Unavailable SEB-WAQAR, FRACNES DO Unavailable Unavailable SEB-WAQAR, FRANCES DO Unavailable [...] Unavailable Andrew Rogel MD Unavailable Unavailable Andrew Rgoel MD Unavailable Unavailable Andrew Rogel MD Unavailable [...] [facility] Unavailable Unavailable ROSA M, J FÁITMA [facility] Unavailable Unavailable ROSA M, J [...] MD Unavailable Unavailable KrystinArie MD Unavailable Unavailable KrystinrAie MD Unavailable Unavailable KrystinArie MD Unavailable Unavailable KrystinArie albert MD Unavailable Unavailable KrystinArie MD Unavailable Unavailable KrystinArie MD Unavailable Unavailable KrystinArie MD Unavailable Unavailable KrystinArie MD Unavailable Unavailable KrystniArie MD Unavailable Unavailable KrystinArie MD Unavailable Unavailable KrystinArie MD Unavailable Unavailable KrystinArie rivera MD Unavailable Unavailable KrystinArie MD Unavailable Unavailable Arie Mcclelland MD Unavailable Unavailable Arie Mcclelland MD Unavailable Unavailable Arie Mcclelland MD Unavailable Unavailable KrystinArie rivera MD Unavailable Unavailable Arie Mcclelland MD Unavailable Unavailable Aire Mcclelland MD Unavailable Unavailable Arie Mcclelland MD [...] is protected by Article 27-F of the [facility] Public Health law. If you continue you may have access to information: Regarding HIV / AIDS; Provided by facilities licensed or operated by the [facility] Office of Mental Health; or Provided by the [facility] Office for People With Developmental Disabilities. If such information is present, then the following [facility] mandated warning applies: This information [...] law may result in a fine or retirement sentence or both. A general authorization for the release of medical or other information is NOT sufficient authorization for further disc losure. Allergies and Adverse Reactions Type Description Substance Reaction Status Data Source(s ) No Known Drug Allergies No Known Drug Allergies [facility] No Known Environmental Allergies No Known Environmental Al lergies [facility] No Known Food Allergies No Known Food Allergies [facility] Drug allergy CODEINE CODEINE ITCHING [facility] Family History Family Member Name Family Member Gender Family Member Status Date o f Status Description Data Source(s) Unknown Male Problem [facility] ([facility]) Encounters Encounter Providers Location Date Indications Data Source(s ) Office Visit Attender: SIGIFREDO ARNETT Physical Therapy 12/01/2020 02:15:00 PM EDT [facility] ([facility]) Outpatient Attender: FRANCES SHANE DO [facility] 11/29/2020 10:40:00 AM EDT [facility] ([facility]) Outpatient Attender: FRANCES SHANE DO [facility] 11/26/2020 10:00:00 AM EDT [facility] ([facility]) OFFICE OUTPATIENT VISIT 15 MINUTES Attender: Deepak lundberg MD Physical Therapy 11/23/2020 01:15:00 PM EDT [facility] ([facility]) Outpatient Attender: FRANCES SHANE [facility] 10/27/2020 02:00:00 PM EDT [facility] ([facility]) Outpatient Attender: Deepak Sibley MD Physical Therap y 10/20/2020 01:00:00 PM EDT [facility] ([facility]) OFFICE OUTPATIENT VISIT 15 MINUTES Attender: Mally Arreola MD Phy sical Therapy 10/07/2020 11:15:00 AM EDT [facility] ([facility]) Outpatient Attender: Deepak Sibley MD Physical Therap y 09/14/2020 10:45:00 AM EDT [facility] ([facility]) Outpatient Attender: FRANCES SHANE [facility] 08/24/2020 01:40:00 PM EDT [facility] ([facility]) Outpatient Attender: FÁTIMA MEDEROS DPM PCConsultant: Nayeli Mcclelland MD 08/11/2020 01:22:00 PM EDT - 08/11/2020 01:22:00 PM T [facility] Outpatient Attender: SIGIFREDO ARNETT Physical Therapy 08/02/2020 10:15:00 AM EDT [facility] ([facility]) Outpatient Attender: FÁTIMA MEDEROS DPM PCConsultant: Nayeli Mcclelland MD 07/28/2020 03:03:00 PM EDT - 07/28/2020 03:03:00 PM [facility] Outpatient Attender: FÁTIMA MEDEROS DPM PCConsultant: Nayeli Mcclelland MD 07/21/2020 02:27:00 PM EDT - 07/21/2020 02:27:00 PM T [facility] Outpatient Attender: FÁTIMA MEDEROS DPM PCConsultant: Nayeli Mcclelland MD 07/16/2020 07:15:00 AM EDT - 07/16/2020 09:56:00 AM [facility] Patient discharged. Outpatient Attender: FÁTIMA MEDEROS DPM PCConsultant: Nayeli Mcclelland MD 07/13/2020 01:18:54 PM EDT - 07/14/2020 07:30:00 AM EDT [facility] Patient discharged. Outpatient Attender: FÁTIMA MEDEROS DPM PCConsultant: Nayeli Mcclelland MD 07/08/2020 09:24:07 AM EDT - 07/12/2020 07:30:00 AM EDT [facility] Patient discharged. Outpatient Attender: FÁTIMA MEDEROS DPM PCConsultant: Nayeli Mcclelland MD 07/08/2020 08:09:24 AM EDT - 07/09/2020 11:40:00 AM EDT [facility] Patient discharged. Outpatient Attender: FÁTIMA MEDEROS DPM [facility] 07/07/2020 01:00:00 PM EDT [facility] ([facility] Outpatient Attender: FÁTIMA MEDEROS DPM PCConsultant: Nayeli Mcclelland MD 07/07/2020 12:55:00 PM EDT - 07/07/2020 12:55:00 PM EDT [facility] Outpatient Attender: FRANCES SHANE DO [facility] 06/29/2020 01:30:00 PM EDT [facility] Outpatient Attender: FÁTIMA MEDEROS DPM [facility] 06/09/2020 01:30:00 PM EDT [facility] ([facility]) Outpatient Attender: FÁTIMA MEDEROS DPM PCConsultant: Nayeli Mcclelland MD 06/09/2020 01:15:00 PM EDT - 06/09/2020 01:15:00 PM EDT [facility] Outpatient Attender: FRANCES SHANE DO [facility] 06/02/2020 01:00:00 PM EDT [facility] Outpatient Attender: FRANCES SHANE [facility] 04/30/2020 12:10:00 PM EST [facility] OFFICE OUTPATIENT VISIT 15 MINUTES Attender: Mally Arreola MD Phy sical Therapy 04/08/2020 09:45:00 AM EST [facility] ([facility] OFFICE OUTPATIENT NEW 60 MINUTES Attender: Mally Arreola MD Physi nay Therapy 03/29/2020 01:00:00 PM EST [facility] ([facility]) Outpatient Attender: FRANCES SHANE [facility] 03/24/2020 01:00:00 PM EST [facility] ([facility]) Recurring Patient Referrer: Nayeli Mcclelland MD 03/19/2020 0 3:19:01 PM [facility] Outpatient Attender: FÁTIMA MEDEROS DPArie PCConsultant: Nayeli Mcclelland MD 02/23/2020 02:37:00 PM EST - 02/23/2020 02:37:[address] [facility] Outpatient Attender: FRANCES SHANE [facility] 02/17/2020 01:30:00 PM EST [facility] ([facility] Outpatient Attender: FÁTIMA MEDEROS DPM PCConsultant: Nayeli Mcclelland MD 02/05/2020 02:13:00 PM EST - 02/05/2020 02:13:[address] [facility] Outpatient Attender: FRANCES SHANE [facility] 01/27/2020 01:00:00 PM EST [facility] ([facility]) Outpatient Attender: FÁTIMA MEDEROS DPM PCConsultant: Nayeli Mcclelland MD 01/21/2020 02:02:00 PM [facility] - 01/21/2020 02:02:[address] [facility] Outpatient Referrer: Andrew MARQUEZZUHAIR-SJP.ZUHAIR 12/27 12:00:00 AM EST - 01/15/2020 10:46:[address] [facility] Outpatient Attender: FRANCES HSANE [facility] 01/01/2020 12:20:00 PM EST [facility] ([facility] Outpatient Attender: Andrew Rogel MD SJWendy.ZUHAIR-SJP.ZUHAIR 11/26 12:00:00 AM EDT - 12/15/2019 03:41:[address] [facility] Immunizations Vaccine Date Status Description Data Source(s) COVID-19 VACCINE Pfizer 12/01/2020 12:00:00 AM EDT completed [facility] Vaccine Series Complete: YESThis Data wa s Submitted to [facility] Via [employer]. COVID-19 VACC, MRNA([facility])/PF 12/01/2020 12:00:00 AM EDT completed [facility] COVID-19 VACCINE Pfizer 04/15/2020 12:00:00 AM EST completed [facility] Vaccine Series Complete: YESThis Data wa s Submitted to [facility] [employer]. COVID-19 VACCINE Pfizer 03/25/2020 12:00:00 AM EST completed [facility] Vaccine Series Complete: NOThis Data was Submitted to [facility] [employer]. Medications Medication Brand Name Start Date Product [...] MAXIMUM DAILY DOSE = 1 SOLD: 01/19/2021 [facility] 24 HR Amphetamine aspartate 7.5 MG [...] DAILY DOSE = 1 CAPSULE SOLD: 12/20/2020 [facility] 20 mg 12/19/2020 12:00:00 AM EDT tablet [...] EDT active M EDENT ([facility]) 200 mcg 12/01/2020 12:00:00 AM EDT tablet [...] EDT ORAL active [facility] ([facility] 75 mcg 11/27/2020 12:00:00 AM EDT tablet 90 TAKE ONE TABLET BY MOUTH EVERY MORNING WITH 200MCG TAKE ONE TABLET BY MOUTH EVERY MORNING WITH 200MCG [facility] Levothyroxine Sodium 0.075 MG Oral Tablet Levothyroxine Sodi um 11/26/2020 12:00:00 AM EDT active M RACHELENT ([facility]) 75 mg 11/23/2020 12:00:00 AM EDT tablet [...] DAILY DOSE = 1 SOLD: 10/22/2020 [facility]#[id number] (60mg Syringe)1MG 10/07/2020 12:00:00 AM EDT completed [facility] ([facility]) Medication administered onsite 10 mg [...] DAILY DOSE = 3 TBALETS SOLD: 01/14/2021 [facility] 10 mg 09/30/2020 12:00:00 AM [...] EVERY EVENING MAXIMUM DAILY DOSE = 1 [facility] 300 mg 09/18/2020 12:00:00 AM [...] MAXIMUM DAILY DOSE = 4 SOLD: 08/19/2020 [facility] Amphetamine aspartate 5 MG / Amphetamine Sulfate 5 MG / Dextroamphetamine saccharate 5 MG / Dextroamphetamine Sulfate 5 MG Oral Tablet 20 mg DEXTROAMPHETAMINE/AMPHETAMINE 07/28/2020 12:00:00 AM EDT tablet 30 TAKE ONE TABLET BY MOUTH EVERY EVENING MAXIMUM DAILY DOSE = 1 TABLET TAKE ONE TABLET BY MOUTH EVERY EVENING MAXIMUM DAILY DOSE = 1 TABLET SOLD: 07/29/2020 [facility] 24 HR Amphetamine aspartate 7.5 [...] DAILY DOSE = 1 CAPSULE SOLD: 07/29/2020 [facility] 5-325 mg 07/21/2020 12:00:00 AM EDT tablet 30 TAKE 1 TABLET BY MOUTH EVERY 4-6 HOURS NEEDED FOR SEVERE PAIN MAXIMUM DAILY DOSE = 4 TAKE 1 TABLET BY MOUTH EVERY 4-6 HOURS NEEDED FOR SEVERE PAIN MAXIMUM DAILY DOSE = 4 SOLD: 07/21/2020 [facility] Acetaminophen 325 MG / Hydrocodone Bitartrate 5 MG Oral Tabl et [[place]] [place] 07/21/2020 12:00:00 AM EDT ORAL completed [facility] ([facility]) Acetaminophen 325 MG / Oxycodone Hydrochloride 5 MG Or al Tablet [Percocet] Percocet 07/07/2020 12:00:00 AM EDT completed [facility] ([facility]) 5-325 mg 07/07/2020 12:00:00 AM EDT tablet 30 TAKE 1 TABLET BY MOUTH EVERY 4-6 HOURS FOR SEVERE PAIN MAXIMUM DAILY DOSE = 4 TAKE 1 TABLET BY MOUTH EVERY 4- 6 HOURS FOR SEVERE PAIN MAXIMUM DAILY DOSE = 4 SOLD: 07/12/2020 [facility] 4 mg 07/01/2020 12:00:00 AM EDT tablets,dose pack 21 TAKE DIRECTED TAKE DIRECTED SOLD: 07/01/2020 [facility] 0.12 % 07/01/2020 12:00:00 AM [...] Sodiu m 06/02/2020 12:00:00 AM EDT [facility] 50 mcg 06/02/2020 12:00:00 AM EDT tablet 90 TAKE ONE TABLET BY MOUTH EVERY DAY IN THE MORNING WITH 200MCG TAKE ONE TABLET BY MOUTH EVERY DAY IN E MORNING WITH 200MCG SOLD: 06/02/2020 [facility] 50 mcg 06/02/2020 12:00:00 AM EDT tablet 90 TAKE ONE TABLET BY MOUTH EVERY DAY IN THE MORNING WITH 200MCG TAKE ONE TABLET BY MOUTH EVERY DAY IN E MORNING WITH 200MCG SOLD: 08/15/2020 [facility] [...] 04/30/2020 12:00:00 AM EST ORAL completed [facility] ([facility]) 1 ML denosumab 60 MG/ML Prefilled Syringe [Prolia] Prolia 04/30/2020 12:00:00 AM EST active [facility] ([facility]) 75 mg 04/23/2020 12:00:00 AM EST tablet 30 TAKE ONE TABLET BY MOUTH EVERY DAY TAKE ONE TABLET BY MOUTH EVERY DAY SOLD: 07/05/2020 [facility] 75 mg 04/23/2020 12:00:00 AM EST tablet 30 TAKE ONE TABLET BY MOUTH EVERY DAY TAKE ONE TABLET BY MOUTH EVERY DAY SOLD: 04/23/2020 [facility] 75 mg 04/23/2020 12:00:00 AM EST tablet 30 TAKE ONE TABLET BY MOUTH EVERY DAY TAKE ONE TABLET BY MOUTH EVERY DAY SOLD: 08/15/2020 [facility] 75 mg 04/23/2020 12:00:00 AM EST tablet 30 TAKE ONE TABLET BY MOUTH EVERY DAY TAKE ONE TABLET BY MOUTH EVERY DAY SOLD: 05/25/2020 [facility] 75 mg 04/23/2020 12:00:00 AM [...] = 1 SOLD: 04/11/2020 [facility] Prolia [facility]#[id number] (60mg Syringe)1MG 04/08/2020 12:00:00 AM EST completed [facility] ([facility]) Medication administered onsite 40 mg [...] BY MOUTH EVERY DAY AT BEDTIME SOLD: 021 [facility] gabapentin 300 MG Oral Capsule Gabapentin 03/24/2020 12:00:00 AM EST ORAL completed [facility] ([facility]) 25 mcg 03/15/2020 12:00:00 AM EST tablet 90 TAKE ONE TABLET BY MOUTH EVERY MORNING WITH 200MCG TAKE ONE TABLET BY MOUTH EVERY MORNING WITH 200MCG [facility] 20 mg 03/12/2020 12:00:00 AM [...] MOUTH TWICE A DAY SOLD: 03/13/2020 [facility] 30 mg 03/12/2020 12:00:00 AM EST [...] 1 CAPSULE BY MOUTH ONCE DAILY IN E MORNING UPON AWAKENING MAXIMUM DAILY DOSE = 1 SOLD: 02/10/2020 [facility] Cefuroxime 250 MG Oral Tablet CEFUROXIME [...] 01/27/2020 12:00:00 AM EST ORAL active [facility] ([facility]) 30 mg 01/12/2020 12:00:00 AM EST capsule,extended releas e 24hr 30 TAKE ONE CAPSULE BY MOUTH EVERY DAY IN THE MORNING UPON AWAKENING MAXIMUM DAILY DOSE = 1 TAKE ONE CAPSULE BY MOUTH EVERY DAY IN THE MORNING UPON AWAKENING MAXIMUM DAILY DOSE = 1 SOLD: 01/12/2020 [facility] 20 mg 01/12/2020 12:00:00 AM [...] TABLET BY MOUTH EVERY MORNING WITH 200MCG [facility] 200 mcg 01/02/2020 12:00:00 AM EST tablet 30 TAKE ONE TABLET BY MOUTH EVERY DAY TAKE ONE TABLET BY MOUTH EVERY DAY SOLD: 01/04/2020 [facility] 200 mcg 01/02/2020 12:00:00 AM EST tablet 30 TAKE ONE TABLET BY MOUTH EVERY DAY TAKE ONE TABLET BY MOUTH EVERY DAY SOLD: 02/14/2020 [facility] 25 mcg 01/02/2020 12:00:00 AM EST tablet 90 TAKE ONE TABLET BY MOUTH EVERY MORNING WITH 200MCG TAKE ONE TABLET BY MOUTH EVERY MORNING WITH 200MCG [facility] 1 mg 12/30/2019 12:00:00 AM [...] CAPSULE BY MOUTH EVERY DAY SOLD: 04/18/2020 [facility] 40 mg 12/23/2019 12:00:00 AM EDT capsule 30 TAKE ONE CAPSULE BY MOUTH EVERY DAY TAKE ONE CAPSULE BY MOUTH EVERY DAY SOLD: 12/23/2019 [facility] 20 mg 12/10/2019 12:00:00 AM EDT tablet 30 TAKE ONE TABLET BY MOUTH EVERY EVENING MAXIMUM DAILY DOSE = 1 TAKE ONE TABLET BY MOUTH EVERY EVENING M AXIMUM DAILY DOSE = 1 SOLD: 12/11/[address] [facility] 30 mg 12/10/2019 12:00:00 AM EDT capsule,extended releas e 24hr 30 TAKE ONE CAPSULE BY MOUTH EVERY MORNING MAXIMUM DAILY DOSE = 1 TAKE ONE CAPSULE BY MOUTH EVERY MORNING MAXIMUM DAILY DOSE = 1 SOLD: 12/11/2019 [facility] 325 mg (65 mg iron) 12/09/2019 12:00:00 AM EDT tablet 90 TAKE ONE TABLET BY MOUTH EVERY DAY TAKE ONE TABLET BY MOUTH EVERY DAY SOLD: 12/11/2019 [facility] ferrous sulfate 325 MG Oral Tablet Ferrousul 12/09/2019 12:00:00 AM EDT ORAL active [facility] ([facility]) Metformin hydrochloride 500 MG Oral Tablet METFORMIN [...] BY MOUTH TWICE A DAY SOLD: 12/01/2019 [facility] Milk Thistle Xtra 11/27/2019 12:00:00 AM EDT active [facility] ([facility]) 24 HR Bupropion Hydrochloride 300 MG Extended [...] type / Coverage type Policy ID Covered democrat ID Covered democrat's relationship to condon Policy [place] Plan Information BS [employer] Medigap Part B [id number] Self BS [employer] Medigap Part B [id number] Self Y [id number] MEDICARE [id number] SP [id number] D MEDICARE [id number] SP [id number] W MEDICARE [id number] SP [id number] A Medicare Natl Govt Servic Medicare Primary [id number] Self 1 [id number] Medicare Natl Govt Servic Medicare Primary [id number] Self 1 [id number] Medicare Natl Govt Servic Medicare Primary [id number] Self 1 [id number] Medicare Natl Govt Servic Medicare Primary [id number] Self MEDICARE COMPLETE [id number] SP [id number] MEDICARE COMPLETE [id number] SP [id number] [employer] Medigap Part B [id number] Self [employer] Medigap Part B [id number] Self [id number] [employer] Medicare Sol Commercial [id number] Self [id number] [employer] Medicare Sol Commercial [id number] Self [id number] [facility] (Medicare) Medigap Part B [id number] Self [id number] [facility] (Medicare) Medigap Part B [id number] Self [id number] MEDICARE COMPLETE [id number] SP [id number] MEDICARE COMPLETE [id number] SP [id number] MEDICARE COMPLETE [id number] SP [id number] [facility] Medicare Solutions F [id number] SELF [id number] [facility]) Commercial [id number] Self [id number] [facility] ([facility]) Medigap Part B [id number] Self [id number] [employer] Medigap Part B [id number] Self MEBNMTYW [employer] Medigap Part B [id number] Self MEBNMTYW [employer] Medigap Part B [id number] Self MEBNMTYW [employer] Medigap Part B [id number] [id number] Self MEBNMTYW [employer] Medigap Part B [id number] Self MEBNMTYW [employer] Medicare F MEBNMTYW SELF MEBNM TYW [employer]na Medigap Part B [id number] Self MEBNMTYW [employer] Medigap Part B [id number] Self MEBNMTYW [employer] Medigap Part B [id number] Self MEBNMTYW [employer] Medigap Part B [id number] [id number] Self MEBNMTYW [employer] Medigap Part B [id number] [id number] Self MEBNMTYW AETNA MEDICARE COMPLETE G MEBNMTYW Self MEBNMTYW AETNA MEDICARE COMPLETE G MEBNMTYW Self MEBNMTYW AETNA MEDICARE COMPLETE G MEBNMTYW Self MEBNMTYW AETNA MEDICARE MEBNMTYW [place] MEBNM TYW [employer] Commercial [id number] Self Secure [employer] Commercial [id number] Self MEDICARE COMPLETE-UHC O [id number] S [id number] [facility] O [id number] S [id number] MEDICARE COMPLETE-UHC P [id number] S [id number] Medicare [place] Primary [id number] Self AETNA MEDICARE MEBNMTYW SP MEBNM TYW AETNA MEDICARE CO MEBNMTYW 18 MEBNM TYW AETNA MEDICARE -O/P CO MEBNMTYW 18 MEBNMTYW AETNA [facility] CO MEBNMTYW 18 MEBNMTYW SELF PAY ONLY UNK SP UNK AETNA MEDICARE O MEBNMTYW [id number] S MEBNM TYW AETNA MEDICARE MEBNMTYW SP MEBNM TYW AETNA CO MEBNMTYW 18 MEBNMTYW AETNA MEDICARE MEBNMTYW SP MEBNM TYW AETNA MEDICARE O MEBNMTYW [id number] S MEBNM TYW AETNA MEDICARE O MEBNMTYW [id number] S MEBNM TYW [employer] Commercial mebnmtyw [id number] Self mebnmtyw AETNA MEDICARE MEBNMTYW SP MEBNM TYW [facility] Medicare Solutions Commercial [id number] Self [id number] [facility] Medicare Solutions Commercial [id number] Self [id number] [facility] Medicare Solutions Commercial [id number] Self [id number] [employer]etna (MCR) Commercial [id number] Self MEBNMTYW Aetna Medicare F [id number] SELF [id number] [facility] Medicare Solutions Commercial [id number] Self [id number] TODAYS OPTIONS [id number] SP [id number] Medicare Solutions Commercial [id number] Self [id number] [facility] Medicare Solutions Commercial [id number] Self [id number] [facility] Medicare Solutions Commercial [id number] Self [id number] [facility] Medicare Solutions Commercial [id number] Self [id number] [facility] Medicare Solutions Commercial [id number] [facility] [id number] SP [id number] AETNA MEDICARE O [id number] S [id number] TODAYS OPTIONS/[place] O [id number] S [id number] [facility] Medicare Solutions Commercial [id number] Self [id number] Medicare [place] Medicare Primary [id number] Self [id number] Medicare [place] Medicare Primary [id number] Self [id number] BS [employer]iller/[employer]n [employer]ad/MX Medigap Part B [id number] Self Y [id number] MEDICARE [id number] SP [id number] [facility] Commercial [id number] Self [id number] BS Diller/Watn Trad/MX Medigap Part B [id number] Self [id number] Unitedhealthcare/Medicare Commercial [id number] Self AETNA MEDICARE MEBNMTYW SP MEBNM TYW United HLCR/Medicare Solu Commercial [id number] Self [facility] O [id number] S [id number] Problems, Conditions, and Diagnoses Code Display Name Description Problem Type Effective Dates Data Source(s) Z4802 Encounter for removal of sutures Encounter for r emoval of sutures Diagnosis 07/28/2020 03:03:00 PM EDT [facility] Z4889 Encounter for other specified surgical a ftercare Encounter for other specified surgical aftercare Diagnosis 07/21/2020 02:27:00 PM EDT [facility] Z885 Allergy status to narcotic agent Allergy status to narcotic agent Diagnosis 07/16/2020 07:15:00 AM EDT [facility] R70062 Personal history of nicotine dependence Personal history of nicotine dependence Diagnosis 07/16/2020 07:15:00 AM EDT [facility] I4510 Unspecified right bundle-branch block Un specified right bundle-branch block Diagnosis 07/16/2020 07:15:00 AM EDT [facility] 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 Postprocedural hypothyro idism Diagnosis 07/16/2020 07:15:00 AM EDT [facility] I10 Essential (primary) hypertension Essential (primary) h ypertension Diagnosis 07/16/2020 07:15:00 AM EDT [facility] 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 Diagnosis 07/16/2020 07:15:00 AM EDT [facility] M2042 Other hammer toe(s) (acquired), left killian t Other hammer toe(s) (acquired), left foot Diagnosis 07/16/2020 07:15:00 AM EDT [facility] A03556 Encounter for other preprocedural examin ation Encounter for other preprocedural examination Diagnosis 07/14/2020 07:15:00 AM EDT [facility] U55513 Pain in left foot Pain in left foot Diagnosis 07/07/2020 12:55:00 PM EDT [facility] [facility] L84 Corns and callosities Corns and callosities Diagnosis 07/07/2020 12:55:00 PM EDT [facility] B351 Tinea unguium Tinea unguium Diagnosis 07/07/2020 12:55:00 PM EDT [facility] M7752 Other enthesopathy of left foot and ankl e Other enthesopathy of left foot and ankle Diagnosis 07/07/2020 12:55:00 PM EDT [facility] M7740 Metatarsalgia, unspecified foot Metatarsalgia, unspeci fied foot Diagnosis 07/07/2020 12:55:00 PM EDT [facility] M2040 Other hammer toe(s) (acquired), unspecif ied foot Other hammer toe(s) (acquired), unspecified foot Diagnosis 07/07/2020 12:55:00 PM EDT [facility] 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 M1991 Primary osteoarthritis, unspecified site Primary osteoarthritis, unspecified site Diagnosis 01/21/2020 02:02:[address] [facility] [id number] Nondisplaced fracture of thi rd metatarsal bone, left foot, initial encounter for closed fracture Nondisplaced fracture of third metatarsa l bone, left foot, initial encounter for closed fracture Diagnosis 01/20 02:02:[address] [facility] R06.00 Dyspnea, unspecified Dyspnea, unspecified Diagnosis 01/15/2020 10:04:10 AM [facility] R53.82 Chronic fatigue, unspecified Chronic fatigue, unspecif ied Diagnosis 12/15/2019 02:30:[address] [facility] R94.31 Abnormal electrocardiogram [ECG] [EKG] A bnormal electrocardiogram (ECG) (EKG) Diagnosis 12/15/2019 02:30:[address] [facility] M79.605 Pain in left leg Pain in left leg Diagnosis 12/15/2019 02 :30:[address] [facility] Z48.89 Convalescence after surgery Convalescence after surger y Problem 07/21/2020 12:00:00 AM EDT [facility] ([facility]) M77.40 Metatarsalgia Metatarsalgia Problem 06/09/2020 12:00:00 AM EDT [facility] ([facility]) [id number] Pure hypercholesterolemia Pure hypercholesterolemia Pr oblem 03/29/2020 12:00:00 AM EST [facility] ([facility] ) [id number] Essential hypertension Essential hypertension Problem 03/29/2020 12:00:00 AM EST [facility] ([facility] ) M79.672 Pain in limb Pain in limb Problem 01/21/2020 12:00:00 A M EST [facility] ([facility]) M20.40 Hammer toe Hammer toe Problem 01/21/2020 12:00:00 AM ES T [facility] ([facility]) B35.1 Onychomycosis Onychomycosis Problem 01/21/2020 12:00:00 AM EST [facility] ([facility]) M19.91 Localized, primary osteoarthritis Localized, josé miguel brandie osteoarthritis Problem 01/21/2020 12:00:00 AM EST [facility] ([facility]) S92.335A Closed fracture of metatarsal bone Closed fractu re of metatarsal bone Problem 01/21/2020 12:00:00 AM EST [facility] ([facility]) [id number] Dyspnea Dyspnea Problem 12/01/2019 12:00:00 AM ED T [facility] ([facility]) Surgeries/Procedures Procedure Description Date Indications Data Source(s) ARTHROCENTESIS ASPIR&/INJECTION MAJOR JT/BURSA 021 12:00:00 AM EDT [facility] ([facility] ) OFFICE OUTPATIENT VISIT 15 MINUTES 11/29/2020 12:00:00 AM EDT [facility] ([facility]) OFFICE OUTPATIENT VISIT 15 MINUTES 11/26/2020 12:00:00 AM EDT [facility] ([facility]) RADIOLOGIC EXAMINATION KNEE 3 VIEWS 11/23/2020 12:00:0 0 AM EDT [facility] ([facility] ) OFFICE OUTPATIENT VISIT 15 MINUTES 11/23/2020 12:00:00 AM EDT [facility] ([facility] ) OFFICE OUTPATIENT VISIT 25 MINUTES 10/27/2020 12:00:00 AM EDT [facility] ([facility]) ARTHROCENTESIS ASPIR&/INJECTION MAJOR JT/BURSA 021 12:00:00 AM EDT [facility] ([facility] ) OFFICE OUTPATIENT VISIT 25 MINUTES 10/20/2020 12:00:00 AM EDT [facility] ([facility] ) THERAPEUTIC PROPHYLACTIC/DX INJECTION SUBQ/IM 10/08/19 21 12:00:00 AM EDT [facility] ([facility] ) OFFICE OUTPATIENT VISIT 15 MINUTES 10/07/2020 12:00:00 AM EDT [facility] ([facility] ) RADIOLOGIC EXAMINATION KNEE 3 VIEWS 09/14/2020 12:00:0 0 AM EDT [facility] ([facility] ) OFFICE OUTPATIENT VISIT 25 MINUTES 09/14/2020 12:00:00 AM EDT [facility] ([facility]) OFFICE OUTPATIENT VISIT 15 MINUTES 08/24/2020 12:00:00 AM EDT [facility] ([facility]) ARTHROCENTESIS ASPIR&/INJECTION MAJOR JT/BURSA 021 12:00:00 AM EDT [facility] ([facility] ) OFFICE OUTPATIENT VISIT 25 MINUTES 08/02/2020 12:00:00 AM EDT [facility] ([facility]) Electrocardiogram Complete 06/30/2020 12:00:00 AM EDT [facility] ([facility]) Electrocardiogram Complete 06/29/2020 12:00:00 AM EDT [facility] ([facility]) OFFICE OUTPATIENT VISIT 25 MINUTES 06/29/2020 12:00:00 AM EDT [facility] ([facility]) Pare Hyperkeratotic Lesion, 2-4 06/09/2020 12:00:00 AM EDT [facility] ([facility]) Debridement Nails Any Method 6 Or More 06/09/2020 12:0 0:00 AM EDT [facility] ([facility]) OFFICE OUTPATIENT VISIT 25 MINUTES 06/02/2020 12:00:00 AM EDT [facility] ([facility]) OFFICE OUTPATIENT VISIT 15 MINUTES 04/30/2020 12:00:00 AM EST [facility] ([facility]) THERAPEUTIC PROPHYLACTIC/DX INJECTION SUBQ/IM 04/08/19 12:00:00 AM EST [facility] ([facility] ) OFFICE OUTPATIENT VISIT 15 MINUTES 04/08/2020 12:00:00 AM EST [facility] ([facility] ) OFFICE OUTPATIENT NEW 60 MINUTES 03/29/2020 12:00:00 A M EST [facility] ([facility] ) OFFICE OUTPATIENT VISIT 25 MINUTES 03/24/2020 12:00:00 AM EST [facility] ([facility]) No Chargeable Service 02/23/2020 12:00:00 AM EST [facility] ([facility]) No Chargeable Service 02/05/2020 12:00:00 AM EST [facility] ([facility]) CLOSED TX METATARSAL FRACTURE W/O MANIPULATION 020 12:00:00 AM EST [facility] ([facility]) X-Ray Foot Complete 01/21/2020 12:00:00 AM EST [facility] ([facility]) Results ID Date Data Source [id number] 11/28/2020 08:00:00 AM EDT [facility] ([facility]) Name Value Range Interpretation Code Description Data Sue rce(s) Supporting Document(s) Hemoglobin.gastrointestinal [Presence] in Stool Laboratory test result Normal (applies to non-numeric results) [facility] ([facility]) OCCULT BLOOD 1 NEGATIVE ID Date Data Source [id number] 11/26/2020 01:18:00 PM EDT [facility] ([facility]) Name Value Range Interpretation Code Description Data Sue rce(s) Supporting Document(s) Total Iron Binding Capacity 427 ug/dL 250-450 Norm al (applies to non-numeric results) [facility] ([facility]) Iron (Fe) 19 ug/dL 50-170 Below low normal [facility] ( [facility]) Percent Saturation 4.4 % 13.2-45.0 Below low normal [facility] ([facility]) ID Date Data Source [id number] 11/26/2020 01:18:00 PM EDT [facility] ([facility]) Name Value Range Interpretation Code Description Data Sue rce(s) Supporting Document(s) Red Blood Count 3.50 10 4.00-5.40 Below low normal [facility] ([facility]) White Blood Count 6.8 10 4.0-10.0 Normal (applies to non-numeri c results) [facility] ([facility]) Mean Corpuscular Volume 93.7 fl 80.0-96.0 Normal ( applies to non-numeric results) [facility] ([facility]) Hemoglobin 10.2 g/dL 12.0-15.5 Below low normal [facility] ( [facility]) Hematocrit 32.8 % 36.0-47.0 Below low normal [facility] ( [facility]) Mean Corpuscular Hemoglobin 29.1 pg 27.0-33.0 Norm al (applies to non-numeric results) [facility] ([facility]) Mean Corpuscular HGB Conc 31.1 g/dL 32.0-36.5 Below low normal [facility] ([facility]) Red Cell Distribution Width 15.3 % 11.5-14.5 Above high normal [facility] ([facility]) Lymph % 33.2 % 24.0-44.0 Normal (applies to non-numeric resul ts) [facility] ([facility]) Platelet Count, Automated 390 10 150-450 Normal (applies to non-numeric results) [facility] ([facility]) Neutrophils % 53.5 % 36.0-66.0 Normal (applies to non-numeric re sults) [facility] ([facility]) [place] % 6.5 % 2.0-8.0 Normal (applies to non-numeric resul ts) [facility] ([facility]) Baso % 0.9 % 0.0-1.0 Normal (applies to non-numeric resul ts) [facility] ([facility]) Eos % 5.3 % 0.0-3.0 Above high normal [facility] ([facility]) Nucleated Red Blood Cell % 0.0 % 0-0 Normal (applies to n on-numeric results) [facility] ([facility]) Neutrophils # 3.6 10 1.5-8.5 Normal (applies to non-numeric re sults) [facility] ([facility]) Immature Granulocyte % 0.6 % 0-3.0 Normal (applies to non-n umeric results) [facility] ([facility]) [place] # 0.4 10 0.0-0.8 Normal (applies to non-numeric resul ts) [facility] ([facility]) Lymph # 2.3 10 1.5-5.0 Normal (applies to non-numeric resul ts) [facility] ([facility]) Baso # 0.1 10 0.0-0.2 Normal (applies to non-numeric resul ts) [facility] ([facility]) Eos # 0.4 10 0.0-0.5 Normal (applies to non-numeric resul ts) [facility] ([facility]) ID Date Data Source [id number] 11/26/2020 01:18:00 PM EDT [facility] ([facility]) Name Value Range Interpretation Code Description Data Sue rce(s) Supporting Document(s) Ferritin [Mass/volume] in Serum or Plasma 5 ng/mL 8-252 Below low normal [facility] ([facility]) Cobalamin (Vitamin B12) [Mass/volume] in Serum or Plasma 588 pg/ mL 247-911 Normal (applies to non-numeric results) [facility] ([facility]) VITAMIN B12 NORMAL RANGE NORMAL 247 - 911 PG/ML INDETERMINATE 211 - 246 PG/ML DEFICIENT LESS THAN 211 PG/ML ID Date Data Source [id number] 11/19/2020 09:58:00 AM EDT [facility] ([facility]) Name Value Range Interpretation Code Description Data Sue rce(s) Supporting Document(s) Thyroid Stimulating Hormone 4.150 uIU/ML 0.358-3.740 Above high chelle l [facility] ([facility]) Free T4 0.79 ng/dL 0.76-1.46 Normal (applies to non-numeric resul ts) [facility] ([facility]) ID Date Data Source [id number] 11/19/2020 09:58:00 AM EDT [facility] ([facility]) Name Value Range Interpretation Code Description Data Sue rce(s) Supporting Document(s) Triglycerides Level 68 mg/dL Normal (applies to non-nume jb results) [facility] ([facility]) HDL Cholesterol 86 mg/dL Normal (applies to non-numeric results) [facility] ([facility]) Cholesterol Level 179 mg/dL Normal (applies to non-numeri c results) [facility] ([facility]) LDL Cholesterol 79 mg/dL Normal (applies to non-numeric results) [facility] ([facility]) Non-HDL-C 93 mg/dL Normal (applies to non-numeric resul ts) [facility] ([facility]) Cholesterol Risk Ratio 2.081 Normal (applies to non-n umeric results) [facility] ([facility]) ID Date Data Source [id number] 11/19/2020 09:58:00 AM EDT [facility] ([facility]) Name Value Range Interpretation Code Description Data Sue rce(s) Supporting Document(s) Glucose, Fasting 90 mg/dL 70-100 Normal (applies to non-numeric results) [facility] ([facility]) Creatinine For GFR 0.83 mg/dL 0.55-1.30 Normal (applies to non -numeric results) [facility] ([facility]) Glomerular Filtration Rate Laboratory test result Normal (applies to non- numeric results) [facility] ([facility]) <content>Units are mL/min/1.73 m2</content>
<content></content>
<content>Chronic Kidney Disease Staging per NKF:</content>
<content></content>
<content>Stage I & II GFR >=60 Normal to Mildly Decreased</content>
<content>Stage III GFR 30- 59 Moderately Decreased</content>
<content>Stage IV GFR 15-29 Severely Decreased</content>
<content>Stage V GFR <15 Very Little GFR Left</content>
<content>ESRD GFR <15 on UTILITY WORKER DRIVER</content>
<content></content> Blood Urea Nitrogen 13 mg/dL 7-18 Normal (applies to non-nume jb results) [facility] ([facility]) Sodium Level 140 meq/L 136-145 Normal (applies to non-numeric res ults) [facility] ([facility]) Potassium Serum 4.4 meq/L 3.5-5.1 Normal (applies to non-numeric results) [facility] ([facility]) Chloride Level 107 meq/L 98-107 Normal (applies to non-numeric r esults) [facility] ([facility]) Carbon Dioxide Level 25 meq/L 21-32 Normal (applies to non-num osmany results) [facility] ([facility]) Anion Gap 8 meq/L 8-16 Normal (applies to non-numeric resul ts) [facility] ([facility]) Calcium Level 8.4 mg/dL 8.8-10.2 Below low normal [facility] ([facility]) Ast/Sgot 12 U/L 7-37 Normal (applies to non-numeric resul ts) [facility] ([facility]) Alt/SGPT 20 U/L 12-78 Normal (applies to non-numeric resul ts) [facility] ([facility]) Alkaline Phosphatase 64 U/L 45-117 Normal (applies to non-num osmany results) [facility] Total Protein 6.2 GM/DL 6.4-8.2 Below low normal [facility] ([facility]) Bilirubin,Total 0.3 mg/dL 0.2-1.0 Normal (applies to non-numeric results) [facility] ([facility]) Albumin/Globulin Ratio 1.2 1.2-2.2 Normal (applies to non-n umeric results) [facility] ([facility]) Albumin 3.4 GM/DL 3.2-5.2 Normal (applies to non-numeric resul ts) [facility] ([facility]) ID Date Data Source [id number] 11/19/2020 09:58:00 AM EDT [facility] ([facility]) Name Value Range Interpretation Code Description Data Sue rce(s) Supporting Document(s) White Blood Count 7.5 10 4.0-10.0 Normal (applies to non-numeri c results) [facility] ([facility]) Red Blood Count 3.59 10 4.00-5.40 Below low normal [facility] ([facility]) Hemoglobin 10.7 g/dL 12.0-15.5 Below low normal [facility] ( [facility]) Hematocrit 33.6 % 36.0-47.0 Below low normal [facility] ( [facility]) Mean Corpuscular Hemoglobin 29.8 pg 27.0-33.0 Norm al (applies to non-numeric results) [facility] ([facility]) Mean Corpuscular Volume 93.6 fl 80.0-96.0 Normal ( applies to non-numeric results) [facility] ([facility]) Red Cell Distribution Width 14.8 % 11.5-14.5 Above high normal [facility] ([facility]) Mean Corpuscular HGB Conc 31.8 g/dL 32.0-36.5 Below low normal [facility] ([facility]) Neutrophils % 66.8 % 36.0-66.0 Above high normal [facility] ([facility]) Platelet Count, Automated 382 10 150-450 Normal (applies to non-numeric results) [facility] ([facility]) Lymph % 20.9 % 24.0-44.0 Below low normal [facility] ( [facility]) [place] % 6.3 % 2.0-8.0 Normal (applies to non-numeric resul ts) [facility] ([facility]) Baso % 0.7 % 0.0-1.0 Normal (applies to non-numeric resul ts) [facility] ([facility]) Eos % 4.8 % 0.0-3.0 Above high normal [facility] ([facility]) Immature Granulocyte % 0.5 % 0-3.0 Normal (applies to non-n umeric results) [facility] ([facility]) Neutrophils # 5.0 10 1.5-8.5 Normal (applies to non-numeric re sults) [facility] ([facility]) Nucleated Red Blood Cell % 0.0 % 0-0 Normal (applies to n on-numeric results) [facility] ([facility]) Eos # 0.4 10 0.0-0.5 Normal (applies to non-numeric resul ts) [facility] ([facility]) Lymph # 1.6 10 1.5-5.0 Normal (applies to non-numeric resul ts) [facility] ([facility]) [place] # 0.5 10 0.0-0.8 Normal (applies to non-numeric resul ts) [facility] ([facility]) Baso # 0.1 10 0.0-0.2 Normal (applies to non-numeric resul ts) [facility] ([facility]) ID Date Data Source [id number] 09/10/2020 09:55:00 AM EDT [facility]) Name Value Range Interpretation Code Description Data Sue rce(s) Supporting Document(s) Calcium [Mass/volume] in Serum or Plasma 8.9 mg/dL 8.8-10. 2 Normal (applies to non-numeric results) [facility] ([facility]) Calcidiol [Mass/volume] in Serum or Plasma 35.0 ng/mL 30.0- 100.0 Normal (applies to non-numeric results) [facility] ([facility]) ID Date Data Source [id number] 09/10/2020 09:55:00 AM EDT [facility]) Name Value Range Interpretation Code Description Data Sue rce(s) Supporting Document(s) Glucose, Fasting 100 mg/dL 70-100 Normal (applies to non-numeric results) [facility] ([facility]) Blood Urea Nitrogen 12 mg/dL 7-18 Normal (applies to non-nume jb results) [facility] ([facility]) Glomerular Filtration Rate Laboratory test result Normal (applies to non- numeric results) [facility] ([facility]) <content>Units are mL/min/1.73 m2</content>
<content></content>
<content>Chronic Kidney Disease Staging per NKF:</content>
<content></content>
<content>Stage I & II GFR >=60 Normal to Mildly Decreased</content>
<content>Stage III GFR 30- 59 Moderately Decreased</content>
<content>Stage IV GFR 15-29 Severely Decreased</content>
<content>Stage V GFR <15 Very Little GFR Left</content>
<content>ESRD GFR <15 on UTILITY WORKER DRIVER</content>
<content></content> Creatinine For GFR 0.90 mg/dL 0.55-1.30 Normal (applies to non -numeric results) [facility] ([facility]) Sodium Level 146 meq/L 136-145 Above high normal [facility] ([facility]) Potassium Serum 4.3 meq/L 3.5-5.1 Normal (applies to non-numeric results) [facility] ([facility]) Carbon Dioxide Level 25 meq/L 21-32 Normal (applies to non-num osmany results) [facility] ([facility]) Chloride Level 115 meq/L 98-107 Above high normal [facility] ([facility]) Ast/Sgot 9 U/L 7-37 Normal (applies to non-numeric resul ts) [facility] ([facility]) Anion Gap 6 meq/L 8-16 Below low normal [facility] ( [facility]) Calcium Level 8.8 mg/dL 8.8-10.2 Normal (applies to non-numeric re sults) [facility] ([facility]) Alkaline Phosphatase 64 U/L 45-117 Normal (applies to non-num osmany results) [facility] ([facility]) Bilirubin,Total 0.2 mg/dL 0.2-1.0 Normal (applies to non-numeric results) [facility] ([facility]) Alt/SGPT 25 U/L 12-78 Normal (applies to non-numeric resul ts) [facility] ([facility]) Albumin 3.5 GM/DL 3.2-5.2 Normal (applies to non-numeric resul ts) [facility] ([facility]) Total Protein 6.3 GM/DL 6.4-8.2 Below low normal [facility] ([facility]) Albumin/Globulin Ratio 1.3 1.2-2.2 Normal (applies to non-n umeric results) [facility] ([facility]) ID Date Data Source [id number] 09/10/2020 09:55:00 AM EDT [facility] ([facility]) Name Value Range Interpretation Code Description Data Sue rce(s) Supporting Document(s) Thyroid Stimulating Hormone 1.240 uIU/ML 0.358-3.740 Norm al (applies to non- numeric results) [facility] ([facility]) Free T4 1.09 ng/dL 0.76-1.46 Normal (applies to non-numeric resul ts) [facility] ([facility]) ID Date Data Source [id number] 09/10/2020 09:55:00 AM EDT [facility] ([facility]) Name Value Range Interpretation Code Description Data Sue rce(s) Supporting Document(s) Thyroid Stimulating Hormone 1.240 uIU/ML 0.358-3.740 [facility] ([facility]) Free T4 1.09 ng/dL 0.76-1.46 [facility] ([facility]) ID Date Data Source [id number] 09/10/2020 09:55:00 AM EDT [facility] ([facility]) Name Value Range Interpretation Code Description Data Sue rce(s) Supporting Document(s) Glucose, Fasting 100 mg/dL 70-100 [facility] ([facility]) Blood Urea Nitrogen 12 mg/dL 7-18 [facility]) Glomerular Filtration Rate Laboratory test result [facility] ([facility]) <content>Units are mL/min/1.73 m2</content>
<content></content>
<content>Chronic Kidney Disease Staging per NKF:</content>
<content></content>
<content>Stage I & II GFR >=60 Normal to Mildly Decreased</content>
<content>Stage III GFR 30- 59 Moderately Decreased</content>
<content>Stage IV GFR 15-29 Severely Decreased</content>
<content>Stage V GFR <15 Very Little GFR Left</content>
<content>ESRD GFR <15 on UTILITY WORKER DRIVER</content>
<content></content> Creatinine For GFR 0.90 mg/dL 0.55-1.30 [facility] ([facility]) Potassium Serum 4.3 meq/L 3.5-5.1 [facility] ([facility]) Sodium Level 146 meq/L 136-145 [facility]) Carbon Dioxide Level 25 meq/L 21-32 [facility] ([facility]) Chloride Level 115 meq/L 98-107 [facility] Anion Gap 6 meq/L 8-16 [facility] Calcium Level 8.8 mg/dL 8.8-10.2 [facility]) Ast/Sgot 9 U/L 7-37 [facility] Alt/SGPT 25 U/L 12-78 [facility] Alkaline Phosphatase 64 U/L 45-117 [facility] ([facility]) Total Protein 6.3 GM/DL 6.4-8.2 [facility] ([facility]) Bilirubin,Total 0.2 mg/dL 0.2-1.0 [facility] ([facility]) Albumin/Globulin Ratio 1.3 1.2-2.2 [facility] ([facility]) Albumin 3.5 GM/DL 3.2-5.2 [facility] ([facility]) ID Date Data Source [id number] 09/10/2020 09:55:00 AM EDT [facility] ([facility]) Name Value Range Interpretation Code Description Data Sue rce(s) Supporting Document(s) Calcidiol [Mass/volume] in Serum or Plasma 35.0 ng/mL 30.0-100.0 [facility] ([facility]) Calcium [Moles/volume] in Serum or Plasma 8.9 mg/dL 8.8-10.2 [facility] ([facility]) ID Date Data Source [id number] 07/16/2020 10:05:00 [place] [address] OPERATIVE SUMMARYNAME: DEEPTHI Goldberg DATE OF : 7ATTENDING PHYS: Fátima Mederos DPM DATE: 07/16/20 MR#: [id number] PROCEDURE: 07/16/2020REOPERATIVE DIAGNOSIS: Hammertoe of the [...] with IV sedation.ESTIMATED BLOOD LOSS: None.DRAINS: None.IMPLANTS: None.WOOD PATTERNMAKER: None.BLOOD: None.SPECIMENS: None.COMPLICATIONS: None.DESCRIPTION OF PROCEDURE:The patient [...] usual aseptic manner. I checked for 1 [place] [address] OPERATIVE SUMMARYNAME: DEEPTHI Goldberg DATE OF : 7ATTENDING PHYS: Fátima Mederos DPM DATE: 07/16/20 MR#: [id number], it was adequate. I used an 11 [...] post-operative day.DD: Fátima Mederos DPM 07/16/20 09:19DT: SSR 07/16/20 09:49DS: Fátima Mederos DPM 07/19/20 10:04 2 Name Value Range Interpretation Code Description Data Sue rce(s) Supporting Document(s) ID Date Data Source [id number] 07/12/2020 12:00:00 AM EDT [facility] Name Value Range Interpretation Code Description Data Sue rce(s) Supporting Document(s) SARS-CoV-2 (COVID-19) RNA [Presence] in Respiratory specimen by TUAN with probe detection Not Detected [facility] This lab was ordered by [facility] and reported by [employer]. ID Date Data Source [id number] 07/09/2020 01:30:00 PM EDT [facility] ([facility]) Name Value Range Interpretation Code Description Data Sue rce(s) Supporting Document(s) Prothrombin Time 13.2 s 12.5-14.3 Normal (applies to non-numeric results) [facility] ([facility]) Partial Thromboplastin Time 25.8 s 24.2-38.5 Norm al (applies to non-numeric results) [facility] ([facility]) Inr 0.98 Normal (applies to non-numeric resul ts) [facility] ([facility]) THERAPUTIC HUMAN INR VALUES INDICATIONS NORMAL RANGES PROPHYLAXIS/TREATMENT OF: VENOUS THROMBOSIS 2.0-3.0 PULMONARY EMBOLISM 2.0-3.0 PREVENTION OF SYSTEMIC EMBOLISM FROM: TISSUE HEART VALVES 2.0-3.0 ACUTE MYOCARDIAL INFARCTION 2.0-3.0 VALVULAR HEART DISEASE 2.0-3.0 ATRIAL FIBRILLATION 2.0-3.0 MECHANICAL VALVES(HIGH RISK) 2.5-3.5 RECURRENT MYOCARDIAL INFARCTION 2.5-3.5 ID Date Data Source [id number] 07/09/2020 01:30:00 PM EDT [facility] ([facility]) Name Value Range Interpretation Code Description Data Sue rce(s) Supporting Document(s) Color, Urine Laboratory test result Normal (applies to non -numeric results) [facility] ([facility]) Appearance, Urine Laboratory test result Normal (applies to non-numeric results) [facility] ([facility]) Specific [place] Urine Auto 1.017 1.002-1.035 Norm al (applies to non-numeric results) [facility] ([facility]) PH,Urine 6.0 units 5.0-9.0 Normal (applies to non-numeric resul ts) [facility] ([facility]) Glucose, Urine (Ua) Auto Laboratory test result Normal (applies to non-numeric results) [facility] ([facility]) Ketone, Urine Auto Laboratory test result Normal (applies to non-numeric results) [facility] ([facility]) Protein, Urine Auto Laboratory test result Chelle l (applies to non-numeric results) [facility] ([facility]) Bilirubin, Urine Auto Laboratory test result Nor mal (applies to non-numeric results) [facility] ([facility]) Urobilinogen, Urine Auto 0.2 mg/dL 0.0-2.0 Normal (applies to non-numeric results) [facility] ([facility]) Leukocyte Esterase, Urine Auto Laboratory test result Normal (applies to non- numeric results) [facility] ([facility]) Blood, Urine Blood Laboratory test result Normal (applies to non-numeric results) [facility] ([facility]) Nitrite, Urine Auto Laboratory test result Chelle l (applies to non-numeric results) [facility] ([facility]) Bacteria, Urine Auto Laboratory test result Above high nor mal [facility] ([facility]) RBC, Urine Auto 1 /HPF 0-3 Normal (applies to non-numeric results) [facility]) WBC, Urine Auto 2 /HPF 0-3 Normal (applies to non-numeric results) [facility] ([facility]) Squamous Epithelial Cell Ur AU 0 /HPF 0-6 N ormal (applies to non-numeric results) [facility] ([facility]) Hyaline Cast, Urine Auto 0 /LPF 0-1 Normal (applies to non -numeric results) [facility] ([facility]) ID Date Data Source [id number] 07/09/2020 01:30:00 PM EDT [facility] ([facility]) Name Value Range Interpretation Code Description Data Sue rce(s) Supporting Document(s) Red Blood Count 4.35 10 4.00-5.40 Normal (applies to non-numeric results) [facility] ([facility]) White Blood Count 6.6 10 4.0-10.0 Normal (applies to non-numeri c results) [facility] ([facility]) Hemoglobin 13.5 g/dL 12.0-15.5 Normal (applies to non-numeric resul ts) [facility]) Hematocrit 41.6 % 36.0-47.0 Normal (applies to non-numeric resul ts) [facility]) Mean Corpuscular Hemoglobin 31.0 pg 27.0-33.0 Norm al (applies to non-numeric results) [facility]) Mean Corpuscular Volume 95.6 fl 80.0-96.0 Normal ( applies to non-numeric results) [facility]) Red Cell Distribution Width 13.0 % 11.5-14.5 Norm al (applies to non-numeric results) [facility]) Mean Corpuscular HGB Conc 32.5 g/dL 32.0-36.5 Normal (applies to non-numeric results) [facility]) Platelet Count, Automated 259 10 150-450 Normal (applies to non-numeric results) [facility] ([facility]) Neutrophils % 57.2 % 36.0-66.0 Normal (applies to non-numeric re sults) [facility] ([facility]) Lymph % 27.7 % 24.0-44.0 Normal (applies to non-numeric resul ts) [facility] ([facility]) [place] % 9.2 % 2.0-8.0 Above high normal [facility] ([facility]) Eos % 4.5 % 0.0-3.0 Above high normal [facility] ([facility]) Baso % 0.9 % 0.0-1.0 Normal (applies to non-numeric resul ts) [facility] ([facility]) Immature Granulocyte % 0.5 % 0-3.0 Normal (applies to non-n umeric results) [facility] ([facility]) Nucleated Red Blood Cell % 0.0 % 0-0 Normal (applies to n on-numeric results) [facility] ([facility]) Neutrophils # 3.8 10 1.5-8.5 Normal (applies to non-numeric re sults) [facility] ([facility]) Lymph # 1.8 10 1.5-5.0 Normal (applies to non-numeric resul ts) [facility] ([facility]) [place] # 0.6 10 0.0-0.8 Normal (applies to non-numeric resul ts) [facility] ([facility]) Baso # 0.1 10 0.0-0.2 Normal (applies to non-numeric resul ts) [facility] ([facility]) Eos # 0.3 10 0.0-0.5 Normal (applies to non-numeric resul ts) [facility] ([facility]) ID Date Data Source [id number] 06/30/2020 11:02:00 AM EDT [facility] ([facility]) Name Value Range Interpretation Code Description Data Sue rce(s) Supporting Document(s) EKG Laboratory test result [facility] ([facility]) ID Date Data Source [id number] 05/26/2020 01:28:00 PM EDT [facility] ([facility]) Name Value Range Interpretation Code Description Data Sue rce(s) Supporting Document(s) Triglycerides Level 114 mg/dL Normal (applies to non-nume jb results) [facility] ([facility]) Cholesterol Level 204 mg/dL Above high [facility] Non-HDL-C 115 mg/dL Normal (applies to non-numeric resul ts) [facility] ([facility]) LDL Cholesterol 92 mg/dL Normal (applies to non-numeric results) [facility] ([facility]) HDL Cholesterol 89 mg/dL Normal (applies to non-numeric results) [facility] ([facility]) Cholesterol Risk Ratio 2.292 Normal (applies to non-n umeric results) [facility] ([facility]) ID Date Data Source [id number] 05/26/2020 01:28:00 PM EDT [facility] ([facility]) Name Value Range Interpretation Code Description Data Sue rce(s) Supporting Document(s) White Blood Count 5.3 10 4.0-10.0 Normal (applies to non-numeri c results) [facility] ([facility]) Hemoglobin 13.6 g/dL 12.0-15.5 Normal (applies to non-numeric resul ts) [facility] ([facility]) Red Blood Count 4.39 10 4.00-5.40 Normal (applies to non-numeric results) [facility] ([facility]) Mean Corpuscular Hemoglobin 31.0 pg 27.0-33.0 Norm al (applies to non-numeric results) [facility] ([facility]) Hematocrit 43.3 % 36.0-47.0 Normal (applies to non-numeric resul ts) [facility] ([facility]) Mean Corpuscular Volume 98.6 fl 80.0-96.0 Above high normal [facility] ([facility]) Mean Corpuscular HGB Conc 31.4 g/dL 32.0-36.5 Below low normal [facility] ([facility]) Red Cell Distribution Width 13.2 % 11.5-14.5 Norm al (applies to non-numeric results) [facility] ([facility]) Platelet Count, Automated 248 10 150-450 Normal (applies to non-numeric results) [facility] ([facility]) Lymph % 27.4 % 24.0-44.0 Normal (applies to non-numeric resul ts) [facility] ([facility]) Neutrophils % 59.3 % 36.0-66.0 Normal (applies to non-numeric re sults) [facility] ([facility]) Baso % 0.8 % 0.0-1.0 Normal (applies to non-numeric resul ts) [facility] ([facility]) [place] % 8.1 % 2.0-8.0 Above high normal [facility] ([facility]) Eos % 3.8 % 0.0-3.0 Above high normal [facility] ([facility]) Neutrophils # 3.2 10 1.5-8.5 Normal (applies to non-numeric re sults) [facility] ([facility]) Nucleated Red Blood Cell % 0.0 % 0-0 Normal (applies to n on-numeric results) [facility] ([facility]) Immature Granulocyte % 0.6 % 0-3.0 Normal (applies to non-n umeric results) [facility] ([facility]) Lymph # 1.5 10 1.5-5.0 Normal (applies to non-numeric resul ts) [facility] ([facility]) Eos # 0.2 10 0.0-0.5 Normal (applies to non-numeric resul ts) [facility] ([facility]) [place] # 0.4 10 0.0-0.8 Normal (applies to non-numeric resul ts) [facility] ([facility]) Baso # 0.0 10 0.0-0.2 Normal (applies to non-numeric resul ts) [facility] ([facility]) ID Date Data Source [id number] 05/26/2020 01:28:00 PM EDT [facility] ([facility]) Name Value Range Interpretation Code Description Data Sue rce(s) Supporting Document(s) Thyroid Stimulating Hormone 3.840 uIU/ML 0.358-3.740 Above high chelle l [facility] ([facility]) Free T4 0.88 ng/dL 0.76-1.46 Normal (applies to non-numeric resul ts) [facility] ([facility]) ID Date Data Source [id number] 05/26/2020 01:28:00 PM EDT [facility] ([facility]) Name Value Range Interpretation Code Description Data Sue rce(s) Supporting Document(s) Glucose, Fasting 58 mg/dL 70-100 Below low normal [facility] ([facility]) Creatinine For GFR 0.85 mg/dL 0.55-1.30 Normal (applies to non -numeric results) [facility] ([facility]) Blood Urea Nitrogen 17 mg/dL 7-18 Normal (applies to non-nume jb results) [facility] ([facility]) Sodium Level 140 meq/L 136-145 Normal (applies to non-numeric res ults) [facility] ([facility]) Potassium Serum 4.6 meq/L 3.5-5.1 Normal (applies to non-numeric results) [facility] ([facility]) Glomerular Filtration Rate Laboratory test result Normal (applies to non- numeric results) [facility]) <content>Units are mL/min/1.73 m2</content>
<content></content>
<content>Chronic Kidney Disease Staging per NKF:</content>
<content></content>
<content>Stage I & II GFR >=60 Normal to Mildly Decreased</content>
<content>Stage III GFR 30- 59 Moderately Decreased</content>
<content>Stage IV GFR 15-29 Severely Decreased</content>
<content>Stage V GFR <15 Very Little GFR Left</content>
<content>ESRD GFR <15 on UTILITY WORKER DRIVER</content>
<content></content> Chloride Level 109 meq/L 98-107 Above high normal [facility] ([facility]) Anion Gap 4 meq/L 8-16 Below low normal [facility] ( [facility]) Carbon Dioxide Level 27 meq/L 21-32 Normal (applies to non-num osmany results) [facility] ([facility]) Calcium Level 9.1 mg/dL 8.8-10.2 Normal (applies to non-numeric re sults) [facility] ([facility]) Alt/SGPT 110 U/L 12-78 Above high normal [facility] ([facility]) Ast/Sgot 60 U/L 7-37 Above high normal [facility] ([facility]) Bilirubin,Total 0.2 mg/dL 0.2-1.0 Normal (applies to non-numeric results) [facility] ([facility]) Total Protein 6.6 GM/DL 6.4-8.2 Normal (applies to non-numeric re sults) [facility] ([facility]) Alkaline Phosphatase 107 U/L 45-117 Normal (applies to non-num osmany results) [facility] ([facility]) Albumin/Globulin Ratio 1.5 1.2-2.2 Normal (applies to non-n umeric results) [facility] ([facility]) Albumin 4.0 GM/DL 3.2-5.2 Normal (applies to non-numeric resul ts) [facility] ([facility]) ID Date Data Source [id number] 04/01/2020 12:00:00 AM EST [facility] Frances Kinney DO Patient Name: JOSÉ MANUEL [id number] Date of : 1945 1 Date of Exam:04/01/2020[facility] [id number]#: Fax: [phone] EXAM: MAMMO UNI DIAGNOSTIC INCLUDE [...] rce(s) Supporting Document(s) ID Date Data Source [id number] 04/01/2020 12:00:[address] [facility] Frances Kinney DO Patient Name: JOSÉ MANUEL [id number] Date of : 1945 1 Date of Exam:04/01/2020[facility]rensonjaYARIEL [id number]#: Fax: [phone] EXAM: MAMMO UNI DIAGNOSTIC INCLUDE [...] Data Source [id number] 03/19/2020 03:12:00 PM EST [facility] ([facility]) Name Value Range Interpretation Code Description Data Sue rce(s) Supporting Document(s) Mammography Screening, Bilateral; 2-View Each Breast Laboratory mary t result [facility] ([facility]) Dexa Bone Density Study, Vertebral Fracture Assessment Laborator y test result [facility] ([facility]) ID Date Data Source [id number] 03/19/2020 12:00:00 AM EST [facility] Frances Barriosber Patient Name: CYNTHIA [id number] Date of : 1945 1 Date of Exam:03/19/2020YARIEL Gallagher [id number]#: Fax: [phone] EXAM: MAMMO SCREENING WITH CADCLINICAL [...] was read with the assistance of [employer], an FDAapproved computer aided detection system for mammography.Negative x-ray reports should not delay surgical consultation if a dominantor clinically suspicious mass is present.Not all breast cancers can be identified by mammography. Therefore, werecommend that you continue to perform regular breast self-examination andphysical examination and then promptly contact your physician of anyconcerns or changes.Adenosis and dense breasts may obscure an underlying neoplasm.NARINDER Silvestre/Killian you for referring JOSÉ MANUEL LACEY to our office. Electronically Signed - MITUL MILLER DO 03/22/20 16:58 Name Value Range Interpretation Code Description Data Sue rce(s) Supporting Document(s) ID Date Data Source [id number] 03/10/2020 01:10:00 PM EST [facility] ([facility]) Name Value Range Interpretation Code Description Data Sue rce(s) Supporting Document(s) Glucose, Fasting 80 mg/dL 70-100 Normal (applies to non-numeric results) [facility] ([facility]) Blood Urea Nitrogen 22 mg/dL 7-18 Above high normal [facility] ([facility]) Creatinine For GFR 1.03 mg/dL 0.55-1.30 Normal (applies to non -numeric results) [facility] ([facility]) Sodium Level 140 meq/L 136-145 Normal (applies to non-numeric res ults) [facility] ([facility]) Glomerular Filtration Rate 55.9 Normal (applies to n on-numeric results) [facility] ([facility]) <content>Units are mL/min/1.73 m2</content>
<content></content>
<content>Chronic Kidney Disease Staging per NKF:</content>
<content></content>
<content>Stage I & II GFR >=60 Normal to Mildly Decreased</content>
<content>Stage III GFR 30- 59 Moderately Decreased</content>
<content>Stage IV GFR 15-29 Severely Decreased</content>
<content>Stage V GFR <15 Very Little GFR Left</content>
<content>ESRD GFR <15 on UTILITY WORKER DRIVER</content>
<content></content> Potassium Serum 4.0 meq/L 3.5-5.1 Normal (applies to non-numeric results) [facility] ([facility]) Carbon Dioxide Level 25 meq/L 21-32 Normal (applies to non-num osmany results) [facility] ([facility]) Chloride Level 109 meq/L 98-107 Above high normal [facility] ([facility]) Calcium Level 9.7 mg/dL 8.8-10.2 Normal (applies to non-numeric re sults) [facility] ([facility]) Anion Gap 6 meq/L 8-16 Below low [facility] Ast/Sgot 19 U/L 7-37 Normal (applies to non-numeric resul ts) [facility] ([facility]) Alt/SGPT 26 U/L 12-78 Normal (applies to non-numeric resul ts) [facility] ([facility]) Alkaline Phosphatase 97 U/L 45-117 Normal (applies to non-num osmany results) [facility] ([facility]) Total Protein 7.0 GM/DL 6.4-8.2 Normal (applies to non-numeric re sults) [facility] ([facility]) Bilirubin,Total 0.4 mg/dL 0.2-1.0 Normal (applies to non-numeric results) [facility] ([facility]) Albumin 4.1 GM/DL 3.2-5.2 Normal (applies to non-numeric resul ts) [facility] ([facility]) Albumin/Globulin Ratio 1.4 1.2-2.2 Normal (applies to non-n umeric results) [facility] ([facility]) ID Date Data Source [id number] 03/10/2020 01:10:00 PM EST [facility] ([facility]) Name Value Range Interpretation Code Description Data Sue rce(s) Supporting Document(s) White Blood Count 9.7 10 4.0-10.0 Normal (applies to non-numeri c results) [facility] ([facility]) Hemoglobin 14.9 g/dL 12.0-15.5 Normal (applies to non-numeric resul ts) [facility] ([facility]) Red Blood Count 4.91 10 4.00-5.40 Normal (applies to non-numeric results) [facility] ([facility]) Hematocrit 46.8 % 36.0-47.0 Normal (applies to non-numeric resul ts) [facility] ([facility]) Mean Corpuscular Hemoglobin 30.3 pg 27.0-33.0 Norm al (applies to non-numeric results) [facility] ([facility]) Mean Corpuscular Volume 95.3 fl 80.0-96.0 Normal ( applies to non-numeric results) [facility] ([facility]) Mean Corpuscular HGB Conc 31.8 g/dL 32.0-36.5 Below low normal [facility] ([facility]) Red Cell Distribution Width 14.3 % 11.5-14.5 Norm al (applies to non-numeric results) [facility] ([facility]) Lymph % 21.0 % 24.0-44.0 Below low normal [facility] ( [facility]) Neutrophils % 68.7 % 36.0-66.0 Above high normal [facility] ([facility]) Platelet Count, Automated 293 10 150-450 Normal (applies to non-numeric results) [facility] ([facility]) Eos % 2.4 % 0.0-3.0 Normal (applies to non-numeric resul ts) [facility] ([facility]) [place] % 6.9 % 0.0-5.0 Above high normal [facility] ([facility]) Immature Granulocyte % 0.5 % 0-3.0 Normal (applies to non-n umeric results) [facility] ([facility]) Baso % 0.5 % 0.0-1.0 Normal (applies to non-numeric resul ts) [facility] ([facility]) Lymph # 2.0 10 1.5-5.0 Normal (applies to non-numeric resul ts) [facility] ([facility]) Neutrophils # 6.7 10 1.5-8.5 Normal (applies to non-numeric re sults) [facility] ([facility]) Nucleated Red Blood Cell % 0.0 % 0-0 Normal (applies to n on-numeric results) [facility] ([facility]) [place] # 0.7 10 0.0-0.8 Normal (applies to non-numeric resul ts) [facility] ([facility]) Eos # 0.2 10 0.0-0.5 Normal (applies to non-numeric resul ts) [facility] ([facility]) Baso # 0.1 10 0.0-0.2 Normal (applies to non-numeric resul ts) [facility] ([facility]) ID Date Data Source [id number] 03/10/2020 01:10:00 PM EST [facility] ([facility]) Name Value Range Interpretation Code Description Data Sue rce(s) Supporting Document(s) Calcidiol [Mass/volume] in Serum or Plasma 34.3 ng/mL 30.0- 100.0 Normal (applies to non-numeric results) [facility] ([facility]) ID Date Data Source [id number] 03/10/2020 01:10:00 PM EST [facility] ([facility]) Name Value Range Interpretation Code Description Data Sue rce(s) Supporting Document(s) Free T4 1.58 ng/dL 0.76-1.46 Above high normal [facility] ([facility]) Thyroid Stimulating Hormone 2.060 uIU/ML 0.358-3.740 Norm al (applies to non- numeric results) [facility] ([facility]) ID Date Data Source [id number] 01/27/2020 01:30:00 AM EST [facility] ([facility]) Name Value Range Interpretation Code Description Data Sue rce(s) Supporting Document(s) Reflex Urine Culture Laboratory test result Norm al (applies to non-numeric results) [facility] ([facility]) FULL REPORT IN LAB NOTES ([facility] and [facility] ). SPECIMEN APPEARS CONTAMINATED ID Date Data Source [id number] 01/27/2020 01:30:00 AM EST [facility] ([facility]) Name Value Range Interpretation Code Description Data Sue rce(s) Supporting Document(s) Appearance, Urine RFX Laboratory test result Nor mal (applies to non-numeric results) [facility] ([facility]) Color, Urine RFX Laboratory test result Normal ( applies to non-numeric results) [facility] ([facility]) PH,Urine RFX 5.0 units 5.0-9.0 Normal (applies to non-numeric res ults) [facility] ([facility]) Specific [place] Ur Auto RFX 1.025 1.002-1.035 Nor mal (applies to non-numeric results) [facility] [facility] ([facility]) Protein, Urine Auto RFX Laboratory test result Above high normal [facility] ([facility]) Ketone, Urine Auto RFX Laboratory test result Above high n ormal [facility] ([facility]) Glucose, Urine (Ua) Auto RFX Laboratory test result Normal (applies to non- numeric results) [facility] ([facility]) Urobilinogen, Urine Auto RFX 2.0 mg/dL 0.0-2.0 Above high normal [facility] ([facility]) Bilirubin, Urine Auto RFX Laboratory test result Normal (applies to non- numeric results) [facility] ([facility]) Leukocyte Esterase Ur Auto RFX Laboratory test result Abov e high normal [facility] ([facility]) Nitrite, Urine Auto RFX Laboratory test result N ormal (applies to non-numeric results) [facility] ([facility]) WBC, Urine Auto RFX 31 /HPF 0-3 Above high normal [facility] ([facility]) Blood, Urine Blood RFX Laboratory test result No rmal (applies to non-numeric results) [facility] ([facility]) RBC, Urine Auto RFX 4 /HPF 0-3 Above high normal [facility] ([facility]) Bacteria, Urine Auto RFX Laboratory test result Normal (applies to non-numeric results) [facility] ([facility]) Transitional Epithelial AU RFX Laboratory test result Normal (applies to non- numeric results) [facility] ([facility]) Squam Epithelial Cell Ur Aurfx 0 /HPF 0-6 N ormal (applies to non-numeric results) [facility] ([facility]) Mucus, Urine RFX Laboratory test result Normal ( applies to non-numeric results) [facility] ([facility]) Hyaline Cast, Urine Auto RFX 4 /LPF 0-1 Normal (appl ies to non-numeric results) [facility] ([facility]) Calcium Oxalate Crystals RFX Laboratory test result Normal (applies to non- numeric results) [facility] ([facility]) ID Date Data Source [id number] 01/27/2020 12:31:00 AM EST [facility] ([facility]) Name Value Range Interpretation Code Description Data Sue rce(s) Supporting Document(s) Ethanol [Mass/volume] in Serum or Plasma Laboratory test result 0.000-0.010 Normal (applies to non-numeric results) [facility] ([facility]) Salicylates [Mass/volume] in Serum or Plasma 2.3 mg/dL 5.0 -30.0 Below low normal [facility] ([facility]) Thyrotropin [Units/volume] in Serum or Plasma 0.192 uIU/ML 0. 358-3.740 Below low normal [facility] ([facility]) Acetaminophen [Mass/volume] in Serum or Plasma Laboratory test r esult 10.0-30.0 Below low normal [facility] ([facility]) ID Date Data Source [id number] 01/27/2020 12:31:00 AM EST [facility] ([facility]) Name Value Range Interpretation Code Description Data Sue rce(s) Supporting Document(s) Glucose, Fasting 83 mg/dL 70-100 Normal (applies to non-numeric results) [facility] ([facility]) Blood Urea Nitrogen 18 mg/dL 7-18 Normal (applies to non-nume jb results) [facility] ([facility]) Creatinine For GFR 0.78 mg/dL 0.55-1.30 Normal (applies to non -numeric results) [facility] ([facility]) Glomerular Filtration Rate Laboratory test result Normal (applies to non- numeric results) [facility] ([facility]) <content>Units are mL/min/1.73 m2</content>
<content></content>
<content>Chronic Kidney Disease Staging per NKF:</content>
<content></content>
<content>Stage I & II GFR >=60 Normal to Mildly Decreased</content>
<content>Stage III GFR 30- 59 Moderately Decreased</content>
<content>Stage IV GFR 15-29 Severely Decreased</content>
<content>Stage V GFR <15 Very Little GFR Left</content>
<content>ESRD GFR <15 on UTILITY WORKER DRIVER</content>
<content></content> Sodium Level 142 meq/L 136-145 Normal (applies to non-numeric res ults) [facility] ([facility]) Potassium Serum 4.2 meq/L 3.5-5.1 Normal (applies to non-numeric results) [facility] ([facility]) Testing was performed on a hemolysed spe cimen. Suggest recollection of specimen for more accurate test results. Chloride Level 114 meq/L 98-107 Above high normal [facility] ([facility]) Carbon Dioxide Level 23 meq/L 21-32 Normal (applies to non-num osmany results) [facility] ([facility]) Anion Gap 5 meq/L 8-16 Below low normal [facility] ( [facility]) Calcium Level 8.9 mg/dL 8.8-10.2 Normal (applies to non-numeric re sults) [facility] ([facility]) ID Date Data Source [id number] 01/27/2020 12:31:00 AM EST [facility] ([facility]) Name Value Range Interpretation Code Description Data Sue rce(s) Supporting Document(s) Ast/Sgot 30 U/L 7-37 Normal (applies to non-numeric resul ts) [facility] ([facility]) Alt/SGPT 20 U/L 12-78 Normal (applies to non-numeric resul ts) [facility] ([facility]) Alkaline Phosphatase 77 U/L 45-117 Normal (applies to non-num osmany results) [facility] ([facility]) Bilirubin,Direct Laboratory test result 0.0-0.2 Normal ( applies to non-numeric results) [facility] ([facility]) Bilirubin,Total 0.4 mg/dL 0.2-1.0 Normal (applies to non-numeric results) [facility] ([facility]) Albumin 3.5 GM/DL 3.2-5.2 Normal (applies to non-numeric resul ts) [facility] ([facility]) Total Protein 6.7 GM/DL 6.4-8.2 Normal (applies to non-numeric re sults) [facility] ([facility]) Albumin/Globulin Ratio 1.1 1.2-2.2 Below low normal [facility] ([facility]) ID Date Data Source [id number] 01/27/2020 12:31:00 AM EST [facility] ([facility]) Name Value Range Interpretation Code Description Data Sue rce(s) Supporting Document(s) White Blood Count 7.3 10 4.0-10.0 Normal (applies to non-numeri c results) [facility] ([facility]) Red Blood Count 4.44 10 4.00-5.40 Normal (applies to non-numeric results) [facility] ([facility]) Hemoglobin 13.4 g/dL 12.0-15.5 Normal (applies to non-numeric resul ts) [facility] ([facility]) Hematocrit 41.3 % 36.0-47.0 Normal (applies to non-numeric resul ts) [facility] ([facility]) Mean Corpuscular Volume 93.0 fl 80.0-96.0 Normal ( applies to non-numeric results) [facility] ([facility]) Mean Corpuscular Hemoglobin 30.2 pg 27.0-33.0 Norm al (applies to non-numeric results) [facility] ([facility]) Mean Corpuscular HGB Conc 32.4 g/dL 32.0-36.5 Normal (applies to non-numeric results) [facility] ([facility]) Red Cell Distribution Width 13.3 % 11.5-14.5 Norm al (applies to non-numeric results) [facility] ([facility]) Platelet Count, Automated 226 10 150-450 Normal (applies to non-numeric results) [facility] ([facility]) Nucleated Red Blood Cell % 0.0 % 0-0 Normal (applies to n on-numeric results) [facility] ([facility]) ID Date Data Source [id number] 01/26/2020 11:18:00 PM EST [facility] ([facility]) Name Value Range Interpretation Code Description Data Sue rce(s) Supporting Document(s) Amphetamines Level Urine Laboratory test result Above high normal [facility] ([facility]) Benzodiazepines Urine Laboratory test result Above high no rmal [facility] ([facility]) Barbiturates Urine Laboratory test result Normal (applies to non-numeric results) [facility] ([facility]) Cannabinoids Urine Laboratory test result Normal (applies to non-numeric results) [facility] ([facility]) Cocaine Metabolite Urine Laboratory test result Normal (applies to non-numeric results) [facility] ([facility]) Opiates Urine Laboratory test result Normal (applies t o non-numeric results) [facility] ([facility]) Methadone Urine Laboratory test result Normal (a pplies to non-numeric results) [facility] ([facility]) Phencyclidine Urine Laboratory test result Chelle l (applies to non-numeric results) [facility] ([facility]) ALL PRESUMPTIVE POSITIVE FINDINGS AR E UNCONFIRMED [...] CALL THE LAB. ID Date Data Source [id number] 12/05/2019 01:31:00 PM EDT [facility] ([facility]) Name Value Range Interpretation Code Description Data Sue rce(s) Supporting Document(s) Iron (Fe) 38 ug/dL 50-170 Below low normal [facility] ( [facility]) Percent Saturation 10.0 % 13.2-45.0 Below low normal [facility] ([facility]) Total Iron Binding Capacity 379 ug/dL 250-450 Norm al (applies to non-numeric results) [facility] ([facility]) ID Date Data Source [id number] 12/05/2019 01:31:00 PM EDT [facility] ([facility]) Name Value Range Interpretation Code Description Data Sue rce(s) Supporting Document(s) Ferritin [Mass/volume] in Serum or Plasma 10 ng/mL 8-252 Normal (applies to non- numeric results) [facility] ([facility]) ID Date Data Source [id number] 12/05/2019 01:31:00 PM EDT [facility] ([facility]) Name Value Range Interpretation Code Description Data Sue rce(s) Supporting Document(s) White Blood Count 5.2 10 4.0-10.0 Normal (applies to non-numeri c results) [facility] ([facility]) Red Blood Count 4.20 10 4.00-5.40 Normal (applies to non-numeric results) [facility] ([facility]) Hemoglobin 13.0 g/dL 12.0-15.5 Normal (applies to non-numeric resul ts) [facility] ([facility]) Hematocrit 40.8 % 36.0-47.0 Normal (applies to non-numeric resul ts) [facility] ([facility]) Mean Corpuscular Volume 97.1 fl 80.0-96.0 Above high normal [facility] ([facility]) Mean Corpuscular Hemoglobin 31.0 pg 27.0-33.0 Norm al (applies to non-numeric results) [facility] ([facility]) Mean Corpuscular HGB Conc 31.9 g/dL 32.0-36.5 Below low normal [facility] ([facility]) Red Cell Distribution Width 13.9 % 11.5-14.5 Norm al (applies to non-numeric results) [facility] ([facility]) Platelet Count, Automated 250 10 150-450 Normal (applies to non-numeric results) [facility] ([facility]) Lymph % 37.3 % 24.0-44.0 Normal (applies to non-numeric resul ts) [facility] ([facility]) Neutrophils % 44.9 % 36.0-66.0 Normal (applies to non-numeric re sults) [facility] ([facility]) Baso % 1.2 % 0.0-1.0 Above high normal [facility] ([facility]) Eos % 6.2 % 0.0-3.0 Above high normal [facility] ([facility]) [place] % 10.0 % 0.0-5.0 Above high normal [facility] ([facility]) Nucleated Red Blood Cell % 0.0 % 0-0 Normal (applies to n on-numeric results) [facility] ([facility]) Immature Granulocyte % 0.4 % 0-3.0 Normal (applies to non-n umeric results) [facility] ([facility]) Neutrophils # 2.3 10 1.5-8.5 Normal (applies to non-numeric re sults) [facility] ([facility]) Lymph # 1.9 10 1.5-5.0 Normal (applies to non-numeric resul ts) [facility] ([facility]) [place] # 0.5 10 0.0-0.8 Normal (applies to non-numeric resul ts) [facility] ([facility]) Eos # 0.3 10 0.0-0.5 Normal (applies to non-numeric resul ts) [facility] ([facility]) Baso # 0.1 10 0.0-0.2 Normal (applies to non-numeric resul ts) [facility] ([facility]) ID Date Data Source [id number] 12/05/2019 01:31:00 PM EDT [facility] ([facility]) Name Value Range Interpretation Code Description Data Sue rce(s) Supporting Document(s) Blood Urea Nitrogen 16 mg/dL 7-18 Normal (applies to non-nume jb results) [facility] ([facility]) Glucose, Fasting 70 mg/dL 70-100 Normal (applies to non-numeric results) [facility] ([facility]) Glomerular Filtration Rate Laboratory test result Normal (applies to non- numeric results) [facility] ([facility]) <content>Units are mL/min/1.73 m2</content>
<content></content>
<content>Chronic Kidney Disease Staging per NKF:</content>
<content></content>
<content>Stage I & II GFR >=60 Normal to Mildly Decreased</content>
<content>Stage III GFR 30- 59 Moderately Decreased</content>
<content>Stage IV GFR 15-29 Severely Decreased</content>
<content>Stage V GFR <15 Very Little GFR Left</content>
<content>ESRD GFR <15 on UTILITY WORKER DRIVER</content>
<content></content> Creatinine For GFR 0.73 mg/dL 0.55-1.30 Normal (applies to non -numeric results) [facility] ([facility]) Potassium Serum 4.3 meq/L 3.5-5.1 Normal (applies to non-numeric results) [facility] ([facility]) Sodium Level 139 meq/L 136-145 Normal (applies to non-numeric res ults) [facility] ([facility]) Carbon Dioxide Level 27 meq/L 21-32 Normal (applies to non-num osmany results) [facility] ([facility]) Chloride Level 108 meq/L 98-107 Above high normal [facility] ([facility]) Anion Gap 4 meq/L 8-16 Below low normal [facility] ( [facility]) Calcium Level 9.2 mg/dL 8.8-10.2 Normal (applies to non-numeric re sults) [facility] ([facility]) Ast/Sgot 13 U/L 7-37 Normal (applies to non-numeric resul ts) [facility] ([facility]) Alkaline Phosphatase 77 U/L 45-117 Normal (applies to non-num osmany results) [facility] ([facility]) Alt/SGPT 29 U/L 12-78 Normal (applies to non-numeric resul ts) [facility] ([facility]) Total Protein 6.6 GM/DL 6.4-8.2 Normal (applies to non-numeric re sults) [facility] ([facility]) Bilirubin,Total 0.2 mg/dL 0.2-1.0 Normal (applies to non-numeric results) [facility] ([facility]) Albumin 3.7 GM/DL 3.2-5.2 Normal (applies to non-numeric resul ts) [facility] ([facility]) Albumin/Globulin Ratio 1.3 1.2-2.2 Normal (applies to non-n umeric results) [facility] ([facility]) ID Date Data Source [id number] 12/05/2019 01:31:00 PM EDT [facility] ([facility]) Name Value Range Interpretation Code Description Data Sue rce(s) Supporting Document(s) Thyroid Stimulating Hormone 0.159 uIU/ML 0.358-3.740 Below low normal [facility] ([facility]) Free T4 1.03 ng/dL 0.76-1.46 Normal (applies to non-numeric resul ts) [facility] ([facility]) ID Date Data Source [id number] 12/05/2019 01:31:00 PM EDT [facility] ([facility]) Name Value Range Interpretation Code Description Data Sue rce(s) Supporting Document(s) Cobalamin (Vitamin B12) [Mass/volume] in Serum or Plasma 1057 pg /mL 247-911 Above high normal [facility] ([facility]) VITAMIN B12 NORMAL RANGE NORMAL 247 - 911 PG/ML INDETERMINATE 211 - 246 PG/ML DEFICIENT LESS THAN 211 PG/ML Calcidiol [Mass/volume] in Serum or Plasma 58.5 ng/mL 30.0- 100.0 Normal (applies to non-numeric results) [facility] ([facility]) Procedure Social History Code Duration Value Status Description Data Source(s ) Smoking 07/28/2020 12:00:00 AM EDT Patient has never smoked co mpleted Patient has never smoked [facility] ([facility]) Smoking 01/21/2020 12:00:00 AM EST Never Smoked A Pipe complet ed Never Smoked A Pipe [facility] ([facility]) Vital Signs ID Date Data Source [id number] Name Value Range Interpretation Code Description Data Source(s) Systolic blood pressure 132 mm[Hg] 132 mm[Hg] M [facility] ([facility]) Diastolic blood pressure 74 mm[Hg] 74 mm[Hg] [facility] ([facility]) Body height 68.2 [in_i] 68.2 [in_i] [facility] ([facility]) 5'8.20" Body weight 211.50 [lb_av] 211.50 [lb_av] [facility] ([facility]) Body mass index (BMI) [Ratio] 32.0 kg/m2 32.0 k g/m2 [facility] ([facility]) Heart rate 91 /min 91 /min [facility] ([facility]) Respiratory rate 18 /min 18 /min [facility] ( [facility]) Body temperature 98.9 [degF] 98.9 [degF] [facility] ([facility]) Oxygen saturation in Arterial blood by Pulse oximetry 97 % 97 % [facility] ([facility]) [place] body weight 140 [lb_av] 140 [lb_av] [facility] ([facility]) [place] body weight 140 [lb_av] 140 [lb_av] [facility] ([facility]) Body weight 209.25 [lb_av] 209.25 [lb_av] [facility] ([facility]) Systolic blood pressure 128 mm[Hg] 128 mm[Hg] M [facility] ([facility]) Diastolic blood pressure 76 mm[Hg] 76 mm[Hg] [facility] ([facility]) Body height 68.2 [in_i] 68.2 [in_i] [facility] ([facility]) 5'8.20" Body mass index (BMI) [Ratio] 31.6 kg/m2 31.6 k g/m2 [facility] ([facility]) Heart rate 93 /min 93 /min [facility] ([facility]) Respiratory rate 18 /min 18 /min [facility] ( [facility]) Body temperature 98.7 [degF] 98.7 [degF] [facility] ([facility]) Oxygen saturation in Arterial blood by Pulse oximetry 97 % 97 % [facility] ([facility]) Respiratory rate 18 /min 18 /min [facility] ( [facility]) Body temperature 98.7 [degF] 98.7 [degF] [facility] ([facility]) Oxygen saturation in Arterial blood by Pulse oximetry 98 % 98 % [facility] ([facility]) Systolic blood pressure 132 mm[Hg] 132 mm[Hg] M [facility] ([facility]) Diastolic blood pressure 76 mm[Hg] 76 mm[Hg] [facility] ([facility]) Body height 68.2 [in_i] 68.2 [in_i] [facility] ([facility]) 5'8.20" Body weight 203.00 [lb_av] 203.00 [lb_av] [facility] ([facility]) Body mass index (BMI) [Ratio] 30.7 kg/m2 30.7 k g/m2 [facility] ([facility]) Heart rate 97 /min 97 /min [facility] ([facility]) [place] body weight 140 [lb_av] 140 [lb_av] [facility] ([facility]) Heart rate 81 /min 81 /min [facility] ([facility]) Body temperature 97.4 [degF] 97.4 [degF] [facility] ([facility]) Body weight 199.12 [lb_av] 199.12 [lb_av] [facility] ([facility]) Respiratory rate 12 /min 12 /min [facility] ( [facility]) Oxygen saturation in Arterial blood by Pulse oximetry 99 % 99 % [facility] ([facility]) Body mass index (BMI) [Ratio] 30.1 kg/m2 30.1 k g/m2 [facility] ([facility]) [place] body weight 140 [lb_av] 140 [lb_av] [facility] ([facility]) Systolic blood pressure 128 mm[Hg] 128 mm[Hg] M [facility] ([facility]) Diastolic blood pressure 80 mm[Hg] 80 mm[Hg] [facility] ([facility]) Body height 68.2 [in_i] 68.2 [in_i] [facility] ([facility]) 5'8.20" Body mass index (BMI) [Ratio] 29.9 kg/m2 29.9 k g/m2 [facility] ([facility]) Body temperature 96.9 [degF] 96.9 [degF] [facility] ([facility]) Body height 68.10 [in_i] 68.10 [in_i] [facility] ([facility]) 5'8.10" Body weight 197.50 [lb_av] 197.50 [lb_av] [facility] ([facility]) Respiratory rate 18 /min 18 /min [facility] ( [facility]) Systolic blood pressure 126 mm[Hg] 126 mm[Hg] M [facility] ([facility]) Diastolic blood pressure 74 mm[Hg] 74 mm[Hg] [facility] ([facility]) Body height 68.2 [in_i] 68.2 [in_i] [facility] ([facility]) 5'8.20" Body weight 199.12 [lb_av] 199.12 [lb_av] [facility] ([facility]) Body mass index (BMI) [Ratio] 30.1 kg/m2 30.1 k g/m2 [facility] ([facility]) Heart rate 93 /min 93 /min [facility] ([facility]) Body temperature 98.9 [degF] 98.9 [degF] [facility] ([facility]) Oxygen saturation in Arterial blood by Pulse oximetry 97 % 97 % [facility] ([facility]) [place] body weight 140 [lb_av] 140 [lb_av] [facility] ([facility]) Systolic blood pressure 136 mm[Hg] 136 mm[Hg] M [facility] ([facility]) Diastolic blood pressure 84 mm[Hg] 84 mm[Hg] [facility] ([facility]) Body height 68.2 [in_i] 68.2 [in_i] [facility] ([facility]) 8.20" Body weight 201.25 [lb_av] 201.25 [lb_av] [facility] ([facility]) Body mass index (BMI) [Ratio] 30.4 kg/m2 30.4 k g/m2 [facility] ([facility]) Heart rate 84 /min 84 /min [facility] ([facility]) Respiratory rate 18 /min 18 /min [facility] ( [facility]) Body temperature 98.8 [degF] 98.8 [degF] [facility] ([facility]) Oxygen saturation in Arterial blood by Pulse oximetry 96 % 96 % [facility] ([facility]) [place] body weight 140 [lb_av] 140 [lb_av] [facility] ([facility]) Body weight 199.25 [lb_av] 199.25 [lb_av] [facility] ([facility]) Systolic blood pressure 138 mm[Hg] 138 mm[Hg] M [facility] ([facility]) Diastolic blood pressure 80 mm[Hg] 80 mm[Hg] [facility] ([facility]) Body height 68.2 [in_i] 68.2 [in_i] [facility] ([facility]) 5'8.20" Heart rate 80 /min 80 /min [facility] ([facility]) Body mass index (BMI) [Ratio] 30.1 kg/m2 30.1 k g/m2 [facility] ([facility]) Oxygen saturation in Arterial blood by Pulse oximetry 98 % 98 % [facility] ([facility]) [place] body weight 140 [lb_av] 140 [lb_av] [facility] T ([facility]) Body temperature 97.8 [degF] 97.8 [degF] [facility] ([facility]) Respiratory rate 18 /min 18 /min [facility] ( [facility]) Oxygen saturation in Arterial blood by Pulse oximetry 97 % 97 % [facility] ([facility]) Systolic blood pressure 138 mm[Hg] 138 mm[Hg] M [facility] ([facility]) Diastolic blood pressure 80 mm[Hg] 80 mm[Hg] [facility] ([facility]) Heart rate 88 /min 88 /min [facility] ([facility]) Body temperature 97.3 [degF] 97.3 [degF] [facility] ([facility]) Body weight 195.38 [lb_av] 195.38 [lb_av] [facility] ([facility]) Body mass index (BMI) [Ratio] 29.7 kg/m2 29.7 k g/m2 [facility] ([facility]) Body height 68 [in_i] 68 [in_i] [facility] ([facility]) 5'8" Systolic blood pressure 142 mm[Hg] 142 mm[Hg] M [facility] ([facility]) Heart rate 82 /min 82 /min [facility] ([facility]) Body weight 195.00 [lb_av] 195.00 [lb_av] [facility] ([facility]) Body mass index (BMI) [Ratio] 29.6 kg/m2 29.6 k g/m2 [facility] ([facility]) Oxygen saturation in Arterial blood by Pulse oximetry 97 % 97 % [facility] ([facility]) Diastolic blood pressure 82 mm[Hg] 82 mm[Hg] [facility] ([facility]) Body temperature 97.3 [degF] 97.3 [degF] [facility] ([facility]) Body height 68 [in_i] 68 [in_i] [facility] ([facility]) 5'8" Respiratory rate 18 /min 18 /min [facility] ( [facility]) Body height 68.2 [in_i] 68.2 [in_i] [facility] ([facility]) 5'8.20" Body weight 192.00 [lb_av] 192.00 [lb_av] [facility] ([facility]) Body mass index (BMI) [Ratio] 29.0 kg/m2 29.0 k g/m2 [facility] ([facility]) Systolic blood pressure 134 mm[Hg] 134 mm[Hg] M [facility] ([facility]) Diastolic blood pressure 86 mm[Hg] 86 mm[Hg] [facility] ([facility]) Heart rate 98 /min 98 /min [facility] ([facility]) Body temperature 99.3 [degF] 99.3 [degF] [facility] ([facility]) Oxygen saturation in Arterial blood by Pulse oximetry 99 % 99 % [facility] ([facility]) [place] body weight 140 [lb_av] 140 [lb_av] [facility] ([facility]) Body mass index (BMI) [Ratio] 29.2 kg/m2 29.2 k g/m2 [facility] ([facility]) Heart rate 86 /min 86 /min [facility] ([facility]) Respiratory rate 18 /min 18 /min [facility] ( [facility]) Body temperature 98.5 [degF] 98.5 [degF] [facility] ([facility]) Oxygen saturation in Arterial blood by Pulse oximetry 98 % 98 % [facility] ([facility]) Body height 68.2 [in_i] 68.2 [in_i] [facility] ([facility]) 5'8.20" [place] body weight 140 [lb_av] 140 [lb_av] [facility] ([facility]) Systolic blood pressure 142 mm[Hg] 142 mm[Hg] [facility]) Diastolic blood pressure 82 mm[Hg] 82 mm[Hg] [facility] ([facility]) Body weight 193.38 [lb_av] 193.38 [lb_av] [facility] ([facility]) I suspect previous weight was error foot fracture Body mass index (BMI) [Ratio] 27.9 kg/m2 27.9 k g/m2 [facility] ([facility]) Body surface area Derived from formula 2.02 m2 2.02 m2 [facility] ([facility]) Body weight 189.00 [lb_av] 189.00 [lb_av] [facility] Body weight 85.730 kg 85.730 kg [facility] ([facility]) Body height 69 [in_i] 69 [in_i] [facility] ([facility]) 5'9" Body temperature 99.4 [degF] 99.4 [degF] [facility] ([facility]) Oxygen saturation in Arterial blood by Pulse oximetry 94 % 94 % [facility] ([facility]) Systolic blood pressure 144 mm[Hg] 144 mm[Hg] M [facility] ([facility]) Diastolic blood pressure 84 mm[Hg] 84 mm[Hg] [facility] ([facility]) Body height 68.2 [in_i] 68.2 [in_i] [facility] ([facility]) 5'8.20" Body weight 165.25 [lb_av] 165.25 [lb_av] [facility] ([facility]) Body mass index (BMI) [Ratio] 25.0 kg/m2 25.0 k g/m2 [facility] ([facility]) Heart rate 90 /min 90 /min [facility] ([facility]) Respiratory rate 18 /min 18 /min [facility] ( [facility]) [place] body weight 140 [lb_av] 140 [lb_av] [facility] ([facility]) Systolic blood pressure 154 mm[Hg] 154 mm[Hg] M [facility] ([facility]) Diastolic blood pressure 100 mm[Hg] 100 mm[Hg] [facility] ([facility]) Body height 68.2 [in_i] 68.2 [in_i] [facility] ([facility]) 5'8.20" Heart rate 85 /min 85 /min [facility] ([facility]) Oxygen saturation in Arterial blood by Pulse oximetry 97 % 97 % [facility] ([facility]) [place] body weight 140 [lb_av] 140 [lb_av] [facility] ([facility]) Respiratory rate 16 /min 16 /min [facility] ( [facility]) Body temperature 98.0 [degF] 98.0 [degF] [facility] ([facility]) ID Date Data Source [id number] 08/11/2020 01:23:03 PM EDT [facility] Name Value Range Interpretation Code Description Data Source(s) WEIGHT RECORDED 189.00 pounds 189.00 pounds [facility] Height 70 Inches 070 Inches [facility]
[2021-01-26 19:08] VITALS: BP 122/74
[2021-01-26 19:11] VITALS: BP 123/67
[2021-01-26 19:25] VITALS: BP 123/67
[2021-01-26 19:40] VITALS: BP 140/85
[2021-01-26 19:50] VITALS: BP 129/67
[2021-01-26 20:13] LABS: RSV AMPLIFICATION NEGATIVE (NEGATIVE)
[2021-01-26 20:40] VITALS: BP 142/74
[2021-01-26] MEDS ORDERED: BUPR300T92 PO (21:30)
[2021-01-26] MEDS ORDERED: NORV5TAB PO (21:30)
[2021-01-26] MEDS ORDERED: ADDE30CA3 PO (21:30)
[2021-01-26] MEDS ORDERED: ADDE20TA PO (21:36)
[2021-01-26] MEDS ORDERED: PROC10TA4 PO (21:36)
[2021-01-26] MEDS ORDERED: CLOP75TA2 PO (21:36)
[2021-01-26] MEDS ORDERED: VITA200021 PO (21:36)
[2021-01-26] MEDS ORDERED: FLUO40CA PO (21:36)
[2021-01-26] MEDS ORDERED: FOLI800C PO (21:36)
[2021-01-26] MEDS ORDERED: HOME MED LIST COMPLETE! XX SCH (21:45)
[2021-01-26] MEDS: SUCRALFATE SUSP 1GM/10ML UD PO SCH (23:54)
[2021-01-26] MEDS: PANTOPRAZOLE 40MG VIAL (C9113 PER 1) IV SCH (23:54)
[2021-01-27] VITALS (10 sets, daily range): BP systolic 109–133; BP diastolic 54–92
[2021-01-27 06:14] LABS: HEMATOCRIT 28.9 % (36.0-47.0); HEMOGLOBIN 9.2 g/dl (12.0-15.5); MEAN CORPUSCULAR HEMOGLOBIN 26.7 pg (27.0-33.0); MEAN CORPUSCULAR HGB CONC 31.8 g/dl (32.0-36.5); PLATELET COUNT, AUTOMATED 241 10^3/uL (150-450); RED BLOOD COUNT 3.44 10^6/uL (4.00-5.40)
[2021-01-27 06:52] LABS: ALBUMIN 2.5 GM/DL (3.2-5.2); ALT/SGPT 12 U/L (12-78); BILIRUBIN,TOTAL 0.3 MG/DL (0.2-1.0); BLOOD UREA NITROGEN 27 MG/DL (7-18); CALCIUM LEVEL 7.6 MG/DL (8.8-10.2); CARBON DIOXIDE LEVEL 21 MEQ/L (21-32); CHLORIDE LEVEL 118 MEQ/L (98-107); CREATININE FOR GFR 0.56 MG/DL (0.55-1.30); GLOMERULAR FILTRATION RATE > 60.0 (>39); GLUCOSE, FASTING 92 MG/DL (70-100); MAGNESIUM LEVEL 1.8 MG/DL (1.8-2.4); POTASSIUM SERUM 3.5 MEQ/L (3.5-5.1); SODIUM LEVEL 146 MEQ/L (136-145)
[2021-01-27] MEDS ORDERED: FLUBLOK(EGG FREE)(QUAD)INFLUENZA VACC 0.5ML SYRINGE 18YRS & OLDER IM ONE (09:00)
[2021-01-27] MEDS: SUCRALFATE SUSP 1GM/10ML UD PO SCH ×3 (09:12→20:26)
[2021-01-27] MEDS: buPROPion **XL** TABLET 150MG (WELLBUTRIN XL) PO SCH (09:13)
[2021-01-27] MEDS: LEVOTHYROXINE 100MCG TABLET (0.1MG) PO SCH (09:13)
[2021-01-27] MEDS: FLUoxetine 20 MG CAP PO SCH (09:13)
[2021-01-27] MEDS: PROCHLORPERAZINE 5 MG TAB (S0183) PO SCH ×3 (09:13→20:25)
[2021-01-27] MEDS: PANTOPRAZOLE 40MG VIAL (C9113 PER 1) IV SCH ×2 (09:14→20:26)
[2021-01-27] MEDS: LITHIUM CARBONATE 300 MG CAP PO SCH ×2 (09:45→20:26)
[2021-01-27] MEDS: AMPHETAMINE/DEXTROAMPHETAMINE 5 MG *ER* CAPSULE (ADDERALL XR) PO SCH (11:25)
[2021-01-27] MEDS: ADDERALL 5 MG TAB PO SCH (12:51)
--- NOTE | 2021-01-27 13:11 | IPNPDOC ---
Text Note Date of Service The patient was seen on 01/27/21. NOTE Subjective: No any acute events overnight. Patient stated that she had large bowel movements overnight with black stool. 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 Patient stated that for past 2 weeks she has been having intermittent black stool and progressive weakness associated with shortness of breath on exertion. Patient denied any red blood in the stool. Patient reported that she takes Plavix on a daily basis after stroke. In ER patient was found to have hemoglobin of 8.3, no leukocytosis. CT abdomen/pelvis showed There is no evidence of acute disease or significant change compared to the prior exam Problems (1) Acute anemia Most likely secondary to upper GI bleed Patient developed generalized weakness secondary to symptomatic anemia Patient received 2 units of blood. Hemoglobin stable Continue H&H every 6 hours PPI IV twice daily Stool positive for occult blood I talked with , EGD can be done after 5 days after last dose of Plavix. If patient continues to have stable hemoglobin we will discharge her with close follow-up with GI team in the outpatient settings for endoscopy Plavix on hold (2) GI bleed See above (3) CVA, old, hemiparesis Plavix on hold for now I started atorvastatin and aspirin (4) Hypertension Blood pressure under control Continue home meds (5) Anxiety Continue home meds Plan / VTE VTE Prophylaxis Ordered?: Teds and sequential VTE Exclusion Pharmacological: Bleeding Risk VS,Fishbone, I+O VS, Fishbone, I+O Laboratory Tests 01/26/21 13:08 01/27/21 05:57 Vital Signs Date Time Temp Pulse Resp B/P (MAP) Pulse Ox O2 Delivery O2 Flow Rate FiO2 01/27/21 10:56 76 122/68 (86) 82 114/70 (85) 01/27/21 08:40 98.2 16 97 Room Air I&O- Last 24 Hours up to 6 AM 01/27/21 06:00 Intake Total 0 ml Output Total 1 ml Balance 9 ml KIRILL SALMON DO Jan 27, 2021 13:11
[2021-01-27] MEDS ORDERED: ATORVASTATIN 20 MG TAB PO ONE (14:00)
[2021-01-27] MEDS: ASPIRIN 81MG ENTERIC TABLET PO SCH (14:00)
[2021-01-27 14:24] LABS: HEMOGLOBIN 9.3 g/dl (12.0-15.5)
--- NOTE | 2021-01-27 20:17 | ECGEPIP ---
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
[2021-01-27] MEDS: amLODIPine 5 MG TAB PO SCH (20:26)
[2021-01-28 02:04] LABS: HEMATOCRIT 28.4 % (36.0-47.0); HEMOGLOBIN 8.8 g/dl (12.0-15.5)
[2021-01-28] MEDS: LEVOTHYROXINE 100MCG TABLET (0.1MG) PO SCH (05:50)
[2021-01-28 06:00] VITALS: BP 129/58
[2021-01-28 08:19] LABS: HEMATOCRIT 28.3 % (36.0-47.0)
[2021-01-28 08:51] LABS: BASO % 0.7 % (0.0-1.0); EOS # 0.4 10^3/uL (0.0-0.5); EOS % 5.8 % (0.0-3.0); HEMATOCRIT 28.2 % (36.0-47.0); HEMOGLOBIN 8.9 g/dl (12.0-15.5); LYMPH # 1.1 10^3/uL (1.5-5.0); LYMPH % 18.2 % (24.0-44.0); MEAN CORPUSCULAR HEMOGLOBIN 26.4 pg (27.0-33.0); MEAN CORPUSCULAR HGB CONC 31.6 g/dl (32.0-36.5); MEAN CORPUSCULAR VOLUME 83.7 fl (80.0-96.0); MONO # 0.4 10^3/uL (0.0-0.8); MONO % 5.8 % (2.0-8.0); NEUTROPHILS # 4.1 10^3/uL (1.5-8.5); PLATELET COUNT, AUTOMATED 258 10^3/uL (150-450); RED BLOOD COUNT 3.37 10^6/uL (4.00-5.40)
[2021-01-28] MEDS: SUCRALFATE SUSP 1GM/10ML UD PO SCH ×3 (09:00→20:28)
[2021-01-28] MEDS: AMPHETAMINE/DEXTROAMPHETAMINE 5 MG *ER* CAPSULE (ADDERALL XR) PO SCH (09:00)
[2021-01-28] MEDS: ATORVASTATIN 20 MG TAB PO SCH (09:00)
[2021-01-28] MEDS: ASPIRIN 81MG ENTERIC TABLET PO SCH (09:01)
[2021-01-28] MEDS: LITHIUM CARBONATE 300 MG CAP PO SCH ×2 (09:01→20:28)
[2021-01-28] MEDS: PROCHLORPERAZINE 5 MG TAB (S0183) PO SCH ×3 (09:01→20:28)
[2021-01-28] MEDS: FLUoxetine 20 MG CAP PO SCH (09:01)
[2021-01-28] MEDS: PANTOPRAZOLE 40MG VIAL (C9113 PER 1) IV SCH ×2 (09:01→20:28)
[2021-01-28] MEDS: buPROPion **XL** TABLET 150MG (WELLBUTRIN XL) PO SCH (09:01)
[2021-01-28 09:16] LABS: ALBUMIN 2.7 GM/DL (3.2-5.2); ALT/SGPT 17 U/L (12-78); BILIRUBIN,TOTAL 0.2 MG/DL (0.2-1.0); BLOOD UREA NITROGEN 12 MG/DL (7-18); CALCIUM LEVEL 7.8 MG/DL (8.8-10.2); CARBON DIOXIDE LEVEL 23 MEQ/L (21-32); CHLORIDE LEVEL 115 MEQ/L (98-107); CREATININE FOR GFR 0.61 MG/DL (0.55-1.30); GLOMERULAR FILTRATION RATE > 60.0 (>39); GLUCOSE, FASTING 101 MG/DL (70-100); POTASSIUM SERUM 3.7 MEQ/L (3.5-5.1); SODIUM LEVEL 143 MEQ/L (136-145); TOTAL PROTEIN 5.1 GM/DL (6.4-8.2)
--- NOTE | 2021-01-28 10:50 | IPNPDOC ---
Text Note Date of Service The patient was seen on 01/28/21. NOTE Subjective: No any acute events overnight. 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 Patient stated that for past 2 weeks she has been having intermittent black stool and progressive weakness associated with shortness of breath on exertion. Patient denied any red blood in the stool. Patient reported that she takes Plavix on a daily basis after stroke. In ER patient was found to have hemoglobin of 8.3, no leukocytosis. CT abdomen/pelvis showed There is no evidence of acute disease or significant change compared to the prior exam Problems (1) Acute anemia Most likely secondary to upper GI bleed Patient developed generalized weakness secondary to symptomatic anemia Patient received 2 units of blood. Hemoglobin stable Continue PPI IV twice daily Stool positive for occult blood Patient told me that he last dose of Plavix was on January 24 in the morning Plavix on hold Clear liquid diet Appreciate/agree with GI consult (2) GI bleed See above (3) CVA, old, hemiparesis Plavix on hold for now I started atorvastatin and aspirin (4) Hypertension Blood pressure under control Continue home meds (5) Anxiety Continue home meds Plan / VTE VTE Prophylaxis Ordered?: Teds and sequential VTE Exclusion Pharmacological: Bleeding Risk VS,Fishbone, I+O VS, Fishbone, I+O Laboratory Tests 01/27/21 13:48 01/27/21 20:03 01/28/21 02:00 01/28/21 07:52 01/28/21 07:54 01/28/21 08:15 Vital Signs Date Time Temp Pulse Resp B/P (MAP) Pulse Ox O2 Delivery O2 Flow Rate FiO2 01/28/21 06:00 98.5 84 18 129/58 (81) 96 Room Air I&O- Last 24 Hours up to 6 AM 01/28/21 06:00 Intake Total 1130 ml Output Total 0 ml Balance 1130 ml KIRILL SALMON DO Jan 28, 2021 10:50
[2021-01-28] MEDS: ADDERALL 5 MG TAB PO SCH (13:17)
[2021-01-28 14:00] VITALS: BP 112/63
[2021-01-28 14:15] LABS: HEMATOCRIT 28.7 % (36.0-47.0); HEMOGLOBIN 8.9 g/dl (12.0-15.5)
[2021-01-28 20:04] LABS: HEMATOCRIT 27.3 % (36.0-47.0); HEMOGLOBIN 8.5 g/dl (12.0-15.5)
[2021-01-28 20:29] VITALS: BP 118/64
[2021-01-28] MEDS: amLODIPine 5 MG TAB PO SCH (20:29)
[2021-01-29 02:24] LABS: HEMOGLOBIN 8.7 g/dl (12.0-15.5)
[2021-01-29 06:00] VITALS: BP 119/59
[2021-01-29] MEDS: LEVOTHYROXINE 100MCG TABLET (0.1MG) PO SCH (06:00)
[2021-01-29] MEDS ORDERED: propofoL 200 MG/20 ML VIAL As Ordered ONE (08:01)
[2021-01-29] MEDS ORDERED: LIDOCAINE 2% 100MG/5ML SDV (FOR ANES.) As Ordered ONE (08:01)
[2021-01-29] MEDS ORDERED: fentaNYL 100 MCG/2 ML INJECTION (J3010) As Ordered ONE (08:03)
[2021-01-29 08:27] LABS: HEMATOCRIT 29.1 % (36.0-47.0); HEMOGLOBIN 9.1 g/dl (12.0-15.5)
[2021-01-29 08:30] VITALS: O2SAT 95
--- NOTE | 2021-01-29 09:36 | ROOR ---
Patient Name: Laura Day Procedure Date: 01/29/2021 6:30 AM Date of : 1945 Age: 75 Gender: Female Note Status: Finalized Procedure: Upper GI endoscopy Indications: Acute post hemorrhagic anemia Providers: Jeff Haile MD Referring MD: 2. Inpatient 2. Inpatient Requesting Provider: 2. Inpatient 2. Inpatient Medicines: Monitored Anesthesia Care Complications: No immediate complications. Procedure: Pre-Anesthesia Assessment: - The heart rate, respiratory rate, oxygen saturations, blood pressure, adequacy of pulmonary ventilation, and response to care were monitored throughout the procedure. The Endoscope was introduced through the mouth, and advanced to the second part of duodenum. The upper GI endoscopy was accomplished without difficulty. The patient tolerated the procedure well. Findings: One non-obstructing non-bleeding cratered gastric ulcer of moderate severity was found in the gastric antrum. The lesion was 10 mm in largest dimension. Base is fibrotic and covered with exudate. Pigmented material only on edge. No bleeding, no vessel, no red spots. Biopsies were taken with a cold forceps for histology. Small Hiatal Hernia. The Z-line was variable. The exam was otherwise without abnormality. Impression: - Gastric antrum: 1 cm sized, non bleeding, deeply cratered ulcer. Appearance is that of low/moderate likelihood of rebleeding. Margins biopsied. - Small Hiatal Hernia. - Z-line variable. - The examination was otherwise normal. Recommendation: - Return patient to hospital [facility] for possible discharge same day. - Use Protonix (pantoprazole) 40 mg PO daily. - Avoid NSAIDS. Tylenol is OK - Resume Plavix (clopidogrel) at prior dose in 2 days. Refer to primary physician for further adjustment of therapy. - Repeat upper endoscopy in 3 months to check healing. - Return to my physician circulation assistant at appointment to be scheduled. Procedure Code(s): --- Professional --- 08587, Esophagogastroduodenoscopy, flexible, transoral; with biopsy, single or multiple Diagnosis Code(s): --- Professional --- D62, Acute posthemorrhagic anemia K22.8, Other specified diseases of esophagus K25.9, Gastric ulcer, unspecified as acute or chronic, without hemorrhage or perforation CPT copyright 2019 [employer]. All rights reserved. The codes documented in this report are preliminary and upon social services review may be revised to meet current compliance requirements. Jeff Haile MD Jeff Haile MD 01/29/2021 9:36:17 AM Electronically signed by Jeff Haile MD Number of Addenda: 0 Note Initiated On: 01/29/2021 6:30 AM Estimated Blood Loss: Estimated blood loss: none.
[2021-01-29] MEDS ORDERED: LR 1,000 ML IV SCH (09:55)
[2021-01-29] MEDS ORDERED: ONDANSETRON 4MG/2ML VIAL IV PRN (09:55)
[2021-01-29 10:10] VITALS: BP 119/61
[2021-01-29] MEDS: FLUoxetine 20 MG CAP PO SCH (10:32)
[2021-01-29] MEDS: buPROPion **XL** TABLET 150MG (WELLBUTRIN XL) PO SCH (10:33)
[2021-01-29] MEDS: PROCHLORPERAZINE 5 MG TAB (S0183) PO SCH (10:33)
[2021-01-29] MEDS: ASPIRIN 81MG ENTERIC TABLET PO SCH (10:33)
[2021-01-29] MEDS: LITHIUM CARBONATE 300 MG CAP PO SCH (10:49)
[2021-01-29] MEDS: AMPHETAMINE/DEXTROAMPHETAMINE 5 MG *ER* CAPSULE (ADDERALL XR) PO SCH (10:49)
[2021-01-29] MEDS: PANTOPRAZOLE 40MG VIAL (C9113 PER 1) IV SCH (10:50)
[2021-01-29] MEDS: SUCRALFATE SUSP 1GM/10ML UD PO SCH (10:50)
[2021-01-29] MEDS: ATORVASTATIN 20 MG TAB PO SCH (10:50)
[2021-01-29] MEDS ORDERED: ATOR1TAB21 PO (12:07)
[2021-01-29] MEDS ORDERED: PANT40TA29 PO (12:07)
[2021-01-29] MEDS: ADDERALL 5 MG TAB PO SCH (13:37)
--- NOTE | 2021-01-29 17:41 | DS.PDOC ---
Discharge Summary General Date of Admission Jan 26, 2021 at 16:34 Date of Discharge 01/29/21 Discharge Summary PROCEDURES PERFORMED DURING STAY: [None]. ADMITTING DIAGNOSES: Acute anemia GI bleed CVA, old, hemiparesis Hypertension Anxiety DISCHARGE DIAGNOSES: Acute anemia GI bleed CVA, old, hemiparesis Hypertension Anxiety COMPLICATIONS/CHIEF COMPLAINT: Dizziness. 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 Patient stated that for past 2 weeks she has been having intermittent black stool and progressive weakness associated with shortness of breath on exertion. Patient denied any red blood in the stool. Patient reported that she takes Plavix on a daily basis after stroke. In ER patient was found to have hemoglobin of 8.3, no leukocytosis. CT abdomen/pelvis showed There is no evidence of acute disease or significant change compared to the prior exam HOSPITAL COURSE: During the hospital stay the following issue addressed (1) Acute anemia Most likely secondary to upper GI bleed Patient developed generalized weakness secondary to symptomatic anemia Patient received 2 units of blood. Hemoglobin stable EGD was done and showed: Gastric antrum: 1 cm sized, non bleeding, deeply cratered ulcer. Appearance is that of low/moderate likelihood of rebleeding. Margins biopsied. - Small Hiatal Hernia. - Z-line variable. - The examination was otherwise normal (2) GI bleed See above (3) CVA, old, hemiparesis Plavix on hold for now I started atorvastatin and aspirin (4) Hypertension Blood pressure under control Continue home meds (5) Anxiety Continue home meds DISCHARGE MEDICATIONS: Please see below. ALLERGIES: Please see below. PHYSICAL EXAMINATION ON DISCHARGE: VITAL SIGNS: Please see below. GENERAL APPEARANCE: NAD HEENT: no scleral icterus, no JVD, EOMI CARDIOVASCULAR: S1S2 LUNGS: Diminished lung sounds bilaterally ABDOMEN: soft & not tender w palpation MUSCULOSKELETAL: no cyanosis, no swelling INTEGUMENT: no generalized pallor NEUROLOGICAL: cranial nerve function from 2-12 intact, follows commands, speech not dysarthric, left leg strength 4 out of 5 LABORATORY DATA: Please see below. PROGNOSIS: Fair ACTIVITY: [As tolerated]. DIET: Regular DISPOSITION: 01 Home, Self-Care. DISCHARGE INSTRUCTIONS: - Return patient to hospital styles for possible discharge same day. - Use Protonix (pantoprazole) 40 mg PO daily. - Avoid NSAIDS. Tylenol is OK - Resume Plavix (clopidogrel) at prior dose in 2 days. Refer to primary physician for further adjustment of therapy. - Repeat upper endoscopy in 3 months to check healing. ITEMS TO FOLLOWUP ON ON OUTPATIENT: Follow-up with GI team DISCHARGE CONDITION: [Stable]. TIME SPENT ON DISCHARGE: 50minutes. Vital Signs/I&Os Vital Signs Date Time Temp Pulse Resp B/P (MAP) Pulse Ox O2 Delivery O2 Flow Rate FiO2 01/29/21 10:10 98.6 75 16 119/61 (80) 96 Nasal Cannula 1.0 I&O- Last 24 Hours up to 6 AM 01/29/21 06:00 Intake Total 900 ml Output Total 100 ml Balance 800 ml Laboratory Data CBC/BMP Laboratory Tests 01/28/21 19:55 01/29/21 02:00 01/29/21 08:04 Microbiology Microbiology 01/27/21 Stool Occult Blood (TAIWO) - Final, Complete Discharge Medications Scheduled Amlodipine Besylate (Norvasc) 5 Mg Tablet, 5 MG PO QHS, (Reported) Atorvastatin Calcium (Atorvastatin Calcium) 20 Mg Tablet, 40 MG PO DAILY Bupropion HCl (Bupropion Xl) 300 Mg Tab.er.24h, 300 MG PO DAILY, (Reported) Cholecalciferol (Vitamin D3) (Vitamin D3) 50 Mcg Capsule, 50 MCG PO QHS, (Reported) Clopidogrel Bisulfate (Clopidogrel) 75 Mg Tablet, 75 MG PO DAILY, (Reported) Dextroamphetamine/Amphetamine (Adderall Xr 30 mg Capsule) 30 Mg Cap.er.24h, 1 CAP PO DAILY, (Reported) Dextroamphetamine/Amphetamine (Adderall 20 mg Tablet) 20 Mg Tablet, 20 MG PO DAILY, (Reported) TAKES AROUND 1300 Fluoxetine Hcl (Fluoxetine HCl) 40 Mg Capsule, 80 MG PO DAILY, (Reported) Folic Acid (Folic Acid) 0.8 Mg Capsule, 800 MCG PO QHS, (Reported) Levothyroxine Sodium (Levothyroxine Sodium) 200 Mcg Tablet, 200 MCG PO DAILY, (Reported) [place] Carbonate ([place] Carbonate) 300 Mg Capsule, 300 MG PO BID, (Reported) Pantoprazole Sodium (Pantoprazole Sodium) 40 Mg Tablet.dr, 1 TAB PO DAILY Prochlorperazine Maleate (Prochlorperazine Maleate) 10 Mg Tablet, 10 MG PO TID, (Reported) Allergies Coded Allergies: No Known Allergies (Unverified , 02/21/19) KIRILL SALMON DO Jan 29, 2021 17:41
== END 2021-01-29 14:12 | disposition home or self-care (01) | DRG 378 ==
LOC: M ED 12:47 → EDBD 12:47 → M ED INP 16:34 → M MSPAV 22:56
PROVIDERS: ADMIT Internal Medicine; ATTEND Internal Medicine
PROC: 30233N1 Transfusion of Nonautologous Red Blood Cells into Peripheral Vein, Percutaneous Approach (ICD-10-PCS; principal; 2021-01-26)
PROC: 0DB Gastrointestinal System, Excision (ICD-10-PCS; 2021-01-29)
DX: K92.2 Gastrointestinal hemorrhage, unspecified (principal); D62 Acute posthemorrhagic anemia; I69.354 Hemiplegia and hemiparesis following cerebral infarction affecting left non-dominant side; I10 Essential (primary) hypertension; F41.9 Anxiety disorder, unspecified; F31.9 Bipolar disorder, unspecified; F32.A Depression, unspecified; Z20.822 Contact with and (suspected) exposure to COVID-19; Z79.899 Other long term (current) drug therapy; G47.00 Insomnia, unspecified; K21.9 Gastro-esophageal reflux disease without esophagitis; K44.9 Diaphragmatic hernia without obstruction or gangrene; M54.9 Dorsalgia, unspecified; Z90.79 Acquired absence of other genital organ(s); Z90.49 Acquired absence of other specified parts of digestive tract; Z87.891 Personal history of nicotine dependence; K25.9 Gastric ulcer, unspecified as acute or chronic, without hemorrhage or perforation

== ENCOUNTER → 2021-02-02 | Outpatient (CLI) | payer MEDICARE ==
[~2021-02-02] MED LIST changes: +ADDE20TA PO; +CLOP75TA2 PO; +FOLI800C PO; +PANT40TA29 PO; +PROC10TA4 PO; +VITA200021 PO
[2021-02-02 16:38] LABS: FREE T4 1.32 NG/DL (0.76-1.46); THYROID STIMULATING HORMONE 2.81 uIU/ML (0.358-3.740)
== END ==
LOC: M WUC 13:53
PROVIDERS: ATTEND Family Medicine
DX: E89.0 Postprocedural hypothyroidism (principal)

== ENCOUNTER → 2021-04-08 | Outpatient (CLI) | payer MEDICARE ==
[~2021-04-08] MED LIST changes: -LATU40TA PO; +LATU40TA2 PO; -LATU80TA PO; +LATU80TA2 PO; -PROC10TA4 PO; +PROC10TA5 PO
[2021-04-08 16:42] LABS: CALCIUM LEVEL 9.2 MG/DL (8.8-10.2)
[2021-04-08 16:55] LABS: TOTAL 25(OH) VITAMIN D 39.1 NG/ML (30.0-100.0)
== END ==
LOC: M WUC 13:33
PROVIDERS: ATTEND Internal Medicine Endocrinology, Diabetes & Metabolism
DX: M80.08XS Age-related osteoporosis with current pathological fracture, vertebra(e), sequela (principal)

== ENCOUNTER → 2021-05-13 | Outpatient (CLI) | payer MEDICARE | LOC: M WHC 13:57 | PROVIDERS: ATTEND Family Medicine | DX: Z12.31 Encounter for screening mammogram for malignant neoplasm of breast (principal); Z80.0 Family history of malignant neoplasm of digestive organs; R92.1 Mammographic calcification found on diagnostic imaging of breast ==

== ENCOUNTER → 2021-05-23 | Outpatient (CLI) | payer MEDICARE ==
[2021-05-23 15:48] LABS: BASO # 0.1 10^3/uL (0.0-0.2); BASO % 0.7 % (0.0-1.0); EOS # 0.3 10^3/uL (0.0-0.5); EOS % 3.4 % (0.0-3.0); HEMOGLOBIN 10.2 g/dl (12.0-15.5); LYMPH # 1.5 10^3/uL (1.5-5.0); LYMPH % 18.3 % (24.0-44.0); MEAN CORPUSCULAR HEMOGLOBIN 22.4 pg (27.0-33.0); MEAN CORPUSCULAR HGB CONC 29.1 g/dl (32.0-36.5); MEAN CORPUSCULAR VOLUME 76.9 fl (80.0-96.0); MONO # 0.6 10^3/uL (0.0-0.8); MONO % 6.9 % (2.0-8.0); NEUTROPHILS # 5.7 10^3/uL (1.5-8.5); NEUTROPHILS % 70.3 % (36.0-66.0); PLATELET COUNT, AUTOMATED 325 10^3/uL (150-450); RED BLOOD COUNT 4.55 10^6/uL (4.00-5.40); WHITE BLOOD COUNT 8.2 10^3/uL (4.0-10.0)
[2021-05-23 16:38] LABS: ALBUMIN 3.9 GM/DL (3.2-5.2); PERCENT SATURATION 4.6 % (13.2-45.0); THYROID STIMULATING HORMONE 5.65 uIU/ML (0.358-3.740)
== END ==
LOC: M WUC 11:18
PROVIDERS: ATTEND Orthopaedic Surgery
DX: Z86.69 Personal history of other diseases of the nervous system and sense organs (principal); Z86.59 Personal history of other mental and behavioral disorders; Z86.79 Personal history of other diseases of the circulatory system; Z01.818 Encounter for other preprocedural examination

== ENCOUNTER 2021-06-17 07:47 | Outpatient (CLI) | payer MEDICARE ==
[2021-06-16 11:15] VITALS: BP 150/61
[2021-06-17 07:50] VITALS: BP 124/70
[2021-06-17] MEDS ORDERED: IRON SUCROSE 500 MG in NS 250 ML OVER 4 HRS IV ONE (08:00)
[2021-06-17 08:59] VITALS: BP 112/53
[2021-06-17 10:30] VITALS: BP 116/58
[2021-06-17 13:00] VITALS: BP 130/65
== END 2021-06-17 13:00 | disposition home or self-care (01) ==
LOC: M INFU 07:47
PROVIDERS: ATTEND Family Medicine
DX: D50.9 Iron deficiency anemia, unspecified (principal)
CPT/HCPCS: 96365; 96366; J1756

== ENCOUNTER → 2021-06-19 | Outpatient (REF) | payer MEDICARE ==
[2021-06-19 12:18] LABS: APPEARANCE, URINE HAZY (CLEAR); BACTERIA, URINE AUTO 1+ (NEGATIVE); BILIRUBIN, URINE AUTO NEGATIVE (NEGATIVE); BLOOD, URINE BLOOD 1+ (NEGATIVE); COLOR, URINE AMBER (YELLOW); GLUCOSE, URINE (UA) AUTO NEGATIVE (NEGATIVE); KETONE, URINE AUTO NEGATIVE (NEGATIVE); LEUKOCYTE ESTERASE, URINE AUTO 2+ (NEGATIVE); MUCUS, URINE SMALL (NEGATIVE); NITRITE, URINE AUTO POSITIVE (NEGATIVE); PROTEIN, URINE AUTO 1+ mg/dL (NEGATIVE); RBC, URINE AUTO 16 /HPF (0-3); SQUAMOUS EPITHELIAL CELL UR AU 1 /HPF (0-6); WBC, URINE AUTO 16 /HPF (0-3)
== END ==
LOC: M LAB REF 12:04
PROVIDERS: ATTEND Physician Assistant
DX: N39.0 Urinary tract infection, site not specified (principal)

== ENCOUNTER → 2021-06-24 | Outpatient (CLI) | payer MEDICARE, OTHER | LOC: M LABSMTC 09:36 | PROVIDERS: ATTEND Anesthesiology | DX: Z01.812 Encounter for preprocedural laboratory examination (principal); Z20.822 Contact with and (suspected) exposure to COVID-19 ==

== ENCOUNTER 2021-06-27 10:54 | Day surgery (SDC) | payer MEDICARE ==
[~2021-06-27] VITALS: Ht 177.8 cm; Wt 87.0 kg
[~2021-06-27 10:54] MED LIST changes: +NS 1,000 ML IV ONE
[2021-06-27] MEDS ORDERED: LIDOCAINE 2% 100MG/5ML SDV (FOR ANES.) As Ordered ONE (12:57)
[2021-06-27] MEDS ORDERED: propofoL 200 MG/20 ML VIAL As Ordered ONE ×2 (12:58→13:06)
[2021-06-27 13:44] VITALS: BP 134/70
== END 2021-06-27 14:02 | disposition home or self-care (01) ==
LOC: M OPP 10:54
PROVIDERS: ATTEND Internal Medicine Gastroenterology
DX: D12.3 Benign neoplasm of transverse colon (principal); D12.5 Benign neoplasm of sigmoid colon; K57.30 Diverticulosis of large intestine without perforation or abscess without bleeding; K64.8 Other hemorrhoids; K25.3 Acute gastric ulcer without hemorrhage or perforation; K22.89 Other specified disease of esophagus; K31.89 Other diseases of stomach and duodenum; Z79.02 Long term (current) use of antithrombotics/antiplatelets; Z79.899 Other long term (current) drug therapy; Z80.0 Family history of malignant neoplasm of digestive organs

== ENCOUNTER → 2021-07-04 | Outpatient (REF) | payer MEDICARE ==
[~2021-07-04] MED LIST changes: -NS 1,000 ML IV ONE
[2021-07-04 16:09] LABS: BASO % 0.6 % (0.0-1.0); EOS # 0.1 10^3/uL (0.0-0.5); EOS % 1.3 % (0.0-3.0); HEMATOCRIT 37.6 % (36.0-47.0); HEMOGLOBIN 11.5 g/dl (12.0-15.5); LYMPH # 1.7 10^3/uL (1.5-5.0); LYMPH % 25.2 % (24.0-44.0); MEAN CORPUSCULAR HEMOGLOBIN 24.3 pg (27.0-33.0); MEAN CORPUSCULAR HGB CONC 30.6 g/dl (32.0-36.5); MEAN CORPUSCULAR VOLUME 79.3 fl (80.0-96.0); MONO # 0.6 10^3/uL (0.0-0.8); MONO % 8.7 % (2.0-8.0); NEUTROPHILS # 4.3 10^3/uL (1.5-8.5); NEUTROPHILS % 63.9 % (36.0-66.0); PLATELET COUNT, AUTOMATED 368 10^3/uL (150-450); RED BLOOD COUNT 4.74 10^6/uL (4.00-5.40); WHITE BLOOD COUNT 6.7 10^3/uL (4.0-10.0)
[2021-07-04 16:18] LABS: PERCENT SATURATION 13.2 % (13.2-45.0)
== END ==
LOC: M WUC 15:47
PROVIDERS: ATTEND Family Medicine
DX: D50.9 Iron deficiency anemia, unspecified (principal)

== ENCOUNTER 2021-08-14 13:48 | Emergency (ER) | payer MEDICARE ==
[~2021-08-14] VITALS: Ht 177.8 cm; Wt 86.4 kg
[2021-08-14] MEDS ORDERED: ONDANSETRON 4MG/2ML VIAL IV ONE (14:55)
[2021-08-14 15:30] LABS: BASO # 0.1 10^3/uL (0.0-0.2); BASO % 0.7 % (0.0-1.0); EOS # 0.2 10^3/uL (0.0-0.5); EOS % 1.6 % (0.0-3.0); HEMATOCRIT 39.1 % (36.0-47.0); HEMOGLOBIN 11.9 g/dl (12.0-15.5); LYMPH % 8.4 % (24.0-44.0); MEAN CORPUSCULAR HEMOGLOBIN 27.7 pg (27.0-33.0); MEAN CORPUSCULAR HGB CONC 30.4 g/dl (32.0-36.5); MEAN CORPUSCULAR VOLUME 90.9 fl (80.0-96.0); MONO # 0.6 10^3/uL (0.0-0.8); MONO % 5.4 % (2.0-8.0); NEUTROPHILS # 9.6 10^3/uL (1.5-8.5); NEUTROPHILS % 83.3 % (36.0-66.0); PLATELET COUNT, AUTOMATED 249 10^3/uL (150-450); WHITE BLOOD COUNT 11.5 10^3/uL (4.0-10.0)
[2021-08-14 16:07] LABS: BLOOD UREA NITROGEN 20 MG/DL (7-18); CALCIUM LEVEL 8.5 MG/DL (8.8-10.2); CARBON DIOXIDE LEVEL 26 MEQ/L (21-32); CHLORIDE LEVEL 111 MEQ/L (98-107); CREATININE FOR GFR 0.83 MG/DL (0.55-1.30); GLOMERULAR FILTRATION RATE > 60.0 (>39); GLUCOSE, FASTING 96 MG/DL (70-100); LITHIUM LEVEL < 0.20 MEQ/L (0.60-1.20); POTASSIUM SERUM 3.8 MEQ/L (3.5-5.1); SODIUM LEVEL 144 MEQ/L (136-145)
[2021-08-14] MEDS ORDERED: HYDR-3719 (17:00)
[2021-08-14] MEDS ORDERED: LITH300C (17:00)
[2021-08-14] MEDS ORDERED: PROCHLORPERAZINE 10MG/2ML VIAL (J0780 PER 1) IV ONE (17:20)
[2021-08-14 17:42] LABS: ALBUMIN 3.6 GM/DL (3.2-5.2); ALT/SGPT 20 U/L (12-78); BILIRUBIN,DIRECT 0.3 MG/DL (0.0-0.2); BILIRUBIN,TOTAL 0.2 MG/DL (0.2-1.0); ETHYL ALCOHOL (ETHANOL) < 0.003 % (0.000-0.010); LIPASE 117 U/L (73-393); SALICYLATE LEVEL 2.1 MG/DL (5.0-30.0); TOTAL PROTEIN 6.6 GM/DL (6.4-8.2)
[2021-08-14 19:11] LABS: AMPHETAMINES LEVEL URINE POSITIVE (NEGATIVE); BARBITURATES URINE NEGATIVE (NEGATIVE); BENZODIAZEPINES URINE POSITIVE (NEGATIVE); CANNABINOIDS URINE NEGATIVE (NEGATIVE); COCAINE METABOLITE URINE NEGATIVE (NEGATIVE); METHADONE URINE NEGATIVE (NEGATIVE); OPIATES URINE POSITIVE (NEGATIVE); PHENCYCLIDINE URINE NEGATIVE (NEGATIVE)
[2021-08-14 19:25] LABS: RSV AMPLIFICATION NEGATIVE (NEGATIVE)
[2021-08-14 20:05] LABS: ACETAMINOPHEN LEVEL < 2.0 UG/ML (0.0-30.0)
[2021-08-15 02:03] VITALS: BP 148/78
== END 2021-08-15 02:06 | disposition home or self-care (01) ==
LOC: M ED 13:48
DX: R53.83 Other fatigue (principal); R11.2 Nausea with vomiting, unspecified; W19.XXXA Unspecified fall, initial encounter; I45.10 Unspecified right bundle-branch block; I10 Essential (primary) hypertension; E03.9 Hypothyroidism, unspecified; Z86.73 Personal history of transient ischemic attack (TIA), and cerebral infarction without residual deficits; K21.9 Gastro-esophageal reflux disease without esophagitis; Z79.890 Hormone replacement therapy; Z79.899 Other long term (current) drug therapy
CPT/HCPCS: 70450; 70551; 72125; 80048; 80076; 80143; 80178; 80307; 82077; 83690; 84484; 85025; 87631; 93005; 93041; 94760; 96374; 96375; 99285; J0780; J2405

== ENCOUNTER → 2021-09-28 | Outpatient (CLI) | payer MEDICARE ==
[~2021-09-28] MED LIST changes: +HYDR-3719; +LITH300C
[2021-09-28 16:15] LABS: BASO # 0.1 10^3/uL (0.0-0.2); BASO % 0.9 % (0.0-1.0); EOS # 0.2 10^3/uL (0.0-0.5); EOS % 3.6 % (0.0-3.0); HEMATOCRIT 41.8 % (36.0-47.0); LYMPH # 1.8 10^3/uL (1.5-5.0); LYMPH % 30.3 % (24.0-44.0); MEAN CORPUSCULAR HEMOGLOBIN 28.8 pg (27.0-33.0); MEAN CORPUSCULAR HGB CONC 31.1 g/dl (32.0-36.5); MEAN CORPUSCULAR VOLUME 92.7 fl (80.0-96.0); MONO # 0.5 10^3/uL (0.0-0.8); NEUTROPHILS # 3.3 10^3/uL (1.5-8.5); NEUTROPHILS % 56.9 % (36.0-66.0); PLATELET COUNT, AUTOMATED 281 10^3/uL (150-450); RED BLOOD COUNT 4.51 10^6/uL (4.00-5.40); WHITE BLOOD COUNT 5.8 10^3/uL (4.0-10.0)
[2021-09-28 16:57] LABS: ALBUMIN 3.5 GM/DL (3.2-5.2); ALT/SGPT 22 U/L (12-78); BILIRUBIN,TOTAL 0.2 MG/DL (0.2-1.0); BLOOD UREA NITROGEN 18 MG/DL (7-18); CALCIUM LEVEL 8.9 MG/DL (8.8-10.2); CARBON DIOXIDE LEVEL 28 MEQ/L (21-32); CHLORIDE LEVEL 108 MEQ/L (98-107); CHOLESTEROL LEVEL 175 MG/DL (<200); CHOLESTEROL RISK RATIO 2.868 (<5); CREATININE FOR GFR 0.95 MG/DL (0.55-1.30); FERRITIN 8 NG/ML (8-252); FREE T4 1.31 NG/DL (0.76-1.46); GLOMERULAR FILTRATION RATE > 60.0 (>39); GLUCOSE, FASTING 72 MG/DL (70-100); HDL CHOLESTEROL 61 MG/DL (>40); IRON (FE) 32 UG/DL (50-170); LDL CHOLESTEROL 86 MG/DL (<100); NON-HDL-C 114 MG/DL; PERCENT SATURATION 8.3 % (13.2-45.0); POTASSIUM SERUM 4.1 MEQ/L (3.5-5.1); SODIUM LEVEL 140 MEQ/L (136-145); TOTAL IRON BINDING CAPACITY 386 UG/DL (250-450); TOTAL PROTEIN 6.6 GM/DL (6.4-8.2); TRIGLYCERIDES LEVEL 141 MG/DL (<150)
[2021-09-28 17:31] LABS: TOTAL 25(OH) VITAMIN D 26.8 NG/ML (30.0-100.0)
== END ==
LOC: M WUC 13:09
PROVIDERS: ATTEND Family Medicine
DX: D50.9 Iron deficiency anemia, unspecified (principal); E89.0 Postprocedural hypothyroidism; E55.9 Vitamin D deficiency, unspecified; I69.898 Other sequelae of other cerebrovascular disease

== ENCOUNTER → 2021-12-16 | Outpatient (REF) | payer MEDICARE ==
[2021-12-16 18:47] LABS: PERCENT SATURATION 10.6 % (13.2-45.0)
== END ==
LOC: M LAB REF 16:18
PROVIDERS: ATTEND Internal Medicine
DX: D64.9 Anemia, unspecified (principal)

== ENCOUNTER → 2022-03-20 | Outpatient (REF) | payer MEDICARE ==
[2022-03-20 17:09] LABS: PERCENT SATURATION 9.4 % (13.2-45.0)
[2022-03-20 17:10] LABS: FERRITIN 11.9 NG/ML (7.3-270.7)
== END ==
LOC: M LAB REF 16:09
PROVIDERS: ATTEND Internal Medicine
DX: D64.9 Anemia, unspecified (principal)

== ENCOUNTER → 2022-04-11 | Outpatient (REF) | payer MEDICARE ==
[2022-04-11 16:41] LABS: CALCIUM LEVEL 9.2 MG/DL (8.3-10.6)
[2022-04-11 16:47] LABS: TOTAL 25(OH) VITAMIN D 28.2 NG/ML (20.0-100.0)
== END ==
LOC: M LAB REF 16:04
PROVIDERS: ATTEND Internal Medicine Endocrinology, Diabetes & Metabolism
DX: E55.9 Vitamin D deficiency, unspecified (principal)

== ENCOUNTER → 2022-04-20 | Outpatient (CLI) | payer MEDICARE ==
[2022-04-20 16:37] LABS: BASO # 0.1 10^3/uL (0.0-0.2); BASO % 1.1 % (0.0-1.0); EOS # 0.3 10^3/uL (0.0-0.5); EOS % 4.6 % (0.0-3.0); HEMATOCRIT 44.6 % (36.0-47.0); HEMOGLOBIN 14.1 g/dl (12.0-15.5); LYMPH % 27.6 % (24.0-44.0); MEAN CORPUSCULAR HEMOGLOBIN 30.3 pg (27.0-33.0); MEAN CORPUSCULAR HGB CONC 31.6 g/dl (32.0-36.5); MEAN CORPUSCULAR VOLUME 95.7 fl (80.0-96.0); MONO # 0.6 10^3/uL (0.0-0.8); MONO % 8.1 % (2.0-8.0); NEUTROPHILS # 4.2 10^3/uL (1.5-8.5); NEUTROPHILS % 58.2 % (36.0-66.0); PLATELET COUNT, AUTOMATED 281 10^3/uL (150-450); RED BLOOD COUNT 4.66 10^6/uL (4.00-5.40); WHITE BLOOD COUNT 7.2 10^3/uL (4.0-10.0)
[2022-04-20 17:09] LABS: PERCENT SATURATION 26.4 % (13.2-45.0)
[2022-04-20 17:12] LABS: FERRITIN 11.8 NG/ML (7.3-270.7)
== END ==
LOC: M WUC 14:15
PROVIDERS: ATTEND Orthopaedic Surgery
DX: M25.562 Pain in left knee (principal); M17.12 Unilateral primary osteoarthritis, left knee

== ENCOUNTER → 2022-06-20 | Outpatient (REF) | payer MEDICARE ==
[2022-06-20 17:38] LABS: FERRITIN 48.2 NG/ML (7.3-270.7)
== END ==
LOC: M LAB REF 16:15
PROVIDERS: ATTEND Internal Medicine
DX: D50.9 Iron deficiency anemia, unspecified (principal)

== ENCOUNTER 2022-07-14 10:24 | Emergency (ER) | payer MEDICARE ==
[~2022-07-14] VITALS: Ht 175.3 cm; Wt 95.1 kg
[2022-07-14] MEDS ORDERED: ISOVUE-370 76% 100ML VIAL As Ordered ONE (11:51)
[2022-07-14 12:05] VITALS: BP 168/84
[2022-07-14 12:09] LABS: BASO # 0.1 10^3/uL (0.0-0.2); BASO % 0.8 % (0.0-1.0); EOS # 0.2 10^3/uL (0.0-0.5); EOS % 3.2 % (0.0-3.0); HEMATOCRIT 41.4 % (36.0-47.0); HEMOGLOBIN 13.2 g/dl (12.0-15.5); LYMPH % 15.8 % (24.0-44.0); MEAN CORPUSCULAR HEMOGLOBIN 30.3 pg (27.0-33.0); MEAN CORPUSCULAR HGB CONC 31.9 g/dl (32.0-36.5); MEAN CORPUSCULAR VOLUME 95.2 fl (80.0-96.0); MONO # 0.4 10^3/uL (0.0-0.8); MONO % 5.7 % (2.0-8.0); NEUTROPHILS # 4.8 10^3/uL (1.5-8.5); PLATELET COUNT, AUTOMATED 283 10^3/uL (150-450); RED BLOOD COUNT 4.35 10^6/uL (4.00-5.40); WHITE BLOOD COUNT 6.5 10^3/uL (4.0-10.0)
[2022-07-14 12:32] LABS: INR 0.9; PROTHROMBIN TIME 12.3 SECONDS (12.5-14.5)
[2022-07-14 12:33] LABS: PARTIAL THROMBOPLASTIN TIME 28.5 SECONDS (24.8-34.2)
[2022-07-14 12:40] LABS: CK-MB VALUE MASS 2.4 NG/ML (<3.6)
[2022-07-14 12:42] LABS: CALCIUM LEVEL 8.1 MG/DL (8.3-10.6); CREATININE FOR GFR 1.18 MG/DL (0.55-1.30); GLOMERULAR FILTRATION RATE 47.5 (>39); MB/CK RELATIVE INDEX 1.52 (< OR =4)
[2022-07-14 13:06] LABS: RSV AMPLIFICATION NEGATIVE (NEGATIVE)
[2022-07-14 14:03] VITALS: BP 142/72
== END 2022-07-14 14:07 | disposition left against medical advice (07) ==
LOC: M ED 10:24
DX: I63.9 Cerebral infarction, unspecified (principal); Z53.9 Procedure and treatment not carried out, unspecified reason; E11.9 Type 2 diabetes mellitus without complications; F41.9 Anxiety disorder, unspecified; F32.9 Major depressive disorder, single episode, unspecified; Z79.899 Other long term (current) drug therapy; Z88.5 Allergy status to narcotic agent
CPT/HCPCS: 70450; 70496; 70498; 71045; 80047; 80048; 82550; 82553; 84484; 85025; 85610; 85730; 87631; 93005; 93041; 94760; 99285; Q9967

== ENCOUNTER 2022-07-20 08:16 | Emergency (ER) | payer MEDICARE ==
[~2022-07-20] VITALS: Ht 175.3 cm; Wt 86.4 kg
[2022-07-20] MEDS ORDERED: ONDA-84 (08:30)
[2022-07-20 09:20] VITALS: BP 130/73
== END 2022-07-20 09:26 | disposition home or self-care (01) ==
LOC: M ED 08:16 → EDBD 08:16 → M ED 09:26
DX: Z71.1 Person with feared health complaint in whom no diagnosis is made (principal); I10 Essential (primary) hypertension; F90.9 Attention-deficit hyperactivity disorder, unspecified type; Z86.73 Personal history of transient ischemic attack (TIA), and cerebral infarction without residual deficits; F31.9 Bipolar disorder, unspecified; Z87.442 Personal history of urinary calculi; Z87.891 Personal history of nicotine dependence; Z79.899 Other long term (current) drug therapy; Z88.5 Allergy status to narcotic agent

== ENCOUNTER → 2022-08-10 | Outpatient (REF) | payer MEDICARE ==
[~2022-08-10] MED LIST changes: +ONDA-84
== END ==
LOC: M LAB REF 16:03
PROVIDERS: ATTEND Physician Assistant
DX: R30.0 Dysuria (principal)

== ENCOUNTER → 2022-09-21 | Outpatient (REF) | payer MEDICARE ==
[2022-09-21 13:59] LABS: IRON (FE) 69 UG/DL (50-170); PERCENT SATURATION 19.4 % (13.2-45.0); TOTAL IRON BINDING CAPACITY 356 UG/DL (250-425)
[2022-09-21 14:01] LABS: LITHIUM LEVEL < 0.10 MMOL/L (1.0-1.20)
[2022-09-21 14:02] LABS: FERRITIN 17.9 NG/ML (7.3-270.7)
== END ==
LOC: M LAB REF 13:36
PROVIDERS: ATTEND Nurse Practitioner Family
DX: R53.83 Other fatigue (principal); D50.9 Iron deficiency anemia, unspecified

== ENCOUNTER 2022-09-28 10:41 | Emergency (ER) | payer MEDICARE ==
[~2022-09-28] VITALS: Ht 175.3 cm; Wt 93.7 kg
[2022-09-28 12:23] LABS: VENOUS BASE EXCESS -3.6 (-2.0-2.0); VENOUS HCO3 21.3 MMOL/L (23.0-27.0); VENOUS O2 SATURATION 74.1 % (60.0-80.0); VENOUS PARTIAL PRESSURE O2 40.7 mmHg (30.0-50.0); VENOUS PH 7.367 UNITS (7.330-7.430); VENOUS TOTAL CO2 22.5 MMOL/L (24.0-28.0)
[2022-09-28 12:25] LABS: BASO % 0.8 % (0.0-1.0); EOS # 0.3 10^3/uL (0.0-0.5); EOS % 4.8 % (0.0-3.0); HEMATOCRIT 37.2 % (36.0-47.0); LYMPH # 1.2 10^3/uL (1.5-5.0); LYMPH % 22.2 % (24.0-44.0); MEAN CORPUSCULAR HEMOGLOBIN 29.2 pg (27.0-33.0); MEAN CORPUSCULAR HGB CONC 32.3 g/dl (32.0-36.5); MEAN CORPUSCULAR VOLUME 90.5 fl (80.0-96.0); MONO # 0.6 10^3/uL (0.0-0.8); MONO % 10.8 % (2.0-8.0); NEUTROPHILS # 3.2 10^3/uL (1.5-8.5); PLATELET COUNT, AUTOMATED 328 10^3/uL (150-450); RED BLOOD COUNT 4.11 10^6/uL (4.00-5.40); WHITE BLOOD COUNT 5.3 10^3/uL (4.0-10.0)
[2022-09-28 12:49] LABS: ALBUMIN 3.9 G/DL (3.2-5.2); ALKALINE PHOSPHATASE 109 U/L (46-116); ALT/SGPT 34 U/L (7.0-40); AST/SGOT 27 U/L (<34); BILIRUBIN,DIRECT 0.1 MG/DL (<0.4); BILIRUBIN,TOTAL 0.4 MG/DL (0.3-1.2); BLOOD UREA NITROGEN 17 MG/DL (9-23); CALCIUM LEVEL 9.5 MG/DL (8.3-10.6); CARBON DIOXIDE LEVEL 25 MMOL/L (20-31); CHLORIDE LEVEL 108 MMOL/L (98-107); CREATININE FOR GFR 0.86 MG/DL (0.55-1.30); GLOMERULAR FILTRATION RATE > 60.0 (>39); GLUCOSE, FASTING 81 MG/DL (74-106); POTASSIUM SERUM 4.1 MMOL/L (3.5-5.1); SODIUM LEVEL 143 MMOL/L (136-145); TOTAL PROTEIN 6.7 G/DL (5.7-8.2)
[2022-09-28 12:51] LABS: OSMOLALITY SERUM 292 MOSM/KG (280-301)
[2022-09-28 12:52] LABS: THYROID STIMULATING HORMONE 5.182 uIU/ML (0.55-4.78)
[2022-09-28 13:12] LABS: BARBITURATES URINE NEGATIVE (NEGATIVE); BENZODIAZEPINES URINE NEGATIVE (NEGATIVE); CANNABINOIDS URINE NEGATIVE (NEGATIVE); COCAINE METABOLITE URINE NEGATIVE (NEGATIVE); METHADONE URINE NEGATIVE (NEGATIVE); PHENCYCLIDINE URINE NEGATIVE (NEGATIVE)
[2022-09-28 13:13] LABS: AMPHETAMINES LEVEL URINE POSITIVE (NEGATIVE); OPIATES URINE POSITIVE (NEGATIVE)
[2022-09-28 13:30] VITALS: BP 126/60; TEMP 98; O2SAT 92
[2022-09-28] MEDS ORDERED: CEFD300C PO (13:34)
[2022-09-28] MEDS ORDERED: Physical Therapy (13:35)
[2022-09-28 13:48] LABS: LITHIUM LEVEL < 0.10 MMOL/L (1.0-1.20)
== END 2022-09-28 14:00 | disposition home or self-care (01) ==
LOC: M ED 10:41
DX: N39.0 Urinary tract infection, site not specified (principal); I44.4 Left anterior fascicular block; I45.10 Unspecified right bundle-branch block; I25.2 Old myocardial infarction; Z86.79 Personal history of other diseases of the circulatory system; Z86.73 Personal history of transient ischemic attack (TIA), and cerebral infarction without residual deficits; Z88.5 Allergy status to narcotic agent; Z79.83 Long term (current) use of bisphosphonates; Z79.02 Long term (current) use of antithrombotics/antiplatelets; Z79.899 Other long term (current) drug therapy

== ENCOUNTER → 2022-11-14 | Outpatient (CLI) | payer MEDICARE ==
[~2022-11-14] MED LIST changes: +CEFD300C PO; +Physical Therapy
== END ==
LOC: M CARPUL 14:13
PROVIDERS: ATTEND Internal Medicine
DX: I50.32 Chronic diastolic (congestive) heart failure (principal); I08.1 Rheumatic disorders of both mitral and tricuspid valves

== ENCOUNTER → 2023-02-28 | Outpatient (REF) | payer MEDICARE ==
[2023-02-28 19:42] LABS: PERCENT SATURATION 18.1 % (13.2-45.0)
== END ==
LOC: M LAB REF 17:22
PROVIDERS: ATTEND Internal Medicine
DX: D50.9 Iron deficiency anemia, unspecified (principal)

== ENCOUNTER → 2023-06-01 | Outpatient (REF) | payer MEDICARE ==
[2023-06-01 18:35] LABS: PERCENT SATURATION 15.5 % (13.2-45.0)
[2023-06-01 18:40] LABS: FERRITIN 22.7 NG/ML (7.3-270.7)
== END ==
LOC: M LAB REF 17:25
PROVIDERS: ATTEND Internal Medicine
DX: D50.9 Iron deficiency anemia, unspecified (principal)

== ENCOUNTER → 2023-09-24 | Outpatient (CLI) | payer MEDICARE ==
[~2023-09-24] MED LIST changes: +BUPR-597 PO; -BUPR300T92 PO; +FLUO-365 PO; -FLUO20CA22 PO
[2023-09-24 16:25] LABS: CALCIUM LEVEL 9.6 MG/DL (8.3-10.6)
[2023-09-24 16:31] LABS: TOTAL 25(OH) VITAMIN D 21.8 NG/ML (20.0-100.0)
== END ==
LOC: M PLALAB 13:34
PROVIDERS: ATTEND Internal Medicine Endocrinology, Diabetes & Metabolism
DX: E55.9 Vitamin D deficiency, unspecified (principal)

== ENCOUNTER → 2023-12-13 | Outpatient (REF) | payer MEDICARE ==
[2023-12-13 18:33] LABS: PERCENT SATURATION 13.1 % (13.2-45.0)
[2023-12-13 18:35] LABS: FERRITIN 28.4 NG/ML (7.3-270.7)
== END ==
LOC: M LAB REF 16:42
PROVIDERS: ATTEND Internal Medicine
DX: D50.9 Iron deficiency anemia, unspecified (principal)

== ENCOUNTER → 2023-12-14 | Outpatient (CLI) | payer MEDICARE | LOC: M WUC 10:50 | PROVIDERS: ATTEND Internal Medicine | DX: R05.9 Cough, unspecified (principal) ==

== ENCOUNTER 2024-01-27 20:09 | Inpatient (IN) | payer MEDICARE ==
[~2024-01-27] VITALS: Ht 177.8 cm; Wt 83.2 kg
[2024-01-27 21:12] LABS: BASO # 0.1 10^3/uL (0.0-0.2); BASO % 0.5 % (0.0-1.0); EOS % 6.6 % (0.0-3.0); HEMATOCRIT 42.7 % (36.0-47.0); HEMOGLOBIN 14.5 g/dl (12.0-15.5); LYMPH # 1.7 10^3/uL (1.5-5.0); MEAN CORPUSCULAR HEMOGLOBIN 30.6 pg (27.0-33.0); MEAN CORPUSCULAR VOLUME 90.1 fl (80.0-96.0); MONO # 1.2 10^3/uL (0.0-0.8); MONO % 8.2 % (2.0-8.0); NEUTROPHILS # 10.9 10^3/uL (1.5-8.5); NEUTROPHILS % 73.2 % (36.0-66.0); PLATELET COUNT, AUTOMATED 331 10^3/uL (150-450); RED BLOOD COUNT 4.74 10^6/uL (4.00-5.40); WHITE BLOOD COUNT 14.9 10^3/uL (4.0-10.0)
[2024-01-27] MEDS: ACETAMINOPHEN *IV* 1,000 MG in IV 1 EA IV ONE (21:15)
[2024-01-27 21:19] LABS: ERYTHROCYTE SEDIMENTATION RATE 42 mm/hr (0-30)
[2024-01-27] MEDS ORDERED: ISOVUE-370 76% 100ML VIAL As Ordered ONE (21:28)
[2024-01-27 21:37] LABS: MAGNESIUM LEVEL 1.7 MG/DL (1.8-2.4); POTASSIUM SERUM 3.1 MMOL/L (3.5-5.1)
[2024-01-27 21:40] LABS: LITHIUM LEVEL < 0.10 MMOL/L (1.0-1.20)
[2024-01-27] MEDS: POTASSIUM CHLORIDE 10MEQ SR TABLET PO ONE (21:55)
[2024-01-27] MEDS: dexAMETHasone 20MG/5ML VIAL IV ONE (21:55)
[2024-01-27] MEDS: MAG SULF 1GM/100ML (MAG RUN) 1 GM in IV 1 EA IV ONE (21:55)
[2024-01-27] MEDS: AMPICILLIN SOD/SULBACTAM SOD 1.5 GM in DEXTROSE 5% (D5W) ADV/MINI-BAG 50 ML IV ONE (23:22)
[2024-01-28] VITALS (8 sets, daily range): BP systolic 119–170; BP diastolic 62–91; TEMP 97–97.5; O2SAT 81–96
[2024-01-28] MEDS: LIDOCAINE W/EPINEPHRINE 1% 20ML VIAL As Ordered ONE (00:39)
[2024-01-28] MEDS ORDERED: ACETAMINOPHEN 1000MG/100ML IV BAG As Ordered ONE (01:11)
[2024-01-28] MEDS ORDERED: ROCURONIUM BROMIDE 50MG/5ML VIAL As Ordered ONE (01:11)
[2024-01-28] MEDS ORDERED: SUGAMMADEX SODIUM 500 MG/5 ML VIAL (BRIDION) As Ordered ONE (01:11)
[2024-01-28] MEDS ORDERED: MIDAZOLAM INJ 2MG/2ML VIAL As Ordered ONE (01:11)
[2024-01-28] MEDS ORDERED: fentaNYL 100 MCG/2 ML INJECTION As Ordered ONE (01:11)
[2024-01-28] MEDS ORDERED: propofoL 200 MG/20 ML VIAL As Ordered ONE (01:11)
[2024-01-28] MEDS ORDERED: METOCLOPRAMIDE INJ 10MG/2ML VIAL As Ordered ONE (01:11)
[2024-01-28] MEDS ORDERED: LIDOCAINE 2% 100MG/5ML SDV (FOR ANES.) As Ordered ONE (01:11)
[2024-01-28] MEDS ORDERED: ONDANSETRON 4MG 2ML VIAL As Ordered ONE (01:11)
[2024-01-28] MEDS ORDERED: MOM 30ML SUSPENSION UDC PO PRN (01:45)
[2024-01-28] MEDS ORDERED: AMPICILLIN SOD/SULBACTAM SOD 1.5 GM in DEXTROSE 5% (D5W) ADV/MINI-BAG 50 ML IV SCH (01:45)
[2024-01-28] MEDS ORDERED: ACETAMINOPHEN 325 MG TAB PO PRN (01:45)
[2024-01-28] MEDS ORDERED: MORPHINE 4 MG/ML 1ML VIAL IV PRN (02:00)
[2024-01-28] MEDS: KCL 10MEQ/100ML SWI (KRUN) 10 MEQ in IV 1 EA IV ONE (02:54)
[2024-01-28 03:15] LABS: PROCALCITONIN <0.04 ng/ml
[2024-01-28 03:18] LABS: BLOOD UREA NITROGEN 11 MG/DL (9-23); CALCIUM LEVEL 9.4 MG/DL (8.3-10.6); CARBON DIOXIDE LEVEL 20 MMOL/L (20-31); CHLORIDE LEVEL 110 MMOL/L (98-107); CREATININE FOR GFR 0.72 MG/DL (0.55-1.30); GLOMERULAR FILTRATION RATE > 60.0 (>39); GLUCOSE, FASTING 160 MG/DL (74-106); POTASSIUM SERUM 3.8 MMOL/L (3.5-5.1); SODIUM LEVEL 142 MMOL/L (136-145)
[2024-01-28] MEDS ORDERED: MAG SULF 1GM/100ML (MAG RUN) 1 GM in IV 1 EA IV ONE (04:00)
[2024-01-28] MEDS: PERCOCET 5MG/325MG TAB PO PRN (05:06)
[2024-01-28] MEDS: MAG SULF 1GM/100ML (MAG RUN) 1 GM in IV 1 EA IV ONE (05:06)
[2024-01-28] MEDS ORDERED: SALA1TAB PO (05:53)
[2024-01-28] MEDS ORDERED: ITRA10SO (05:53)
[2024-01-28] MEDS ORDERED: NYST-38 PO (05:53)
[2024-01-28] MEDS ORDERED: OXYB10TA23 PO (05:53)
[2024-01-28] MEDS ORDERED: FLUC150T9 PO (05:53)
[2024-01-28] MEDS ORDERED: PANT40TA29 PO (05:53)
[2024-01-28] MEDS ORDERED: ATOR40TA75 PO (05:53)
[2024-01-28] MEDS ORDERED: LEVO175T2 PO (05:53)
[2024-01-28] MEDS ORDERED: HOME MED LIST COMPLETE! XX SCH (05:55)
[2024-01-28] MEDS: AMPICILLIN SOD/SULBACTAM SOD 3 GM in SODIUM CHLORIDE 0.9% 100ML ADD 100 ML IV SCH (05:57)
[2024-01-28] MEDS: LEVOTHYROXINE 75MCG TABLET (0.075MG) PO SCH (06:25)
[2024-01-28] MEDS: LEVOTHYROXINE 100MCG TABLET (0.1MG) PO SCH (06:25)
[2024-01-28 06:37] LABS: HEMATOCRIT 39.9 % (36.0-47.0); HEMOGLOBIN 13.6 g/dl (12.0-15.5); MEAN CORPUSCULAR HEMOGLOBIN 30.7 pg (27.0-33.0); MEAN CORPUSCULAR HGB CONC 34.1 g/dl (32.0-36.5); MEAN CORPUSCULAR VOLUME 90.1 fl (80.0-96.0); PLATELET COUNT, AUTOMATED 294 10^3/uL (150-450); RED BLOOD COUNT 4.43 10^6/uL (4.00-5.40); WHITE BLOOD COUNT 12.2 10^3/uL (4.0-10.0)
[2024-01-28 07:07] LABS: ALBUMIN 3.1 G/DL (3.2-5.2); ALKALINE PHOSPHATASE 170 U/L (35-104); ALT/SGPT 15 U/L (7.0-40); AST/SGOT < 8 U/L (<34); BILIRUBIN,TOTAL 0.3 MG/DL (0.3-1.2); BLOOD UREA NITROGEN 13 MG/DL (9-23); CALCIUM LEVEL 9.6 MG/DL (8.3-10.6); CARBON DIOXIDE LEVEL 21 MMOL/L (20-31); CHLORIDE LEVEL 111 MMOL/L (98-107); CREATININE FOR GFR 0.67 MG/DL (0.55-1.30); GLOMERULAR FILTRATION RATE > 60.0 (>39); GLUCOSE, FASTING 165 MG/DL (74-106); POTASSIUM SERUM 3.9 MMOL/L (3.5-5.1); SODIUM LEVEL 143 MMOL/L (136-145); TOTAL PROTEIN 6.2 G/DL (5.7-8.2)
[2024-01-28] MEDS ORDERED: ENOXAPARIN 40MG/0.4ML SYRINGE (J1650 PER 10MG) SC SCH (09:00)
[2024-01-28] MEDS: CLOPIDOGREL 75 MG TAB PO SCH (09:12)
[2024-01-28] MEDS: HEPARIN SOD (PORCINE) 5000UNITS/ML 1ML VIAL/SYRINGE SQ SCH (09:14)
[2024-01-28] MEDS: UNRESOLVED CLARIFICATION ENTRY XX SCH (20:11)
[2024-01-28] MEDS: NORCO, ANEXSIA 5/325MG TABLET (HYDROcodone/ACETAMINOPHEN) PO PRN (21:30)
[2024-01-28] MEDS: amLODIPine 5 MG TAB PO SCH (21:32)
[2024-01-29 04:00] VITALS: BP 134/62; TEMP 97.6; O2SAT 96
[2024-01-29 06:33] LABS: HEMATOCRIT 36.3 % (36.0-47.0); HEMOGLOBIN 12.3 g/dl (12.0-15.5); MEAN CORPUSCULAR HEMOGLOBIN 30.4 pg (27.0-33.0); MEAN CORPUSCULAR HGB CONC 33.9 g/dl (32.0-36.5); MEAN CORPUSCULAR VOLUME 89.9 fl (80.0-96.0); PLATELET COUNT, AUTOMATED 305 10^3/uL (150-450); RED BLOOD COUNT 4.04 10^6/uL (4.00-5.40); WHITE BLOOD COUNT 16.7 10^3/uL (4.0-10.0)
[2024-01-29 06:53] LABS: ALBUMIN 2.7 G/DL (3.2-5.2); BLOOD UREA NITROGEN 18 MG/DL (9-23); CALCIUM LEVEL 9.7 MG/DL (8.3-10.6); CARBON DIOXIDE LEVEL 24 MMOL/L (20-31); CHLORIDE LEVEL 111 MMOL/L (98-107); CREATININE FOR GFR 0.73 MG/DL (0.55-1.30); GLOMERULAR FILTRATION RATE > 60.0 (>39); GLUCOSE, FASTING 112 MG/DL (74-106); PHOSPHORUS LEVEL 3.5 MG/DL (2.4-5.1); POTASSIUM SERUM 3.6 MMOL/L (3.5-5.1); SODIUM LEVEL 144 MMOL/L (136-145)
[2024-01-29] MEDS: FLUoxetine 20MG CAP PO SCH (09:30)
[2024-01-29] MEDS: buPROPion **XL** TABLET 150MG (WELLBUTRIN XL) PO SCH (09:30)
[2024-01-29] MEDS: oxyBUTYnin *DITROPAN XL* 5 MG TABCR PO SCH (09:37)
[2024-01-29] MEDS: PANTOPRAZOLE 40MG TAB (PROTONIX) PO SCH (09:37)
[2024-01-29] MEDS: AMPHETAMINE/DEXTROAMPHETAMINE 5 MG *ER* CAPSULE (ADDERALL XR) PO SCH (11:22)
[2024-01-29 12:00] VITALS: BP 123/74; TEMP 97.2; O2SAT 94
[2024-01-29 19:48] VITALS: BP 123/74; TEMP 97.7; O2SAT 95
[2024-01-29] MEDS: ATORVASTATIN 20 MG TAB PO SCH (20:17)
[2024-01-30 04:00] VITALS: BP 126/74; TEMP 97.5; O2SAT 96
[2024-01-30 06:12] LABS: HEMATOCRIT 37.4 % (36.0-47.0); HEMOGLOBIN 12.6 g/dl (12.0-15.5); MEAN CORPUSCULAR HEMOGLOBIN 30.7 pg (27.0-33.0); MEAN CORPUSCULAR HGB CONC 33.7 g/dl (32.0-36.5); PLATELET COUNT, AUTOMATED 308 10^3/uL (150-450); RED BLOOD COUNT 4.11 10^6/uL (4.00-5.40); WHITE BLOOD COUNT 11.9 10^3/uL (4.0-10.0)
[2024-01-30 06:37] LABS: ALBUMIN 2.6 G/DL (3.2-5.2); BLOOD UREA NITROGEN 19 MG/DL (9-23); CALCIUM LEVEL 9.7 MG/DL (8.3-10.6); CARBON DIOXIDE LEVEL 27 MMOL/L (20-31); CHLORIDE LEVEL 110 MMOL/L (98-107); CREATININE FOR GFR 0.68 MG/DL (0.55-1.30); GLOMERULAR FILTRATION RATE > 60.0 (>39); GLUCOSE, FASTING 104 MG/DL (74-106); PHOSPHORUS LEVEL 3.4 MG/DL (2.4-5.1); POTASSIUM SERUM 3.6 MMOL/L (3.5-5.1); SODIUM LEVEL 145 MMOL/L (136-145)
[2024-01-30] MEDS: AMPHETAMINE/DEXTROAMPHETAMINE 5 MG *ER* CAPSULE (ADDERALL XR) PO SCH (08:17)
[2024-01-30 12:00] VITALS: BP 135/85; TEMP 97; O2SAT 96
[2024-01-30] MEDS: KETOROLAC 30 MG/ML 1ML VIAL IV PRN (16:31)
[2024-01-30 21:00] VITALS: BP 141/68
[2024-01-30 22:05] VITALS: BP 141/68; TEMP 97
[2024-01-31 04:49] VITALS: BP 144/76; TEMP 97.3
[2024-01-31 07:24] LABS: HEMATOCRIT 37.6 % (36.0-47.0); HEMOGLOBIN 12.9 g/dl (12.0-15.5); MEAN CORPUSCULAR HGB CONC 34.3 g/dl (32.0-36.5); MEAN CORPUSCULAR VOLUME 90.4 fl (80.0-96.0); PLATELET COUNT, AUTOMATED 309 10^3/uL (150-450); RED BLOOD COUNT 4.16 10^6/uL (4.00-5.40); WHITE BLOOD COUNT 8.9 10^3/uL (4.0-10.0)
[2024-01-31 07:51] LABS: ALBUMIN 2.6 G/DL (3.2-5.2); BLOOD UREA NITROGEN 21 MG/DL (9-23); CALCIUM LEVEL 9.4 MG/DL (8.3-10.6); CARBON DIOXIDE LEVEL 27 MMOL/L (20-31); CHLORIDE LEVEL 109 MMOL/L (98-107); CREATININE FOR GFR 0.68 MG/DL (0.55-1.30); GLOMERULAR FILTRATION RATE > 60.0 (>39); GLUCOSE, FASTING 113 MG/DL (74-106); PHOSPHORUS LEVEL 3.5 MG/DL (2.4-5.1); POTASSIUM SERUM 3.6 MMOL/L (3.5-5.1); SODIUM LEVEL 143 MMOL/L (136-145)
[2024-01-31 12:18] VITALS: BP 158/86; TEMP 97.5; O2SAT 96
[2024-01-31] MEDS ORDERED: AMOX875T2 PO (12:35)
[2024-01-31] MEDS ORDERED: PROBCAP14 PO (12:35)
[2024-01-31] MEDS ORDERED: KETO10TAB PO (13:27)
== END 2024-01-31 14:05 | disposition home or self-care (01) | DRG 854 ==
LOC: M ED 20:09 → M ED INP 01-28 01:44 → M MS5PR 01-28 02:38
PROVIDERS: ADMIT Student in an Organized Health Care Education/Training Program; ATTEND Internal Medicine Nephrology
PROC: 0W960ZZ Drainage of Neck, Open Approach (ICD-10-PCS; principal; 2024-01-28 00:16)
DX: A41.9 Sepsis, unspecified organism (principal); K12.2 Cellulitis and abscess of mouth; I10 Essential (primary) hypertension; M35.00 Sjogren syndrome, unspecified; E03.9 Hypothyroidism, unspecified; F90.9 Attention-deficit hyperactivity disorder, unspecified type; F31.9 Bipolar disorder, unspecified; F41.9 Anxiety disorder, unspecified; K02.9 Dental caries, unspecified; R49.0 Dysphonia; G47.00 Insomnia, unspecified; K11.20 Sialoadenitis, unspecified; E87.6 Hypokalemia; K21.9 Gastro-esophageal reflux disease without esophagitis; K44.9 Diaphragmatic hernia without obstruction or gangrene; R32 Unspecified urinary incontinence; M54.9 Dorsalgia, unspecified; R13.10 Dysphagia, unspecified; G89.29 Other chronic pain; Z86.73 Personal history of transient ischemic attack (TIA), and cerebral infarction without residual deficits; Z90.49 Acquired absence of other specified parts of digestive tract; Z90.79 Acquired absence of other genital organ(s); Z87.891 Personal history of nicotine dependence; E83.42 Hypomagnesemia; Z79.899 Other long term (current) drug therapy; Z79.890 Hormone replacement therapy; Z88.5 Allergy status to narcotic agent

== ENCOUNTER → 2024-02-15 | Outpatient (REF) | payer MEDICARE ==
[~2024-02-15] MED LIST changes: +AMOX875T2 PO; +ATOR40TA75 PO; +FLUC150T9 PO; +ITRA10SO; +KETO10TAB PO; +NYST-38 PO; +OXYB10TA23 PO; +PROBCAP14 PO; +SALA1TAB PO
[2024-02-18 11:24] LABS: SSA SJOGRENS A <1.0 NEG AI (<1.0 NEG); SSB SJOGRENS B <1.0 NEG AI (<1.0 NEG)
== END ==
LOC: M LAB REF 16:37
PROVIDERS: ATTEND Internal Medicine
DX: H16.229 Keratoconjunctivitis sicca, not specified as Sjogren's, unspecified eye (principal)

== ENCOUNTER → 2024-03-13 | Outpatient (CLI) | payer MEDICARE | LOC: M PLARAD 15:11 | PROVIDERS: ATTEND Internal Medicine | DX: M51.26 Other intervertebral disc displacement, lumbar region (principal) ==

== ENCOUNTER → 2024-05-09 | Outpatient (CLI) | payer MEDICARE ==
[2024-05-09 14:29] LABS: BASO # 0.1 10^3/uL (0.0-0.2); EOS # 0.3 10^3/uL (0.0-0.5); EOS % 3.9 % (0.0-3.0); HEMATOCRIT 43.9 % (36.0-47.0); HEMOGLOBIN 14.3 g/dl (12.0-15.5); LYMPH # 1.6 10^3/uL (1.5-5.0); LYMPH % 22.6 % (24.0-44.0); MEAN CORPUSCULAR HEMOGLOBIN 30.8 pg (27.0-33.0); MEAN CORPUSCULAR HGB CONC 32.6 g/dl (32.0-36.5); MEAN CORPUSCULAR VOLUME 94.6 fl (80.0-96.0); MONO # 0.4 10^3/uL (0.0-0.8); MONO % 6.1 % (2.0-8.0); NEUTROPHILS # 4.8 10^3/uL (1.5-8.5); NEUTROPHILS % 65.7 % (36.0-66.0); PLATELET COUNT, AUTOMATED 305 10^3/uL (150-450); RED BLOOD COUNT 4.64 10^6/uL (4.00-5.40); WHITE BLOOD COUNT 7.3 10^3/uL (4.0-10.0)
[2024-05-09 14:30] LABS: ALBUMIN 3.7 G/DL (3.2-5.2); ALKALINE PHOSPHATASE 166 U/L (35-104); ALT/SGPT 21 U/L (7.0-40); AST/SGOT 13 U/L (<34); BILIRUBIN,TOTAL 0.4 MG/DL (0.3-1.2); BLOOD UREA NITROGEN 14 MG/DL (9-23); C REACTIVE PROTEIN QUANTITATIV < 0.50 MG/DL (<1.0); CALCIUM LEVEL 9.5 MG/DL (8.3-10.6); CARBON DIOXIDE LEVEL 26 MMOL/L (20-31); CHLORIDE LEVEL 108 MMOL/L (98-107); CREATININE FOR GFR 0.88 MG/DL (0.55-1.30); GLOMERULAR FILTRATION RATE > 60.0 (>39); GLUCOSE, FASTING 100 MG/DL (74-106); POTASSIUM SERUM 4.2 MMOL/L (3.5-5.1); RHEUMATOID FACTOR QUANT < 3.5 IU/ML (<14); SODIUM LEVEL 144 MMOL/L (136-145); TOTAL PROTEIN 6.8 G/DL (5.7-8.2)
[2024-05-09 14:43] LABS: ERYTHROCYTE SEDIMENTATION RATE 21 mm/hr (0-30)
[2024-05-12 15:42] LABS: ANGIOTENSIN 1 CONVERTING ENZYM 28 U/L (9-67)
[2024-05-12 15:47] LABS: ANA SCREEN, IFA NEGATIVE (NEGATIVE)
[2024-05-13 11:42] LABS: QuantiFERON-TB Gold Plus NEGATIVE (NEGATIVE)
[2024-05-13 16:47] LABS: IgG P18 AB NON-REACTIVE; IgG P23 AB NON-REACTIVE; IgG P28 AB NON-REACTIVE; IgG P30 AB NON-REACTIVE; IgG P39 AB NON-REACTIVE; IgG P41 AB REACTIVE; IgG P45 AB NON-REACTIVE; IgG P58 AB NON-REACTIVE; IgG P66 AB NON-REACTIVE; IgG P93 AB NON-REACTIVE; IgM P23 AB NON-REACTIVE; IgM P39 AB NON-REACTIVE; IgM P41 AB NON-REACTIVE; LYME IgG WB INTERPRETATION NEGATIVE (NEGATIVE); LYME IgM WB INTERPRETATION NEGATIVE (NEGATIVE)
== END ==
LOC: M PLALAB 05-07 13:33
PROVIDERS: ATTEND Ophthalmology
DX: Z13.0 Encounter for screening for diseases of the blood and blood-forming organs and certain disorders involving the immune mechanism (principal)

== ENCOUNTER → 2024-09-02 | Outpatient (CLI) | payer MEDICARE ==
[~2024-09-02] MED LIST changes: -BUPR-597 PO; +BUPR-766 PO; -PRAV40TA2; +PRAV40TA85
== END ==
LOC: M WHC 12:49
PROVIDERS: ATTEND Physician Assistant
DX: Z13.820 Encounter for screening for osteoporosis (principal)

== ENCOUNTER → 2024-10-20 | Outpatient (REF) | payer MEDICARE | LOC: M LAB REF 17:26 | PROVIDERS: ATTEND Internal Medicine | DX: E83.52 Hypercalcemia (principal) ==

== ENCOUNTER → 2025-01-27 | Outpatient (REF) | payer MEDICARE ==
[~2025-01-27] MED LIST changes: -PROC5TAB57 PO; +PROC5TAB81 PO
[2025-01-27 18:13] LABS: IRON (FE) 51.0 UG/DL (50-170)
[2025-01-27 18:14] LABS: PERCENT SATURATION 13.1 % (13.2-45.0)
== END ==
LOC: M LAB REF 17:30
PROVIDERS: ATTEND Internal Medicine
DX: R53.83 Other fatigue (principal); D50.9 Iron deficiency anemia, unspecified